=== PATIENT | male | born 1950 | race African-American/Black ===

== ENCOUNTER → 2020-08-10 01:22 | Outpatient (CLI) | payer MEDICARE, SELFPAY ==
[2020-08-10 19:26] LABS: SARS-CoV-2 RNA PCR Negative
== END ==
PROVIDERS: PCP Hospitalist; Visit Provider Specialist
DX: Z01.812 Encounter for preprocedural laboratory examination (principal); Z20.822 Contact with and (suspected) exposure to COVID-19
CPT/HCPCS: C9803; U0003; U0005

== ENCOUNTER 2020-08-12 02:13 | Day surgery (SDC) | payer MEDICARE, SELFPAY ==
[2020-08-11 16:08] VITALS: BMI 29.9
[2020-08-12] VITALS (7 sets, daily range): BP systolic 103–120; BP diastolic 78–96; PULSE 53–65; RESP 10–18; TEMP 36–36.1; O2SAT 95–99; BMI 29.6
[2020-08-12 07:38] LABS: Basophils Percent Auto 0.2 % (0.2-1.2); Eosinophils Absolute Auto 0.2 K/mm3 (0-0.3); Eosinophils Percent Auto 2.2 % (0-4.4); Hematocrit 48.3 % (42.0-52.0); Hemoglobin 16.5 g/dL (14.0-18.0); Immature Granulocyte Absolute 0.02 K/mm3 (0.00-0.031); Immature Granulocyte Percent A 0.2 % (0-0.5); Lymphocytes Absolute Auto 1.43 K/mm3 (0.9-3.2); Lymphocytes Percent Auto 17.4 % (18.3-44.2); Mean Corpuscular HGB Conc 34.2 g/dl (32-36); Mean Corpuscular Hemoglobin 31.4 pg (26-34); Mean Corpuscular Volume 91.8 fl (80-100); Mean Platelet Volume 10.2 fl (7.4-10.4); Monocytes Absolute Auto 0.7 K/mm3 (0.1-0.6); Neutrophils Absolute Auto 5.9 K/mm3 (1.3-6.7); Platelet Count Result 182 k/mm3 (150-375); Red Blood Count 5.26 M/mm3 (4.6-6.20); Red Cell Distribution Width 12.5 % (11.5-14.5); White Blood Count 8.2 K/mm3 (4.5-10.0)
[2020-08-12 07:49] LABS: Anion Gap 8 mmol/L (8-16); Blood Urea Nitrogen 12 mg/dL (9-20); Calcium 9.5 mg/dL (8.4-10.2); Carbon Dioxide 28 mmol/L (22-30); Chloride 104 mmol/L (98-107); Estimated CRCL calculation 91 ml/min; Estimated Glomerular Filt Rate > 60; Glucose 116 mg/dL (75-110); Potassium 3.9 mmol/L (3.4-5.0); Sodium 140 mmol/L (137-145)
--- NOTE | 2020-08-12 09:20 | WPDMODSED ---
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 Procedure to be performed/Plan: Left heart catheterization Allergies Allergy/AdvReac Type Severity Reaction Status Date / Time No Known Allergies Allergy Mild Unverified 12/29/09 11:35 Home Medications Medication Instructions Recorded Confirmed Type aspirin 81 mg PO DAILY 08/11/20 08/11/20 History atorvastatin 20 mg PO DAILY 08/11/20 08/11/20 History carvedilol 6.25 mg PO BID 08/11/20 08/11/20 History lisinopril-hydrochlorothiazide 1 tablet PO DAILY 08/11/20 08/11/20 History Current Medications: Active Medications Sodium Chloride (Normal Saline Iv) 500 mls @ 100 mls/hr IV CONT .Q5H [facility] Sedation/Anesthesia: No previous sedation/anesthesia problems (including family history). [facility] Social History Social History Smoking status: Never smoker Alcohol intake: current Substance use type: does not use Living arrangements: alone Gender identity (if verbalized by the patient): Male Mod Sed Physical Exam Physical Exam Pre Procedural Exam: Normal: Appearance, Neck, Throat, Airway, Lungs, Heart Size, Heart Rate, Heart Rhythm, Neuro Exam and Extremities Hours since solid foods: 12 Hours since liquid intake: 12 Internal Medicine - PN: Obj Da Vital Signs Vital Signs: Vital Signs - 24 hr 08/12/20 07:23 Temperature 36.0 C L Pulse Rate 65 Respiratory Rate 10 L Blood Pressure 119/96 H Pulse Oximetry 97 Meds/Results Medications: Active Medications Generic Name Dose Route Start Last Admin Trade Name Freq PRN Reason Stop Dose Admin Sodium Chloride 500 mls @ 100 mls/hr 08/12/20 07:00 Normal Saline Iv IV CONT .Q5H [facility] Labs CBC & Chem 7: 08/12/20 07:30 08/12/20 07:30 Labs: Laboratory Results - last 24 hr 08/12/20 08/12/20 07:30 07:30 WBC 8.2 RBC 5.26 Hgb 16.5 Hct 48.3 MCV 91.8 MCH 31.4 MCHC 34.2 RDW 12.5 Plt Count 182 MPV 10.2 Immature Gran % (Auto) 0.2 Neut % (Auto) 72.0 Lymph % (Auto) 17.4 L Pike % (Auto) 8.0 Eos % (Auto) 2.2 Baso % (Auto) 0.2 Lymph # (Auto) 1.43 Pike # (Auto) 0.7 H Eos # (Auto) 0.2 Baso # (Auto) 0.0 Abs Immat Gran (auto) 0.02 Absolute Neuts (auto) 5.9 Absolute Nucleated RBC 0.0 Nucleated RBC % 0.0 Sodium 140 Potassium 3.9 Chloride 104 Carbon Dioxide 28 Anion Gap 8 BUN 12 Creatinine 0.80 Estim Creat Clear Calc 91 Estimated GFR > 60 Glucose 116 H Calcium 9.5 ASA Classification/Sedation ASA Classification/Sedation ASA Class: II Emergent: No Risks: Risks, benefits and alternatives explained and patient/family accepted plan for sedation. Patient re-evaluated immediately prior to sedation.
--- NOTE | 2020-08-12 11:47 | WPDCARDPROC ---
Cardiac Cath Procedure Note Date of procedure:: 08/12/20 Performing physician:: Barrington Cordero MD Indication:: chest pain Brief clinical history:: this is a 70-year-old man without previous history of coronary disease. He does have a history of aortic root dilation. He had a nuclear stress test as an outpatient that was negative. Despite this because of ongoing symptoms and angiogram has now been recommended. Procedure Procedure performed:: Left ventriculogram coronary angiogram Angio-Seal to right femoral artery Sedation/Medication given:: fentanyl 50 mg Versed 2 mg case start time 11:25 a.m. case end time 11:45 a.m. sedation bySteph Renee RN, trained observer Access site:: right femoral artery Estimated blood loss:: 10-15 cc Procedure note:: patient was brought to the cardiac catheterization lab in the postabsorptive state where the right femoral triangle was prepared and draped in the usual fashion. Anesthesia was provided with 1% lidocaine infiltrated locally. Using the modified Seldinger technique a 5 Iraqi sheath was placed into the right common femoral artery. A left heart catheterization was then carried out. A 5 Iraqi angled pigtail catheter was used to document left-sided hemodynamics and to injected LV g in the are AO projection. After this I advanced a 5 Iraqi FL4 catheter into the aortic root but as it was dilated with not satisfactorily engage the left coronary artery. This was withdrawn and replaced with a 5 Iraqi FL 5 catheter which engaged the left coronary artery nicely for angiography. Following this the right coronary was engaged and injected using a standard 5 Iraqi JR4 catheter. The cine angiograms were then reviewed and the case was terminated. An angiogram was done of the femoral artery through the sheath after which a 6 Iraqi Angio-Seal device was deployed at the site of the arterial puncture with a good hemostatic result. The patient left the mobile lab technician with no evidence of any procedural complications and no sign of a groin hematoma. Findings:: Hemodynamics: Central aortic pressure was 104 over 68 left ventricle 104 over 0 end-diastolic pressure 6 there is no gradient on pullback across the aortic valve. Left ventricle: The LV is normal in size. There was a lot of ventricular irritability during the ventricular injection but when that was finished the ejection fraction appears to be 65-70%, somewhat hyperdynamic in appearance. The left main coronary artery is medium in caliber and nicely patent the left anterior descending is a medium caliber vessel extending down to and around the apex the LAD is smooth and angiographically normal. The mid to distal portion of the LAD is rather tortuous. They 2nd diagonal branch of the LAD has a proximal area of atherosclerotic stenosis of about 60-70%. Circumflex is a large caliber vessel giving rise to the marginal branches and a posterior branch. Circumflex is smooth and angiographically normal. The right coronary artery is large in caliber and dominant to the posterior circulation. It is tortuous proximally. The right coronary artery is free of disease. Conclusion:: 1. Right coronary dominant circulation with modest coronary disease involving 60-70% stenosis of the 2nd diagonal branch of the LAD. 2. Vigorous, somewhat hyperdynamic appearing left ventricular systolic function 3. based on this data patient's chest pain syndrome does not appear to be related to myocardial ischemia especially in the face of a normal stress test as well 4. Angio-Seal to right femoral artery 5. dilated ascending aorta requiring use of a JL5 catheter to engage the left coronary ostium Barrington Cordero MD [facility]
== END 2020-08-12 14:50 | disposition home or self-care (01) ==
PROVIDERS: PCP Hospitalist; Visit Provider Specialist
PROC: 4A023N7 Measurement of Cardiac Sampling and Pressure, Left Heart, Percutaneous Approach (ICD-10-PCS; CPT 93452; principal; 2020-08-12 08:30)
DX: R07.9 Chest pain, unspecified (principal); I25.10 Atherosclerotic heart disease of native coronary artery without angina pectoris; I10 Essential (primary) hypertension; E78.5 Hyperlipidemia, unspecified; I71.2 Thoracic aortic aneurysm, without rupture; Z79.82 Long term (current) use of aspirin
CPT/HCPCS: 36415; 80048; 85025; 93458; C1760; C1887; C1894; C9803; G0269; J1644; J2250; J3010; J7040; U0003; U0005

== ENCOUNTER 2021-02-10 13:02 | Emergency (ER) | payer MEDICARE, SELFPAY ==
--- NOTE | ~2021-02-10 | XR_ITS ---
XR knee LT 3V 02/10/2021 15:05 Indication: Left knee pain Procedure: 3 views left knee Comparison: No prior studies for comparison. Findings: There is moderate tricompartment osteoarthritis, most advanced in the patellofemoral compar tment. No acute fracture, subluxation or dislocation. No significant joint effusion. No foreign james s. Impression: 1: No acute fracture. Reviewed, dictated and finalized at location A. ER Impression: 1: No acute fracture.
--- NOTE | ~2021-02-10 | XR_ITS ---
XR wrist RT 2V 02/10/2021 15:05 Indication: Right wrist pain after fall Procedure: 2 views right wrist Comparison: No prior studies for comparison. Findings: There is an old ulnar styloid fracture. Mild polyarticular osteoarthritis. Osteopenia. No a cute fracture, subluxation or dislocation. No foreign bodies. No focal soft tissue abnormality. Impression: 1: No acute fracture. Reviewed, dictated and finalized at location A. [employer] Impression: 1: No acute fracture.
--- NOTE | ~2021-02-10 | XR_ITS ---
XR knee RT 3V 02/10/2021 15:05 Indication: Right knee pain Procedure: 3 views right knee Comparison: No prior studies for comparison. Findings: There is osteoarthritis of the right knee, most advanced in the patellofemoral compartment. Small joint effusion. No acute fracture or traumatic malalignment. Impression: 1: No acute fracture. 2: Small joint effusion. 3: Moderate osteoarthritis. Reviewed, dictated and finalized at location A. [facility] OF RADIOLOGY Impression: 1: No acute fracture. 2: Small joint effusion. 3: Moderate osteoarthritis.
[2021-02-10 13:12] VITALS: BP 140/93; PULSE 80; RESP 16; TEMP 36.4; O2SAT 100
--- NOTE | 2021-02-10 15:56 | ED.FALL ---
HPI - Fall General Chief Complaint: Fall Stated Complaint: fall Time Seen by Provider: 02/10/21 14:41 Source: patient History of Present Illness HPI Narrative: Patient presents after a fall. Patient reports he was walking around the store when he tripped over a box. He reports he fell to his knees and onto his right shoulder. Reports his primary area of pain is on his right knee. He also notes increased swelling to the area so he came to the ER for evaluation. His knee is achy, constant, worse with walking around, no radiation. Pain to his right wrist he denies any focal numbness or weakness denies striking his head denies any loss of consciousness denies use of blood thinners Related Data Home Medications Medication Instructions Recorded Confirmed aspirin 81 mg PO DAILY 08/11/20 08/11/20 atorvastatin 20 mg PO DAILY 08/11/20 08/11/20 carvedilol 6.25 mg PO BID 08/11/20 08/11/20 lisinopril-hydrochlorothiazide 1 tablet PO DAILY 08/11/20 08/11/20 Allergies Allergy/AdvReac Type Severity Reaction Status Date / Time No Known Allergies Allergy Mild Unverified 12/29/09 11:35 Review of Systems Review of Systems: CONSTITUTIONAL: Denies fever, chills, or sweats. EYES: Denies visual changes, redness, or discharge. ENT: Denies rhinorrhea, congestion, sore throat, or otalgia. CARDIOVASCULAR: Denies chest pain, palpitations, or edema. RESPIRATORY: Denies cough or dyspnea. GASTROINTESTINAL: Denies abdominal pain, nausea, vomiting, or diarrhea. GENITOURINARY: Denies dysuria or hematuria. SKIN: Denies rash or itching. MUSCULOSKELETAL: Denies back pain, or myalgia. NEUROLOGIC: Denies headache, numbness, dizziness, or weakness. PSYCHIATRIC: Denies anxiety or depression. All systems reviewed & are unremarkable except as noted in HPI and below PMFSH Past Medical History Medical History (Updated 02/10/21 @ 16:04 by Dmitriy Humphries MD) HTN (hypertension) Social History Social History Smoking status: Never smoker Alcohol intake: current Substance use type: does not use Gender identity (if verbalized by the patient): Male Exam Narrative: GENERAL: Well-appearing, well-nourished, and in no acute distress. HEAD: Normocephalic, atraumatic. EYES: PERRLA and EOMI. ENT: Nares clear, no rhinorrhea or epistaxis. Mucous membranes moist. NECK: Supple. No masses. No JVD EXTREMITIES: Range of motion of the right knee limited by pain and edema. There is mild diffuse edema to the right knee there is no focal bony tenderness there is no obvious deformity there is no laxity with valgus varus stress anterior posterior drawer negative. Left knee with mild diffuse tenderness minimal edema no laxity with valgus and varus stress no laxity with anterior posterior drawer. There is mild edema on the dorsal aspect of the right proximal hand there is no snuffbox tenderness there is no limited range of motion to the hand or the wrist is less than 2-second cap refill in the bilateral lower extremities and on the right upper extremity. Sensation intact light touch in bilateral lower extremities and right upper extremity SKIN: Warm, dry, no rash. NEURO: No focal deficits. Alert and oriented x3. PSYCH: Normal mood and affect. Course Reevaluation(s) Reevaluation #1: Results and plan reviewed with patient. Patient comfortable with outpatient plan. Date: 02/10/21 Time: 16:02 Vital Signs Vital signs: Vital Signs Temperature 36.4 C 02/10/21 13:12 Pulse Rate 80 02/10/21 13:12 Respiratory Rate 16 02/10/21 13:12 Blood Pressure 140/93 H 02/10/21 13:12 Pulse Oximetry 100 02/10/21 13:12 Temperature 36.4 C 02/10/21 13:12 Pulse Rate 80 02/10/21 13:12 Respiratory Rate 16 02/10/21 13:12 Blood Pressure 140/93 H 02/10/21 13:12 Pulse Oximetry 100 02/10/21 13:12 MDM - Fall MDM Narrative Medical decision making narrative: H&P as above, vss, pt looks clinically well, exam with e
== END 2021-02-10 16:15 | disposition home or self-care (01) ==
PROVIDERS: Emergency Provider Emergency Medicine; PCP Hospitalist
DX: S80.01XA Contusion of right knee, initial encounter (principal); S63.501A Unspecified sprain of right wrist, initial encounter; M25.461 Effusion, right knee; I10 Essential (primary) hypertension; Z79.82 Long term (current) use of aspirin; M17.0 Bilateral primary osteoarthritis of knee; W18.09XA Striking against other object with subsequent fall, initial encounter
CPT/HCPCS: 73100; 73562; 99284

== ENCOUNTER 2024-03-12 14:30 | Outpatient (RCR) | payer MEDICARE, SELFPAY ==
--- NOTE | 2024-02-27 12:12 | OTOPEVAL1 ---
Assessment and note entered by Stuart Roy, PILI/Krissy, FLETCHERT OT Evaluation Information 02/27/24 Assessment Status Evaluation Diagnosis Bilateral carpal tunnel syndrome Subjective Information Patient is left handed. Patient reports symptoms are worse on the left vs right. He reports symptoms have been going on for 3-6 months, progressively getting worse. Symptoms include paresthesia at night, wakes up with numbness, has to change positions to relieve the symptoms. He likes to play pickle ball and tennis, no difficulties with this. EMG confirms diagnosis. Reported Pain Level Pain Score 0: Self Report Assessment OT Clinical Summary Patient referred to OT with dx of bilateral carpal tunnel syndrome. He presents with soft tissue tightness, joint stiffness, and reports of paresthesia. Skilled OT indicated for use of modalities, HEP instruction progression, orthotic fabrication/education, therapeutic exercise, and manual therapy to facilitate reduced carpal tunnel symptoms in bilateral upper extremities. Plan of Care Interventions Therapeutic Exercise,Manual Therapy,Neuro Re- education,Therapeutic Activities,Hot Pack/Cold Pack,Self-Care/Home Management,Check Out for Orthotic/Prosthetic,Ultrasound,Paraffin OT Services Indicated Yes Treatment Frequency and 2x/week for 8 visits Duration These treatments will address the objective and functional deficits as defined above. The patient will be advanced safely and appropriately in order for the patient to progress towards his/her prior level of function. Additional exercises will be introduced and as well as a comprehensive home exercise program upon discharge, if needed, ?to ensure carryover of functional gains achieved in the clinic. This treatment plan has been reviewed and agreement upon by the patient.
--- NOTE | 2024-02-27 12:12 | OPREHPOC ---
Outpatient Therapy Plan of Care This is a Multidisciplinary Plan of Care that may contain components documented by all disciplines (PT, OT, and ST.) OT Problem 1 OT Problem #1 Knowledge Deficit OT Goal 1 Goal / Goal Update Pt to be independent with instructed materials. Target Visit 8 OT Problem 2 OT Problem #2 Impaired Sensation OT Goal 1 Goal / Goal Update Patient to report no longer experiencing bilateral hand paresthesia at night. OT Problem 3 OT Problem #3 Impaired Strength OT Goal 1 Goal / Goal Update Patient to be able to complete elbow, forearm, wrist, and hand strengthening HEP without pain or paresthesia. OT Problem 4 OT Problem #4 Impaired Flexibility OT Goal 1 Goal / Goal Update Patient to be able to complete median nerve glide exercises without reports of paresthesia. Target Visit 8
--- NOTE | 2024-03-19 15:33 | PCOTNOTE ---
Patient did not show up for scheduled appointment this date. Patient was called and message was left to reschedule. Patient was also reminded up upcoming appointment.
--- NOTE | 2024-03-30 11:02 | OTOPDC ---
Assessment and note entered by Stuart Roy, PILI/Krissy, CHT OT Discharge Notification 03/30/24 Assessment Status Discharge - Pt Not Present Diagnosis Bilateral carpal tunnel syndrome Subjective Information -Patient is left handed. Patient reports symptoms are worse on the left vs right. He reports symptoms have been going on for 3-6 months, progressively getting worse. Symptoms include paresthesia at night, wakes up with numbness, has to change positions to relieve the symptoms. He likes to play pickle ball and tennis, no difficulties with this. -EMG confirms diagnosis. Assessment OT Clinical Summary Patient called and cancelled remaining visits giving no particular reason. Discharging OT at this time. He attended the initial evaluation and 1 follow up session.
== END 2024-03-30 15:29 | disposition home or self-care (01) ==
LOC: ANHOT 14:30
PROVIDERS: PCP Family Medicine
DX: G56.01 Carpal tunnel syndrome, right upper limb (principal); G56.02 Carpal tunnel syndrome, left upper limb
CPT/HCPCS: 97018; 97110

== ENCOUNTER 2024-07-20 22:18 | Emergency (ER) | payer MEDICARE, SELFPAY ==
--- NOTE | ~2024-07-20 | XR_ITS ---
CHEST RADIOGRAPH, PA AND LATERAL CLINICAL HISTORY: palpitations, OPEN HEART SURGERY June . COMPARISON: None TECHNIQUE: PA and lateral views of the chest. FINDINGS Sternal wires are identified, the wires are midline and intact. 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 Calcified mediastinal lymph nodes are present. The remainder of the cardiomediastinal silhouette is otherwise unremarkable. Blunting of the bilateral costophrenic sulci consistent with bilateral small pleural effusions, right greater than left. Coarse interstitial lung markings detected bilaterally is scarring in the right mid to lower lung fie ld. The remainder of the lungs are clear. IMPRESSION: Small bilateral pleural effusions, right greater than left. Chronic interstitial change. Findings suggesting prior granulomatous disease. Reviewed, dictated and finalized at location A.
--- NOTE | 2024-07-20 22:21 | ECG_ITS ---
Test Date: 2024-07-20 22:32:33 Measurements Intervals Two Dot Rate: 99 P: 11 CT: 144 QRS: 56 QRSD: 93 T: 44 QT: 420 QTc: 539 Interpretive Statements SINUS RHYTHM WITH OCCASIONAL VENTRICULAR PREMATURE COMPLEXES IN A BIGEMINAL PATTERN POSSIBLE LEFT ATRIAL ENLARGEMENT [-0.1mV P-WAVE IN V1/V2] NONSPECIFIC ST AND T-WAVE ABNORMALITY PROLONGED QT INTERVAL No previous ECG available for comparison Electronically Signed On 07-21-2024 14:21:19 CDT by Jesus Loving M.D.
--- OUTSIDE RECORDS SUMMARY | 2024-07-20 22:22 | XMS_ITS | Referral Summary ---
Author Organization [facility] Address [address] [place] [address] Care Team Providers Care Signal Intelligence/Electronic Warfare Name Role Phone Chetan Torres MD Unavailable Mark Don MD Primary Care Provider [phone] Felipe Alfaro MD Unavailable [phone] Marck Owens MD Unavailable Encounters Date Type Department Care Team Description 07/08/2024 Telephone Cardiovascular and Thoracic Surgery [address] [facility] [address] [place] [address] Felipe Alfaro MD Post-op 07/08/[address] [facility] Cardiology [address] [facility] [address] [place] [address] Marck Owens MD Shortness of Breath; pain when walking; Cough 07/07/2024 Orders Only Cardiovascular and Thoracic Surgery [address] [facility] [address] [place] [address] Viola Zarco RN Aneurysm of ascending aorta without rupture (Primary Dx) 06/26/2024 5:41 AM CDT - 07/03/2024 3:58 PM CDT Hospital Encounter [place] [facility] [address] [phone] Felipe Alfaro MD Encounter for screening colonoscopy (Primary Dx); Nonrheumatic aortic valve insufficiency; Aneurysm of ascending aorta without rupture; Aortic root aneurysm; S/P AVR Discharge Disposition: Discharge to home, home health skilled care 06/26/2024 6:50 AM CDT Ancillary Procedure [facility] [address] [place] [phone] 06/26/2024 8:13 AM CDT Anesthesia Event [facility] [address] [place] [phone] Bassam Mercedes MD PhD Peterson, Nathan Scott, CRNA 06/26/2024 8:00 AM CDT - 06/26/2024 1:15 PM CDT Surgery [facility] [address] [place] [phone] Felipe Alfaro MD MINIMALLY INVASIVE SRI ARCH COMPOSITE ROOT 06/25/2024 Telephone Cardiovascular and Thoracic Surgery [address] [place] [address] [place] [phone] Felipe Alfaro MD 06/18/2024 Telephone Cardiovascular and Thoracic Surgery [address] [place] [phone] Felipe Alfaro MD OTHER 06/15/2024 Documentation Cardiovascular and Thoracic Surgery [address] [place] [phone] Daphne Cali 06/15/2024 9:35 AM CDT Lab [facility] Outpatient Lab [address] [place] [phone] Aneurysm of ascending aorta without rupture 06/15/2024 8:45 AM CDT Office Visit Cardiovascular and Thoracic Surgery [address] [place] [phone] Felipe Alfaro MD Aneurysm of ascending aorta without rupture (Primary Dx) 06/12/2024 Telephone Cardiovascular and Thoracic Surgery [address] [place] [address] [address] [place] [address] Viola Zarco RN 06/11/2024 Telephone Cardiovascular and Thoracic Surgery [address] [place] [address] [address] [place] [address] Felipe Alfaro MD OTHER 06/08/2024 Telephone Cardiovascular and Thoracic Surgery [address] [place] [address] [address] [place] [address] Felipe Alfaro MD Other 05/25/2024 11:30 AM CDT - 05/25/2024 1:00 PM CDT Surgery [facility] Cardiac Catheterization Lab [address] [place] [address] Chase Garcia MD LEFT HEART CATHETERIZATION WITH CORONARY ANGIOGRAPHY AND WITH OR WITHOUT LEFT VENTRICULOGRAM [id number] 05/25/2024 9:04 AM CDT - 05/25/2024 3:46 PM CDT Hospital Encounter [facility] Cardiac Catheterization Lab [address] [place] [address] hCase Garcia MD Aneurysm of ascending aorta without rupture; Thoracic aortic aneurysm without rupture, unspecified part Discharge Disposition: Discharge to home or self care 2024 Telephone Cardiovascular and Thoracic Surgery [address] [place] [address] [address], [place] [address] Felipe Alfaro MD medical questions 05/14/[address] [facility] Cardiology [address] [place] [phone] Marck Owens MD 05/14/[address] [facility] Cardiology [address] [place] [phone] Marck Owens MD 05/11/2024 11:00 AM REGIONAL SAFETY MANAGER Office Visit Cardiovascular and Thoracic Surgery [address] [place] [address] [address], [place] [address] Felipe Alfaro MD Aneurysm of ascending aorta without rupture (Primary Dx); Aortic root aneurysm 05/08/2024 Results Follow-Up [facility] Cardiology [address] [place] [address] Marck Owens MD 05/07/2024 1:30 PM REGIONAL SAFETY MANAGER Ancillary Procedure [facility] Cardiology at [address] [place] [phone] Aneurysm of ascending aorta without rupture; Coronary artery disease involving [place] coronary artery of [place] heart without angina pectoris; Essential hypertension from Last 3 Months Allergies No known active allergies Medications aspirin 81 mg chewable tablet chew 1 tablet by oral route every day 30 0 10/28/19 13 Active atorvastatin (LIPITOR) 20 mg tabletIndication s:Thoracic aortic aneurysm without rupture,Hyperlip idemia LDL goal <70 Take 1 tablet (20 mg total) by mouth nightly 90 tablet 3 12/27/19 23 Active metoprolol XL (TOPROL-XL) 25 mg extended release tablet Take 1 tablet (25 mg total) by mouth daily 07/04/19 25 Active amiodarone (PACERONE) 200 mg tablet Take 2 tablets (400 mg total) by mouth 2 (two) times a day Take 2 tablets (400 mg total) by mouth 2 (two) times a day for 1 week and then decrease to 2 tablets (400 mg total) by mouth once a day 70 tablet 07/04/19 25 Active traMADoL (ULTRAM) 50 mg tablet Take 1 tablet (50 mg total) by mouth every 6 (six) hours as needed for pain 20 tablet 07/04/19 25 Active apixaban (ELIQUIS) 5 mg tabletIndication s:atrial fibrillation Take 1 tablet (5 mg total) by mouth 2 (two) times a day 60 tablet 1 07/04/19 25 Active carvediloL (COREG) 6.25 mg tablet Take 1 tablet (6.25 mg total) by mouth 2 (two) times a day with meals 180 tablet 3 08/30/19 23 025 Discontinued(St op Taking at Discharge) lisinopril-hydro CHLOROthiazide (ZESTORETIC) 20-25 mg per tablet Take 1 tablet by mouth every morning 90 tablet 3 11/07/19 23 025 Discontinued(St op Taking at Discharge) metoprolol XL (TOPROL-XL) 25 mg extended release tablet Take 2 tablets (50 mg total) by mouth daily 10/22/19 24 025 Discontinued traMADoL (ULTRAM) 50 mg tablet Take 1 tablet (50 mg total) by mouth every 6 (six) hours as needed 01/29/20 24 025 Discontinued(St op Taking at Discharge) Active Problems Problem Noted Date Diagnosed Date Pleural effusion 07/03/2024 Nonrheumatic aortic valve insufficiency 06/16/19 25 Aortic root aneurysm 06/15/2024 Family history of colon cancer in mother 024 Encounter for screening colonoscopy 01/02/2024 Encounter for annual wellnes s visit (AWV) in Medicare patient 07/03/2023 Assessment & Plan (07/03/2023 9:15 AM CDT): A(n) yearly Medicare Annual Wellness Visit has been performed today. Salvatore May is not up to date on screening tests. He is in need of hepatitis b screening and Colon cancer screening. He is not up to date on needed preventative vaccinations. We discussed healthy lifestyle habits, educational material has been given. Medications reviewed, changes documented as per the medical record and discussed with patient along with risks vs benefits. Return in 6 months Palpitations 04/23/2023 Encounter to establish care with new doctor 03/2022 Assessment & Plan (05/16/2022 12:26 PM REGIONAL SAFETY MANAGER): Discussed rationale for having vital signs done. Explained to the salvatore the reason why I wanted to do this as a formal visit rather than a g et to know you session . I explained the process for reimbursement for our services from his insurance company. Initially, he did seem offended that I would want to get vital signs and bill his insurance for today's visit. 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 We seem to end and a more pleasant note, he did allow us to take his vital signs and a quick exam. I encouraged him to stay with his current primary care physician if it is possible, but we would welcome to see him for follow-up if he chose to stay local. He did have an appointment with Dr. Meyer on with labs, apparently he will be keeping that appointment. If he is staying with us, we will see him back in 6 months. Pseudophakia of left eye 08/22/2021 Assessment & Plan (10/08/2021 7:35 PM CDT): S/p CEIOL OS Riley/Herbert 08/23/21 - Floppy iris intraop self resolved- use Malindaaleksandra abdifatah second eye @@@ Today tr-1+ cell, ran out of PF 2.5 weeks ago, MRx to 20/20 No lens material on gonio, no sign of infection. Second eye- pt would like to hold off on planning for second eye for now. Plan: Resume PF BID OS for 2 weeks, then 1x/day for 2 weeks then off RTC JIL 3 weeks for IOP/AC check, adjust drops as necessary. Assessment & Plan (09/28/2021 8:40 AM CDT): POM1 s/p CEIOL OS Riley/Herbert - Floppy iris intraop self resolved- use Demetria gardiner second eye Today tr-1+ cell, ran out of PF 2.5 weeks ago, MRx to 20/20 No lens material on gonio, no sign of infection. Second eye- pt ould like to hold off on planning for second eye for now. Plan: Resume PF BID OS for 2 weeks, then 1x/day for 2 weeks then off RTC JIL 3 weeks for IOP/AC check, adjust drops as necessary. Assessment & Plan (08/29/2021 9:02 AM CDT): Assessment/Plan 1. POW #1 s/p CE/PCIOL OS -- floppy iris intraop self resolved - Demetria gardiner second eye - Doing well - Prednisolone 4-3-2-1 weekly OS - Ofloxacin QID OS for one more week - Reviewed signs/symptoms endophthalmitis, RT/RD; patient to call immediately if any worsening vision, pain, redness, flashes/floaters/curtains - RTC 1 month Assessment & Plan (08/24/2021 10:08 AM CDT): Assessment/Plan 1. POD #1 s/p CE/PCIOL OS -- did have intraop floppy iris which self resolved. Demetria gardiner second eye - Doing well - Prednisolone QID OS - Ofloxacin QID OS - Reviewed signs/symptoms endophthalmitis, RT/RD; patient to call immediately if any worsening vision, pain, redness, flashes/floaters/curtains - No lifting/bending/swimming. Todd shield while sleeping, protective eyewear during day. - RTC 1 week Suspected glaucoma of both eyes 05/04/2021 Assessment & Plan (05/04/2021 11:27 AM REGIONAL SAFETY MANAGER): No FHx, no trauma, no prior surgeries Physiologic large cups, healthy rims OCT RNFL full OU IOP upper limits normal Yearly IOP check/DFEx Coronary artery disease invo lving b[place] coronary artery of [place] heart 02/06/2021 Assessment & Plan (12/21/2021 10:14 AM CDT): Continue aspirin 81mg a day and Atorvastatin 20mg a day Assessment & Plan (02/06/2021 10:26 AM REGIONAL SAFETY MANAGER): Start Atorvastatin 20mg a day Chest tightness 07/15/2020 Hyperlipidemia LDL goal <70 07/15/2020 Numbness of fingers of both hands 06/25/2020 Assessment & Plan (12/21/2021 10:13 AM CDT): Patient to use braces at night Assessment & Plan (02/10/2021 10:21 PM REGIONAL SAFETY MANAGER): Patient to use Cock-up splints for carpal tunnel syndrome Assessment & Plan (06/25/2020 8:08 AM CDT): This could be early carpal tunnel syndrome. If symptoms continue will order EMG/Nerve conduction study Chest pain 06/24/2020 Assessment & Plan (02/18/2022 8:12 AM REGIONAL SAFETY MANAGER): Most likely related to muscle skeletal pain from poor mechanics with swinging the golf ball. Patient is going to obtain lessons to improve mechanics Assessment & Plan (06/25/2020 8:11 AM CDT): Will order an EKG and ECHO. Will monitor. If Echo and CT shows stable aortic aneurysm, will have patient to get stress test given his risk score. Weak urinary stream 06/24/2020 Assessment & Plan (06/24/2020 9:39 AM CDT): Patient to start tamsulosin 0.4 mg daily for symptomatic relief. Will monitor. Impacted cerumen of left ear 06/24/2020 Assessment & Plan (06/24/2020 9:43 AM CDT): Patient's left ear was flushed out in clinic today. Physical exam 06/23/2020 Assessment & Plan (06/23/2020 3:11 PM CDT): Discussed age appropriate safety precautions. Recommended a well balanced diet and exercise. Lightheadedness 04/23/2020 Assessment & Plan (04/23/2020 4:34 PM REGIONAL SAFETY MANAGER): Will check labs Pain of foot 08/27/2013 Benign hypertension 08/01/2013 Overview (06/20/2016): BENIGN HYPERTENSION Arthralgia of ankle 07/29/2013 Aneurysm of thoracic aorta 12/25/2012 Overview (06/20/2016): Thoracic aneurysm Assessment & Plan (12/21/2021 10:13 AM CDT): Patient to repeat scan 07/08 Assessment & Plan (02/06/2021 10:27 AM REGIONAL SAFETY MANAGER): Continue yearly surveillance Knee pain 2011 Essential hypertension 05/03/2009 Assessment & Plan (02/18/2022 8:16 AM REGIONAL SAFETY MANAGER): Continue Lisinopril/HCTZ 20/25mg one tablet day Assessment & Plan (12/21/2021 10:12 AM CDT): Continue Carvedilol 6.25mg one tablet twice a day and Lisinopril-HCTZ 20/25mg one tablet a day Assessment & Plan (02/06/2021 10:19 AM REGIONAL SAFETY MANAGER): Continue Lisinopril/HCTZ 20/25mg one tablet a day and Carvedilol 6.25mg one tablet a day Assessment & Plan (06/24/2020 9:42 AM CDT): BP today is 110/70. Continue current treatment -- carvedilol 6.25 mg BID and lisinopril-HCTZ 20-25 mg daily. Encourage low-sodium diet and regular exercise. Will monitor. Assessment & Plan (04/23/2020 4:33 PM REGIONAL SAFETY MANAGER): Patient to call back with list of medications Right hip pain 02/02/2009 Assessment & Plan (02/18/2022 8:17 AM REGIONAL SAFETY MANAGER): Follow up with orthopedics Resolved Problems Problem Noted Date Diagnosed Date Resolved Date Combined forms of age-relate d cataract of both eyes 05/03/2021 08/29/2021 Assessment & Plan (06/07/2021 10:29 AM CDT): Cataract Pre-Op Note HPI: Salvatore May is a 71 y.o. y/o male who presents for cataract evaluation. They have noticed progressive loss of vision over the last few years, and feel that surgery would help enhance vision & quality of life. Ocular ROS: Glare Yes Halos Yes Trouble driving Yes Trouble reading Yes All other ROS negative unless noted in HPI. Active ocular issues: 1) glaucoma suspect OU Ocular History: Amblyopia No Vitrectomy No Scleral buckle No Intravitreal Injections No Laser refractive surgery No History of ocular trauma No History of eye infection No Medical History: Past Medical History: Diagnosis Date Aortic aneurysm (CMS/HCC) (HCC) Chest pain HX OTHER MEDICAL Urethral stricture HX OTHER MEDICAL infected right hip prosthesis HX OTHER MEDICAL 2nd right hip replacement Hypertension Hypertension Medical ROS: 1) Angina present? No 2) Cough or orthopnea? No 3) Dyspnea on exertion? No 4) Has sleep apnea/wears CPAP? No 5) Patient is able to lie flat for at least 1 hour Yes Current medications: Systemic medications per EMR Flowmax/Hytrin No Coumadin/Plavix No Allergies: No Known Allergies Latex allergy: No Cataract specific exam findings: Prominent brow No Dense arcus No K spindle No Guttae No PXE material No TIDs No Phacodonesis No Posterior synechiae No L/I step off No Mature/white No Dominant Eye: the right eye Dilates to: OD 7 mm OS 7 mm Assessment and Plan 1. Visually Significant Cataract of both eyes - Patient interested in having CE/IOL of the LEFT eye - R/B/A of surgery discussed in detail with patient including but not limited to infection, bleeding, persistent inflammation, diplopia, ptosis, macular edema, intraocular pressure abnormalities, need for further surgeries or procedures, need for spectacle correction after surgery, possible loss of vision, possible loss of the eye, and risks of anesthesia. - Additional risks discussed included IOP increase - The patient understands these risks and wishes to proceed. - Target refraction was discussed with the patient. We discussed near, distance, and monovision; we also discussed multifocal and toric lenses. The patient elected to target PLANO. Patient Name: Salvatore May : 1950 Preferred contact phone #: [phone] Planned Operation: CE/IOL the left eye Diagnosis: Visually significant combined form of age related cataract Time: 45 minutes Patient Status: Outpatient Anesthesia: MAC; If general anesthesia, reason: Local: Topical Allergies: No Known Allergies Software Administrator needed: No Special equipment: none 23-hr stay? No Preop meds: None Weight greater than 350 lbs: No [facility] case: No; If yes, reason: Med clearance: CPAP requested? TPAP IOL Master: done today Additional perioperative testing/procedure needed?: none Assessment & Plan (05/04/2021 11:30 AM REGIONAL SAFETY MANAGER): New patient referred from [place] for evaluation of cataracts OU. No records sent. No ocular trauma, no other ocular conditions VA ph 20/40 OD, 20/50 OS, PAP 20/20 OU Dilates to 7 mm Physiologic large nerves with good rim, OCT RNFL full OU Temporal lattice OD, otherwise normal DFEx Plan: - Pt wanted to head out before meeting surgeon due to weather - RTC next available pre-op clinic for IOLM, no dilation, cataract discussion and scheduling (likely OS first) Encounter for immunization 06/24/2020 0 07/03/2023 Assessment & Plan (06/24/2020 9:35 AM CDT): Patient received the Prevnar-13 vaccination in clinic today. Methicillin resistant Staphy lococcus aureus infection 07/01/2009 07/03/2023 Cutaneous abscess 07/01/2009 07/03/2023 Infection and inflammatory r eaction due to device, implant, and graft 05/03/2009 07/03/2023 Immunizations Immunization Administration Dates Next Due Influenza, Quadrivalent, Hig h Dose, Preservative Free, Intrr 12/14/2022,12/21/2021,02/06/2021,01/05 Influenza, Trivalent, IM (MDV) 02/27/2012,2010,04/16/2005 Influenza, Unspecified 12/26/2022(Deferr ed: Patient Refused),12/17/2022,03/18/2022(Deferre d: Patient Refused),01/21/2020 Pfizer SARS-CoV-2 Monovalent Vaccination (12+ Yrs) PURPLE 12/17/2022,12/19/2020,06/02/2020,05/12 Pneumococcal Conjugate PCV 13 08/02/2020 Pneumococcal Polysaccharide PPV23 12/21/2021 Social History Tobacco Use Types Packs/Day Years Used Date Smoking Tobacco: Never Smokeless Tobacco: Former Snuff Quit: 2020 Tobacco Cessation:Counseling Given: Not Answered Alcohol Use Standard Drinks/Week Comments Yes 0 (1 standard drink = 0.6 oz pur e alcohol) one beer every other day. [facility] [employer] Answer Date Recorded In the past 12 months has [employer], gas, oil, or water [employer] threatened to shut off services in your home? No 06/29/2024 Social Connection and Isolat ion Panel [NHANES] Answer Date Recorded In a typical week, how many times do you talk on the phone with family, friends, or neighbors? Twice a week 06/29/2024 Frequency of Social Gatherin gs with Friends and Family Not on file 06/29/2024 How often do you attend chur ch or hindu services? More than 4 times per year 06/29/2024 Do you belong to any clubs o r organizations such as lutheran groups, unions, fraternal or athletic groups, or school groups? No 06/29/2024 How often do you attend meet ings of the clubs or organizations you belong to? Never 06/29/2024 Are you , , di vorced, , never , or living with a partner? 06/29/2024 AUDIT-C Answer Date Recorded Q1: How often do you have a drink containing alc ohol? 2-3 times a week 05/25/2024 Q2: How many drinks containi ng alcohol do you have on a typical day when you are drinking? 1 or 2 05/25/2024 Q3: How often do you have si x or more drinks on one occasion? Never 05/25/2024 Overall Financial Resource Strain (CARDIA) Answe r Date Recorded How hard is it for you to pa y for the very basics like food, housing, medical care, and heating? Somewhat hard 06/29/2024 PHQ-2 Answer Date Recorded PHQ-2 Total Score (If total score is 3 or more points, staff should administer the PHQ-9) 0 07/03/2023 Hunger Vital Sign Answer Date Recorded Within the past 12 months, y ou worried that your food would run out before you got the money to buy more. Never true 06/30/19 25 Within the past 12 months, t he food you bought just didn't last and you didn't have money to get more. Never true 06/29/2024 PRAPARE - Transportation Answer Date Re corded In the past 12 months, has l ack of transportation kept you from medical appointments or from getting medications? No 06/16 In the past 12 months, has l ack of transportation kept you from meetings, work, or from getting things needed for daily living? No 06/29/2024 Housing Stability Vital Sign Answer Brayden e Recorded In the last 12 months, was t here a time when you were not able to pay the mortgage or rent on time? No 06/29/2024 In the past 12 months, how m any times have you moved where you were living? 0 06/29/2024 At any time in the past 12 m [facility], were you homeless or living in a assisted (including now)? No 06/29/2024 Personal Safety Answer Date Recorded Have you ever been in or are you currently in a harmful physical or emotional relationship or is someone making you feel afraid or unsafe? Denies 06/26/2024 Sex and Gender Information Value Date Recorded Sex Assigned at Not on file Legal Sex Male 12:33 PM REGIONAL SAFETY MANAGER Gender Identity Not on file Sexual Orientation Not on file Occupation Industry Job Start Date Job End Date retired Not on file Not on file Not on file Last Filed Vital Signs Vital Sign Reading Time Taken Comments Blood Pressure 110/85 07/03/2024 12:29 PM CDT Pulse 128 07/03/2024 12:29 PM CDT Temperature 36.4 C (97.6 F) 07/03/2024 12:29 PM CDT Respiratory Rate 20 07/03/2024 12:2 9 PM CDT Oxygen Saturation 95% 07/03/2024 12: 29 PM CDT Inhaled Oxygen Concentration - - Weight 107.8 kg (237 lb 10.5 oz) 07/02/2024 8:53 PM CDT Height 193 cm (6' 4 ) 06/26/2024 6:22 AM CDT Body Mass Index 28.93 06/26/2024 6:22 AM CDT Plan of Treatment Not on file Medical Devices Implanted Type Area Employee Relations Specialist Device Identifier Shelf Expiration Date Model / Serial / Lot [employer] Lens Iol Tecnis Smplcty 1-Pc Clr Hughes 20.0 Diopter [id number] - [id number] - [id number] Implanted:Qty: 1 on 08/23/2021 by Steph Lin MD PhD at [facility] Lens Left: [place] [employer] [id number] 05/23/2024 [id number] / [id number] / 0 [employer] Konect Resilia Aortic Valved Conduit 29mm [id number] - [id number] - [id number] Implanted:Qty: 1 on 06/26/2024 by Felipe Alfaro MD at [facility] N/A: Aorta [employer] 12/24/2026 [id number] / [id number] / [employer] Device Closure Fibertape Sternal Cerclage Blunt Needle [id number] - [id number] Implanted:Qty: 1 on 06/26/2024 by Felipe Alfaro MD at [facility] N/A: Sternum [employer] 04/17/2029 [id number] / / [id number] [employer] Device Closure Fibertape Sternal Cerclage Blunt Needle [id number] - [id number] Implanted:Qty: 1 on 06/26/2024 by Felipe Alfaro MD at [facility] N/A: Sternum [employer] 04/17/2029 [id number] / / [id number] Procedures Procedure Name Priority Date/Time Associated Diagnosis Comments XR CHEST 1 VIEW ED Urgent/IP Urgent 07/03/2024 9:26 AM CDT XR CHEST 1 VIEW IP Routine 07/03/2024 5:49 AM CDT EGFR Routine 07/03/2024 1:21 AM CDT RENAL FUNCTION PANEL Routine 07/03/2024 1:21 AM CDT CBC WITHOUT DIFFERENTIAL Routine 07/03/2024 1:21 AM CDT XR CHEST 1 VIEW IP Routine 07/02/2024 5:39 AM CDT EGFR Routine 07/02/2024 12:41 AM CDT RENAL FUNCTION PANEL Routine 07/02/2024 12:41 AM CDT CBC WITHOUT DIFFERENTIAL Routine 07/02/2024 12:41 AM CDT ADD ON LAB TEST Add-On 07/01/2024 9:33 AM CDT XR CHEST 1 VIEW IP Routine 07/01/2024 6:30 AM CDT MAGNESIUM Routine 07/01/2024 1:30 AM CDT EGFR Routine 07/01/2024 1:30 AM CDT RENAL FUNCTION PANEL Routine 07/01/2024 1:30 AM CDT CBC WITHOUT DIFFERENTIAL Routine 07/01/2024 1:30 AM CDT XR CHEST 1 VIEW IP Routine 06/30/2024 6:37 AM CDT EGFR Routine 06/30/2024 12:41 AM CDT APTT Timed 06/30/2024 12:41 AM CDT RENAL FUNCTION PANEL Routine 06/30/2024 12:41 AM CDT CBC WITHOUT DIFFERENTIAL Routine 06/30/2024 12:41 AM CDT APTT Timed 06/29/2024 3:03 PM CDT APTT STAT 06/29/2024 8:48 AM CDT PROTIME-INR STAT 06/29/2024 8:48 AM CDT XR CHEST 1 VIEW IP Routine 06/29/2024 6:07 AM CDT EGFR Routine 06/29/2024 1:15 AM CDT RENAL FUNCTION PANEL Routine 06/29/2024 1:15 AM CDT CBC WITHOUT DIFFERENTIAL Routine 06/29/2024 1:15 AM CDT XR CHEST 1 VIEW IP Routine 06/28/2024 10:09 AM CDT POCT GLUCOSE DEVICE Routine 06/28/2024 8 :05 AM CDT XR CHEST 1 VIEW IP Routine 06/28/2024 6:44 AM CDT EGFR Routine 06/28/2024 5:38 AM CDT RENAL FUNCTION PANEL Routine 06/28/2024 5:38 AM CDT CBC WITHOUT DIFFERENTIAL Routine 06/28/2024 5:38 AM CDT EGFR Routine 06/27/2024 9:05 PM CDT MAGNESIUM Routine 06/27/2024 9:05 PM CDT RENAL FUNCTION PANEL Routine 06/27/2024 9:05 PM CDT POCT GLUCOSE DEVICE Routine 06/27/2024 8 :59 PM CDT POCT GLUCOSE DEVICE Routine 06/27/2024 5 :08 PM CDT CRITICAL CARE Routine 06/27/2024 12:34 PM CDT Aortic root aneurysm POCT GLUCOSE DEVICE Routine 06/27/2024 12:33 PM CDT POCT GLUCOSE DEVICE Routine 06/27/2024 8 :33 AM CDT XR CHEST 1 VIEW IP Routine 06/27/2024 6:46 AM CDT EGFR Routine 06/27/2024 12:23 AM CDT MAGNESIUM Routine 06/27/2024 12:23 AM CDT CALCIUM, IONIZED Routine 06/27/2024 12:23 AM CDT RENAL FUNCTION PANEL Routine 06/27/2024 12:23 AM CDT CBC WITHOUT DIFFERENTIAL Routine 06/27/2024 12:23 AM CDT POCT GLUCOSE DEVICE Routine 06/26/2024 9 :05 PM CDT CRITICAL CARE Routine 06/26/2024 6:30 PM CDT Encounter for screening colonoscopy POCT GLUCOSE DEVICE Routine 06/26/2024 5 :05 PM CDT POCT GLUCOSE DEVICE Routine 06/26/2024 3 :58 PM CDT POCT GLUCOSE DEVICE Routine 06/26/2024 2 :47 PM CDT CRITICAL CARE Routine 06/26/2024 2:07 PM CDT Aortic root aneurysm POCT GLUCOSE DEVICE Routine 06/26/2024 1 :52 PM CDT XR CHEST 1 VIEW ED Urgent/IP Urgent 06/26/2024 1:46 PM CDT COMPREHENSIVE METABOLIC PANEL STAT 06/26/2024 1:16 PM CDT EGFR STAT 06/26/2024 1:16 PM CDT OXYHEMOGLOBIN, PULMONARY ARTERY STAT 06/26/2024 1:16 PM CDT APTT STAT 06/26/2024 1:16 PM CDT PROTIME-INR STAT 06/26/2024 1:16 PM CDT BLOOD GAS, ARTERIAL STAT 06/26/2024 1 :16 PM CDT CALCIUM, IONIZED STAT 06/26/2024 1:16 PM CDT MAGNESIUM STAT 06/26/2024 1:16 PM CDT PHOSPHORUS STAT 06/26/2024 1:16 PM CDT CBC WITHOUT DIFFERENTIAL Routine 06/26/2024 1:16 PM CDT PROTIME-INR STAT 06/26/2024 12:04 PM CDT FIBRINOGEN STAT 06/26/2024 12:04 PM CDT CBC WITHOUT DIFFERENTIAL STAT 06/26/2024 12:04 PM CDT APTT STAT 06/26/2024 12:04 PM CDT POC BLOOD GAS AND CHEMISTRIES, ARTERIAL Routine 06/26/2024 12:03 PM CDT POCT ACTIVATED CLOTTING TIME, HIGH RANGE Routine 06/26/2024 12:01 PM CDT POC BLOOD GAS AND CHEMISTRIES, ARTERIAL Routine 06/26/2024 11:16 AM CDT POCT ACTIVATED CLOTTING TIME, HIGH RANGE Routine 06/26/2024 11:15 AM CDT POC BLOOD GAS AND CHEMISTRIES, VENOUS Routine 06/26/2024 10:55 AM CDT POC BLOOD GAS AND CHEMISTRIES, ARTERIAL Routine 06/26/2024 10:44 AM CDT POCT ACTIVATED CLOTTING TIME, HIGH RANGE Routine 06/26/2024 10:43 AM CDT SURGICAL PATHOLOGY Routine 06/26/2024 10:19 AM CDT Nonrheumatic aortic valve insufficiency Aneurysm of ascending aorta without rupture Aortic root aneurysm POCT ACTIVATED CLOTTING TIME, HIGH RANGE Routine 06/26/2024 10:10 AM CDT POC BLOOD GAS AND CHEMISTRIES, ARTERIAL Routine 06/26/2024 9:55 AM CDT POC BLOOD GAS AND CHEMISTRIES, ARTERIAL Routine 06/26/2024 9:40 AM CDT POCT ACTIVATED CLOTTING TIME, HIGH RANGE Routine 06/26/2024 9:39 AM CDT SC AN PROCEDURE PLACEHOLDER Routine 06/26/2024 9:33 AM CDT POCT ACTIVATED CLOTTING TIME, HIGH RANGE Routine 06/26/2024 8:59 AM CDT SC AN PROCEDURE PLACEHOLDER Routine 06/26/2024 8:31 AM CDT SC AN CENTRAL LINE QUADRUPLE LUMEN Routine 06/26/2024 8:31 AM CDT SC AN PROCEDURE PLACEHOLDER Routine 06/26/2024 8:31 AM CDT PULMONARY ARTERY CATH Routine 06/26/2024 8:31 AM CDT BW AN SHEATH INTRODUCER PERFORMABLE Routine 06/26/2024 8:31 AM CDT SC AN PROCEDURE PLACEHOLDER Routine 06/26/2024 8:27 AM CDT SC AN ELECTIVE ENDOTRACHEAL AIRWAY Routine 06/26/2024 8:27 AM CDT SC AN PROCEDURE PLACEHOLDER Routine 06/26/2024 8:26 AM CDT SC AN PROCEDURE PLACEHOLDER Routine 06/26/2024 8:25 AM CDT REPLACEMENT AORTIC ROOT 06/26/2024 8:13 AM CDT Nonrheumatic aortic valve insufficiency Aneurysm of ascending aorta without rupture Aortic root aneurysm CORNELL ADD-ON FOR OR Routine 06/26/2024 6:5 0 AM CDT XR CHEST 1 VIEW ED Urgent/IP Urgent 06/26/2024 6:43 AM CDT B CHECK SAMPLE STAT 06/26/2024 6:42 AM CDT HEMOGLOBIN A1C STAT 06/26/2024 6:42 AM CDT ECG 12-LEAD Routine 06/26/2024 6:25 AM CDT PREPARE RBC STAT 06/26/2024 6:08 AM CDT B K ANTIGEN TYPE Routine 06/15/2024 12:08 PM CDT ANTIBODY IDENTIFICATION Routine 06/15/2024 11:41 AM CDT EGFR Routine 06/15/2024 9:50 AM CDT Aneurysm of ascending aorta without rupture DIFFERENTIAL AUTO Routine 06/15/2024 9:5 0 AM CDT Aneurysm of ascending aorta without rupture TYPE AND SCREEN Routine 06/15/2024 9:50 AM CDT Aneurysm of ascending aorta without rupture CBC WITH AUTO DIFFERENTIAL Routine 06/15/2024 9:50 AM CDT Aneurysm of ascending aorta without rupture COMPREHENSIVE METABOLIC PANEL Routine 06/15/2024 9:50 AM CDT Aneurysm of ascending aorta without rupture PROTIME-INR Routine 06/15/2024 9:50 AM CDT Aneurysm of ascending aorta without rupture LIPID PANEL Routine 06/15/2024 9:50 AM CDT Aneurysm of ascending aorta without rupture CV HYBRID ROOM (DEFAULT ORDERABLE) Routine 05/25/2024 1:31 PM CDT Aneurysm of ascending aorta without rupture Thoracic aortic aneurysm without rupture, unspecified part VASCULAR ACCESS US GUIDANCE Routine 05/25/2024 1:31 PM CDT Aneurysm of ascending aorta without rupture Thoracic aortic aneurysm without rupture, unspecified part LEFT HEART CATHETERIZATION WITH CORONARY ANGIOGRAPHY AND WITH AND WITHOUT LEFT VENTRICULOGRAM Routine 05/25/2024 1:31 PM CDT Aneurysm of ascending aorta without rupture Thoracic aortic aneurysm without rupture, unspecified part MODERATE SEDATION 05/25/2024 12:41 PM CDT Aneurysm of ascending aorta without rupture Thoracic aortic aneurysm without rupture, unspecified part EGFR Routine 05/25/2024 9:33 AM CDT DIFFERENTIAL AUTO Routine 05/25/2024 9:3 3 AM CDT COMPREHENSIVE METABOLIC PANEL Routine 05/25/2024 9:33 AM CDT CBC WITH AUTO DIFFERENTIAL Routine 05/25/2024 9:33 AM CDT TRANSTHORACIC ECHO (TTE) COMPLETE W DOPPLER/CF WO CONTRAST Routine 05/07/2024 2:19 PM REGIONAL SAFETY MANAGER Aneurysm of ascending aorta without rupture Coronary artery disease involving [place] coronary artery of [place] heart without angina pectoris Essential hypertension COLONOSCOPY 02/19/2024 10:03 AM REGIONAL SAFETY MANAGER HEPATITIS C ANTIBODY Routine 12/26/2022 9:29 AM CDT Encounter for hepatitis C screening test for low risk patient PSA SCREEN Routine 12/26/2022 9:29 AM CDT Screening PSA (prostate specific antigen) from Last 3 Months or Most Recently Relevant to Health Maintenance Results * XR Chest 1 View (07/03/2024 9:26 AM CDT) Anatomical Region Laterality Modality Body, Chest N/A Computed Radiogr aphy 07/03/2024 9:31 AM CDT Impressions 07/03/2024 10:05 AM CDT First exam 1425 at 5:24 AM: A right internal jugular catheter is in place, tip overlies the superior vena cava. The patient is status post a median sternotomy, mediastinal wires are aligned. There is old granulomatous disease. Moderate right the head small left pleural effusions with atelectasis. Stable cardiomegaly. No pneumothorax. Second exam 07/03/2024 at 9:12 AM: Post thoracentesis changes with decreased size of a now trace right pleural effusion. No other changes. Dictated by: Julio Myles MD The radiology attending physician has personally reviewed this study, and had reviewed and/or edited this written report and agrees with it. Electronically signed by: Nikolai Youngblood M.D., MPH Narrative 07/03/2024 10:05 AM CDT Examination: 2 portable chests Chest one view portable Chest one view portable Procedure Note Nikolai Youngblood MD - 07/03/2024 Examination: 2 portable chests Chest one view portable Chest one view portable IMPRESSION: First exam 142 at 5:24 AM: A right internal jugular catheter is in place, tip overlies the superior vena cava. The patient is status post a median sternotomy, mediastinal wires are aligned. There is old granulomatous disease. Moderate right the head small left pleural effusions with atelectasis. Stable cardiomegaly. No pneumothorax. Second exam 07/03/2024 at 9:12 AM: Post thoracentesis changes with decreased size of a now trace right pleural effusion. No other changes. Dictated by: Julio Myles MD The radiology attending physician has personally reviewed this study, and had reviewed and/or edited this written report and agrees with it. Electronically signed by: Nikolai Youngblood M.D., MPH us Derek Mercer MD IMG XR PROCEDURES Final Res ult * XR Chest 1 View - Portable - in AM (07/03/2024 5:49 AM CDT) Anatomical Region Laterality Modality Body, Chest N/A Computed Radiogr aphy 07/03/2024 9:31 AM CDT Impressions 07/03/2024 10:05 AM CDT First exam 142 at 5:24 AM: A right internal jugular catheter is in place, tip overlies the superior vena cava. The patient is status post a median sternotomy, mediastinal wires are aligned. There is old granulomatous disease. Moderate right the head small left pleural effusions with atelectasis. Stable cardiomegaly. No pneumothorax. Second exam 07/03/2024 at 9:12 AM: Post thoracentesis changes with decreased size of a now trace right pleural effusion. No other changes. Dictated by: Julio Myles MD The radiology attending physician has personally reviewed this study, and had reviewed and/or edited this written report and agrees with it. Electronically signed by: Nikolai Youngblood M.D., MPH Narrative 07/03/2024 10:05 AM CDT Examination: 2 portable chests Chest one view portable Chest one view portable Procedure Note Nikolai Youngblood MD - 07/03/2024 Examination: 2 portable chests Chest one view portable Chest one view portable IMPRESSION: First exam 1425 at 5:24 AM: A right internal jugular catheter is in place, tip overlies the superior vena cava. The patient is status post a median sternotomy, mediastinal wires are aligned. There is old granulomatous disease. Moderate right the head small left pleural effusions with atelectasis. Stable cardiomegaly. No pneumothorax. Second exam 07/03/2024 at 9:12 AM: Post thoracentesis changes with decreased size of a now trace right pleural effusion. No other changes. Dictated by: Julio Myles MD The radiology attending physician has personally reviewed this study, and had reviewed and/or edited this written report and agrees with it. Electronically signed by: Nikolai Youngblood M.D., MPH Javan Orlin Julius ELECTRICAL TECHNICIAN INSTRUCTOR IMG XR PROCEDURES Final Result * eGFR (07/03/2024 1:21 AM CDT) eGFR 87 >=60 mL/min/1. 73 m2 Comment: Interpretive Data Reference Interval Normal >/= 90 mL/min/1.73m2 Mildly decreased* 60 - 89 mL/min/1.73m2 Mildly to moderately decreased 45 - 59 mL/min/1.73m2 Moderately to severely decreased 30 - 44 mL/min/1.73m2 Severely decreased 15 - 29 mL/min/1.73m2 Kidney Failure < 15 mL/min/1.73m2 *Relative to young adult level Estimated glomerular filtration rate is determined by the 2020 CKD-EPI equation recommended by the National Kidney Foundation (A Unifying Approach to GFR Estimation: Recommendations of the NKF-ASK Task Force on Reassessing the Inclusion of Race in Diagnosing Kidney Disease, JASN 2020). The CKD-EPI equation should not be used for patients with unstable renal function and has not been validated in children and those over 70. Current interpretive data was last reviewed 2021. Blood 07/03/2024 1:21 AM CDT 07/03/2024 1:48 AM CDT Javan Madrid NP LAB BLOOD ORDERABLES Fi nal Result Performing Organization Address City/[facility]/ZIP Co de Phone Number [facility] [address] Department [place] [address] * (ABNORMAL) CBC without differential (07/03/2024 1:21 AM CDT) WBC 14.89(H) 3.80 - 9.90 K/cumm Hgb 9.9(L) 13.0 - 17.5 g/dL [facility] Hct 30.5(L) 38.9 - 50.3 % [facility] Plt 253 150 - 400 K/cumm [facility] MPV 9.9 9.1 - 12.3 fL [facility] RBC 3.26(L) 4.30 - 5.80 M/cumm [facility] MCV 93.6 81.3 - 96.4 fL [facility] MCH 30.4 27.1 - 33.3 pg [facility] MCHC 32.5 32.3 - 35.7 g/dL [facility] RDW CV 13.5 11.1 - 14.9 % [facility] RDW SD 46.5 35.7 - 48.1 fL [facility] NRBC abs 0.05(H) 0.00 - 0.01 K/cumm [facility] Blood 07/03/2024 1:21 AM CDT 07/03/2024 1:48 AM CDT Javan Madrid NP LAB BLOOD ORDERABLES Fi nal Result Performing Organization Address City/[facility] Co de Phone Number [facility] [address] Department [place] [address] * (ABNORMAL) Renal function panel (07/03/2024 1:21 AM CDT) Sodium 137 135 - 145 mmol/L Potassium, pl 4.3 3.3 - 4.9 mmol/L [facility] Chloride 102 97 - 110 mmol/L [facility] CO2 25 22 - 32 mmol/L [facility] Anion gap 10 2 - 15 mmol/L [facility] BUN 23 6 - 25 mg/dL [facility] Creatinine 0.92 0.80 - 1.30 mg/dL [facility] Glucose 128 70 - 199 mg/dL [facility] Comment: Interpretive Data Fasting glucose >/= 126 mg/dl is diagnostic for diabetes. Fasting is defined as no caloric intake for at least 8 hours. Fasting glucose between 100 mg/dl to 125 mg/dl is diagnostic of prediabetes. In a patient with classic symptoms of hyperglycemia or hyperglycemic crisis, a random glucose >/= 200 mg/dl is diagnostic for diabetes. In the absence of unequivocal hyperglycemia, results should be confirmed by repeat testing. The classification and Diagnosis of Diabetes Diabetes Care 2021; 46: S19-S40. Current interpretive data was last revised 2022. Calcium 8.7 8.5 - 10.3 mg/dL [facility] Phosphorus, pl 4.3 2.3 - 4.5 mg/dL [facility] Albumin 3.2(L) 3.5 - 5.0 g/dL [facility] Blood 07/03/2024 1:21 AM CDT 07/03/2024 1:48 AM CDT us Javan Madrid NP LAB BLOOD ORDERABLES Fi nal Result [facility] [address] Department of Laboratories [place], [place] [id number] * XR Chest 1 View - Portable - in AM (07/02/2024 5:39 AM CDT) Anatomical Region Laterality Modality Body, Chest N/A Computed Radiogr aphy 07/02/2024 7:37 AM CDT Impressions 07/02/2024 7:37 AM CDT Right internal jugular central venous catheter terminates in the mid superior vena cava. Median sternotomy. Aortic valve replacement. Small bilateral pleural effusions with associated atelectasis. No pneumothorax. Electronically signed by: Humza Rene M.D. Narrative 07/02/2024 7:37 AM CDT PORTABLE CHEST RADIOGRAPH INDICATION: pleural effusion COMPARISON: 07/01/2024 VIEWS: 1 Procedure Note Humza Rene MD - 07/02/2024 PORTABLE CHEST RADIOGRAPH INDICATION: pleural effusion COMPARISON: 07/01/2024 VIEWS: 1 IMPRESSION: Right internal jugular central venous catheter terminates in the mid superior vena cava. Median sternotomy. Aortic valve replacement. Small bilateral pleural effusions with associated atelectasis. No pneumothorax. Electronically signed by: Humza Rene M.D. Javan Madrid NP IMG XR PROCEDURES Final Result * eGFR (07/02/2024 12:41 AM CDT) eGFR 88 >=60 mL/min/1. 73 m2 Comment: Interpretive Data Reference Interval Normal >/= 90 mL/min/1.73m2 Mildly decreased* 60 - 89 mL/min/1.73m2 Mildly to moderately decreased 45 - 59 mL/min/1.73m2 Moderately to severely decreased 30 - 44 mL/min/1.73m2 Severely decreased 15 - 29 mL/min/1.73m2 Kidney Failure < 15 mL/min/1.73m2 *Relative to young adult level Estimated glomerular filtration rate is determined by the 2020 CKD-EPI equation recommended by the National Kidney Foundation (A Unifying Approach to GFR Estimation: Recommendations of the NKF-ASK Task Force on Reassessing the Inclusion of Race in Diagnosing Kidney Disease, JASN 2020). The CKD-EPI equation should not be used for patients with unstable renal function and has not been validated in children and those over 70. Current interpretive data was last reviewed 2021. Blood 07/02/2024 12:4 1 AM CDT 07/02/2024 1:08 AM CDT Javan Madrid NP LAB BLOOD ORDERABLES Fi nal Result Performing Organization Address City/[facility]/ZIP Co de Phone Number [facility] [address] [place] [address] * (ABNORMAL) CBC without differential (07/02/2024 12:41 AM CDT) WBC 12.68(H) 3.80 - 9.90 K/cumm Hgb 9.7(L) 13.0 - 17.5 g/dL [facility] Hct 29.2(L) 38.9 - 50.3 % [facility] Plt 183 150 - 400 K/cumm [facility] MPV 10.2 9.1 - 12.3 fL [facility] RBC 3.15(L) 4.30 - 5.80 M/cumm [facility] MCV 92.7 81.3 - 96.4 fL [facility] MCH 30.8 27.1 - 33.3 pg [facility] MCHC 33.2 32.3 - 35.7 g/dL [facility] RDW CV 13.4 11.1 - 14.9 % [facility] RDW SD 45.5 35.7 - 48.1 fL [facility] NRBC abs 0.03(H) 0.00 - 0.01 K/cumm [facility] Blood 07/02/2024 12:4 1 AM CDT 07/02/2024 1:08 AM CDT Javan Madrid NP LAB BLOOD ORDERABLES Fi nal Result [facility] [address] [place] [address] * (ABNORMAL) Renal function panel (07/02/2024 12:41 AM CDT) Sodium 137 135 - 145 mmol/L Potassium, pl 4.1 3.3 - 4.9 mmol/L [facility] Chloride 101 97 - 110 mmol/L [facility] CO2 26 22 - 32 mmol/L [facility] Anion gap 10 2 - 15 mmol/L [facility] BUN 23 6 - 25 mg/dL [facility] Creatinine 0.91 0.80 - 1.30 mg/dL [facility] Glucose 125 70 - 199 mg/dL [facility] Comment: Interpretive Data Fasting glucose >/= 126 mg/dl is diagnostic for diabetes. Fasting is defined as no caloric intake for at least 8 hours. Fasting glucose between 100 mg/dl to 125 mg/dl is diagnostic of prediabetes. In a patient with classic symptoms of hyperglycemia or hyperglycemic crisis, a random glucose >/= 200 mg/dl is diagnostic for diabetes. In the absence of unequivocal hyperglycemia, results should be confirmed by repeat testing. The classification and Diagnosis of Diabetes Diabetes Care 2021; 46: S19-S40. Current interpretive data was last revised 2022. Calcium 8.8 8.5 - 10.3 mg/dL [facility] Phosphorus, pl 3.4 2.3 - 4.5 mg/dL [facility] Albumin 3.0(L) 3.5 - 5.0 g/dL [facility] Blood 07/02/2024 12:4 1 AM CDT 07/02/2024 1:08 AM CDT Javan Madrid NP LAB BLOOD ORDERABLES Fi nal Result [facility] [address] Department [place] [address] * Magnesium - Add on lab test (07/01/2024 9:33 AM CDT) Acceptable Yes Blood 07/01/2024 9:33 AM CDT 07/01/2024 9:33 AM CDT Narrative [facility] - 07/01/2024 9:33 AM CDT Name of Test->Magnesium Areli MARTINEZ LAB BLOOD ORDERABLES Fin al Result [facility] [address] Department of Laboratories [place], [place] [id number] * XR Chest 1 View - Portable - in AM (07/01/2024 6:30 AM CDT) Anatomical Region Laterality Modality Body, Chest N/A Computed Radiogr aphy 07/01/2024 8:31 AM CDT Impressions 07/01/2024 8:31 AM CDT Comparison exam is dated 06/30/2024. The patient is status post median sternotomy and aortic valve replacement. A right internal jugular central catheter has its distal tip in the superior vena cava are small bilateral pleural effusions that are associated with bibasilar atelectasis. Compared to the prior examination, there has been no change. Electronically signed by: Nir Venegas M.D. Narrative 07/01/2024 8:31 AM CDT EXAMINATION: Chest 1 view Procedure Note Nir Venegas MD - 07/01/2024 EXAMINATION: Chest 1 view IMPRESSION: Comparison exam is dated 06/30/2024. The patient is status post median sternotomy and aortic valve replacement. A right internal jugular central catheter has its distal tip in the superior vena cava are small bilateral pleural effusions that are associated with bibasilar atelectasis. Compared to the prior examination, there has been no change. Electronically signed by: Nir Venegas M.D. Javan Madrid NP IMG XR PROCEDURES Final Result * eGFR (07/01/2024 1:30 AM CDT) eGFR >90 >=60 mL/min/1. 73 m2 Comment: Interpretive Data Reference Interval Normal >/= 90 mL/min/1.73m2 Mildly decreased* 60 - 89 mL/min/1.73m2 Mildly to moderately decreased 45 - 59 mL/min/1.73m2 Moderately to severely decreased 30 - 44 mL/min/1.73m2 Severely decreased 15 - 29 mL/min/1.73m2 Kidney Failure < 15 mL/min/1.73m2 *Relative to young adult level Estimated glomerular filtration rate is determined by the 2020 CKD-EPI equation recommended by the National Kidney Foundation (A Unifying Approach to GFR Estimation: Recommendations of the NKF-ASK Task Force on Reassessing the Inclusion of Race in Diagnosing Kidney Disease, JASN 202). The CKD-EPI equation should not be used for patients with unstable renal function and has not been validated in children and those over 70. Current interpretive data was last reviewed 2021. Blood 07/01/2024 1:30 AM CDT 07/01/2024 1:41 AM CDT Javan Madrid NP LAB BLOOD ORDERABLES Fi nal Result [facility] [address] Department [place] [address] * (ABNORMAL) CBC without differential (07/01/2024 1:30 AM CDT) WBC 12.04(H) 3.80 - 9.90 K/cumm Hgb 9.8(L) 13.0 - 17.5 g/dL [facility] Hct 29.1(L) 38.9 - 50.3 % [facility] Plt 160 150 - 400 K/cumm [facility] MPV 10.0 9.1 - 12.3 fL [facility] RBC 3.16(L) 4.30 - 5.80 M/cumm [facility] MCV 92.1 81.3 - 96.4 fL [facility] MCH 31.0 27.1 - 33.3 pg [facility] MCHC 33.7 32.3 - 35.7 g/dL [facility] RDW CV 13.2 11.1 - 14.9 % [facility] RDW SD 45.1 35.7 - 48.1 fL [facility] NRBC abs 0.00 0.00 - 0.01 K/cumm [facility] Blood 07/01/2024 1:30 AM CDT 07/01/2024 1:52 AM CDT us Javan Madrid ELECTRICAL TECHNICIAN INSTRUCTOR LAB BLOOD ORDERABLES Fi nal Result Performing Organization Address City/[facility]/ZIP Co de Phone Number [facility] [address] Department [place] [employer] [place] [address] * Magnesium (07/01/2024 1:30 AM CDT) Pathologist [facility] Magnesium 2.4 1.4 - 2.5 mg/dL Blood 07/01/2024 1:30 AM CDT 07/01/2024 1:41 AM CDT Felipe Alfaro MD LAB BLOOD ORDERABLES Fin al Result Performing Organization Address [facility] Phone [facility] [address] Department [place] [employer] [place] [address] * (ABNORMAL) Renal function panel (07/01/2024 1:30 AM CDT) Pathologist [facility] Sodium 137 135 - 145 mmol/L Potassium, pl 4.3 3.3 - 4.9 mmol/L [facility] Chloride 102 97 - 110 mmol/L [facility] CO2 24 22 - 32 mmol/L [facility] Anion gap 11 2 - 15 mmol/L [facility] BUN 20 6 - 25 mg/dL [facility] Creatinine 0.85 0.80 - 1.30 mg/dL [facility] Glucose 128 70 - 199 mg/dL [facility] Comment: Interpretive Data Fasting glucose >/= 126 mg/dl is diagnostic for diabetes. Fasting is defined as no caloric intake for at least 8 hours. Fasting glucose between 100 mg/dl to 125 mg/dl is diagnostic of prediabetes. In a patient with classic symptoms of hyperglycemia or hyperglycemic crisis, a random glucose >/= 200 mg/dl is diagnostic for diabetes. In the absence of unequivocal hyperglycemia, results should be confirmed by repeat testing. The classification and Diagnosis of Diabetes Diabetes Care 202; 46: S19-S40. Current interpretive data was last revised 2022. Calcium 8.6 8.5 - 10.3 mg/dL [facility] Phosphorus, pl 2.0(L) 2.3 - 4.5 mg/dL [facility] Albumin 3.3(L) 3.5 - 5.0 g/dL [facility] Blood 07/01/2024 1:30 AM CDT 07/01/2024 1:41 AM CDT us Javan Madrid NP LAB BLOOD ORDERABLES Fi nal Result [facility] [address] Department [place] [address] * XR Chest 1 View - Portable - in AM (06/30/2024 6:37 AM CDT) Anatomical Region Laterality Modality Body, Chest N/A Computed Radiogr aphy 06/30/2024 1:31 PM CDT Impressions 06/30/2024 1:46 PM CDT Aortic valve replacement is present. The patient is status post a median sternotomy, mediastinal wires are aligned. A right internal jugular catheter is in place, tip overlies the superior vena cava. Epicardial pacing wires are present. Stable bibasilar atelectasis and small right pleural effusion. Likely small left pleural effusion although the costophrenic angle is not included within the [id number] on that side. There is old granulomatous disease. Stable cardiac and mediastinal contours. Dictated by: Julio Myles MD The radiology attending physician has personally reviewed this study, and had reviewed and/or edited this written report and agrees with it. Electronically signed by: Ciara Vidales M.D. Narrative 06/30/2024 1:46 PM CDT EXAMINATION: 1 view chest radiograph Procedure Note Ciara Vidales MD - 06/30/2024 EXAMINATION: 1 view chest radiograph IMPRESSION: Aortic valve replacement is present. The patient is status post a median sternotomy, mediastinal wires are aligned. A right internal jugular catheter is in place, tip overlies the superior vena cava. Epicardial pacing wires are present. Stable bibasilar atelectasis and small right pleural effusion. Likely small left pleural effusion although the costophrenic angle is not included within the [id number] on that side. There is old granulomatous disease. Stable cardiac and mediastinal contours. Dictated by: Julio Myles MD The radiology attending physician has personally reviewed this study, and had reviewed and/or edited this written report and agrees with it. Electronically signed by: Ciara Vidales M.D. us Javan Madrid NP IMG XR PROCEDURES Final Result * eGFR (06/30/2024 12:41 AM CDT) eGFR 89 >=60 mL/min/1. 73 m2 Comment: Interpretive Data Reference Interval Normal >/= 90 mL/min/1.73m2 Mildly decreased* 60 - 89 mL/min/1.73m2 Mildly to moderately decreased 45 - 59 mL/min/1.73m2 Moderately to severely decreased 30 - 44 mL/min/1.73m2 Severely decreased 15 - 29 mL/min/1.73m2 Kidney Failure < 15 mL/min/1.73m2 *Relative to young adult level Estimated glomerular filtration rate is determined by the 2020 CKD-EPI equation recommended by the National Kidney Foundation (A Unifying Approach to GFR Estimation: Recommendations of the NKF-ASK Task Force on Reassessing the Inclusion of Race in Diagnosing Kidney Disease, JASN 2020). The CKD-EPI equation should not be used for patients with unstable renal function and has not been validated in children and those over 70. Current interpretive data was last reviewed 2021. Blood 06/30/2024 12:4 1 AM CDT 06/30/2024 1:00 AM CDT Javan Madrid NP LAB BLOOD ORDERABLES Fi nal Result [facility] [address] Department [place] [address] * (ABNORMAL) aPTT (06/30/2024 12:41 AM CDT) aPTT 59(H) 28 - 38 sec Comment: Interpretive Data Heparin therapeutic range: 66.0 - 100.0 seconds. Range based on correlation with therapeutic heparin activity range of 0.3 - 0.7 Units/mL. Current interpretive data was last revised on 2022. Blood 06/30/2024 12:4 1 AM CDT 06/30/2024 1:00 AM CDT us Felipe Alfaro MD LAB BLOOD ORDERABLES Fin al Result Performing Organization Address [facility]/ZIP Co de Phone Number [facility] [address] [place] [address] * (ABNORMAL) CBC without differential (06/30/2024 12:41 AM CDT) WBC 18.53(H) 3.80 - 9.90 K/cumm Hgb 10.2(L) 13.0 - 17.5 g/dL [facility] Hct 30.3(L) 38.9 - 50.3 % [facility] Plt 150 150 - 400 K/cumm [facility] MPV 11.4 9.1 - 12.3 fL [facility] RBC 3.26(L) 4.30 - 5.80 M/cumm [facility] MCV 92.9 81.3 - 96.4 fL [facility] MCH 31.3 27.1 - 33.3 pg [facility] MCHC 33.7 32.3 - 35.7 g/dL [facility] RDW CV 13.1 11.1 - 14.9 % [facility] RDW SD 44.8 35.7 - 48.1 fL [facility] NRBC abs 0.00 0.00 - 0.01 K/cumm [facility] Blood 06/30/2024 12:4 1 AM CDT 06/30/2024 1:00 AM CDT us Javan Madrid NP LAB BLOOD ORDERABLES Fi nal Result Performing Organization Address City/[facility]/ZIP Co de Phone Number [facility] [address] Department [place] [address] * (ABNORMAL) Renal function panel (06/30/2024 12:41 AM CDT) Pathologist [facility] Sodium 134(L) 135 - 145 mmol/L Potassium, pl 4.2 3.3 - 4.9 mmol/L [facility] Chloride 100 97 - 110 mmol/L [facility] CO2 22 22 - 32 mmol/L [facility] Anion gap 12 2 - 15 mmol/L [facility] BUN 24 6 - 25 mg/dL [facility] Creatinine 0.89 0.80 - 1.30 mg/dL [facility] Glucose 127 70 - 199 mg/dL [facility] Comment: Interpretive Data Fasting glucose >/= 126 mg/dl is diagnostic for diabetes. Fasting is defined as no caloric intake for at least 8 hours. Fasting glucose between 100 mg/dl to 125 mg/dl is diagnostic of prediabetes. In a patient with classic symptoms of hyperglycemia or hyperglycemic crisis, a random glucose >/= 200 mg/dl is diagnostic for diabetes. In the absence of unequivocal hyperglycemia, results should be confirmed by repeat testing. The classification and Diagnosis of Diabetes Diabetes Care 2021; 46: S19-S40. Current interpretive data was last revised 2022. Calcium 8.7 8.5 - 10.3 mg/dL [facility] Phosphorus, pl 2.1(L) 2.3 - 4.5 mg/dL [facility] Albumin 2.9(L) 3.5 - 5.0 g/dL [facility] Blood 06/30/2024 12:4 1 AM CDT 06/30/2024 1:00 AM CDT us Javan Madrid NP LAB BLOOD ORDERABLES nal Result [facility] [address] Department [place] [address] * (ABNORMAL) aPTT (06/29/2024 3:03 PM CDT) Pathologist [facility] aPTT 44(H) 28 - 38 sec Comment: Interpretive Data Heparin therapeutic range: 66.0 - 100.0 seconds. Range based on correlation with therapeutic heparin activity range of 0.3 - 0.7 Units/mL. Current interpretive data was last revised on 2022. Blood 06/29/2024 3:03 PM CDT 06/29/2024 3:14 PM CDT Felipe Alfaro MD LAB BLOOD ORDERABLES Fin al Result Performing Organization Address [facility] Co de Phone Number [facility] [address] Department [employer] [place], [place] [id number] * aPTT (06/29/2024 8:48 AM CDT) aPTT 33 28 - 38 sec Comment: Interpretive Data Heparin therapeutic range: 66.0 - 100.0 seconds. Range based on correlation with therapeutic heparin activity range of 0.3 - 0.7 Units/mL. Current interpretive data was last revised on 2022. Blood 06/29/2024 8:48 AM CDT 06/29/2024 8:53 AM CDT Narrative [facility] - 06/29/2024 9:05 AM CDT Baseline prior to heparin initiation Laron MARTINEZ LAB BLOOD ORDERABLES Final R esult Performing Organization Address [facility] Co de Phone Number [facility] [address] Department [employer] [place], [place] [id number] * (ABNORMAL) Protime-INR (06/29/2024 8:48 AM CDT) PT 13.6(H) 9.7 - 13.0 sec INR 1.25(H) 0.90 - 1.20 [facility] Comment: Interpretive data Oral anticoagulant therapeutic ranges: Venous thromboembolism prophylaxis or treatment: 2.0-3.0 CARDIOLOGY Standard range: 2.0-3.0 High-intensity range: 2.5-3.5 Refer to indication-specific guidelines for appropriate target ranges for prosthetic heart valve replacement. Current interpretive data was last revised on 2019. Blood 06/29/2024 8:48 AM CDT 06/29/2024 8:53 AM CDT Narrative [facility] - 06/29/2024 9:05 AM CDT Baseline prior to heparin initiation Laron MARTINEZ LAB BLOOD ORDERABLES Final R esult [facility] [address] Department [place] [address] * XR Chest 1 View - Portable - in AM (06/29/2024 6:07 AM CDT) Anatomical Region Laterality Modality Body, Chest N/A Computed Radiogr aphy 06/29/2024 8:38 AM CDT Impressions 06/29/2024 8:38 AM CDT Comparison is made to 06/28/2024. Right jugular catheter, mediastinal wires, and a prosthetic valve are unchanged in position. There are small bilateral pleural effusions with bibasilar and retrocardiac atelectasis. No pneumothorax or pneumonic consolidation. Stable heart size. Electronically signed by: Dylan Arnett M.D. Narrative 06/29/2024 8:38 AM CDT Examination: Chest 1 view Procedure Note Dylan Arnett MD - 06/29/2024 Examination: Chest 1 view IMPRESSION: Comparison is made to 06/28/2024. Right jugular catheter, mediastinal wires, and a prosthetic valve are unchanged in position. There are small bilateral pleural effusions with bibasilar and retrocardiac atelectasis. No pneumothorax or pneumonic consolidation. Stable heart size. Electronically signed by: Dylan Arnett M.D. us Javan Madrid ELECTRICAL TECHNICIAN INSTRUCTOR IMG XR PROCEDURES Final Result * eGFR (06/29/2024 1:15 AM CDT) eGFR 76 >=60 mL/min/1. 73 m2 Comment: Interpretive Data Reference Interval Normal >/= 90 mL/min/1.73m2 Mildly decreased* 60 - 89 mL/min/1.73m2 Mildly to moderately decreased 45 - 59 mL/min/1.73m2 Moderately to severely decreased 30 - 44 mL/min/1.73m2 Severely decreased 15 - 29 mL/min/1.73m2 Kidney Failure < 15 mL/min/1.73m2 *Relative to young adult level Estimated glomerular filtration rate is determined by the 2020 CKD-EPI equation recommended by the National Kidney Foundation (A Unifying Approach to GFR Estimation: Recommendations of the NKF-ASK Task Force on Reassessing the Inclusion of Race in Diagnosing Kidney Disease, JASN 2020). The CKD-EPI equation should not be used for patients with unstable renal function and has not been validated in children and those over 70. Current interpretive data was last reviewed 2021. Blood 06/29/2024 1:15 AM CDT 06/29/2024 1:27 AM CDT Javan Madrid NP LAB BLOOD ORDERABLES Fi nal Result [facility] [address] Department [place] [address] * (ABNORMAL) CBC without differential (06/29/2024 1:15 AM CDT) WBC 21.88(H) 3.80 - 9.90 K/cumm Hgb 10.6(L) 13.0 - 17.5 g/dL [facility] Hct 31.4(L) 38.9 - 50.3 % [facility] Plt 102(L) 150 - 400 K/cumm [facility] MPV 11.5 9.1 - 12.3 fL [facility] RBC 3.34(L) 4.30 - 5.80 M/cumm [facility] MCV 94.0 81.3 - 96.4 fL [facility] MCH 31.7 27.1 - 33.3 pg [facility] MCHC 33.8 32.3 - 35.7 g/dL [facility] RDW CV 13.1 11.1 - 14.9 % [facility] RDW SD 45.1 35.7 - 48.1 fL [facility] NRBC abs 0.00 0.00 - 0.01 K/cumm [facility] Blood 06/29/2024 1:15 AM CDT 06/29/2024 1:27 AM CDT Javan Madrid NP LAB BLOOD ORDERABLES Fi nal Result [facility] [address] Department [place] [address] * (ABNORMAL) Renal function panel (06/29/2024 1:15 AM CDT) Sodium 132(L) 135 - 145 mmol/L Potassium, pl 4.3 3.3 - 4.9 mmol/L [facility] Chloride 98 97 - 110 mmol/L [facility] CO2 22 22 - 32 mmol/L [facility] Anion gap 12 2 - 15 mmol/L [facility] BUN 25 6 - 25 mg/dL [facility] Creatinine 1.03 0.80 - 1.30 mg/dL [facility] Glucose 146 70 - 199 mg/dL [facility] Comment: Interpretive Data Fasting glucose >/= 126 mg/dl is diagnostic for diabetes. Fasting is defined as no caloric intake for at least 8 hours. Fasting glucose between 100 mg/dl to 125 mg/dl is diagnostic of prediabetes. In a patient with classic symptoms of hyperglycemia or hyperglycemic crisis, a random glucose >/= 200 mg/dl is diagnostic for diabetes. In the absence of unequivocal hyperglycemia, results should be confirmed by repeat testing. The classification and Diagnosis of Diabetes Diabetes Care 2021; 46: S19-S40. Current interpretive data was last revised 2022. Calcium 8.7 8.5 - 10.3 mg/dL [facility] Phosphorus, pl 2.1(L) 2.3 - 4.5 mg/dL [facility] Albumin 3.2(L) 3.5 - 5.0 g/dL [facility] Blood 06/29/2024 1:15 AM CDT 06/29/2024 1:27 AM CDT Javan Madrid NP LAB BLOOD ORDERABLES Fi nal Result [facility] [address] Department [place] [address] * XR Chest 1 Vw (06/28/2024 10:09 AM CDT) Anatomical Region Laterality Modality Body, Chest N/A Computed Radiogr aphy 06/28/2024 10:3 7 AM CDT Impressions 06/28/2024 10:37 AM CDT Comparison is made to prior chest radiograph dated 06/28/2024 Median sternotomy wires are unchanged. There is a prosthetic aortic valve. Tip of right internal jugular central venous catheter terminates in the superior vena cava. There are small bilateral pleural effusions with associated atelectasis, not significantly changed. No pneumothorax. Stable heart size. Electronically signed by: Maria D Clarke M.D. Narrative 06/28/2024 10:37 AM CDT EXAMINATION: XR CHEST 1 VIEW Procedure Note Maria D Clarke MD - 06/28/2024 EXAMINATION: XR CHEST 1 VIEW IMPRESSION: Comparison is made to prior chest radiograph dated 06/28/2024 Median sternotomy wires are unchanged. There is a prosthetic aortic valve. Tip of right internal jugular central venous catheter terminates in the superior vena cava. There are small bilateral pleural effusions with associated atelectasis, not significantly changed. No pneumothorax. Stable heart size. Electronically signed by: Maria D Clarke M.D. Courtney MARTINEZ IMG XR PROCEDURES Final Result * POCT glucose (06/28/2024 8:05 AM CDT) Glucose, POC 156 70 - 199 mg/dL Comment: For Glucose values <35 mg/dl when Hematocrit is >60 mg/dl,the test may not accurately detect significant hypoglycemia,and testing in the Laboratory should be considered if clinically indicated. POC Performer [phone] [facility] Blood 06/28/2024 8:05 AM CDT 06/28/2024 8:05 AM CDT us Felipe Alfaro MD LAB POCT ORDERABLES - DE VICE Final Result [facility] [address] Department [place] [address] * XR Chest 1 View - Portable - in AM (06/28/2024 6:44 AM CDT) Anatomical Region Laterality Modality Body, Chest N/A Computed Radiogr aphy 06/28/2024 7:11 AM CDT Impressions 06/28/2024 7:11 AM CDT Comparison is made to prior chest radiograph dated 06/27/2024. Median sternotomy wires are unchanged. There is a prosthetic aortic valve. Tip of right internal jugular central venous catheter terminates in the superior vena cava. There are tiny bilateral pleural effusions with mild bibasilar atelectasis. No pneumothorax. Stable heart size. Electronically signed by: Maria D Clarke M.D. Narrative 06/28/2024 7:11 AM CDT EXAMINATION: XR CHEST 1 VIEW Procedure Note Maria D Clarke MD - 06/28/2024 EXAMINATION: XR CHEST 1 VIEW IMPRESSION: Comparison is made to prior chest radiograph dated 06/27/2024. Median sternotomy wires are unchanged. There is a prosthetic aortic valve. Tip of right internal jugular central venous catheter terminates in the superior vena cava. There are tiny bilateral pleural effusions with mild bibasilar atelectasis. No pneumothorax. Stable heart size. Electronically signed by: Maria D Clarke M.D. us Javan Madrid NP IMG XR PROCEDURES Final Result * eGFR (06/28/2024 5:38 AM CDT) Pathologist [facility] eGFR 80 >=60 mL/min/1. 73 m2 Comment: Interpretive Data Reference Interval Normal >/= 90 mL/min/1.73m2 Mildly decreased* 60 - 89 mL/min/1.73m2 Mildly to moderately decreased 45 - 59 mL/min/1.73m2 Moderately to severely decreased 30 - 44 mL/min/1.73m2 Severely decreased 15 - 29 mL/min/1.73m2 Kidney Failure < 15 mL/min/1.73m2 *Relative to young adult level Estimated glomerular filtration rate is determined by the 2020 CKD-EPI equation recommended by the National Kidney Foundation (A Unifying Approach to GFR Estimation: Recommendations of the NKF-ASK Task Force on Reassessing the Inclusion of Race in Diagnosing Kidney Disease, JASN 2020). The CKD-EPI equation should not be used for patients with unstable renal function and has not been validated in children and those over 70. Current interpretive data was last reviewed 2021. Blood 06/28/2024 5:38 AM CDT 06/28/2024 6:00 AM CDT us Javan Madrid NP LAB BLOOD ORDERABLES nal Result [facility] [address] Department [place] [address] * (ABNORMAL) CBC without differential (06/28/2024 5:38 AM CDT) [facility] WBC 29.39(H) 3.80 - 9.90 K/cumm Hgb 11.2(L) 13.0 - 17.5 g/dL [facility] Hct 34.1(L) 38.9 - 50.3 % [facility] Plt 102(L) 150 - 400 K/cumm [facility] MPV 11.8 9.1 - 12.3 fL [facility] RBC 3.64(L) 4.30 - 5.80 M/cumm [facility] MCV 93.7 81.3 - 96.4 fL [facility] MCH 30.8 27.1 - 33.3 pg [facility] MCHC 32.8 32.3 - 35.7 g/dL [facility] RDW CV 13.2 11.1 - 14.9 % [facility] RDW SD 45.3 35.7 - 48.1 fL [facility] NRBC abs 0.00 0.00 - 0.01 K/cumm [facility] Blood 06/28/2024 5:38 AM CDT 06/28/2024 6:00 AM CDT us Javan Madrid NP LAB BLOOD ORDERABLES Fi nal Result [facility] [address] Department of [employer] [place] [address] * (ABNORMAL) Renal function panel (06/28/2024 5:38 AM CDT) Sodium 132(L) 135 - 145 mmol/L Potassium, pl 4.5 3.3 - 4.9 mmol/L [facility] Chloride 98 97 - 110 mmol/L [facility] CO2 21(L) 22 - 32 mmol/L [facility] Anion gap 13 2 - 15 mmol/L [facility] BUN 19 6 - 25 mg/dL [facility] Creatinine 0.98 0.80 - 1.30 mg/dL [facility] Glucose 150 70 - 199 mg/dL [facility] Comment: Interpretive Data Fasting glucose >/= 126 mg/dl is diagnostic for diabetes. Fasting is defined as no caloric intake for at least 8 hours. Fasting glucose between 100 mg/dl to 125 mg/dl is diagnostic of prediabetes. In a patient with classic symptoms of hyperglycemia or hyperglycemic crisis, a random glucose >/= 200 mg/dl is diagnostic for diabetes. In the absence of unequivocal hyperglycemia, results should be confirmed by repeat testing. The classification and Diagnosis of Diabetes Diabetes Care 202; 46: S19-S40. Current interpretive data was last revised 2022. Calcium 8.8 8.5 - 10.3 mg/dL [facility] Phosphorus, pl 2.3 2.3 - 4.5 mg/dL [facility] Albumin 3.4(L) 3.5 - 5.0 g/dL [facility] Blood 06/28/2024 5:38 AM CDT 06/28/2024 6:00 AM CDT us Javan Madrid ELECTRICAL TECHNICIAN INSTRUCTOR LAB BLOOD ORDERABLES Fi nal Result Performing Organization Address [facility]/ZIP Co de Phone Number [facility] [address] [place] [address] * eGFR (06/27/2024 9:05 PM CDT) eGFR 75 >=60 mL/min/1. 73 m2 Comment: Interpretive Data Reference Interval Normal >/= 90 mL/min/1.73m2 Mildly decreased* 60 - 89 mL/min/1.73m2 Mildly to moderately decreased 45 - 59 mL/min/1.73m2 Moderately to severely decreased 30 - 44 mL/min/1.73m2 Severely decreased 15 - 29 mL/min/1.73m2 Kidney Failure < 15 mL/min/1.73m2 *Relative to young adult level Estimated glomerular filtration rate is determined by the 2020 CKD-EPI equation recommended by the National Kidney Foundation (A Unifying Approach to GFR Estimation: Recommendations of the NKF-ASK Task Force on Reassessing the Inclusion of Race in Diagnosing Kidney Disease, JASN 2020). The CKD-EPI equation should not be used for patients with unstable renal function and has not been validated in children and those over 70. Current interpretive data was last reviewed 2021. Blood 06/27/2024 9:05 PM CDT 06/27/2024 9:24 PM CDT us Maulik Ferrari PA LAB BLOOD ORDERABLES Final Result Performing Organization Address [facility]/ZIP Co de Phone Number [facility] [address] [place] [address] * Magnesium (06/27/2024 9:05 PM CDT) Magnesium 2.2 1.4 - 2.5 mg/dL Blood 06/27/2024 9:05 PM CDT 06/27/2024 9:15 PM CDT us Maulik MARTINEZ LAB BLOOD ORDERABLES Final Result [facility] [address] Department [place] [address] * (ABNORMAL) Renal function panel (06/27/2024 9:05 PM CDT) Pathologist [facility] Sodium 135 135 - 145 mmol/L Potassium, pl 4.6 3.3 - 4.9 mmol/L [facility] Chloride 102 97 - 110 mmol/L [facility] CO2 21(L) 22 - 32 mmol/L [facility] Anion gap 12 2 - 15 mmol/L [facility] BUN 17 6 - 25 mg/dL [facility] Creatinine 1.04 0.80 - 1.30 mg/dL [facility] Glucose 166 70 - 199 mg/dL [facility] Comment: Interpretive Data Fasting glucose >/= 126 mg/dl is diagnostic for diabetes. Fasting is defined as no caloric intake for at least 8 hours. Fasting glucose between 100 mg/dl to 125 mg/dl is diagnostic of prediabetes. In a patient with classic symptoms of hyperglycemia or hyperglycemic crisis, a random glucose >/= 200 mg/dl is diagnostic for diabetes. In the absence of unequivocal hyperglycemia, results should be confirmed by repeat testing. The classification and Diagnosis of Diabetes Diabetes Care 2021; 46: S19-S40. Current interpretive data was last revised 2022. Calcium 8.6 8.5 - 10.3 mg/dL [facility] Phosphorus, pl 2.5 2.3 - 4.5 mg/dL [facility] Albumin 3.7 3.5 - 5.0 g/dL [facility] Blood 06/27/2024 9:05 PM CDT 06/27/2024 9:15 PM CDT us Maulik MARTINEZ LAB BLOOD ORDERABLES Final Result [facility] [address] [facility] [employer] [place] [address] * POCT glucose (06/27/2024 8:59 PM CDT) Glucose, POC 158 70 - 199 mg/dL Comment: For Glucose values <35 mg/dl when Hematocrit is >60 mg/dl,the test may not accurately detect significant hypoglycemia,and testing in the Laboratory should be considered if clinically indicated. POC Performer [id number] [facility] Blood 06/27/2024 8:59 PM CDT 06/27/2024 8:59 PM CDT us Felipe Alfaro MD LAB POCT ORDERABLES - DE VICE Final Result Performing Organization Address [facility] Co de Phone Number [facility] [address] [place] [address] * POCT glucose (06/27/2024 5:08 PM CDT) Glucose, POC 149 70 - 199 mg/dL Comment: For Glucose values <35 mg/dl when Hematocrit is >60 mg/dl,the test may not accurately detect significant hypoglycemia,and testing in the Laboratory should be considered if clinically indicated. POC Performer [id number] [facility] Blood 06/27/2024 5:08 PM CDT 06/27/2024 5:08 PM CDT us Felipe Alfaro MD LAB POCT ORDERABLES - DE VICE Final Result Performing Organization Address City/[facility]/ZIP Co de Phone Number [facility] [facility] [address] [place] [address] * Critical Care (06/27/2024 12:34 PM CDT) Narrative Abhishek Vazquez MD - 06/27/2024 12:34 PM CDT Abhishek Vazquez MD 06/27/2024 12:35 PM Critical Care Performed by: Abhishek Vazquez MD Authorized by: Abhishek Vazquez MD CRITICAL CARE: Team: [facility] CT Shift: AM Level of Billing: Subsequent Hospital Visit Level 3 My time spent with this patient was 45 minutes: Critical Provider Statement: I have seen and examined the patient on this day of service. I have reviewed and confirmed the history, physical exam, laboratory, and radiographic data as documented in the ICU note. I have reviewed and discussed my treatment plan with the patient's team and other medical/area development consultant staff. This time was in addition to and separate from care provided by other practitioners on this day of service. Acute pain/acute postoperative pain Aortic dissection/aneurysm Atelectasis Acute blood loss anemia This time was spent by me doing the following: Serial bedside patient exams and Serial laboratory checks Acute pain control Active and frequent reassessment of respiratory status and oxygen requirements and Incentive spirometry, pulmonary toilet I spent time reviewing and interpreting data from bedside monitors, laboratory results, and imaging and I spent time discussing the management of this critically ill patient with consultants and the medical staff us Abhishek Vazquez MD IN CLINIC/BEDSIDE ORDERABLES Final Result * POCT glucose (06/27/2024 12:33 PM CDT) Glucose, POC 193 70 - 199 mg/dL Comment: For Glucose values <35 mg/dl when Hematocrit is >60 mg/dl,the test may not accurately detect significant hypoglycemia,and testing in the Laboratory should be considered if clinically indicated. POC Performer [id number] [facility] Blood 06/27/2024 12:3 3 PM CDT 06/27/2024 12:33 PM CDT us Felipe Alfaro MD LAB POCT ORDERABLES - DE VICE Final Result [facility] [address] Department [place] [address] * POCT glucose (06/27/2024 8:33 AM CDT) Glucose, POC 158 70 - 199 mg/dL Comment: For Glucose values <35 mg/dl when Hematocrit is >60 mg/dl,the test may not accurately detect significant hypoglycemia,and testing in the Laboratory should be considered if clinically indicated. POC Performer [id number] [facility] Blood 06/27/2024 8:33 AM CDT 06/27/2024 8:33 AM CDT Felipe Alfaro MD LAB POCT ORDERABLES - DE VICE Final Result [facility] [address] Department [place] [address] * XR Chest 1 View - Portable - in AM (06/27/2024 6:46 AM CDT) Anatomical Region Laterality Modality Body, Chest N/A Computed Radiogr aphy 06/27/2024 7:47 AM CDT Impressions 06/27/2024 7:47 AM CDT Right internal jugular central venous catheter terminates in the mid superior vena cava. Median sternotomy. Aortic valve replacement. Mild cardiomegaly. Calcified hilar lymph nodes. No consolidation. No pleural effusions. No pneumothorax. Electronically signed by: Humza Rene M.D. Narrative 06/27/2024 7:47 AM CDT PORTABLE CHEST RADIOGRAPH INDICATION: pleural effusion COMPARISON: 06/26/2024 VIEWS: 1 Procedure Note Humza Rene MD - 06/27/2024 PORTABLE CHEST RADIOGRAPH INDICATION: pleural effusion COMPARISON: 06/26/2024 VIEWS: 1 IMPRESSION: Right internal jugular central venous catheter terminates in the mid superior vena cava. Median sternotomy. Aortic valve replacement. Mild cardiomegaly. Calcified hilar lymph nodes. No consolidation. No pleural effusions. No pneumothorax. Electronically signed by: Humza Rene M.D. us Javan Madrid ELECTRICAL TECHNICIAN INSTRUCTOR IMG XR PROCEDURES Final Result * eGFR (06/27/2024 12:23 AM CDT) eGFR >90 >=60 mL/min/1. 73 m2 Comment: Interpretive Data Reference Interval Normal >/= 90 mL/min/1.73m2 Mildly decreased* 60 - 89 mL/min/1.73m2 Mildly to moderately decreased 45 - 59 mL/min/1.73m2 Moderately to severely decreased 30 - 44 mL/min/1.73m2 Severely decreased 15 - 29 mL/min/1.73m2 Kidney Failure < 15 mL/min/1.73m2 *Relative to young adult level Estimated glomerular filtration rate is determined by the 2020 CKD-EPI equation recommended by the National Kidney Foundation (A Unifying Approach to GFR Estimation: Recommendations of the NKF-ASK Task Force on Reassessing the Inclusion of Race in Diagnosing Kidney Disease, JASN 2020). The CKD-EPI equation should not be used for patients with unstable renal function and has not been validated in children and those over 70. Current interpretive data was last reviewed 2021. Blood 06/27/2024 12:2 3 AM CDT 06/27/2024 12:43 AM CDT Felipe Alfaro MD LAB BLOOD ORDERABLES Fin al Result Performing Organization Address City/[facility]/ZIP Co de Phone Number [facility] [address] Department [employer] [place], [place] [id number] * (ABNORMAL) Calcium, ionized (06/27/2024 12:23 AM CDT) Calcium, Ionized 4.35(L) 4.50 - 5.10 mg/dL Blood 06/27/2024 12:2 3 AM CDT 06/27/2024 12:41 AM CDT Felipe Alfaro MD LAB BLOOD ORDERABLES Fin al Result [facility] [address] Department of [employer] [place] [address] * (ABNORMAL) CBC without differential (06/27/2024 12:23 AM CDT) WBC 24.36(H) 3.80 - 9.90 K/cumm Hgb 12.7(L) 13.0 - 17.5 g/dL [facility] Hct 37.4(L) 38.9 - 50.3 % [facility] Plt 85(L) 150 - 400 K/cumm [facility] Comment:no clot MPV 11.2 9.1 - 12.3 fL [facility] RBC 4.03(L) 4.30 - 5.80 M/cumm [facility] MCV 92.8 81.3 - 96.4 fL [facility] MCH 31.5 27.1 - 33.3 pg [facility] MCHC 34.0 32.3 - 35.7 g/dL [facility] RDW CV 12.8 11.1 - 14.9 % [facility] RDW SD 43.9 35.7 - 48.1 fL [facility] NRBC abs 0.00 0.00 - 0.01 K/cumm [facility] Blood 06/27/2024 12:2 3 AM CDT 06/27/2024 12:43 AM CDT us Javan Madrid NP LAB BLOOD ORDERABLES Fi nal Result Performing Organization Address City/[facility]/ZIP Co de Phone Number [facility] [address] [employer] [place], [place] [id number] * Magnesium (06/27/2024 12:23 AM CDT) Pathologist [facility] Magnesium 1.8 1.4 - 2.5 mg/dL Blood 06/27/2024 12:2 3 AM CDT 06/27/2024 12:43 AM CDT Felipe Alfaro MD LAB BLOOD ORDERABLES Fin al Result [facility] [address] Department of [employer] [place], [place] [id number] * (ABNORMAL) Renal function panel (06/27/2024 12:23 AM CDT) Sodium 139 135 - 145 mmol/L Potassium, pl 3.9 3.3 - 4.9 mmol/L [facility] Chloride 106 97 - 110 mmol/L [facility] CO2 19(L) 22 - 32 mmol/L [facility] Anion gap 14 2 - 15 mmol/L [facility] BUN 9 6 - 25 mg/dL [facility] Creatinine 0.66(L) 0.80 - 1.30 mg/dL [facility] Glucose 194 70 - 199 mg/dL [facility] Comment: Interpretive Data Fasting glucose >/= 126 mg/dl is diagnostic for diabetes. Fasting is defined as no caloric intake for at least 8 hours. Fasting glucose between 100 mg/dl to 125 mg/dl is diagnostic of prediabetes. In a patient with classic symptoms of hyperglycemia or hyperglycemic crisis, a random glucose >/= 200 mg/dl is diagnostic for diabetes. In the absence of unequivocal hyperglycemia, results should be confirmed by repeat testing. The classification and Diagnosis of Diabetes Diabetes Care 2021; 46: S19-S40. Current interpretive data was last revised 2022. Calcium 8.1(L) 8.5 - 10.3 mg/dL [facility] Phosphorus, pl 2.9 2.3 - 4.5 mg/dL [facility] Albumin 3.8 3.5 - 5.0 g/dL [facility] Blood 06/27/2024 12:2 3 AM CDT 06/27/2024 12:43 AM CDT Javan Madrid NP LAB BLOOD ORDERABLES [facility] Result [facility] [address] Department [place] [address] * POCT glucose (06/26/2024 9:05 PM CDT) [facility] Glucose, POC 107 70 - 199 mg/dL Comment: For Glucose values <35 mg/dl when Hematocrit is >60 mg/dl,the test may not accurately detect significant hypoglycemia,and testing in the Laboratory should be considered if clinically indicated. POC Performer [phone] [facility] Blood 06/26/2024 9:05 PM CDT 06/26/2024 9:05 PM CDT Felipe Alfaro MD LAB POCT ORDERABLES - DE VICE Final Result [facility] [address] Department [place] [address] * Critical Care (06/26/2024 6:30 PM CDT) Narrative Abhishek Vazquez MD - 06/26/2024 6:30 PM CDT Abhishek Vazquez MD 06/29/2024 7:36 AM Critical Care Performed by: Tanika Reyes NP Authorized by: Tanika Reyes NP CRITICAL CARE: Team: [facility] CT Shift: PM Level of Billing: Subsequent Hospital Visit Level 3 My time spent with this patient was 75 minutes: Critical Provider Statement: I have seen and examined the patient on this day of service. I have reviewed and confirmed the history, physical exam, laboratory, and radiographic data as documented in the ICU note. I have reviewed and discussed my treatment plan with the patient's team and other medical/area development consultant staff. This time was in addition to and separate from care provided by other practitioners on this day of service. I spent time documenting in the medical record, I spent time discussing the management of this critically ill patient with consultants and the medical staff and I spent time reviewing and interpreting data from bedside monitors, laboratory results, and imaging Tanika Reyes ELECTRICAL TECHNICIAN INSTRUCTOR IN CLINIC/BEDSIDE ORDERAB LES Final Result * POCT glucose (06/26/2024 5:05 PM CDT) [facility] Glucose, POC 123 70 - 199 mg/dL Comment: For Glucose values <35 mg/dl when Hematocrit is >60 mg/dl,the test may not accurately detect significant hypoglycemia,and testing in the Laboratory should be considered if clinically indicated. POC Performer [id number] [facility] Blood 06/26/2024 5:05 PM CDT 06/26/2024 5:05 PM CDT Felipe Alfaro MD LAB POCT ORDERABLES - DE VICE Final Result Performing Organization Address [facility] Co de Phone Number [facility] [address] [place] [address] * POCT glucose (06/26/2024 3:58 PM CDT) Glucose, POC 114 70 - 199 mg/dL Comment: For Glucose values <35 mg/dl when Hematocrit is >60 mg/dl,the test may not accurately detect significant hypoglycemia,and testing in the Laboratory should be considered if clinically indicated. POC Performer [id number] [facility] Blood 06/26/2024 3:58 PM CDT 06/26/2024 3:58 PM CDT us Felipe Alfaro MD LAB POCT ORDERABLES - DE VICE Final Result Performing Organization Address [facility] Co de Phone Number [facility] [address] [facility] [employer] [place] [address] * POCT glucose (06/26/2024 2:47 PM CDT) Glucose, POC 102 70 - 199 mg/dL Comment: For Glucose values <35 mg/dl when Hematocrit is >60 mg/dl,the test may not accurately detect significant hypoglycemia,and testing in the Laboratory should be considered if clinically indicated. POC Performer [phone] [facility] Blood 06/26/2024 2:47 PM CDT 06/26/2024 2:47 PM CDT us Felipe Alfaro MD LAB POCT ORDERABLES - DE VICE Final Result Performing Organization Address [facility] Co de Phone Number [facility] [address] [place] [address] * Critical Care (06/26/2024 2:07 PM CDT) Narrative Viraj Malik MD - 06/26/2024 2:07 PM CDT Viraj Malik MD 06/26/2024 2:56 PM Critical Care Performed by: Viraj Malik MD Authorized by: Viraj Malik MD CRITICAL CARE: Team: [facility] CT Shift: AM Level of Billing: Critical Care My time spent with this patient was 45 minutes: Critical Provider Statement: I have seen and examined the patient on this day of service. I have reviewed and confirmed the history, physical exam, laboratory and radiologic data as documented in the signed ICU note. I have reviewed and discussed my treatment plan with the ICU team and other medical/area development consultant staff, making frequent assessments and decisions regarding this patient's complex medical care. Critical Care time was exclusive of time spent performing separately billed procedures, treating other patients, and teaching. This time was in addition to and separate from critical care provided by other practitioners in my group on this day of service. Critical Care was necessary to treat or prevent imminent or life-threatening deterioration of the following conditions: Acute pain/acute postoperative pain Hypotension and Aortic dissection/aneurysm Acute respiratory failure following procedure/surgery Acute electrolyte derangement, Acid-base disturbance and Hypo- or Hyperglycemia Acute blood loss anemia Leukocytosis This time was spent by me doing the following: Resuscitation with fluids and Serial laboratory checks Active titration of continuous sedation and Acute pain control Initiation/active titration of vasoactive medications and Interpretation of cardiac output measurements Active and frequent reassessment of respiratory status and oxygen requirements and Invasive ventilator management, reassessment, and titration Active and frequent monitoring of intake/output and volumen status and Glycemic control Active repletion of electrolytes I spent time reviewing and interpreting data from bedside monitors, laboratory results, and imaging, I spent time discussing the management of this critically ill patient with consultants and the medical staff and I spent time documenting in the medical record us Viraj Malik MD IN CLINIC/BEDSIDE ORDERABLES Final Result * POCT glucose (06/26/2024 1:52 PM CDT) [facility] Glucose, POC 107 70 - 199 mg/dL Comment: For Glucose values <35 mg/dl when Hematocrit is >60 mg/dl,the test may not accurately detect significant hypoglycemia,and testing in the Laboratory should be considered if clinically indicated. POC Performer [id number] [facility] Blood 06/26/2024 1:52 PM CDT 06/26/2024 1:52 PM CDT us Felipe Alfaro MD LAB POCT ORDERABLES - DE VICE Final Result [facility] [address] Department [place] [address] * XR Chest 1 View - Portable (06/26/2024 1:46 PM CDT) Anatomical Region Laterality Modality Body, Chest N/A Computed Radiogr aphy 06/26/2024 1:49 PM CDT Impressions 06/26/2024 1:49 PM CDT FINDINGS/IMPRESSION: Endotracheal tube terminates 0.5 to 1 cm above the logan. Repositioning is recommended. Right IJ central venous catheter tip terminates in the mid thoracic trachea. Right IJ [place]-Roseline catheter terminates in the main pulmonary artery. Sternotomy wires are seen. Prosthetic aortic valve is noted. Minimal bibasilar atelectatic changes. No focal consolidation pleural effusion or pneumothorax. Mediastinal calcified lymph nodes are seen. Cardiomediastinum is unremarkable. Electronically signed by: Brandy Parnell M.D. Narrative 06/26/2024 1:49 PM CDT EXAMINATION: XR CHEST 1 VIEW HISTORY: cardiac surgery COMPARISON: 06/26/2024 Procedure Note Brandy Guerrero MD - 06/26/2024 EXAMINATION: XR CHEST 1 VIEW HISTORY: cardiac surgery COMPARISON: 06/26/2024 IMPRESSION: FINDINGS/IMPRESSION: Endotracheal tube terminates 0.5 to 1 cm above the logan. Repositioning is recommended. Right IJ central venous catheter tip terminates in the mid thoracic trachea. Right IJ [place]-Roseline catheter terminates in the main pulmonary artery. Sternotomy wires are seen. Prosthetic aortic valve is noted. Minimal bibasilar atelectatic changes. No focal consolidation pleural effusion or pneumothorax. Mediastinal calcified lymph nodes are seen. Cardiomediastinum is unremarkable. Electronically signed by: Brandy Parnell M.D. Felipe Alfaro MD IMG XR PROCEDURES Final Result * Oxyhemoglobin, pulmonary artery (06/26/2024 1:16 PM CDT) Oxyhemoglobin, PA 73.9 % Comment: Interpretive Data No reference range established. Current interpretive data was last revised 2019. Blood 06/26/2024 1:16 PM CDT 06/26/2024 1:33 PM CDT Felipe Alfaro MD LAB BLOOD ORDERABLES Fin al Result Performing Organization Address City/[facility] Co de Phone Number [facility] [address] Department [place] [address] * eGFR (06/26/2024 1:16 PM CDT) eGFR >90 >=60 mL/min/1. 73 m2 Comment: Interpretive Data Reference Interval Normal >/= 90 mL/min/1.73m2 Mildly decreased* 60 - 89 mL/min/1.73m2 Mildly to moderately decreased 45 - 59 mL/min/1.73m2 Moderately to severely decreased 30 - 44 mL/min/1.73m2 Severely decreased 15 - 29 mL/min/1.73m2 Kidney Failure < 15 mL/min/1.73m2 *Relative to young adult level Estimated glomerular filtration rate is determined by the 2020 CKD-EPI equation recommended by the National Kidney Foundation (A Unifying Approach to GFR Estimation: Recommendations of the NKF-ASK Task Force on Reassessing the Inclusion of Race in Diagnosing Kidney Disease, JASN 202). The CKD-EPI equation should not be used for patients with unstable renal function and has not been validated in children and those over 70. Current interpretive data was last reviewed 2021. Blood 06/26/2024 1:16 PM CDT 06/26/2024 1:53 PM CDT Felipe Alfaro MD LAB BLOOD ORDERABLES Fin al Result Performing Organization Address City/[facility] Co de Phone Number [facility] [address] [facility] [employer] [place] [address] * (ABNORMAL) Calcium, ionized (06/26/2024 1:16 PM CDT) Calcium, Ionized 4.35(L) 4.50 - 5.10 mg/dL Blood 06/26/2024 1:16 PM CDT 06/26/2024 1:33 PM CDT Felipe Alfaro MD LAB BLOOD ORDERABLES Fin al Result Performing Organization Address [facility] Co de Phone Number [facility] [address] [facility] [employer] [place] [address] * aPTT (06/26/2024 1:16 PM CDT) Pathologist [facility] aPTT 35 28 - 38 sec Comment: Interpretive Data Heparin therapeutic range: 66.0 - 100.0 seconds. Range based on correlation with therapeutic heparin activity range of 0.3 - 0.7 Units/mL. Current interpretive data was last revised on 2022. Blood 06/26/2024 1:16 PM CDT 06/26/2024 1:53 PM CDT Felipe Alfaro MD LAB BLOOD ORDERABLES Fin al Result Performing Organization Address [facility] Co de Phone Number [facility] [address] [facility] [employer] [place] [address] * (ABNORMAL) Protime-INR (06/26/2024 1:16 PM CDT) PT 16.3(H) 9.7 - 13.0 sec INR 1.50(H) 0.90 - 1.20 [facility] Comment: Interpretive data Oral anticoagulant therapeutic ranges: Venous thromboembolism prophylaxis or treatment: 2.0-3.0 CARDIOLOGY Standard range: 2.0-3.0 High-intensity range: 2.5-3.5 Refer to indication-specific guidelines for appropriate target ranges for prosthetic heart valve replacement. Current interpretive data was last revised on 2019. Blood 06/26/2024 1:16 PM CDT 06/26/2024 1:53 PM CDT Felipe Alfaro MD LAB BLOOD ORDERABLES Fin al Result Performing Organization Address [facility]/ZIP Co de Phone Number [facility] [address] [place] [address] * (ABNORMAL) CBC without differential (06/26/2024 1:16 PM CDT) WBC 29.92(H) 3.80 - 9.90 K/cumm Hgb 13.4 13.0 - 17.5 g/dL [facility] Hct 39.6 38.9 - 50.3 % [facility] Plt 130(L) 150 - 400 K/cumm [facility] MPV 10.7 9.1 - 12.3 fL [facility] RBC 4.25(L) 4.30 - 5.80 M/cumm [facility] MCV 93.2 81.3 - 96.4 fL [facility] MCH 31.5 27.1 - 33.3 pg [facility] MCHC 33.8 32.3 - 35.7 g/dL [facility] RDW CV 12.9 11.1 - 14.9 % [facility] RDW SD 44.0 35.7 - 48.1 fL [facility] NRBC abs 0.00 0.00 - 0.01 K/cumm [facility] Blood 06/26/2024 1:16 PM CDT 06/26/2024 1:53 PM CDT Felipe Alfaro MD LAB BLOOD ORDERABLES Fin al Result Performing Organization Address [facility]/ZIP Co de Phone Number [facility] [address] [place] [address] * Phosphorus (06/26/2024 1:16 PM CDT) Pathologist [facility] Phosphorus, pl 3.0 2.3 - 4.5 mg/dL Blood 06/26/2024 1:16 PM CDT 06/26/2024 1:39 PM CDT Felipe Alfaro MD LAB BLOOD ORDERABLES Fin al Result Performing Organization Address [facility] Co de Phone Number [facility] [address] [facility] [employer] [place] [address] * Magnesium (06/26/2024 1:16 PM CDT) [facility] Magnesium 2.4 1.4 - 2.5 mg/dL Blood 06/26/2024 1:16 PM CDT 06/26/2024 1:39 PM CDT Result [facility] Felipe Alfaro MD LAB BLOOD ORDERABLES Fin al Result Performing Organization Address [facility] de Phone Number [facility] [address] [facility] [employer] [place] [address] * (ABNORMAL) Blood gas, arterial (06/26/2024 1:16 PM CDT) [facility] pH, Art 7.33(L) 7.35 - 7.45 PCO2, Arterial 48(H) 35 - 45 mmHg [facility] PO2, Arterial 139(H) 83 - 108 mmHg [facility] HCO3 Art (Calculated) 25 20 - 30 mmol/L [facility] BE, art -1 mmol/L [facility] Comment: Interpretive Data No Reference Range Established Current Interpretive Data was last revised on 2017 O2 Sat Art (Calculated) 99(H) 94 - 98 % [facility] Blood 06/26/2024 1:16 PM CDT 06/26/2024 1:33 PM CDT Felipe Alfaro MD LAB BLOOD ORDERABLES Fin al Result Performing Organization Address [facility] Co de Phone Number [facility] [address] Department [place] [address] * (ABNORMAL) Comprehensive metabolic panel (06/26/2024 1:16 PM CDT) Sodium 142 135 - 145 mmol/L Potassium, pl 4.4 3.3 - 4.9 mmol/L [facility] Comment:Hemolyzed; potassium value may be falsely elevated by as much as 0.3 - 0.5 mmol/L. Suggest redraw and reanalysis Chloride 110 97 - 110 mmol/L [facility] CO2 20(L) 22 - 32 mmol/L [facility] Anion gap 12 2 - 15 mmol/L [facility] BUN 11 6 - 25 mg/dL [facility] Creatinine 0.82 0.80 - 1.30 mg/dL [facility] Glucose 124 70 - 199 mg/dL [facility] Comment: Interpretive Data Fasting glucose >/= 126 mg/dl is diagnostic for diabetes. Fasting is defined as no caloric intake for at least 8 hours. Fasting glucose between 100 mg/dl to 125 mg/dl is diagnostic of prediabetes. In a patient with classic symptoms of hyperglycemia or hyperglycemic crisis, a random glucose >/= 200 mg/dl is diagnostic for diabetes. In the absence of unequivocal hyperglycemia, results should be confirmed by repeat testing. The classification and Diagnosis of Diabetes Diabetes Care 2021; 46: S19-S40. Current interpretive data was last revised 2022. Calcium 7.9(L) 8.5 - 10.3 mg/dL [facility] Bilirubin, total 1.1 0.1 - 1.2 mg/dL [facility] Protein, pl 5.4(L) 6.5 - 8.5 g/dL [facility] Albumin 3.5 3.5 - 5.0 g/dL [facility] Alk phos 65 40 - 130 Units/L [facility] ALT 14 7 - 55 Units/L [facility] AST 46 10 - 50 Units/L [facility] Comment:Slightly Hemolyzed S pecimen Blood 06/26/2024 1:16 PM CDT 06/26/2024 1:39 PM CDT Result [facility] Felipe Alfaro MD LAB BLOOD ORDERABLES Fin al Result Performing Organization Address [facility] Co de Phone Number [facility] [address] [facility] [employer] [place] [address] * aPTT (06/26/2024 12:04 PM CDT) aPTT 37 28 - 38 sec Comment: Interpretive Data Heparin therapeutic range: 66.0 - 100.0 seconds. Range based on correlation with therapeutic heparin activity range of 0.3 - 0.7 Units/mL. Current interpretive data was last revised on 2022. Blood 06/26/2024 12:0 4 PM CDT 06/26/2024 12:04 PM CDT Result [facility] Felipe Alfaro MD LAB BLOOD ORDERABLES Fin al Result Performing Organization Address [facility] de Phone Number [facility] [address] [facility] [employer] [place] [address] * (ABNORMAL) Protime-INR (06/26/2024 12:04 PM CDT) PT 18.6(H) 9.7 - 13.0 sec INR 1.70(H) 0.90 - 1.20 [facility] Comment: Interpretive data Oral anticoagulant therapeutic ranges: Venous thromboembolism prophylaxis or treatment: 2.0-3.0 CARDIOLOGY Standard range: 2.0-3.0 High-intensity range: 2.5-3.5 Refer to indication-specific guidelines for appropriate target ranges for prosthetic heart valve replacement. Current interpretive data was last revised on 2019. Blood 06/26/2024 12:0 4 PM CDT 06/26/2024 12:04 PM CDT Felipe Alfaro MD LAB BLOOD ORDERABLES Fin al Result Performing Organization Address [facility] de Phone Number [facility] [address] [facility] [employer] [place] [address] * Fibrinogen (06/26/2024 12:04 PM CDT) Pathologist [facility] Fibrinogen 229 170 - 400 mg/dL Blood 06/26/2024 12:0 4 PM CDT 06/26/2024 12:04 PM CDT Felipe Alfaro MD LAB BLOOD ORDERABLES Fin al Result Performing Organization Address [facility]/ZIP Co de Phone Number [facility] [address] [facility] [employer] [place] [address] * (ABNORMAL) CBC without differential (06/26/2024 12:04 PM CDT) [facility] WBC 20.55(H) 3.80 - 9.90 K/cumm Hgb 11.8(L) 13.0 - 17.5 g/dL [facility] Hct 34.8(L) 38.9 - 50.3 % [facility] Plt 101(L) 150 - 400 K/cumm [facility] Comment:OR patient MPV 10.8 9.1 - 12.3 fL [facility] RBC 3.74(L) 4.30 - 5.80 M/cumm [facility] MCV 93.0 81.3 - 96.4 fL [facility] MCH 31.6 27.1 - 33.3 pg [facility] MCHC 33.9 32.3 - 35.7 g/dL [facility] RDW CV 12.8 11.1 - 14.9 % [facility] RDW SD 43.9 35.7 - 48.1 fL [facility] NRBC abs 0.00 0.00 - 0.01 K/cumm [facility] Blood 06/26/2024 12:0 4 PM CDT 06/26/2024 12:04 PM CDT Felipe Alfaro MD LAB BLOOD ORDERABLES Fin al Result Performing Organization Address City/[facility]/ZIP Co de Phone Number [facility] [address] Department [place] [address] * (ABNORMAL) POC Blood Gas and Chemistries, Arterial - (06/26/2024 12:03 PM CDT) pH, Art POC 7.42 7.35 - 7.45 pCO2, Art POC 42 35 - 45 mmHg [facility] pO2, Art POC 409(H) 80 - 108 mmHg [facility] Na, POC 140 135 - 145 mmol/L [facility] K POC 4.3 3.3 - 4.9 mmol/L [facility] Comment: Interpretive Data This method is not able to assess for hemolysis, which may falsely increase potassium concentrations. If further testing is needed to evaluate this result, consider in-laboratory plasma potassium. Current Interpretive Data was last revised on 2021. Cl, POC 110 97 - 110 mmol/L [facility] Ionized Ca, POC 4.51 4.50 - 5.10 mg/dL [facility] Glucose, POC 149 70 - 199 mg/dL [facility] Lactate, POC 1.8 0.7 - 2.0 mmol/L [facility] O2Hb, Art POC 97.7(H) 90.0 - 95.0 % [facility] Carboxhgb fract 1.3 0.0 - 2.9 % [facility] Methemoglobin 0.8 0.0 - 1.9 % [facility] HHb, POC 0.3 0.0 - 5.0 % [facility] SO2 (franklin) arterial 100(H) 90 - 95 % [facility] BE, art, POC 2.4(H) -2.0 - 2.0 mmol/L [facility] HCO3, Art POC 27 20 - 30 mmol/L [facility] Hct, POC 36.0(L) 38.9 - 50.3 % [facility] Total Hb, POC 12.0(L) 13.0 - 17.5 g/dL [facility] Blood 06/26/2024 12:0 3 PM CDT 06/26/2024 12:03 PM CDT us Felipe Alfaro MD LAB POCT ORDERABLES - DE VICE Final Result [facility] [address] Department [place] [address] * POC Activated Clotting Time, High Range (06/26/2024 12:01 PM CDT) Pathologist [facility] ACT 133 87 - 138 sec POC Performer [id number] [facility] Blood 06/26/2024 12:0 1 PM CDT 06/26/2024 12:01 PM CDT us Felipe Alfaro MD LAB BLOOD ORDERABLES Fin al Result Performing Organization Address [facility]/ZIP Co de Phone Number [facility] [address] Department [place] [address] * (ABNORMAL) POC Blood Gas and Chemistries, Arterial - (06/26/2024 11:16 AM CDT) [facility] pH, Art POC 7.35 7.35 - 7.45 pCO2, Art POC 41 35 - 45 mmHg [facility] pO2, Art POC 260(H) 80 - 108 mmHg [facility] Na, POC 136 135 - 145 mmol/L [facility] K POC 4.6 3.3 - 4.9 mmol/L [facility] Comment: Interpretive Data This method is not able to assess for hemolysis, which may falsely increase potassium concentrations. If further testing is needed to evaluate this result, consider in-laboratory plasma potassium. Current Interpretive Data was last revised on 2021. Cl, POC 108 97 - 110 mmol/L [facility] Ionized Ca, POC 4.71 4.50 - 5.10 mg/dL [facility] Glucose, POC 196 70 - 199 mg/dL [facility] Lactate, POC 2.0 0.7 - 2.0 mmol/L [facility] O2Hb, Art POC 98.0(H) 90.0 - 95.0 % [facility] Carboxhgb fract 1.0 0.0 - 2.9 % [facility] Methemoglobin 0.9 0.0 - 1.9 % [facility] HHb, POC 0.0 0.0 - 5.0 % [facility] SO2 (franklin) arterial 100(H) 90 - 95 % [facility] Total CO2, Art POC 24 22 - 32 mmol/L [facility] BE, art, POC -2.9(L) -2.0 - 2.0 mmol/L [facility] HCO3, Art POC 23 20 - 30 mmol/L [facility] Hct, POC 36.0(L) 38.9 - 50.3 % [facility] Total Hb, POC 12.0(L) 13.0 - 17.5 g/dL [facility] Blood 06/26/2024 11:1 6 AM CDT 06/26/2024 11:16 AM CDT Felipe Alfaro MD LAB POCT ORDERABLES - DE VICE Final Result Performing Organization Address [facility]/ZIP Co de Phone Number [facility] [address] Department of [employer] [place] [address] * (ABNORMAL) POC Activated Clotting Time, High Range (06/26/2024 11:15 AM CDT) ACT 440(H) 87 - 138 sec POC Performer [id number] [facility] Blood 06/26/2024 11:1 5 AM CDT 06/26/2024 11:15 AM CDT Felipe Alfaro MD LAB BLOOD ORDERABLES Fin al Result [facility] [address] Department of [employer] [place] [address] * (ABNORMAL) POC Blood Gas and Chemistries, Venous - (06/26/2024 10:55 AM CDT) pH, Hosea POC 7.36 7.32 - 7.45 pCO2, hosea POC 43 40 - 50 mmHg [facility] pO2, hosea POC 51(H) 35 - 42 mmHg [facility] Na, POC 137 135 - 145 mmol/L [facility] K POC 7.7(C) 3.3 - 4.9 mmol/L [facility] Comment: Interpretive Data This method is not able to assess for hemolysis, which may falsely increase potassium concentrations. If further testing is needed to evaluate this result, consider in-laboratory plasma potassium. Current Interpretive Data was last revised on 2021. Cl, POC 110 97 - 110 mmol/L [facility] Ionized Ca, POC 4.63 4.50 - 5.10 mg/dL [facility] Glucose, POC 218(H) 70 - 199 mg/dL [facility] Lactate, POC 2.1(H) 0.7 - 2.0 mmol/L [facility] O2Hb, [place] POC 81.8(L) 90.0 - 95.0 % [facility] Carboxhgb fract 1.4 0.0 - 2.9 % [facility] Methemoglobin 0.5 0.0 - 1.9 % [facility] HHb, POC 16.3(H) 0.0 - 5.0 % [facility] O2 Sat, [place] POC (Franklin) 83(H) 68 - 77 % [facility] Total CO2, hosea POC 26 22 - 32 mmol/L [facility] Base excess, hosea POC -1.2 mmol/L [facility] HCO3, [place] POC 24 20 - 30 mmol/L [facility] Hct, POC 36.0(L) 38.9 - 50.3 % [facility] Total Hb, POC 11.9(L) 13.0 - 17.5 g/dL [facility] Blood 06/26/2024 10:5 5 AM CDT 06/26/2024 10:55 AM CDT us Felipe Alfaro MD LAB POCT ORDERABLES - DE VICE Final Result [facility] [address] Department [place] [address] * (ABNORMAL) POC Blood Gas and Chemistries, Arterial - (06/26/2024 10:44 AM CDT) pH, Art POC 7.47(H) 7.35 - 7.45 pCO2, Art POC 48(H) 35 - 45 mmHg [facility] pO2, Art POC 228(H) 80 - 108 mmHg [facility] Na, POC 145 135 - 145 mmol/L [facility] K POC 3.9 3.3 - 4.9 mmol/L [facility] Comment: Interpretive Data This method is not able to assess for hemolysis, which may falsely increase potassium concentrations. If further testing is needed to evaluate this result, consider in-laboratory plasma potassium. Current Interpretive Data was last revised on 2021. Cl, POC 110 97 - 110 mmol/L [facility] Ionized Ca, POC 4.38(L) 4.50 - 5.10 mg/dL [facility] Glucose, POC 238(H) 70 - 199 mg/dL [facility] Lactate, POC 3.2(H) 0.7 - 2.0 mmol/L [facility] O2Hb, Art POC 98.2(H) 90.0 - 95.0 % [facility] Carboxhgb fract 1.3 0.0 - 2.9 % [facility] Methemoglobin 0.4 0.0 - 1.9 % [facility] HHb, POC 0.0 0.0 - 5.0 % [facility] SO2 (franklin) arterial 100(H) 90 - 95 % [facility] Total CO2, Art POC 36(H) 22 - 32 mmol/L [facility] BE, art, POC 9.9(H) -2.0 - 2.0 mmol/L [facility] HCO3, Art POC 33(H) 20 - 30 mmol/L [facility] Hct, POC 36.0(L) 38.9 - 50.3 % [facility] Total Hb, POC 11.9(L) 13.0 - 17.5 g/dL [facility] Blood 06/26/2024 10:4 4 AM CDT 06/26/2024 10:44 AM CDT us Felipe Alfaro MD LAB POCT ORDERABLES - DE VICE Final Result [facility] [address] Department [place] [address] * (ABNORMAL) POC Activated Clotting Time, High Range (06/26/2024 10:43 AM CDT) ACT 523(H) 87 - 138 sec POC Performer [id number] [facility] Blood 06/26/2024 10:4 3 AM CDT 06/26/2024 10:43 AM CDT us Felipe Alfaro MD LAB BLOOD ORDERABLES Fin al Result Performing Organization Address [facility] Co de Phone Number [facility] [address] Department [place] [address] * Surgical pathology (06/26/2024 10:19 AM CDT) Tissue (Aorta) 06/26/2024 10 :19 AM CDT Comment:Placed in formalin a t the end of the case Narrative [facility] - 06/30/2024 10:31 AM CDT [place] [address] [place], [place] [address] Tele: Karyna Doyle MD - Greaser [employer] Oiler Note to Patients: This report may contain a detailed description of human tissue sent by a health care provider to the laboratory for pathologic evaluation. The content of this report is essential for diagnosis and may provide important critical findings. This information may be unfamiliar to patients to review without a medical professional present. It is advised that the patient review this report in the presence of a health care provider who can answer questions and explain the details. SURGICAL PATHOLOGY REPORT Patient Name: SALVATORE MAY Address: [place], [place] [address] Gender: M : 1950 (Age: 74) Service: Cardiothoracic Location: [place] [address], Hospital #: [id number] Patient Type: [facility] IN[facility]IENT Taken: 06/26/2024 Received 06/26/2024 Reported: 06/30/2024 Physician(s): Felipe Alfaro M.D. Mark Don MD DIAGNOSIS: Aorta, not otherwise specified, segmental excision: - Focal medial mucoid degeneration [facility]/06/30/2024 10:31 Examining Pathologist: Felicia Leon M.D. Report Reviewed and Electronically Signed By Felicia Leon M.D. 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 Aortic root aneurysm GROSS DESCRIPTION: Received in formalin labeled with SALVATORE MAY and aorta are multiple red yellow irregular fragments of aorta measuring 8.7 x 5.7 x 0.5 cm in aggregate. The wall is intact. Business Unit Leader sections are submitted in cassette A1. Additional sections are submitted in [facility]2. [facility]06/29/2024 15:20 DMS,CUH , JAP MICROSCOPIC DESCRIPTION: Microscopic examination supports the above captioned diagnosis. There is no inflammation. Clerical Data Follows A; [id number] REPORT IMAGES AND/OR SCANNED DOCUMENTS ONLY VIEWABLE IN PDF FORMAT The immunohistochemical test(s) cited in this report, if any, was developed and its performance characteristics determined by [facility]. It has not been cleared or approved by the U.S. Food and Drug Administration. The FDA has determined that such clearance or approval is not necessary. This test is used for clinical purposes. It should not be regarded as investigational or for research. [facility] is certified under the Clinical Laboratory Improvement Amendments of 1988 (CLIA) as qualified to perform high complexity testing. Immunostains were performed on formalin-fixed paraffin embedded tissue using a polymer diaminobenzidine chromogen detection system. Antibodies used may include clone SP1 (rabbit monoclonal, estrogen receptor), clone 1E2 (rabbit monoclonal progesterone receptor), Ki-67 (rabbit monoclonal, 30-9), CD117 (rabbit polyclonal, c-kit), and anti-Her-2/subhash (4B5) (rabbit monoclonal primary antibody). In the event that immunohistochemistry or special stains have been performed, attending physician has confirmed appropriateness of controls. Frozen section, operating room consultation, gross examination and dissection, and case sign out may have been performed in part or completely in the following laboratories: [facility], [address], [place] [address] [facility], [address], [place] [address]. Felipe Alfaro MD LAB PATHOLOGY ORDERABLES Final Result Performing Organization Address City/[facility]/ZIP Co de Phone Number [facility]OLOG[facility] Laboratory Receiving [address] [place] [address] * (ABNORMAL) POC Activated Clotting Time, High Range (06/26/2024 10:10 AM CDT) Pathologist [facility] ACT 460(H) 87 - 138 sec POC Performer [id number] [facility] Blood 06/26/2024 10:1 0 AM CDT 06/26/2024 10:10 AM CDT Felipe Alfaro MD LAB BLOOD ORDERABLES Fin al Result Performing Organization Address [facility]/ZIP Co de Phone Number [facility] [address] Department [place] [address] * (ABNORMAL) POC Blood Gas and Chemistries, Arterial - (06/26/2024 9:55 AM CDT) [facility] pH, Art POC 7.32(L) 7.35 - 7.45 pCO2, Art POC 50(H) 35 - 45 mmHg [facility] pO2, Art POC 384(H) 80 - 108 mmHg [facility] Na, POC 137 135 - 145 mmol/L [facility] K POC 3.5 3.3 - 4.9 mmol/L [facility] Comment: Interpretive Data This method is not able to assess for hemolysis, which may falsely increase potassium concentrations. If further testing is needed to evaluate this result, consider in-laboratory plasma potassium. Current Interpretive Data was last revised on 2021. Cl, POC 108 97 - 110 mmol/L [facility] Ionized Ca, POC 4.66 4.50 - 5.10 mg/dL [facility] Glucose, POC 131 70 - 199 mg/dL [facility] Lactate, POC 0.8 0.7 - 2.0 mmol/L [facility] O2Hb, Art POC 98.1(H) 90.0 - 95.0 % [facility] Carboxhgb fract 1.4 0.0 - 2.9 % [facility] Methemoglobin 0.5 0.0 - 1.9 % [facility] HHb, POC 0.0 0.0 - 5.0 % [facility] SO2 (franklin) arterial 100(H) 90 - 95 % [facility] Total CO2, Art POC 27 22 - 32 mmol/L [facility] BE, art, POC -0.9 -2.0 - 2.0 mmol/L [facility] HCO3, Art POC 24 20 - 30 mmol/L [facility] Hct, POC 38.0(L) 38.9 - 50.3 % [facility] Total Hb, POC 12.6(L) 13.0 - 17.5 g/dL [facility] Blood 06/26/2024 9:55 AM CDT 06/26/2024 9:55 AM CDT us Felipe Alfaro MD LAB POCT ORDERABLES - DE VICE Final Result [facility] [address] Department [place] [address] * (ABNORMAL) POC Blood Gas and Chemistries, Arterial - (06/26/2024 9:40 AM CDT) pH, Art POC 7.39 7.35 - 7.45 pCO2, Art POC 45 35 - 45 mmHg [facility] pO2, Art POC 479(H) 80 - 108 mmHg [facility] Na, POC 136 135 - 145 mmol/L [facility] K POC 4.1 3.3 - 4.9 mmol/L [facility] Comment: Interpretive Data This method is not able to assess for hemolysis, which may falsely increase potassium concentrations. If further testing is needed to evaluate this result, consider in-laboratory plasma potassium. Current Interpretive Data was last revised on 2021. Cl, POC 107 97 - 110 mmol/L [facility] Ionized Ca, POC 4.89 4.50 - 5.10 mg/dL [facility] Glucose, POC 143 70 - 199 mg/dL [facility] Lactate, POC 0.8 0.7 - 2.0 mmol/L [facility] O2Hb, Art POC 97.9(H) 90.0 - 95.0 % [facility] Carboxhgb fract 1.0 0.0 - 2.9 % [facility] Methemoglobin 1.1 0.0 - 1.9 % [facility] HHb, POC 0.0 0.0 - 5.0 % [facility] SO2 (franklin) arterial 100(H) 90 - 95 % [facility] Total CO2, Art POC 29 22 - 32 mmol/L [facility] BE, art, POC 1.7 -2.0 - 2.0 mmol/L [facility] HCO3, Art POC 26 20 - 30 mmol/L [facility] Hct, POC 43.0 38.9 - 50.3 % [facility] Total Hb, POC 14.4 13.0 - 17.5 g/dL [facility] Blood 06/26/2024 9:40 AM CDT 06/26/2024 9:40 AM CDT us Felipe Alfaro MD LAB POCT ORDERABLES - DE VICE Final Result Performing Organization Address [facility]/ZIP Co de Phone Number [facility] [address] [employer] [place], [place] [id number] * (ABNORMAL) POC Activated Clotting Time, High Range (06/26/2024 9:39 AM CDT) ACT 523(H) 87 - 138 sec POC Performer [id number] [facility] Blood 06/26/2024 9:39 AM CDT 06/26/2024 9:39 AM CDT Felipe Alfaro MD LAB BLOOD ORDERABLES Fin al Result [facility] [address] Department [place] [address] * SC AN PROCEDURE PLACEHOLDER (06/26/2024 9:33 AM CDT) Anatomical Region Laterality Modality Other Narrative 06/26/2024 9:33 AM CDT Bassam Mercedes MD PhD 06/26/2024 12:26 PM CORNELL Date/time: Staff: Supervising anesthesiologist: Bassam Mercedes MD PhD Performed by: Anesthesiologist: Bassam Mercedes MD PhD Preprocedure checklist: patient identified, procedure contraindications assessed, procedure consent, risks, benefits and alternatives discussed, monitors and equipment checked, timeout performed and CORNELL probe inserted into esophagus using lubricating jelly General procedure Information: Reason for procedure/indications: assessment of surgical repair Performed: personally Procedure performed at surgeon's request: yes Results discussed with surgeon: yes Images submitted to archive: yes Patient location: OR Intubated: yes Bite blocked placed: yes Probe Insertion: easy Complications: no Probe type: adult Modalities: 2D imaging, continuous wave Doppler, pulsed wave Doppler, color Doppler and 3D imaging Billing information: Physician requesting echo: Felipe Alfaro MD CPT code: CORNELL placement and diagnostic exam, non-congenital (62434) ICD code(s) for medical necessity: I71.2 - Thoracic aortic aneurysm, without rupture Echocardiographic and doppler measurements: Ventricles: Left ventricle: Cavity size: normal Hypertrophy: No Thrombus: No Global function: normal LVEF%: normal Right ventricle: Cavity size: normal Hypertrophy: no Thrombus: No Global function: normal RVEF%: normal Interventricular septum: normal Regional function: 1- Basal anteroseptal: normal 2- Basal anterior: normal 3- Basal anterolateral: normal 4- Basal inferolateral: normal 5- Basal inferior: normal 6- Basal inferoseptal: normal 7- Mid anteroseptal: normal 8- Mid anterior: normal 9- Mid anterolateral: normal 10- Mid inferolateral: normal 11- Mid inferior: normal 12- Mid inferoseptal: normal 13- Apical anterior: normal 14- Apical lateral: normal 15- Apical inferior: normal 16- Apical septal: normal 17- Gary: normal Valves: Aortic Valve: Annulus: normal Leaflet morphology: normal Leaflet motion: normal Stenosis: none Regurgitation: moderate Mitral valve: Annulus: normal Leaflet morphology anterior: normal Leaflet morphology posterior: normal Leaflet motion anterior: normal Leaflet motion posterior: normal Stenosis: none Regurgitation: mild Tricuspid valve: Annulus: normal Leaflet morphology: normal Leaflet motion: normal Stenosis: none Regurgitation: mild Pulmonic valve: Annulus: normal Stenosis: none Regurgitation: trace Aorta: Ascending aorta: Size: dilated Diameter: 4 cm Dissection: no Plaque thickness(mm): 0-3 Plaque mobile: no Aortic arch: Size: normal Dissection: no Plaque thickness(mm): 0-3 Plaque mobile: no Descending aorta: Size: normal Dissection: no Plaque thickness(mm): 0-3 Plaque mobile: no Atria: Right atrium: Size: normal Spontaneous echo contrast: No Left atrium: Size: normal (normal) Left atrial appendage: normal Interatrial septum: normal Diastolic function and other findings: Diastolic function: normal Pericardium: normal Left pleural effusion: none Right pleural effusion: normal Pulmonary venous flow: normal Pre-procedure CORNELL exam summary: 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 Exam performed under general anesthesia with positive pressure ventilation. Normal LV systolic function (LVEF 55-65%). Normal RV systolic function. No PFO by color Doppler. No thrombus seen in BRENT (exit velocity > 40 cm/sec). Normal LV diastolic function. Dilated ascending aorta (Ao Annulus 29 mm, Sinus of Valsalva 48 mm, STJ 42 mm, ascending aorta 40). Moderate AI (P1/2t 255 msec, jet width 40%). 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 Postprocedure (follow-up) CORNELL exam: LV: normal systolic function RV: normal systolic function Interventricular septum: unchanged Aortic valve: bioprosthetic Aortic valve gradient peak: 9 mmHg Aortic valve gradient mean: 5 mmHg Mitral valve: mild MR Pulmonic valve: unchanged Tricuspid valve: mild TR Atria: unchanged : Ascending aorta graft. Pericardium: unchanged Left pleural: unchanged Right pleural: unchanged Postprocedure (follow-up) CORNELL exam comments: S/p Composite graft with 29 mm bioAVR. Well-seated, appropriately functioning bioAVR with no evidence of PVL (peak gradient 9 mm Hg, mean gradient 5 mm Hg). Normal RV/LV systolic function on no inotropic support. Unchanged mild MR/TR. Otherwise, no changes. Attestation Statement: By signing this report the attending anesthesiologist certifies that he or she has personally reviewed and interpreted the echocardiogram and has reviewed and or edited and agrees with the written comments contained within the report. us Bassam Mercedes MD PhD ANESTHESIA ORDERABLE S Edited Result - Final * POC Activated Clotting Time, High Range (06/26/2024 8:59 AM CDT) ACT 112 87 - 138 sec POC Performer [id number] [facility] Blood 06/26/2024 8:59 AM CDT 06/26/2024 8:59 AM CDT us Felipe Alfaro MD LAB BLOOD ORDERABLES Fin al Result [facility] [address] Department [place] [address] * SC AN CENTRAL LINE QUADRUPLE LUMEN, SC AN PROCEDURE PLACEHOLDER (06/26/2024 8:31 AM CDT) Narrative Bassam Mercedes MD PhD - 06/26/2024 8:31 AM CDT Bassam Mercedes MD PhD 06/26/2024 8:31 AM Central Venous Line Patient location: OR Indication: central venous access and CVP monitoring Staff: Supervising provider: Bassam Mercedes MD PhD Placed by: Anesthesiologist: Bassam Mercedes MD PhD Procedure prep: Patient position: Trendelenburg. PPE: provider hand hygiene, provider hat/mask, sterile gloves, sterile gown and full body drape. Prep solution: chlorhexadine/alcohol was applied to area. Ultrasound Evaluation: Ultrasound was prepped into field. Ultrasound image(s) saved to archive. Prior to the procedure, the cannulated vein was evaluated by ultrasound and deemed suitably patent for access.This vessel was accessed using real-time ultrasound guidance and an image was placed in the patient's medical record Central line: Laterality: right Site: internal jugular An individually distinct skin insertion site is being utilized for placement of the catheter. Catheter type: quad lumen Catheter size: 8.5 Fr. Catheter length: 16 cm Catheter length at skin: 16 cm Technique: wire threaded easily, anatomy identified with surface landmarks, anatomy identified with ultrasound, vein located with finder needle, Seldinger technique and wire removed intact Venous verification: manometry, ultrasound confirmation and CORNELL confirmation Post insertion: all ports aspirated, all ports flushed easily, line sutured in place and occlusive dressing applied Number of attempts: 1 Assessment: Events: patient tolerated procedure well with no complications Bassam Mercedes MD PhD ANESTHESIA ORDERABLE S Final Result * BW AN SHEATH INTRODUCER PERFORMABLE, PULMONARY ARTERY CATH, SC AN PROCEDURE PLACEHOLDER (58:31 AM CDT) Narrative Bassam Mercedes MD PhD - 06/26/2024 8:31 AM CDT Bassam Mercedes MD PhD 06/26/2024 9:33 AM Central Venous Line Patient location: OR Indication: central venous access and CVP monitoring Staff: Supervising provider: Bassam Mercedes MD PhD Placed by: Anesthesiologist: Bassam Mercedes MD PhD Procedure prep: Patient position: Trendelenburg. PPE: provider hand hygiene, provider hat/mask, sterile gloves, sterile gown and full body drape. Prep solution: chlorhexadine/alcohol was applied to area. Ultrasound Evaluation: Ultrasound was prepped into field. Ultrasound image(s) saved to archive. Prior to the procedure, the cannulated vein was evaluated by ultrasound and deemed suitably patent for access.This vessel was accessed using real-time ultrasound guidance and an image was placed in the patient's medical record Central line: Laterality: right Site: internal jugular Catheter type: introducer sheath Catheter size: 9 Fr. Catheter length: 10 cm Catheter length at skin: 10 cm Technique: anatomy identified with surface landmarks, anatomy identified with ultrasound, vein located with finder needle, Seldinger technique, wire threaded easily and wire removed intact Venous verification: manometry, ultrasound confirmation and CORNELL confirmation Post insertion: all ports aspirated, all ports flushed easily, line sutured in place and occlusive dressing applied Number of attempts: 1 PA catheter placement: PA catheter type: non-oximetric PA catheter size: 7.5 Fr PA catheter laterality: right PA catheter site: internal jugular Placement guided by: pressure tracing changes and verified by CORNELL PA catheter depth 60 cmNo Assessment: Events: patient tolerated procedure well with no complications us Bassam Mercedes MD PhD ANESTHESIA ORDERABLE S Edited Result - Final * SC AN ELECTIVE ENDOTRACHEAL AIRWAY, SC AN PROCEDURE PLACEHOLDER (06/26/2024 8:27 AM CDT) Bassam Sebastian MD PhD - 06/26/2024 8:27 AM CDT Bassam Mercedes MD PhD 06/26/2024 8:27 AM Airway Patient location: OR Urgency: elective Indications for airway management: anesthesia Difficult airway: no Staff: Supervising provider: Basasm Mercedes MD PhD Placed by: Anesthesiologist: Bassam Mercedes MD PhD Emergent airway documentation: Risks and benefits discussed: yes Consent obtained: yes Consent given by: patient Airway prep: Preoxygenated: yes Patient position: sniffing MILS maintained throughout: yes Mask difficulty assessment: 1 - vent by mask Spontaneous ventilation during airway: absent Sedation level during airway: GA Final airway details: Final airway type: endotracheal airway Tube type: ETT ETT size: 8.0 mm Cuffed: yes Technique used for successful ETT placement: video laryngoscopy Insertion site: oral Blade type: Yousif Video blade type: Delaney Blade size: 4 Cormack-Lehane (video): grade I - full view of glottis Cuff volume: 10 mL Cuff inflated with: air ETT to gums: 24 cm Placement verified by: auscultation and CO2 detection Airway secured with: silk tape Number of attempts: 1no us Bassam Mercedes MD PhD ANESTHESIA ORDERABLE S Final Result * SC AN PROCEDURE PLACEHOLDER (06/26/2024 8:26 AM CDT) Bassam Sebastian MD PhD - 06/26/2024 8:26 AM CDT Bassam Mercedes MD PhD 06/26/2024 8:27 AM Arterial Line Patient location: OR Indication: continuous blood pressure monitoring and blood sampling needed Staff: Supervising provider: Bassam Mercedes MD PhD Placed by: ELECTRICAL ENGINEERING DIRECTOR: Gee Reece CRNA Procedure prep: Prep solution: chlorhexadine/alcohol Prep: provider hat/mask, sterile gloves and sterile drape Arterial line: Catheter size: 20 gauge Catheter length: 1 and 3/4 inch Catheter type: wire-guided catheter Seldinger technique: yes Laterality: right Site: radial artery Line secured: Tegaderm and tape Results: good waveform and good blood return Number of attempts: 1 Assessment: Events: patient tolerated procedure well with no complications us Bassam eMrcedes MD PhD ANESTHESIA ORDERABLE S Final Result * SC AN PROCEDURE PLACEHOLDER (06/26/2024 8:25 AM CDT) Narrative Bassam Mercedes MD PhD - 06/26/2024 8:25 AM CDT Bassam Mercedes MD PhD 06/26/2024 8:25 AM Arterial Line Patient location: OR Indication: continuous blood pressure monitoring and blood sampling needed Staff: Supervising provider: Bassam Mercedes MD PhD Placed by: FELIPA: Gee Reece CRNA Procedure prep: Prep solution: chlorhexadine/alcohol Prep: provider hat/mask Arterial line: Catheter size: 20 gauge Catheter length: 1 and 3/4 inch Catheter type: wire-guided catheter Seldinger technique: yes Laterality: left Site: radial artery Line secured: tape and Tegaderm Results: good waveform and good blood return Number of attempts: 1 Assessment: Events: patient tolerated procedure well with no complications us Bassam Mercedes MD PhD ANESTHESIA ORDERABLE S Final Result * CORNELL Add-On For OR (06/26/2024 6:50 AM CDT) BSA 2.41 m2 CONS SCIMAGE Narrative CONS SCIMAGE - 06/26/2024 6:50 AM CDT Procedure Auto Finalized by Rule: BW CV CORNELL DURING CASE OR Please see the Anesthesiologist's Procedure Note for the results. us Bassam Mercedes MD PhD CV ECHO PROCEDURES F inal Result CONS SCIMAGE * XR Chest 1 View (06/26/2024 6:43 AM CDT) Anatomical Region Laterality Modality Body, Chest N/A Computed Radiogr aphy 06/26/2024 6:56 AM CDT Impressions 06/26/2024 6:56 AM CDT Comparison with 01/26/2022. There is minimal basilar atelectasis. There is no focal pneumonic consolidation pneumothorax or pleural effusion. There is a tortuous atherosclerotic aorta. Old healed granulomatous disease present. Electronically signed by: Nikolai Youngblood M.D., MPH Narrative 06/26/2024 6:56 AM CDT EXAMINATION: 1 view chest radiograph Procedure Note Nikolai Youngblood MD - 06/26/2024 EXAMINATION: 1 view chest radiograph IMPRESSION: Comparison with 01/26/2022. There is minimal basilar atelectasis. There is no focal pneumonic consolidation pneumothorax or pleural effusion. There is a tortuous atherosclerotic aorta. Old healed granulomatous disease present. Electronically signed by: Nikolai Youngblood M.D., MPH Nida Bullock NP IMG XR PROCEDURES Final Result * Check Sample (06/26/2024 6:42 AM CDT) ABO Rh O Positive [facility] OTHER 06/26/2024 6:42 AM CDT 06/26/2024 7:03 AM CDT Narrative [facility] - 06/26/2024 7:27 AM CDT + Anti-K antibody on pre op type and screen Steph Del Valle NP LAB BLOOD ORDERABLES Lona l Result [facility] [address] Department [place] [address] [facility] * Hemoglobin A1c (06/26/2024 6:42 AM CDT) Hgb A1C 5.6 4.0 - 5.6 % Estimated Average Glucose 114 mg/dL [facility] Comment: The ADA recommends reporting an estimated Average Glucose (eAG) with all Hemoglobin A1c results using the equation derived from a study of 507 normal and diabetic adults. Minority populations were underrepresented and children were not included. (Diabetes Care 31:8183-8528, 2008). The eAG is not equivalent to a fasting glucose. Blood 06/26/2024 6:42 AM CDT 06/26/2024 6:56 AM CDT Nida Bullock NP LAB BLOOD ORDERABLES Final Resul t Performing Organization Address City/[facility]/ZIP Co de Phone Number [facility] [address] Department [place] [address] * ECG 12 lead (06/26/2024 6:25 AM CDT) 06/26/2024 6:25 AM CDT Narrative [facility] - 06/26/2024 2:35 PM CDT Vent Rate: 62 bpm RR Interval: 964 msec SC Interval: 184 msec QRS Duration: 100 msec QT Interval: 423 msec QTC Interval: 428 msec P-R-T Hil[place]: 65 - 6 - 29 degrees IMPRESSION: SINUS RHYTHM NORMAL ECG Electronically Signed By: Barrington gallegos Nida Bullock NP ECG ORDERABLES Final Result Performing Organization Address City/[facility] Co de Phone Number [facility] [employer] [facility] * Prepare RBC: 4 Units (06/26/2024 6:08 AM CDT) Product code [id number] [facility] Unit Number [id number] 2-2 [facility] Product Blood Type OPOS [facility] Dispense Status RETURNED [facility] Product code [id number] [facility] Unit Number [id number] 3-J [facility] Product Blood Type OPOS [facility] Dispense Status RETURNED [facility] Product code [id number] [facility] Unit Number [id number] 2-0 [facility] Product Blood Type OPOS [facility] Dispense Status RETURNED [facility] Product code [id number] Unit Number [id number] 9-[id number] [facility] Product Blood Type OPOS [facility] Dispense Status RETURNED [facility] Blood 06/26/2024 6:08 AM CDT Narrative [facility] - 07/04/2024 7:26 AM CDT Specify 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 (All products are leukoreduced and CMV- safe)- >No Date required:-[id number] [facility] # of [id number] Reasons:-Hold for procedure (specify procedure)} Nida Bullock ELECTRICAL TECHNICIAN INSTRUCTOR BLOOD BANK PRODUCT ORDERABLES Fi nal Result Performing Organization Address [facility] Co de Phone Number [facility] [address] Department [employer] [place] [address] * B K Antigen Type (06/15/2024 12:08 PM CDT) [facility] RBC K ag Negative Blood 06/15/2024 12:0 8 PM CDT 06/15/2024 12:09 PM CDT Felipe Alfaro MD LAB BLOOD ORDERABLES Fin al Result Performing Organization Address [facility] Co de Phone Number [facility] [address] Department [place] [employer] [place] [address] * Antibody identification (06/15/2024 11:41 AM CDT) [facility] Antibody ID 1 Anti-K Blood 06/15/2024 11:4 1 AM CDT 06/15/2024 11:41 AM CDT Felipe Alfaro MD LAB BLOOD BANK TEST ORDE RABLES Final Result Performing Organization Address [facility] Co de Phone Number [facility] [address] Department [employer] [place], [place] [id number] * eGFR (06/15/2024 9:50 AM CDT) [facility] eGFR >90 >=60 mL/min/1. 73 m2 Comment: Interpretive Data Reference Interval Normal >/= 90 mL/min/1.73m2 Mildly decreased* 60 - 89 mL/min/1.73m2 Mildly to moderately decreased 45 - 59 mL/min/1.73m2 Moderately to severely decreased 30 - 44 mL/min/1.73m2 Severely decreased 15 - 29 mL/min/1.73m2 Kidney Failure < 15 mL/min/1.73m2 *Relative to young adult level Estimated glomerular filtration rate is determined by the 2020 CKD-EPI equation recommended by the National Kidney Foundation (A Unifying Approach to GFR Estimation: Recommendations of the NKF-ASK Task Force on Reassessing the Inclusion of Race in Diagnosing Kidney Disease, JASN 202). The CKD-EPI equation should not be used for patients with unstable renal function and has not been validated in children and those over 70. Current interpretive data was last reviewed 2021. Blood 06/15/2024 9:50 AM CDT 06/15/2024 11:59 AM CDT us Felipe Alfaro MD LAB BLOOD ORDERABLES Fin al Result [facility] [address] Department [place] [address] * (ABNORMAL) Differential, auto (06/15/2024 9:50 AM CDT) Neutrophil abs 7.0(H) 1.5 - 6.5 K/cumm Imm gran abs 0.0 0.0 - 0.1 K/cumm [facility] Lymphocyte abs 1.5 0.8 - 3.3 K/cumm [facility] Monocyte abs 0.7 0.2 - 0.8 K/cumm [facility] Eosinophil abs 0.1 0.0 - 0.5 K/cumm [facility] Basophil abs 0.0 0.0 - 0.1 K/cumm [facility] Neutrophil pct 74.5 % [facility] Comment: Interpretive Data Percent cell count reference ranges are not reported, since discordance with absolute values may lead to misinterpretation of CBC data. Current Interpretive Data was last revised on 2017. Imm gran pct 0.4 % [facility] Comment: Interpretive Data Percent cell count reference ranges are not reported, since discordance with absolute values may lead to misinterpretation of CBC data. Current Interpretive Data was last revised on 2017. Lymphocyte pct 16.2 % [facility] Comment: Interpretive Data Percent cell count reference ranges are not reported, since discordance with absolute values may lead to misinterpretation of CBC data. Current Interpretive Data was last revised on 2017. Monocyte pct 7.3 % [facility] Comment: Interpretive Data Percent cell count reference ranges are not reported, since discordance with absolute values may lead to misinterpretation of CBC data. Current Interpretive Data was last revised on 2017. Eosinophil pct 1.4 % [facility] Comment: Interpretive Data Percent cell count reference ranges are not reported, since discordance with absolute values may lead to misinterpretation of CBC data. Current Interpretive Data was last revised on 2017. Basophil pct 0.2 % [facility] Comment: Interpretive Data Percent cell count reference ranges are not reported, since discordance with absolute values may lead to misinterpretation of CBC data. Current Interpretive Data was last revised on 2017. Blood 06/15/2024 9:50 AM CDT 06/15/2024 10:01 AM CDT us Felipe Alfaro MD LAB BLOOD ORDERABLES Fin al Result [facility] [address] Department [place] [address] * CBC with auto differential (06/15/2024 9:50 AM CDT) WBC 9.4 3.8 - 9.9 K/cumm Hgb 16.1 13.0 - 17.5 g/dL [facility] Hct 47.2 38.9 - 50.3 % [facility] Plt 201 150 - 400 K/cumm [facility] MPV 10.5 9.1 - 12.3 fL [facility] RBC 5.16 4.30 - 5.80 M/cumm [facility] MCV 91.5 81.3 - 96.4 fL [facility] MCH 31.2 27.1 - 33.3 pg [facility] MCHC 34.1 32.3 - 35.7 g/dL [facility] RDW CV 12.8 11.1 - 14.9 % [facility] RDW SD 43.4 35.7 - 48.1 fL [facility] NRBC abs 0.00 0.00 - 0.01 K/cumm [facility] Blood 06/15/2024 9:50 AM CDT 06/15/2024 10:01 AM CDT Felipe Alfaro MD LAB BLOOD ORDERABLES Fin al Result Performing Organization Address [facility] Co de Phone Number [facility] [address] [place] [address] * Protime-INR (06/15/2024 9:50 AM CDT) PT 12.8 9.7 - 13.0 sec INR 1.18 0.90 - 1.20 [facility] Comment: Interpretive data Oral anticoagulant therapeutic ranges: Venous thromboembolism prophylaxis or treatment: 2.0-3.0 CARDIOLOGY Standard range: 2.0-3.0 High-intensity range: 2.5-3.5 Refer to indication-specific guidelines for appropriate target ranges for prosthetic heart valve replacement. Current interpretive data was last revised on 2019. Blood 06/15/2024 9:50 AM CDT 06/15/2024 10:01 AM CDT Felipe Alfaro MD LAB BLOOD ORDERABLES Fin al Result Performing Organization Address [facility] Co de Phone Number [facility] [address] [place] [address] * (ABNORMAL) Type and screen (06/15/2024 9:50 AM CDT) Darron, indirect Positive(A) ABO Rh O Positive [facility] Blood 06/15/2024 9:50 AM CDT 06/15/2024 10:02 AM CDT Narrative [facility] - 06/15/2024 11:41 AM CDT No blood transfusions last 90 days Surgery 06/26/24 No blood transfusions last 90 days Surgery 06/26/24 Has the patient had Daratumumab or Isatuximab in the past 6 months?->No Felipe Alfaro MD LAB BLOOD BANK TEST ORDJovita MANJARREZ Final Result [facility] [address] Department [place] [address] * Lipid panel (06/15/2024 9:50 AM CDT) Cholesterol 140 30 - 199 mg/dL Comment: Interpretive Data Ages < or = 19 years Acceptable: <170 mg/dL Borderline high: 170-199 mg/dL High: >or= 200 mg/dL Ages > or = 20 years Desirable: <200 mg/dL Borderline high: 200-239 mg/dL High: >or= 240 mg/dL Literature References: 1. Expert Panel on Integrated Guidelines for Cardiovascular Health and Risk Reduction in Children and Adolescents. Pediatrics 2011;128:S213 2. NCEP Expert Panel. Circulation 2004;110:227 Current Interpretive Data was last revised on 2017. Triglycerides 47 <=149 mg/dL [facility] Comment: Interpretive Data Ages < or = 9 years Acceptable: <75 mg/dL Borderline high: 75-99 mg/dL High: >or= 100 mg/dL Ages 10 to 20 years Acceptable: <90 mg/dL Borderline high: 90-129 mg/dL High: >or= 130 mg/dL Ages > or = 20 years Desirable: <150 mg/dL Borderline high: 150-199 mg/dL High: 200-499 mg/dL Very high: >or= 499 mg/dL Literature References: 1. Expert Panel on Integrated Guidelines for Cardiovascular Health and Risk Reduction in Children and Adolescents. Pediatrics 2011;128:S213 2. NCEP Expert Panel. Circulation 2004;110:227 Current Interpretive Data was last revised on 2017. HDL 62 >=40 mg/dL [facility] Comment: Interpretive Data Ages < or = 19 years Acceptable: >45 mg/dL Borderline low: 40-45 mg/dL Low: <40 mg/dL Ages > or = 20 years Desirable: >or= 60 mg/dL Low: <40 mg/dL Literature References: 1. Expert Panel on Integrated Guidelines for Cardiovascular Health and Risk Reduction in Children and Adolescents. Pediatrics 2011;128:S213 2. NCEP Expert Panel. Circulation 2004;110:227 Current Interpretive Data was last revised on 2017. LDL, calculated 67 <=129 mg/dL [facility] Comment: Interpretive Data Ages < or = 19 years Acceptable: <110 mg/dL Borderline high: 110-129 mg/dL High: >or= 130 mg/dL Ages > or = 20 years Optimal: <100 mg/dL Near optimal: 100-129 mg/dL Borderline high: 130-159 mg/dL High: >160 mg/dL Calculated using the Everett LDL-C estimating equation. This equation was implemented on 2023. Prior to this date LDL-C was estimated using the Friedewald equation. Literature References: 1. Expert Panel on Integrated Guidelines for Cardiovascular Health and Risk Reduction in Children and Adolescents. Pediatrics 2011;128:S213 2. NCEP Expert Panel. Circulation 2004;110:227 3. Everett Ambrocio et al. AGUILA Cardiol. 2020 July 16;5(5):540-548. doi: 10.1001/[email or web address] Current Interpretive Data was last revised on 2023. Non-HDL Cholesterol 78 mg/dL [facility] Comment: Interpretive Data Ages < or = 19 years Acceptable: <120 mg/dL Borderline high: 120-144 mg/dL High: >145 mg/dL Ages > or = 20 years When triglycerides are >200 mg/dL, Non-HDL cholesterol is a secondary target of therapy with treatment goals that are 30 mg/dL greater than the LDL cholesterol target. Literature References: 1. Expert Panel on Integrated Guidelines for Cardiovascular Health and Risk Reduction in Children and Adolescents. Pediatrics 2011;128:S213 2. NCEP Expert Panel. Circulation 2004;110:227 Current Interpretive Data was last revised on 2017. Chol/HDL ratio 2 [facility] Blood 06/15/2024 9:50 AM CDT 06/15/2024 10:01 AM CDT Felipe Alfaro MD LAB BLOOD ORDERABLES Fin al Result [facility] [address] Department [place] [address] * (ABNORMAL) Comprehensive metabolic panel (06/15/2024 9:50 AM CDT) Sodium 135 135 - 145 mmol/L Potassium, pl 3.9 3.3 - 4.9 mmol/L [facility] Chloride 101 97 - 110 mmol/L [facility] CO2 20(L) 22 - 32 mmol/L [facility] Anion gap 14 2 - 15 mmol/L [facility] BUN 15 6 - 25 mg/dL [facility] Creatinine 0.83 0.80 - 1.30 mg/dL [facility] Glucose 107 70 - 199 mg/dL [facility] Comment: Interpretive Data Fasting glucose >/= 126 mg/dl is diagnostic for diabetes. Fasting is defined as no caloric intake for at least 8 hours. Fasting glucose between 100 mg/dl to 125 mg/dl is diagnostic of prediabetes. In a patient with classic symptoms of hyperglycemia or hyperglycemic crisis, a random glucose >/= 200 mg/dl is diagnostic for diabetes. In the absence of unequivocal hyperglycemia, results should be confirmed by repeat testing. The classification and Diagnosis of Diabetes Diabetes Care 2021; 46: S19-S40. Current interpretive data was last revised 2022. Calcium 9.3 8.5 - 10.3 mg/dL [facility] Bilirubin, total 0.9 0.1 - 1.2 mg/dL [facility] Protein, pl 7.1 6.5 - 8.5 g/dL [facility] Albumin 4.2 3.5 - 5.0 g/dL [facility] Alk phos 94 40 - 130 Units/L [facility] ALT 18 7 - 55 Units/L [facility] AST 25 10 - 50 Units/L [facility] Blood 06/15/2024 9:50 AM CDT 06/15/2024 10:01 AM CDT Felipe Alfaro MD LAB BLOOD ORDERABLES Fin al Result [facility] Radu0 Jassi Mckinney Zachary Department [place] [address] * LEFT HEART CATHETERIZATION WITH CORONARY ANGIOGRAPHY AND WITH AND WITHOUT LEFT VENTRICULOGRAM, VASCULAR ACCESS US GUIDANCE (05/25/2024 1:31 PM CDT) Anatomical Region Laterality Modality X-Ray Angiograph y Addenda Addendum by Chase Garcia MD on 05/25/2024 1:52 PM CDT LEFT HEART CATHETERIZATION AND CORONARY ANGIOGRAM REPORT DATE OF PROCEDURE: 05/25/24 INDICATION FOR PROCEDURE: Ascending aortic aneurysm, pre aortic surgery cardiac catheterization BRIEF CLINICAL HISTORY: Salvatore May is a 74 y.o. male hypertension, ascending aortic aneurysm. Patient referred by Dr. Owens and Dr. Alfaro for cardiac catheterization prior to consideration for elective ascending and valve sparing root replacement surgery. Benefits and risks of the procedure were discussed with the patient in depth, and informed consent was taken prior to the procedure. Risks of the procedure include but are not limited to vascular complications like access site vascular complications; periprocedural TN, cardiac arrhythmias, stroke, contrast induced nephropathy, and . After discussing all the benefits, risks and alternatives, patient was willing to proceed with the procedure. PROCEDURES PERFORMED: Selective left and right coronary angiogram Aortogram Ultrasound-guided right radial arterial access (CPT 14320) Moderate sedation-CPT code 01148 MODERATE SEDATION: Midazolam 2 mg , Fentanyl 50 mcg, start time 1256 stop time 1331, total direct [id number] monitoring of conscious sedation 35 minutes (CPT 02129) TRAINED OBSERVER: Veronique Morales RN was trained observer for moderate sedation. ACCESS SITE: Right radial artery PROCEDURE: After obtaining informed consent, patient was brought to the labor delivery rn and prepped and draped in the usual sterile manner. Time-out and immediate reassessment of the patient was performed. After local anesthesia with lidocaine, right radial artery access was taken with micropuncture needle under ultrasound guidance followed by insertion of a 6 Salvadorean sheath. 5 mg of verapamil and 100 mcg of nitroglycerin was given through the arterial sheath; 5000 units of heparin given through IV. Due to patient's aortic aneurysm, there was difficulty in engaging the coronary arteries. Aortogram was performed using JR4 catheter. Right coronary artery was engaged using 5 Salvadorean JR4 diagnostic catheter. Orthogonal views were taken. There was difficulty in engaging the left coronary artery. Multiple catheters including AL1, AL2, JL5 were used. Left coronary angiogram was performed using 5 Salvadorean JL5 diagnostic catheter. The catheter length was barely enough to reach the left coronary ostium. Orthogonal views were taken. Left ventriculogram was not performed. Access site hemostasis was achieved with radial band. Patient tolerated procedure well without any immediate procedure related complications. Estimated blood loss was minimal. All specimens removed. The angiographic and other findings are given below. FINDINGS: LEFT MAIN CORONARY: Large caliber vessel, no angiographically significant focal stenosis. Vessel bifurcates into LAD and left circumflex branches. LEFT ANTERIOR DESCENDING ARTERY: Lad is a medium to large caliber tortuous vessel, tapers distally and reaches LV apex. Sluggish blood flow is seen in the LAD. Major diagonal branch is a medium to large caliber vessel, and is not well visualized. LEFT CIRCUMFLEX ARTERY: Medium caliber, tortuous vessel, gives rise to medium to large caliber OM1 branch and small to medium caliber OM2 branch without significant focal stenosis. RIGHT CORONARY ARTERY: Very large caliber, dominant vessel. The vessel is tortuous in the proximal segment with minor plaque. No significant stenosis seen in the ostium. The vessel gives rise to large caliber PDA and very large caliber PLV branch without significant focal stenosis. Sluggish blood flow is seen in RCA. AORTOGRAM: Aortic aneurysm is noted, dimensions as per CTA. LEFT VENTRICULOGRAM: Not performed HEMODYNAMIC ASSESSMENT: Opening pressure 102/66 mmHg, closing pressure 126/87 mmHg. CONCLUSIONS: No angiographically significant obstructive CAD in the major epicardial vessels. Sluggish blood flow seen in the coronary arteries. Dominant RCA with large PDA and PLV branches. Ascending aortic aneurysm PLAN/RECOMMENDATIONS: Timing of elective ascending and valve sparing root replacement surgery to be determined by CT surgery. Optimal blood pressure control. Longitudinal cardiac care as per Dr. Owens. Voice recognition software was used to complete this document, therefore, helper animal laboratory variances may occur. Chase Garcia MD, FACC 05/25/24 us Chase Garcia MD CV CARDIAC CATH PROCEDURES Edite d Result - Final * eGFR (05/25/2024 9:33 AM CDT) Pathologist [facility] eGFR >90 >=60 mL/min/1. 73 m2 Comment: Interpretive Data Reference Interval Normal >/= 90 mL/min/1.73m2 Mildly decreased* 60 - 89 mL/min/1.73m2 Mildly to moderately decreased 45 - 59 mL/min/1.73m2 Moderately to severely decreased 30 - 44 mL/min/1.73m2 Severely decreased 15 - 29 mL/min/1.73m2 Kidney Failure < 15 mL/min/1.73m2 *Relative to young adult level Estimated glomerular filtration rate is determined by the 2020 CKD-EPI equation recommended by the National Kid[employer] (A Unifying Approach to GFR Estimation: Recommendations of the NKF-ASK Task Force on Reassessing the Inclusion of Race in Diagnosing Kidney Disease, JASN 2020). The CKD-EPI equation should not be used for patients with unstable renal function and has not been validated in children and those over 70. Current interpretive data was last reviewed 2021. Blood 05/25/2024 9:33 AM CDT 05/25/2024 9:50 AM CDT us Chase Garcia MD LAB BLOOD ORDERABLES Final Resul t [facility] [id number] [address] Department [place] [address] * Differential, auto (05/25/2024 9:33 AM CDT) Pathologist [facility] Neutrophil abs 5.8 1.5 - 6.5 K/cumm Imm gran abs 0.0 0.0 - 0.1 K/cumm [facility] Lymphocyte abs 1.4 0.8 - 3.3 K/cumm [facility] Monocyte abs 0.6 0.2 - 0.8 K/cumm [facility] Eosinophil abs 0.1 0.0 - 0.5 K/cumm [facility] Basophil abs 0.0 0.0 - 0.1 K/cumm [facility] Neutrophil pct 73.0 % [facility] Comment: Interpretive Data Percent cell count reference ranges are not reported, since discordance with absolute values may lead to misinterpretation of CBC data. Current Interpretive Data was last revised on 2017. Imm gran pct 0.3 % [facility] Comment: Interpretive Data Percent cell count reference ranges are not reported, since discordance with absolute values may lead to misinterpretation of CBC data. Current Interpretive Data was last revised on 2017. Lymphocyte pct 17.8 % [facility] Comment: Interpretive Data Percent cell count reference ranges are not reported, since discordance with absolute values may lead to misinterpretation of CBC data. Current Interpretive Data was last revised on 2017. Monocyte pct 7.3 % [facility] Comment: Interpretive Data Percent cell count reference ranges are not reported, since discordance with absolute values may lead to misinterpretation of CBC data. Current Interpretive Data was last revised on 2017. Eosinophil pct 1.5 % [facility] Comment: Interpretive Data Percent cell count reference ranges are not reported, since discordance with absolute values may lead to misinterpretation of CBC data. Current Interpretive Data was last revised on 2017. Basophil pct 0.1 % [facility] Comment: Interpretive Data Percent cell count reference ranges are not reported, since discordance with absolute values may lead to misinterpretation of CBC data. Current Interpretive Data was last revised on 2017. Blood 05/25/2024 9:33 AM CDT 05/25/2024 9:47 AM CDT us Chase Garcia MD LAB BLOOD ORDERABLES Final Resul t [facility] [address] [address] Department [place] [address] * CBC with auto differential (05/25/2024 9:33 AM CDT) WBC 7.9 3.8 - 9.9 K/cumm Hgb 15.2 13.0 - 17.5 g/dL [facility] Hct 45.6 38.9 - 50.3 % [facility] Plt 222 150 - 400 K/cumm [facility] MPV 10.5 9.1 - 12.3 fL [facility] RBC 4.92 4.30 - 5.80 M/cumm [facility] MCV 92.7 81.3 - 96.4 fL [facility] MCH 30.9 27.1 - 33.3 pg [facility] MCHC 33.3 32.3 - 35.7 g/dL [facility] RDW CV 13.0 11.1 - 14.9 % [facility] RDW SD 44.5 35.7 - 48.1 fL [facility] NRBC abs 0.00 0.00 - 0.01 K/cumm [facility] Blood 05/25/2024 9:33 AM CDT 05/25/2024 9:47 AM CDT us Chase Garcia MD LAB BLOOD ORDERABLES Final Resul t [facility] [address] [address] Department [place] [address] * Comprehensive metabolic panel (05/25/2024 9:33 AM CDT) Sodium 141 135 - 145 mmol/L Potassium, pl 4.3 3.3 - 4.9 mmol/L [facility] Chloride 105 97 - 110 mmol/L [facility] CO2 23 22 - 32 mmol/L [facility] Anion gap 13 2 - 15 mmol/L [facility] BUN 13 6 - 25 mg/dL [facility] Creatinine 0.81 0.80 - 1.30 mg/dL [facility] Comment:Icteric sample, test results may be affected. Glucose 116 70 - 199 mg/dL [facility] Comment: Interpretive Data Fasting glucose >/= 126 mg/dl is diagnostic for diabetes. Fasting is defined as no caloric intake for at least 8 hours. Fasting glucose between 100 mg/dl to 125 mg/dl is diagnostic of prediabetes. In a patient with classic symptoms of hyperglycemia or hyperglycemic crisis, a random glucose >/= 200 mg/dl is diagnostic for diabetes. In the absence of unequivocal hyperglycemia, results should be confirmed by repeat testing. The classification and Diagnosis of Diabetes Diabetes Care 2021; 46: S19-S40. Current interpretive data was last revised 2022. Calcium 9.4 8.5 - 10.3 mg/dL [facility] Bilirubin, total 1.1 0.1 - 1.2 mg/dL [facility] Protein, pl 7.6 6.5 - 8.5 g/dL [facility] Albumin 4.2 3.5 - 5.0 g/dL [facility] Alk phos 105 40 - 130 Units/L [facility] ALT 18 7 - 55 Units/L [facility] AST 31 10 - 50 Units/L [facility] Blood 05/25/2024 9:33 AM CDT 05/25/2024 9:47 AM CDT us Chase Garcia MD LAB BLOOD ORDERABLES Final Resul t [facility] [address] [address] Department [place] [address] * TRANSTHORACIC ECHO (TTE) COMPLETE W DOPPLER/CF WO CONTRAST (05/07/2024 2:19 PM REGIONAL SAFETY MANAGER) LV EF 65-70 % CONS SCIMAGE Anatomical Region Laterality Modality Ultrasound 05/07/2024 1:29 PM REGIONAL SAFETY MANAGER Narrative 05/07/2024 4:13 PM REGIONAL SAFETY MANAGER [facility] [address], [address], [place] [address] P:[phone] P:[phone] Echocardiographic Report Patient Name: SALVATORE MAY : 1950 Study Date: 05/07/2024 1:29:09 PM Gender: M Tech: Location: [facility] Ref Provider: MARCK OWENS Height(Cm): 193 BSA: 2.42 Weight(Kg): 108.9 Heart Rate: 64 BP: 138 / 80 Quality: Good Order Provider: MARCK OWENS PROCEDURES: Echocardiographic Report: Transthoracic echocardiogram with complete 2D, M-Mode, and color Doppler examination. With Strain Analysis. INDICATIONS: I71.21 Aneurysm of the ascending aorta, without rupture, I25.10 Atherosclerotic heart disease of [place] coronary artery without angina pectoris, and I10 Essential (primary) hypertension. MEASUREMENTS: 2D/MM Value Range Doppler Value Range EF Mod BP 63 % [ 52 - 72 ] HERB Vmax 3.64 cm2 [ 2.00 - 4.00 ] EF Teich MM 57 % [ 52 - 72 ] AV Mean PG 4 mmHg Estimated EF 65-70 % AV Peak Ren 1.47 m/s [ 1.00 - 1.70 ] LVIDd 2D 4.96 cm [ 4.20 - 5.80 ] AV Peak PG 9 mmHg LVIDd MM 6.00 cm [ 4.20 - 5.80 ] AV VTI 21.53 cm LVIDs 2D 2.89 cm [ 2.50 - 4.00 ] LVOT Diam 2.40 cm [ 1.70 - 2.10 ] LVIDs MM 4.17 cm [ 2.50 - 4.00 ] LVOT Peak Ren 1.19 m/s [ 0.70 - 1.10 ] LVPWd 2D 1.20 cm [ 0.60 - 1.00 ] LVOT VTI 25.47 cm LVPWd MM 0.86 cm [ 0.60 - 1.00 ] MV E Peak Ren 0.44 m/s [ 0.60 - 1.30 ] IVSd 2D 1.29 cm [ 0.60 - 1.00 ] MV A Peak Ren 0.70 m/s [ 1.00 - 1.20 ] IVSd MM 1.20 cm [ 0.60 - 1.00 ] MV Decel Time 208 msec [ 104 - 258 ] LA Dimension MM 3.77 cm [ 3.00 - 4.00 ] PV Peak Ren 0.87 m/s [ 0.40 - 0.80 ] AoR Diam MM 4.87 cm [ 3.10 - 3.70 ] TR Peak Ren 2.55 m/s [ 1.00 - 2.80 ] LA Volume Index 26 cc/m2 [ 16 - 34 ] TR Peak PG 26 mmHg ACS MM 2.48 cm [ 1.50 - 2.60 ] RVSP 34.00 mmHg [ 10.00 - 36.00 ] E` 0.03 m/s E/E` 16 2D/MM Value Range Doppler Value Range - FINDINGS: Interpretation Site: Exam was interpreted at [facility]. Left Ventricle: Normal left ventricular systolic function. No focal wall motion abnormalities. Normal left ventricular size. Moderate concentric left ventricular hypertrophy. Impaired diastolic relaxation Grade I. Ejection fraction is measured at 63 %. Ejection Fraction is visually estimated to be 65-70 %. Global Longitudinal Strain is -14 %. GLS is abnormal. Right Ventricle: Normal right ventricular size. Normal right ventricular systolic function. Left Atrium: There is mild enlargement of left atrium. Right Atrium: There is mild enlargement of right atrium. Atrial Septum: Normal atrial septum. Mitral Valve: Normal appearance of the mitral valve. Mild mitral valve regurgitation. There is no hemodynamically significant mitral stenosis by Doppler. Aortic Valve: No evidence of hemodynamically significant aortic stenosis by Doppler. Aortic cusps appear mildly sclerotic. Trileaflet aortic valve. Mild to moderate aortic valve regurgitation. Tricuspid Valve: Normal appearance of the tricuspid valve. Normal right ventricular systolic pressure. Estimated peak RVSP is 34 mmHg. Mild tricuspid regurgitation. Pulmonic Valve: Normal appearance of the pulmonic valve. No pulmonic stenosis. Mild pulmonic regurgitation. Pericardium: Normal pericardium with no significant pericardial effusion. Aorta: Sinus of Valsalva is severely dilated. Sinus of Valsalva 5.2 cm. Sinotubular Junction 4.6 cm. Ascending Aorta 5.3 cm. IVC: Normal size and normal respiratory collapse consistent with normal right atrial pressure (<5 mmHg). CONCLUSIONS: Normal left ventricular systolic function. No focal wall motion abnormalities. Normal left ventricular size. Moderate concentric left ventricular hypertrophy. Impaired diastolic relaxation Grade I. Ejection fraction is measured at 63 %. Ejection Fraction is visually estimated to be 65-70 %. Global Longitudinal Strain is -14 %. GLS is abnormal. There is mild enlargement of left atrium. There is mild enlargement of right atrium. Mild mitral valve regurgitation. Aortic cusps appear mildly sclerotic. Mild to moderate aortic valve regurgitation. Mild tricuspid regurgitation. Mild pulmonic regurgitation. Sinus of Valsalva is severely dilated. Sinus of Valsalva 5.2 cm. Sinotubular Junction 4.6 cm. Ascending Aorta 5.3 cm. Normal sinus rhythm. Electronically Signed By: Marck Owens MD 05/07/2024 4:13:06 PM REGIONAL SAFETY MANAGER Procedure Note Marck Owens MD - 05/07/2024 [facility] [address], [address], [place] [address] P:[phone] P:[phone] Echocardiographic Report Patient Name: SALVATORE MAY : 1950 Study Date: 05/07/2024 1:29:09 PM Gender: M Tech: Location: EDW Ref Provider: MARCK OWENS Height(Cm): 193 BSA: 2.42 Weight(Kg): 108.9 Heart Rate: 64 BP: 138 / 80 Quality: Good Order Provider: MARCK OWENS PROCEDURES: Echocardiographic Report: Transthoracic echocardiogram with complete 2D, M-Mode, and color Dopplerexamination. With Strain Analysis. INDICATIONS: I71.21 Aneurysm of the ascending aorta, without rupture, I25.10Atherosclerotic heart disease of [place] coronary artery without angina pectoris, and [id number] (primary) hypertension. MEASUREMENTS: 2D/MM Value Range Doppler ValueRange EF Mod BP 63 % [ 52 - 72 ] HERB Vmax 3.64cm2 [ 2.00 - 4.00 ] EF Teich MM 57 % [ 52 - 72 ] AV Mean PG 4mmHg Estimated EF 65-70 % AV Peak Ren 1.47m/s [ 1.00 - 1.70 ] LVIDd 2D 4.96 cm [ 4.20 - 5.80 ] AV Peak PG 9mmHg LVIDd MM 6.00 cm [ 4.20 - 5.80 ] AV VTI 21.53cm LVIDs 2D 2.89 cm [ 2.50 - 4.00 ] LVOT Diam 2.40 cm[ 1.70 - 2.10 ] LVIDs MM 4.17 cm [ 2.50 - 4.00 ] LVOT Peak Ren 1.19m/s [ 0.70 - 1.10 ] LVPWd 2D 1.20 cm [ 0.60 - 1.00 ] LVOT VTI 25.47cm LVPWd MM 0.86 cm [ 0.60 - 1.00 ] MV E Peak Ren 0.44m/s [ 0.60 - 1.30 ] IVSd 2D 1.29 cm [ 0.60 - 1.00 ] MV A Peak Ren 0.70m/s [ 1.00 - 1.20 ] IVSd MM 1.20 cm [ 0.60 - 1.00 ] MV Decel Time 208msec [ 104 - 258 ] LA Dimension MM 3.77 cm [ 3.00 - 4.00 ] PV Peak Ren 0.87m/s [ 0.40 - 0.80 ] AoR Diam MM 4.87 cm [ 3.10 - 3.70 ] TR Peak Ren 2.55m/s [ 1.00 - 2.80 ] LA Volume Index 26 cc/m2 [ 16 - 34 ] TR Peak PG 26mmHg ACS MM 2.48 cm [ 1.50 - 2.60 ] RVSP 34.00mmHg [ 10.00 - 36.00 ] E` 0.03 m/s E/E` 16 2D/MM Value Range Doppler ValueRange - FINDINGS: Interpretation Site: Exam was interpreted at [facility]. Left Ventricle: Normal left ventricular systolic function. No focal wall motionabnormalities. Normal left ventricular size. Moderate concentric left ventricular hypertrophy.Impaired diastolic relaxation Grade I. Ejection fraction is measured at 63 %.Ejection Fraction is visually estimated to be 65-70 %. Global Longitudinal Strain is -14 %. GLSis abnormal. Right Ventricle: Normal right ventricular size. Normal right ventricular systolicfunction. Left Atrium: There is mild enlargement of left atrium. Right Atrium: There is mild enlargement of right atrium. Atrial Septum: Normal atrial septum. Mitral Valve: Normal appearance of the mitral valve. Mild mitral valve regurgitation.There is no hemodynamically significant mitral stenosis by Doppler. Aortic Valve: No evidence of hemodynamically significant aortic stenosis by Doppler.Aortic cusps appear mildly sclerotic. Trileaflet aortic valve. Mild to moderate aorticvalve regurgitation. Tricuspid Valve: Normal appearance of the tricuspid valve. Normal right ventricularsystolic pressure. Estimated peak RVSP is 34 mmHg. Mild tricuspid regurgitation. Pulmonic Valve: Normal appearance of the pulmonic valve. No pulmonic stenosis. Mildpulmonic regurgitation. Pericardium: Normal pericardium with no significant pericardial effusion. Aorta: Sinus of Valsalva is severely dilated. Sinus of Valsalva 5.2 cm.Sinotubular Junction 4.6 cm. Ascending Aorta 5.3 cm. IVC: Normal size and normal respiratory collapse consistent with normal rightatrial pressure (<5 mmHg). CONCLUSIONS: Normal left ventricular systolic function. No focal wall motionabnormalities. Normal left ventricular size. Moderate concentric left ventricular hypertrophy.Impaired diastolic relaxation Grade I. Ejection fraction is measured at 63 %.Ejection Fraction is visually estimated to be 65-70 %. Global Longitudinal Strain is -14 %. GLSis abnormal. There is mild enlargement of left atrium. There is mild enlargement of right atrium. Mild mitral valve regurgitation. Aortic cusps appear mildly sclerotic. Mild to moderate aortic valveregurgitation. Mild tricuspid regurgitation. Mild pulmonic regurgitation. Sinus of Valsalva is severely dilated. Sinus of Valsalva 5.2 cm.Sinotubular Junction 4.6 cm. Ascending Aorta 5.3 cm. Normal sinus rhythm. Electronically Signed By: Marck Owens MD 05/07/2024 4:13:06 PM REGIONAL SAFETY MANAGER us Marck Owens MD CV ECHO PROCEDURES Final Result * Colonoscopy (02/19/2024 10:03 AM REGIONAL SAFETY MANAGER) Anatomical Region Laterality Modality Other Narrative Procedure Note Gonzalez Ace, - 02/19/2024 10:03 AM CST [facility] Patient Name: Salvatore May Procedure Date: 02/19/2024 10:03 AM Date of : 1950 Admit Type: Outpatient Age: 73 Gender: Male Attending MD: Gonzalez Ace D.O. Room: [facility] ENDOSCOPY ROOM 3 Note Status: Finalized Patient Profile: Refer to note in patient chart for documentation of history and physical. Procedure: Colonoscopy Indications: Family history of colon cancer in a first-degree relative before age 60 years, Last colonoscopy: December 2011 Referring MD: Antwon Blankenship M.D. Providers: Gonzalez Ace D.O. Impression: - The examined portion of the ileum was normal. - Two 6 to 7 mm polyps in the sigmoid colon,removed with a hot snare. Resected and retrieved. - The examination was otherwise normal on directand retroflexion views. Recommendation: - Discharge patient to home. - Resume previous diet. - Continue present medications. - Await pathology results. - Repeat colonoscopy in 5 years for surveillance. - Return to primary care physician PRN. Medicines: Monitored Anesthesia Care Complications: No immediate complications. Estimated Blood Loss: Estimated blood loss: none. Procedure: Pre-Anesthesia Assessment: - As per anesthesia. The benefits, risks and alternatives of theprocedure and sedation were discussed and informed consentwas obtained. All questions were answered. Please referto the signed informed consent document in the medical record. The bowel preparation used was Miralax and bisacodyl tablets via split dose instruction. The scope was passed under direct vision. TheColonoscope [id number] was introduced through the anus and advanced to the 5 cm into the ileum. Theterminal ileum, ileocecal valve, appendiceal orifice, and rectum were photographed. The colonoscopy was performed without difficulty. The patient tolerated the procedure well. The quality of the bowel preparation was adequate. Findings: The perianal and digital rectal examinations were normal. The terminal ileum appeared normal. Two pedunculated polyps were found in the sigmoid colon. The polypswere 6 to 7 mm in size. These polyps were removed with a hot snare.Resection and retrieval were complete. The exam was otherwise without abnormality on direct and retroflexion views. Electronically signed by Gonzalez Ace M.D. Gonzalez Ace D.O. 02/19/2024 12:43:39 PM Number of Addenda: 0 Note Initiated On: 02/19/2024 10:03 AM Procedure Code(s): --- Professional --- 53783, Colonoscopy, flexible; with removal of tumor(s), polyp(s), or other lesion(s) by snare technique --- Technical --- 69947, Colonoscopy, flexible; with removal of tumor(s), polyp(s), or other lesion(s) by snare technique Diagnosis Code(s): --- Professional --- D12.5, Benign neoplasm of sigmoid colon Z80.0, Family history of malignant neoplasm of digestive organs --- Technical --- D12.5, Benign neoplasm of sigmoid colon Z80.0, Family history of malignant neoplasm of digestive organs CPT copyright 2020 [employer]. All rights reserved. The codes documented in this report are preliminary and upon employee relations specialist reviewmay be revised to meet current compliance requirements. Recognized by the [employer] for promoting quality in endoscopy Gonzalez Ace DO ENDOSCOPY PROCEDURES Final Res ult * PSA screen (12/26/2022 9:29 AM CDT) PSA-Total 0.53 <=6.20 ng/mL Comment: Interpretive Data AGE SEX REFERENCE INTERVAL 0 minutes-150 years Female None 0 minutes-49 years Male None 50-59 years Male 0-3.90 60-69 years Male 0-5.40 70-79 years Male 0-6.20 80-150 years Male 0-6.20 The [employer] PSA Total assay procedure was used. Results from different manufacturers or methods may not be comparable. Serial testing should be performed using the same method. Current interpretive data last revised 21. Blood 12/26/2022 9:29 AM CDT 12/26/2022 2:07 PM CDT Antwon Blankenship MD LAB BLOOD ORDERABLES Final Result Performing Organization Address [facility] de Phone Number JESSICA BYNUM [phone] [place] [address] * Hepatitis C antibody Blood (12/26/2022 9:29 AM CDT) Hep C Ab Nonreactive Nonreactive Comment: Interpretive Data Nonreactive: Antibodies to HCV not detected. Does NOT exclude the possibility of recent exposure to HCV. Equivocal: Equivocal for HCV antibodies. Supplemental molecular testing will be automatically performed to determine infection status in accordance with current CDC screening recommendations. Reactive: Positive for HCV antibodies. This may represent current or past HCV infection. Supplemental molecular testing will be automatically performed to determine current infection status in accordance with current CDC screening recommendations. Interpretive data was last revised on 2019. Blood 12/26/2022 9:29 AM CDT 12/26/2022 2:07 PM CDT Antwon Blankenship MD LAB MICROBIOLOGY - GENERAL ORDERABLES Final Result Performing Organization Address [place]/[facility] Co de Phone Number JESSICA FLETCHER [id number] [place] [address] from Last 3 Months or Most Recently Relevant to Health Maintenance Insurance [facility] MEDICARE [facility] MEDICARE T MEDICARE Advance Directives For more information, please contact: [phone] * Full Code (Latest Code Status on File) Date Activated Date Inactivated Comments 06/26/2024 1:13 PM 07/03/2024 7:58 PM * Full Code Date Activated Date Inactivated Comments 02/19/2024 10:27 AM 02/19/2024 5:23 PM * Full Code Date Activated Date Inactivated Comments 02/19/2024 10:27 AM 02/19/2024 10:27 AM Care Teams Signal Intelligence/Electronic Warfare Relationship Specialty Start Date End Date Mark Don MD [address] [place] [address] PCP - General Internal Medicine 04/13/24 Chetan Torres MD [address] [place] [address] Consulting Physician Neurosurgery 02/20/23 Felipe Alfaro MD [address] [place] [address] Consulting Physician Cardiothoracic Surgery 04/13/24 Marck Owens MD [address] [place] [address] Referring Physician Cardiology 04/13/24
--- OUTSIDE RECORDS SUMMARY | 2024-07-20 22:23 | XMS_ITS | Clinical Summary ---
Author Organization [facility] Address [address] [place] [address] Care Team Providers Care Solution Spec Name Role Phone Chetan Torres MD Unavailable [phone] Mark Don MD Primary Care Provider [phone] Felipe Alfaro MD Unavailable Marck Owens MD Unavailable Allergies No known active allergies Medications aspirin [...] for screening colonoscopy 01/02/2024 [facility] Medicare patient 07/03/2023 [...] 03/2022 Assessment & Plan (05/16/2022 12:26 PM SLOT FLOOR SUPERVISOR): Discussed rationale for having vital signs done. [...] today's visit. He was told by his environmental health physician that he might get along with me, [...] self resolved- use Demetria gardiner second eye @@@ Today tr-1+ cell, ran [...] - Floppy iris intraop self resolved- use Shugar abdifatah second eye Today tr-1+ cell, ran out [...] -- floppy iris intraop self resolved - Shugar gardiner second eye - Doing well - Prednisolone 4-3-2-1 weekly OS - Ofloxacin QID OS for one more week - Reviewed signs/symptoms endophthalmitis, RT/RD; patient to call immediately if any worsening vision, pain, redness, flashes/floaters/curtains - RTC 1 month Assessment & Plan (08/24/2021 10:08 AM CDT): Assessment/Plan 1. POD #1 s/p CE/PCIOL OS -- did have intraop floppy iris which self resolved. Demetria fuh second eye - Doing well - Prednisolone QID OS - Ofloxacin QID OS - Reviewed signs/symptoms endophthalmitis, RT/RD; patient to call immediately if any worsening vision, pain, redness, flashes/floaters/curtains - No lifting/bending/swimming. Todd shield while sleeping, protective eyewear during day. - RTC 1 week Suspected glaucoma of both eyes 05/04/2021 Assessment & Plan (05/04/2021 11:27 AM SLOT FLOOR SUPERVISOR): No FHx, no trauma, no prior surgeries Physiologic large cups, healthy rims OCT RNFL full OU IOP upper limits normal Yearly IOP check/DFEx Coronary artery disease invo lving sitka coronary artery of sitka heart 02/06/2021 Assessment & Plan (12/21/2021 10:14 AM CDT): Continue aspirin 81mg a day and Atorvastatin 20mg a day Assessment & Plan (02/06/2021 10:26 AM SLOT FLOOR SUPERVISOR): Start Atorvastatin 20mg a day Chest tightness 07/15/2020 Hyperlipidemia LDL goal <70 07/15/2020 Numbness of fingers of both hands 06/25/2020 Assessment & Plan (12/21/2021 10:13 AM CDT): Patient to use braces at night Assessment & Plan (02/10/2021 10:21 PM SLOT FLOOR SUPERVISOR): Patient to use Cock-up splints for carpal tunnel syndrome Assessment & Plan (06/25/2020 8:08 AM CDT): This could be early carpal tunnel syndrome. If symptoms continue will order EMG/Nerve conduction study Chest pain 06/24/2020 Assessment & Plan (02/18/2022 8:12 AM SLOT FLOOR SUPERVISOR): Most likely related to muscle skeletal pain [...] 04/23/2020 Assessment & Plan (04/23/2020 4:34 PM SLOT FLOOR SUPERVISOR): Will check labs Pain of foot 08/27/2013 Benign hypertension 08/01/2013 Overview (06/20/2016): BENIGN HYPERTENSION Arthralgia of ankle 07/29/2013 Aneurysm of thoracic aorta 12/25/2012 Overview (06/20/2016): Thoracic aneurysm Assessment & Plan (12/21/2021 10:13 AM CDT): Patient to repeat scan 07/08 Assessment & Plan (02/06/2021 10:27 AM SLOT FLOOR SUPERVISOR): Continue yearly surveillance Knee pain 2011 Essential hypertension 05/03/2009 Assessment & Plan (02/18/2022 8:16 AM SLOT FLOOR SUPERVISOR): Continue Lisinopril/HCTZ 20/25mg one tablet day Assessment & Plan (12/21/2021 10:12 AM CDT): Continue Carvedilol 6.25mg one tablet twice a day and Lisinopril-HCTZ 20/25mg one tablet a day Assessment & Plan (02/06/2021 10:19 AM SLOT FLOOR SUPERVISOR): Continue Lisinopril/HCTZ 20/25mg one tablet a day and Carvedilol 6.25mg one tablet a day Assessment & Plan (06/24/2020 9:42 AM CDT): BP today is 110/70. Continue current treatment -- carvedilol 6.25 mg BID and lisinopril-HCTZ 20-25 mg daily. Encourage low-sodium diet and regular exercise. Will monitor. 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 No Preop meds: None Weight greater than 350 lbs: No [facility] case: No; If yes, reason: Med clearance: CPAP requested? TPAP IOL Master: done today Additional perioperative testing/procedure needed?: none Assessment & Plan (05/04/2021 11:30 AM SLOT FLOOR SUPERVISOR): New patient referred from [facility] for evaluation of cataracts OU. No records [...] to device, implant, and graft 05/03/2009 07/03/2023 Encounters Date Type Department Care Team Description 07/08/2024 Telephone Cardiovascular and Thoracic Surgery [address] [facility] [address] [place] [address] Felipe Alfaro MD Post-op 07/08/2024 Telephone [facility] Cardiology [address] [facility] [address] [place] [phone] Marck Owens MD Shortness of Breath; pain when walking; Cough 07/07/2024 Orders Only Cardiovascular and Thoracic Surgery [address] [facility] [address] [place] [address] Viola Zarco RN Aneurysm of ascending aorta without rupture (Primary Dx) 06/26/2024 8:13 AM CDT Anesthesia Event [facility] Operating Room [address] [place] [phone] Bassam Mercedes MD PhD Peterson, Nathan Scott, CRNA 06/26/2024 8:00 AM CDT - 06/26/2024 1:15 PM CDT Surgery [facility] Operating Room [address] [place] [phone] Felipe Alfaro MD MINIMALLY INVASIVE SRI ARCH COMPOSITE ROOT 06/26/2024 6:50 AM CDT Ancillary Procedure [facility] Operating Room [address] [place] [phone] 06/26/2024 5:41 AM CDT - 07/03/2024 3:58 PM CDT Hospital Encounter [address] [phone] Felipe Alfaro MD Encounter for screening colonoscopy (Primary Dx); Nonrheumatic aortic valve insufficiency; Aneurysm of ascending aorta without rupture; Aortic root aneurysm; S/P AVR Discharge Disposition: Discharge to home, home health skilled care 06/25/2024 Telephone Cardiovascular and Thoracic Surgery [address] [place] [phone] Felipe Alfaro MD 06/18/2024 Telephone Cardiovascular and Thoracic Surgery [address] [place] [phone] Felipe Alfaro MD OTHER 06/15/2024 9:35 AM CDT Lab [facility] Outpatient Lab [address] [place] [phone] Aneurysm of ascending aorta without rupture 06/15/2024 8:45 AM CDT Office Visit Cardiovascular and Thoracic Surgery [address] [place] [phone] Felipe Alfaro MD Aneurysm of ascending aorta without rupture (Primary Dx) 06/15/2024 Documentation Cardiovascular and Thoracic Surgery [address] [place] [address] [address], [place] [address] Viraj Daphne 06/12/2024 Telephone Cardiovascular and Thoracic Surgery [address] [place] [address] [address] [place] [address] Viola Zarco RN 06/11/2024 Telephone Cardiovascular and Thoracic Surgery [address] [place] [address] [address], [place] [address] Felipe Alfaro MD OTHER 06/08/2024 Telephone Cardiovascular and Thoracic Surgery [address] [place] [phone] Felipe Alfaro MD Other 05/25/2024 11:30 AM CDT - 05/25/2024 1:00 PM CDT Surgery [facility] Cardiac Catheterization Lab [address] [place] [address] Chase Garcia MD LEFT HEART CATHETERIZATION WITH CORONARY ANGIOGRAPHY AND WITH OR WITHOUT LEFT VENTRICULOGRAM [id number] 05/25/2024 9:04 AM CDT - 05/25/2024 3:46 PM CDT Hospital Encounter [facility] Cardiac Catheterization Lab [address] [place] [address] Chase Garcia MD Aneurysm of ascending aorta without rupture; Thoracic aortic aneurysm without rupture, unspecified part Discharge Disposition: Discharge to home or self care 2024 Telephone Cardiovascular and Thoracic Surgery [address] [place] [address], [place] [address] Felipe Alfaro MD medical questions 05/14/2024 Telephone [facility] Cardiology [address] [place] [phone] Marck Owens MD 05/14/2024 Telephone [facility] Cardiology [address] [place] [phone] Marck Owens MD 05/11/2024 11:00 AM SLOT FLOOR SUPERVISOR Office Visit Cardiovascular and Thoracic Surgery [address] [place] [address] [address] [place] [address] Felipe Alfaro MD Aneurysm of ascending aorta without rupture (Primary Dx); Aortic root aneurysm 05/08/2024 Results Follow-Up [facility] Cardiology [address] [place] [phone] Marck Owens MD 05/07/2024 1:30 PM SLOT FLOOR SUPERVISOR Ancillary Procedure [facility] Cardiology at [place] [address] [facility] [address] [place] [address] Aneurysm of ascending aorta without rupture; Coronary artery disease involving sitka coronary artery of sitka heart without angina pectoris; Essential hypertension from Last 3 Months Immunizations Immunization Administration Dates Next Due Influenza, Quadrivalent, Hig h Dose, Preservative Free, Intrr 12/14/2022,12/21/2021,02/06/2021,01/05 Influenza, Trivalent, IM (MDV) 02/27/2012,2010,04/16/2005 Influenza, Unspecified 12/26/2022(Deferr ed: Patient Refused),12/17/2022,03/18/2022(Deferre d: Patient Refused),01/21/2020 Pfizer SARS-CoV-2 Monovalent Vaccination (12+ Yrs) PURPLE 12/17/2022,12/19/2020,06/02/2020,05/12 Pneumococcal Conjugate PCV 13 08/02/2020 Pneumococcal Polysaccharide PPV23 12/21/2021 Surgical History Surgery Date Site/Laterality Comments ROTATOR CUFF REPAIR 03/18/2014 - 03/17/2015 Left Rotator cuff repair URETHRA SURGERY Urethral stricture: surgery TOTAL HIP ARTHROPLASTY Right Hip replacement, right NASAL FRACTURE SURGERY fracuture nasal bones HIP PROSTHESIS REMOVAL Right infected right hip prosthesis: removal of prosthesis unknown REVISION TOTAL HIP ARTHROPLASTY Right 2nd right hip replacement: hip replacement THUMB SURGERY Right Evacuation of RT thumb paronychia and subungual hematoma 12/26 COLONOSCOPY 12/17/2011 - 01/16/2012 CARDIAC CATHETERIZATION 05/25/2024 N/A Procedure: LEFT HEART CATHETERIZATION WITH CORONARY ANGIOGRAPHY AND WITH OR WITHOUT LEFT VENTRICULOGRAM 71933; Surgeon: Chase Garcia MD; Location: CARDIAC NITRATE OPERATOR; Service: Cardiovascular; Laterality: N/A; CARDIAC CATHETERIZATION 05/25/2024 N/A Procedure: ULTRASOUND GUIDANCE FOR VASCULAR ACCESS S&I 38005; Surgeon: Chase Garcia MD; Location: CARDIAC NITRATE OPERATOR; Service: Cardiovascular; Laterality: N/A; AORTOGRAM 05/25/2024 Groin Procedure: AORTOGRAM; Surgeon: Chase Garcia MD; Location: CARDIAC NITRATE OPERATOR; Service: Cardiovascular;; Medical History Medical History Date Comments Aortic aneurysm Ascending aorta. History of removal of joint prosthesis of hip due to infection infected right hip prosthesi s HLD (hyperlipidemia) HTN (hypertension) Urethral stricture CAD (coronary artery disease) Adenomatous colon polyp Aneurysm of ascending aorta without rupture Thoracic aortic aneurysm wit hout rupture, unspecified part Family History Medical History Relation Name Comments Hypertension Brother Hypertension; Hypertension Father Colon cancer Mother Hypertension Mother Hypertension; Cancer Sister Cancer, unknown ; Anesthesia problems Neg Hx Relation Name Status Comments Brother Father Mother Sister Alive Social History Tobacco Use Types Packs/Day Years Used Date Smoking Tobacco: Never Smokeless Tobacco: Former Snuff Quit: 2020 Tobacco Cessation:Counseling Given: Not Answered Alcohol Use Standard Drinks/Week Comments Yes 0 (1 standard drink = 0.6 oz pur e alcohol) one beer every other day. [facility] [employer] Answer Date Recorded In the past 12 months has [employer], gas, oil, or water [employer] threatened to shut off services in your home? No 06/29/2024 Social Connection and Isolat ion Panel [NHANES] Answer Date Recorded In a typical week, how many times do you talk on the phone with family, friends, or neighbors? Twice a week 06/29/2024 Frequency of Social Gatherin gs with Friends and Family Not on file 06/29/2024 How often do you attend [facility] or latter day services? More than 4 times per year 06/29/2024 Do you belong to any clubs o r organizations such as caodaism groups, unions, fraternal or athletic groups, or [...] any time in the past [address] [facility], were you homeless or living in a residential (including now)? No 06/29/2024 Personal Safety Answer Date Recorded Have you ever been in or are you currently in a harmful physical or emotional relationship or is someone making you feel afraid or unsafe? Denies 06/26/2024 Sex and Gender Information Value Date Recorded Sex Assigned at Not on file Legal Sex Male 12:33 PM SLOT FLOOR SUPERVISOR Gender Identity Not on file Sexual Orientation Not on file Occupation Industry Job Start Date Job End Date retired Not on file Not on file Not on file Obstetrics History Last Filed Vital Signs Vital Sign Reading [...] 06/26/2024 6:22 AM CDT Plan of Treatment Health Maintenance Due Date Last Done Comments DTaP/Tdap/Td Vaccine (1 - Tdap) 1961 Hepatitis B Screening 05/19/1967 Zoster Vaccine (1 of 2) 05/19/1999 Covid-19 Vaccine (2023-2 5 season) 2023 12/17/2022, 12/14/2022, 12/04/2021, Additional history exists Depression Screening 07/02/2024 07/03/2023, 12/26/2022, 02/06/2022, Additional history exists Well Visit 65+ 07/02/2024 07/03/2023, 06/24/2020 Influenza Vaccine (Season Ended) 2024 12/17/2022, 12/14/2022, 12/21/2021, Additional history exists Prostate Cancer Screening-PSA 12/26/2024 12/26/2022, 04/29/2020 Fall Risk Assessment 07/03/2025 07/03/2024, 07/03/2023, 12/26/2022, Additional history exists Colon Cancer Screening-Colonoscopy 02/18/20342023, 12/27/2011 Pneumococcal vaccine 65+ Completed 12/21/2021, 07/16 Hepatitis C Screening Completed 12/26/2022 Medical Devices Implanted Type Area Executive Steward Device Identifier Shelf Expiration Date Model / Serial / Lot [employer] Lens Iol Tecnis Smplcty 1-Pc Clr [place] 20.0 Diopter [id number] - [id number] - [id number] Implanted:Qty: 1 on 08/23/2021 by Steph Lin MD PhD at [facility] Lens Left: Eye [employer] [id number] 05/23/2024 [id number] / [id number] / 0 [employer] Konect Resilia Aortic Valved Conduit 29mm [id number] - [id number] - [id number] Implanted:Qty: 1 on 06/26/2024 by Felipe Alfaro MD at [facility] N/A: Aorta [employer] 12/24/2026 [id number] / [id number] / [employer] Device Closure Fibertape Sternal [place] Blunt Needle Ar-7289 - [id number] Implanted:Qty: 1 on 06/26/2024 by Felipe Alfaro MD at [facility] N/A: Sternum [employer] 04/17/2029 AR-7289 / / [id number] [employer] Device Closure Fibertape Sternal [place]cl[place] Blunt Needle Ar-7289 - [id number] Implanted:Qty: 1 on 06/26/2024 by Felipe Alfaro MD at [facility] N/A: Sternum [employer] 04/17/2029 AR-7289 / / [id number] Procedures Procedure Name Priority Date/Time Associated Diagnosis [...] HIGH RANGE Routine 06/26/2024 9:39 AM CDT CA AN PROCEDURE PLACEHOLDER Routine 06/26/2024 9:33 AM CDT POCT ACTIVATED CLOTTING TIME, HIGH RANGE Routine 06/26/2024 8:59 AM CDT CA AN PROCEDURE PLACEHOLDER Routine 06/26/2024 8:31 AM CDT CA AN CENTRAL LINE QUADRUPLE LUMEN Routine 06/26/2024 8:31 AM CDT CA AN PROCEDURE PLACEHOLDER Routine 06/26/2024 8:31 AM CDT PULMONARY ARTERY CATH Routine 06/26/2024 8:31 AM CDT BW AN SHEATH INTRODUCER PERFORMABLE Routine 06/26/2024 8:31 AM CDT CA AN PROCEDURE PLACEHOLDER Routine 06/26/2024 8:27 AM CDT CA AN ELECTIVE ENDOTRACHEAL AIRWAY Routine 06/26/2024 8:27 AM CDT CA AN PROCEDURE PLACEHOLDER Routine 06/26/2024 8:26 AM CDT CA AN PROCEDURE PLACEHOLDER Routine 06/26/2024 8:25 AM [...] DOPPLER/CF WO CONTRAST Routine 05/07/2024 2:19 PM SLOT FLOOR SUPERVISOR Aneurysm of ascending aorta without rupture Coronary artery disease involving sitka coronary artery of sitka heart without angina pectoris Essential hypertension COLONOSCOPY 02/19/2024 10:03 AM SLOT FLOOR SUPERVISOR HEPATITIS C ANTIBODY Routine 12/26/2022 9:29 AM [...] signed by: Nikolai Youngblood M.D., MPH Javan Madrid PROJECT ASST IMG XR PROCEDURES Final Result * eGFR [...] Madrid NP LAB BLOOD ORDERABLES nal Result [facility] [address] Department [place] [address] * (ABNORMAL) CBC without differential (07/03/2024 1:21 AM CDT) Pathologist [facility] Emergency Department WBC 14.89(H) 3.80 - 9.90 K/cumm Hgb 9.9(L) 13.0 - 17.5 g/dL [facility] Hct 30.5(L) 38.9 - 50.3 % [facility] Plt 253 150 - 400 K/cumm [facility] MPV 9.9 9.1 - 12.3 fL [facility] RBC 3.26(L) 4.30 - 5.80 M/cumm [facility] MCV 93.6 81.3 - 96.4 fL [facility] MCH 30.4 27.1 - 33.3 pg [facility] MCHC 32.5 32.3 - 35.7 g/dL [facility] RDW CV 13.5 11.1 - 14.9 % [facility] RDW SD 46.5 35.7 - 48.1 fL [facility] NRBC abs 0.05(H) 0.00 - 0.01 K/cumm [facility] Blood 07/03/2024 1:21 AM CDT 07/03/2024 1:48 AM CDT us Javan Madrid NP LAB BLOOD ORDERABLES Fi nal Result [facility] [address] Department [place] [address] * (ABNORMAL) Renal function panel (07/03/2024 1:21 AM CDT) Sodium 137 135 - 145 mmol/L Potassium, pl 4.3 3.3 - 4.9 mmol/L [facility] Chloride 102 97 - 110 mmol/L [facility] CO2 25 22 - 32 mmol/L [facility] Anion gap 10 2 - 15 mmol/L [facility] BUN 23 6 - 25 mg/dL [facility] Creatinine 0.92 0.80 - 1.30 mg/dL [facility] Glucose 128 70 - 199 mg/dL [facility] Comment: Interpretive Data Fasting glucose >/= 126 [...] 2022. Calcium 8.7 8.5 - 10.3 mg/dL [facility] Phosphorus, pl 4.3 2.3 - 4.5 mg/dL [facility] Albumin 3.2(L) 3.5 - 5.0 g/dL [facility] Blood 07/03/2024 1:21 AM CDT 07/03/2024 1:48 AM CDT Javan Madrid NP LAB BLOOD ORDERABLES Fi nal Result [facility] [address] Department [place] [address] * XR Chest 1 View - Portable [...] 1 AM CDT 07/02/2024 1:08 AM CDT us Javan Madrid NP LAB BLOOD ORDERABLES Fi nal Result [facility] [address] Department [place] [address] * (ABNORMAL) CBC without differential (07/02/2024 12:41 AM CDT) WBC 12.68(H) 3.80 - 9.90 K/cumm Hgb 9.7(L) 13.0 - 17.5 g/dL [facility] Hct 29.2(L) 38.9 - 50.3 % [facility] Plt 183 150 - 400 K/cumm [facility] MPV 10.2 9.1 - 12.3 fL [facility] RBC 3.15(L) 4.30 - 5.80 M/cumm [facility] MCV 92.7 81.3 - 96.4 fL [facility] MCH 30.8 27.1 - 33.3 pg [facility] MCHC 33.2 32.3 - 35.7 g/dL [facility] RDW CV 13.4 11.1 - 14.9 % [facility] RDW SD 45.5 35.7 - 48.1 fL [facility] NRBC abs 0.03(H) 0.00 - 0.01 K/cumm [facility] Blood 07/02/2024 12:4 1 AM CDT 07/02/2024 1:08 AM CDT Javan Madrid NP LAB BLOOD ORDERABLES Fi nal Result Performing Organization Address [facility]/ZIP Co de Phone Number [facility] [address] Department [place] [address] * (ABNORMAL) Renal function panel (07/02/2024 12:41 AM CDT) Pathologist [facility] Emergency Department Sodium 137 135 - 145 mmol/L Potassium, pl 4.1 3.3 - 4.9 mmol/L [facility] Chloride 101 97 - 110 mmol/L [facility] CO2 26 22 - 32 mmol/L [facility] Anion gap 10 2 - 15 mmol/L [facility] BUN 23 6 - 25 mg/dL [facility] Creatinine 0.91 0.80 - 1.30 mg/dL [facility] Glucose 125 70 - 199 mg/dL [facility] Comment: Interpretive Data Fasting glucose >/= 126 [...] 2022. Calcium 8.8 8.5 - 10.3 mg/dL [facility] Phosphorus, pl 3.4 2.3 - 4.5 mg/dL [facility] Albumin 3.0(L) 3.5 - 5.0 g/dL [facility] Blood 07/02/2024 12:4 1 AM CDT 07/02/2024 1:08 AM CDT Javan Madrid NP LAB BLOOD ORDERABLES Fi nal Result [facility] [address] Department [place] [address] * Magnesium - Add on lab test (07/01/2024 9:33 AM CDT) Acceptable Yes Blood 07/01/2024 9:33 AM CDT 07/01/2024 9:33 AM CDT Narrative [facility] - 07/01/2024 9:33 AM CDT Name of Test->Magnesium us Areli MARTINEZ LAB BLOOD ORDERABLES Fin al Result Performing Organization Address [facility] Co de Phone Number [facility] [address] Department [place] [address] * XR Chest 1 View - Portable [...] NP LAB BLOOD ORDERABLES Fi nal Result [facility] [address] Department [place] [address] * (ABNORMAL) CBC without differential (07/01/2024 1:30 AM CDT) WBC 12.04(H) 3.80 - 9.90 K/cumm Hgb 9.8(L) 13.0 - 17.5 g/dL [facility] Hct 29.1(L) 38.9 - 50.3 % [facility] Plt 160 150 - 400 K/cumm [facility] MPV 10.0 9.1 - 12.3 fL [facility] RBC 3.16(L) 4.30 - 5.80 M/cumm [facility] MCV 92.1 81.3 - 96.4 fL [facility] MCH 31.0 27.1 - 33.3 pg [facility] MCHC 33.7 32.3 - 35.7 g/dL [facility] RDW CV 13.2 11.1 - 14.9 % [facility] RDW SD 45.1 35.7 - 48.1 fL [facility] NRBC abs 0.00 0.00 - 0.01 K/cumm [facility] Blood 07/01/2024 1:30 AM CDT 07/01/2024 1:52 AM CDT Javan Madrid NP LAB BLOOD ORDERABLES Fi nal Result Performing Organization Address [facility]/ZIP Co de Phone Number [facility] [address] [email or web address] [address] * Magnesium (07/01/2024 1:30 AM CDT) [facility] Magnesium 2.4 1.4 - 2.5 mg/dL Blood 07/01/2024 1:30 AM CDT 07/01/2024 1:41 AM CDT Felipe Alfaro MD LAB BLOOD ORDERABLES Fin al Result Performing Organization Address City/[facility]/ZIP Co de Phone Number [facility] [address] [email or web address] [address] * (ABNORMAL) Renal function panel (07/01/2024 1:30 AM CDT) Pathologist [facility] Sodium 137 135 - 145 mmol/L Potassium, pl 4.3 3.3 - 4.9 mmol/L [facility] Chloride 102 97 - 110 mmol/L [facility] CO2 24 22 - 32 mmol/L [facility] [facility] Anion gap 11 2 - 15 mmol/L [facility] BUN 20 6 - 25 mg/dL [facility] Creatinine 0.85 0.80 - 1.30 mg/dL [facility] Glucose 128 70 - 199 mg/dL [facility] Comment: Interpretive Data Fasting glucose >/= 126 [...] 2022. Calcium 8.6 8.5 - 10.3 mg/dL [facility] Phosphorus, pl 2.0(L) 2.3 - 4.5 mg/dL [facility] Albumin 3.3(L) 3.5 - 5.0 g/dL [facility] Blood 07/01/2024 1:30 AM CDT 07/01/2024 1:41 AM CDT us Javan Madrid NP LAB BLOOD ORDERABLES Fi nal Result [facility] [address] [place] [address] * XR Chest 1 View - Portable [...] costophrenic angle is not included within the [id number] on that side. There is old granulomatous [...] costophrenic angle is not included within the [id number] on that side. There is old granulomatous disease. Stable cardiac and mediastinal contours. Dictated by: Julio Myles MD The radiology attending physician has personally reviewed this study, and had reviewed and/or edited this written report and agrees with it. Electronically signed by: Ciara Vidales M.D. Javan Mujicakashif Madrid PROJECT ASST IMG XR PROCEDURES Final Result * eGFR [...] 06/30/2024 1:00 AM CDT us Javan Madrid PROJECT ASST LAB BLOOD ORDERABLES Fi nal Result Performing Organization Address [facility]/ZIP Co de Phone Number [facility] [address] [place] [address] * (ABNORMAL) aPTT (06/30/2024 12:41 AM CDT) Pathologist [facility] aPTT 59(H) 28 - 38 sec Comment: Interpretive Data Heparin therapeutic range: 66.0 - 100.0 seconds. Range based on correlation with therapeutic heparin activity range of 0.3 - 0.7 Units/mL. Current interpretive data was last revised on 2022. Blood 06/30/2024 12:4 1 AM CDT 06/30/2024 1:00 AM CDT us Felipe Alfaro MD LAB BLOOD ORDERABLES Fin al Result Performing Organization Address [facility] Co de Phone Number [facility] [address] [place] [address] * (ABNORMAL) CBC without differential (06/30/2024 12:41 AM CDT) Pathologist [facility] WBC 18.53(H) 3.80 - 9.90 K/cumm Hgb 10.2(L) 13.0 - 17.5 g/dL [facility] Hct 30.3(L) 38.9 - 50.3 % [facility] Plt 150 150 - 400 K/cumm [facility] MPV 11.4 9.1 - 12.3 fL [facility] RBC 3.26(L) 4.30 - 5.80 M/cumm [facility] MCV 92.9 81.3 - 96.4 fL [facility] MCH 31.3 27.1 - 33.3 pg [facility] MCHC 33.7 32.3 - 35.7 g/dL [facility] RDW CV 13.1 11.1 - 14.9 % [facility] RDW SD 44.8 35.7 - 48.1 fL [facility] NRBC abs 0.00 0.00 - 0.01 K/cumm [facility] Blood 06/30/2024 12:4 1 AM CDT 06/30/2024 1:00 AM CDT us Javan Madrid NP LAB BLOOD ORDERABLES Fi nal Result [facility] [address] [place] [address] * (ABNORMAL) Renal function panel (06/30/2024 12:41 AM CDT) Sodium 134(L) 135 - 145 mmol/L Potassium, pl 4.2 3.3 - 4.9 mmol/L [facility] Chloride 100 97 - 110 mmol/L [facility] CO2 22 22 - 32 mmol/L [facility] Anion gap 12 2 - 15 mmol/L [facility] BUN 24 6 - 25 mg/dL [facility] Creatinine 0.89 0.80 - 1.30 mg/dL [facility] Glucose 127 70 - 199 mg/dL [facility] Comment: Interpretive Data Fasting glucose >/= 126 [...] 2022. Calcium 8.7 8.5 - 10.3 mg/dL [facility] Phosphorus, pl 2.1(L) 2.3 - 4.5 mg/dL [facility] Albumin 2.9(L) 3.5 - 5.0 g/dL [facility] Blood 06/30/2024 12:4 1 AM CDT 06/30/2024 1:00 AM CDT Javan Madrid PROJECT ASST LAB BLOOD ORDERABLES Fi nal Result Performing Organization Address City/[facility] Co de Phone Number [facility] [address] [place] [address] * (ABNORMAL) aPTT (06/29/2024 3:03 PM CDT) aPTT 44(H) 28 - 38 sec Comment: Interpretive Data Heparin therapeutic range: 66.0 - 100.0 seconds. Range based on correlation with therapeutic heparin activity range of 0.3 - 0.7 Units/mL. Current interpretive data was last revised on 2022. Blood 06/29/2024 3:03 PM CDT 06/29/2024 3:14 PM CDT Felipe Alfaro MD LAB BLOOD ORDERABLES Fin al Result Performing Organization Address [facility] Co de Phone Number [facility] [address] [place] [address] * aPTT (06/29/2024 8:48 AM CDT) aPTT 33 28 - 38 sec Comment: Interpretive Data Heparin therapeutic range: 66.0 - 100.0 seconds. Range based on correlation with therapeutic heparin activity range of 0.3 - 0.7 Units/mL. Current interpretive data was last revised on 2022. Blood 06/29/2024 8:48 AM CDT 06/29/2024 8:53 AM CDT Narrative [facility] - 06/29/2024 9:05 AM CDT Baseline prior to heparin initiation Laron Kirk PA LAB BLOOD ORDERABLES Final R esult Performing Organization Address City/[facility]/ZIP Co de Phone Number [facility] [address] [place] [address] * (ABNORMAL) Protime-INR (06/29/2024 8:48 AM CDT) PT 13.6(H) 9.7 - 13.0 sec INR 1.25(H) 0.90 - 1.20 [facility] Comment: Interpretive data Oral anticoagulant therapeutic ranges: Venous thromboembolism prophylaxis or treatment: 2.0-3.0 CARDIOLOGY Standard range: 2.0-3.0 High-intensity range: 2.5-3.5 Refer to indication-specific guidelines for appropriate target ranges for prosthetic heart valve replacement. Current interpretive data was last revised on 2019. Blood 06/29/2024 8:48 AM CDT 06/29/2024 8:53 AM CDT Narrative [facility] - 06/29/2024 9:05 AM CDT Baseline prior to heparin initiation us Laron MARTINEZ LAB BLOOD ORDERABLES Final R esult [facility] [address] [place] [address] * XR Chest 1 View - Portable [...] size. Electronically signed by: Dylan Arnett M.D. Javan Madrid PROJECT ASST IMG XR PROCEDURES Final Result * eGFR [...] LAB BLOOD ORDERABLES Fi nal Result [facility] [address] Department [place] [address] * (ABNORMAL) CBC without differential (06/29/2024 1:15 AM CDT) WBC 21.88(H) 3.80 - 9.90 K/cumm Hgb 10.6(L) 13.0 - 17.5 g/dL [facility] Hct 31.4(L) 38.9 - 50.3 % [facility] Plt 102(L) 150 - 400 K/cumm [facility] MPV 11.5 9.1 - 12.3 fL [facility] RBC 3.34(L) 4.30 - 5.80 M/cumm [facility] MCV 94.0 81.3 - 96.4 fL [facility] MCH 31.7 27.1 - 33.3 pg [facility] MCHC 33.8 32.3 - 35.7 g/dL [facility] RDW CV 13.1 11.1 - 14.9 % [facility] RDW SD 45.1 35.7 - 48.1 fL [facility] NRBC abs 0.00 0.00 - 0.01 K/cumm [facility] Blood 06/29/2024 1:15 AM CDT 06/29/2024 1:27 AM CDT Javan Madrid NP LAB BLOOD ORDERABLES Fi nal Result [facility] [address] [place] [address] * (ABNORMAL) Renal function panel (06/29/2024 1:15 AM CDT) Sodium 132(L) 135 - 145 mmol/L Potassium, pl 4.3 3.3 - 4.9 mmol/L [facility] Chloride 98 97 - 110 mmol/L [facility] CO2 22 22 - 32 mmol/L [facility] Anion gap 12 2 - 15 mmol/L [facility] BUN 25 6 - 25 mg/dL [facility] Creatinine 1.03 0.80 - 1.30 mg/dL [facility] Glucose 146 70 - 199 mg/dL [facility] Comment: Interpretive Data Fasting glucose >/= 126 [...] 2022. Calcium 8.7 8.5 - 10.3 mg/dL [facility] Phosphorus, pl 2.1(L) 2.3 - 4.5 mg/dL [facility] Albumin 3.2(L) 3.5 - 5.0 g/dL [facility] Blood 06/29/2024 1:15 AM CDT 06/29/2024 1:27 AM CDT us Javan Madrid NP LAB BLOOD ORDERABLES Fi nal Result [facility] [address] [place] [address] * XR Chest 1 Vw (06/28/2024 10:09 [...] signed by: Maria D Clarke M.D. us Courtney MARTINEZ IMG XR PROCEDURES Final Result * POCT glucose (06/28/2024 8:05 AM CDT) [facility] Glucose, POC 156 70 - 199 mg/dL Comment: For Glucose values <35 mg/dl when Hematocrit is >60 mg/dl,the test may not accurately detect significant hypoglycemia,and testing in the Laboratory should be considered if clinically indicated. POC Performer [id number] [facility] Blood 06/28/2024 8:05 AM CDT 06/28/2024 8:05 AM CDT us Felipe Alfaro MD LAB POCT ORDERABLES - DE VICE Final Result [facility] [address] [place] [address] * XR Chest 1 View - Portable [...] Electronically signed by: Maria D Clarke M.D. Javan Madrid NP IMG XR PROCEDURES Final Result * eGFR (06/28/2024 5:38 AM CDT) Pathologist [facility] Department eGFR 80 >=60 mL/min/1. 73 m2 Comment: [...] 5:38 AM CDT 06/28/2024 6:00 AM CDT Javan Madrid NP LAB BLOOD ORDERABLES Fi nal Result [facility] [address] [place] [address] * (ABNORMAL) CBC without differential (06/28/2024 5:38 AM CDT) [facility] WBC 29.39(H) 3.80 - 9.90 K/cumm Hgb 11.2(L) 13.0 - 17.5 g/dL [facility] Hct 34.1(L) 38.9 - 50.3 % [facility] Plt 102(L) 150 - 400 K/cumm [facility] MPV 11.8 9.1 - 12.3 fL [facility] RBC 3.64(L) 4.30 - 5.80 M/cumm [facility] MCV 93.7 81.3 - 96.4 fL [facility] MCH 30.8 27.1 - 33.3 pg [facility] MCHC 32.8 32.3 - 35.7 g/dL [facility] RDW CV 13.2 11.1 - 14.9 % [facility] RDW SD 45.3 35.7 - 48.1 fL [facility] NRBC abs 0.00 0.00 - 0.01 K/cumm [facility] Blood 06/28/2024 5:38 AM CDT 06/28/2024 6:00 AM CDT Javan Madrid NP LAB BLOOD ORDERABLES nal Result [facility] [address] [place] [address] * (ABNORMAL) Renal function panel (06/28/2024 5:38 AM CDT) [facility] Sodium 132(L) 135 - 145 mmol/L Potassium, pl 4.5 3.3 - 4.9 mmol/L [facility] Chloride 98 97 - 110 mmol/L [facility] CO2 21(L) 22 - 32 mmol/L [facility] Anion gap 13 2 - 15 mmol/L [facility] BUN 19 6 - 25 mg/dL [facility] Creatinine 0.98 0.80 - 1.30 mg/dL [facility] Glucose 150 70 - 199 mg/dL [facility] Comment: Interpretive Data Fasting glucose >/= 126 [...] 2022. Calcium 8.8 8.5 - 10.3 mg/dL [facility] Phosphorus, pl 2.3 2.3 - 4.5 mg/dL [facility] Albumin 3.4(L) 3.5 - 5.0 g/dL [facility] Blood 06/28/2024 5:38 AM CDT 06/28/2024 6:00 AM CDT us Javan Madrid NP LAB BLOOD ORDERABLES nal Result [facility] [address] [place] [address] * eGFR (06/27/2024 9:05 PM CDT) eGFR [...] 9:05 PM CDT 06/27/2024 9:24 PM CDT Maulik MARTINEZ LAB BLOOD ORDERABLES Final Result Performing Organization Address City/[facility]/ZIP Co de Phone Number [facility] [address] [facility] [place] [address] * Magnesium (06/27/2024 9:05 PM CDT) [facility] Magnesium 2.2 1.4 - 2.5 mg/dL Blood 06/27/2024 9:05 PM CDT 06/27/2024 9:15 PM CDT Maulik MARTINEZ LAB BLOOD ORDERABLES Final Result Performing Organization Address [facility] Co de Phone Number [facility] [address] [facility] [place] [address] * (ABNORMAL) Renal function panel (06/27/2024 9:05 PM CDT) Pathologist [facility] Sodium 135 135 - 145 mmol/L Potassium, pl 4.6 3.3 - 4.9 mmol/L [facility] Chloride 102 97 - 110 mmol/L [facility] CO2 21(L) 22 - 32 mmol/L [facility] Anion gap 12 2 - 15 mmol/L [facility] BUN 17 6 - 25 mg/dL [facility] Creatinine 1.04 0.80 - 1.30 mg/dL [facility] Glucose 166 70 - 199 mg/dL [facility] Comment: Interpretive Data Fasting glucose >/= 126 [...] 2022. Calcium 8.6 8.5 - 10.3 mg/dL [facility] Phosphorus, pl 2.5 2.3 - 4.5 mg/dL [facility] Albumin 3.7 3.5 - 5.0 g/dL [facility] Blood 06/27/2024 9:05 PM CDT 06/27/2024 9:15 PM CDT us Maulik MARTINEZ LAB BLOOD ORDERABLES Final Result Performing Organization Address City/[facility]/ZIP Co de Phone Number [facility] [address] [facility] [employer] [place], [place] [id number] * POCT glucose (06/27/2024 8:59 PM CDT) Glucose, POC 158 70 - 199 mg/dL Comment: For Glucose values <35 mg/dl when Hematocrit is >60 mg/dl,the test may not accurately detect significant hypoglycemia,and testing in the Laboratory should be considered if clinically indicated. POC Performer [phone] [facility] Blood 06/27/2024 8:59 PM CDT 06/27/2024 8:59 PM CDT us Felipe Alfaro MD LAB POCT ORDERABLES - DE VICE Final Result Performing Organization Address [facility]/ZIP Co de Phone Number [facility] [address] [facility] [place] [address] * POCT glucose (06/27/2024 5:08 PM CDT) Glucose, POC 149 70 - 199 mg/dL Comment: For Glucose values <35 mg/dl when Hematocrit is >60 mg/dl,the test may not accurately detect significant hypoglycemia,and testing in the Laboratory should be considered if clinically indicated. POC Performer [id number] [facility] Blood 06/27/2024 5:08 PM CDT 06/27/2024 5:08 PM CDT Felipe Alfaro MD LAB POCT ORDERABLES - DE VICE Final Result [facility] [address] Department [place] [address] * Critical Care (06/27/2024 12:34 PM CDT) Narrative Abhishek Vazquez MD - 06/27/2024 12:34 PM CDT Abhishek Vazquez MD 06/27/2024 12:35 PM Critical Care Performed by: Abhishek Vazquez MD Authorized by: Abhishek Vazquez MD CRITICAL CARE: Team: [facility] CT Shift: AM Level of Billing: Subsequent [...] plan with the patient's team and other medical/market intelligence consultant staff. This time was in addition [...] patient with consultants and the medical staff Abhishek Vazquez MD IN CLINIC/BEDSIDE ORDERABLES Final Result * POCT glucose (06/27/2024 12:33 PM CDT) [facility] Glucose, POC 193 70 - 199 mg/dL Comment: For Glucose values <35 mg/dl when Hematocrit is >60 mg/dl,the test may not accurately detect significant hypoglycemia,and testing in the Laboratory should be considered if clinically indicated. POC Performer [id number] [facility] Blood 06/27/2024 12:3 3 PM CDT 06/27/2024 12:33 PM CDT Felipe Alfaro MD LAB POCT ORDERABLES - DE VICE Final Result Performing Organization Address [facility] Co de Phone Number [facility] [address] [place] [address] * POCT glucose (06/27/2024 8:33 AM CDT) [facility] Glucose, POC 158 70 - 199 mg/dL Comment: For Glucose values <35 mg/dl when Hematocrit is >60 mg/dl,the test may not accurately detect significant hypoglycemia,and testing in the Laboratory should be considered if clinically indicated. POC Performer [id number] [facility] Blood 06/27/2024 8:33 AM CDT 06/27/2024 8:33 AM CDT Felipe Alfaro MD LAB POCT ORDERABLES - DE VICE Final Result Performing Organization Address [facility] Phone Number [facility] [address] [place] [address] * XR Chest 1 View - Portable [...] by: Humza Rene M.D. us Javan Madrid PROJECT ASST IMG XR PROCEDURES Final Result * eGFR [...] AM CDT 06/27/2024 12:43 AM CDT us Felipe Alfaro MD LAB BLOOD ORDERABLES Fin al Result [facility] [address] [place] [address] * (ABNORMAL) Calcium, ionized (06/27/2024 12:23 AM CDT) Calcium, Ionized 4.35(L) 4.50 - 5.10 mg/dL Blood 06/27/2024 12:2 3 AM CDT 06/27/2024 12:41 AM CDT us Felipe Alfaro MD LAB BLOOD ORDERABLES Fin al Result Performing Organization Address [facility] Co de Phone Number [facility] [address] [email or web address] [place], [place] [id number] * (ABNORMAL) CBC without differential (06/27/2024 12:23 AM CDT) WBC 24.36(H) 3.80 - 9.90 K/cumm Hgb 12.7(L) 13.0 - 17.5 g/dL [facility] Hct 37.4(L) 38.9 - 50.3 % [facility] Plt 85(L) 150 - 400 K/cumm [facility] Comment:no clot MPV 11.2 9.1 - 12.3 fL [facility] RBC 4.03(L) 4.30 - 5.80 M/cumm [facility] MCV 92.8 81.3 - 96.4 fL [facility] MCH 31.5 27.1 - 33.3 pg [facility] MCHC 34.0 32.3 - 35.7 g/dL [facility] RDW CV 12.8 11.1 - 14.9 % [facility] RDW SD 43.9 35.7 - 48.1 fL [facility] NRBC abs 0.00 0.00 - 0.01 K/cumm [facility] Blood 06/27/2024 12:2 3 AM CDT 06/27/2024 12:43 AM CDT us Javan Madrid NP LAB BLOOD ORDERABLES Fi nal Result Performing Organization Address [facility] Co de Phone Number [facility] [address] Department [employer] [place], [place] [id number] * Magnesium (06/27/2024 12:23 AM CDT) Magnesium 1.8 1.4 - 2.5 mg/dL Blood 06/27/2024 12:2 3 AM CDT 06/27/2024 12:43 AM CDT us Felipe Alfaro MD LAB BLOOD ORDERABLES Fin al Result [facility] [address] Department [place] [address] * (ABNORMAL) Renal function panel (06/27/2024 12:23 AM CDT) Pathologist [facility] Sodium 139 135 - 145 mmol/L Potassium, pl 3.9 3.3 - 4.9 mmol/L [facility] Chloride 106 97 - 110 mmol/L [facility] CO2 19(L) 22 - 32 mmol/L [facility] Anion gap 14 2 - 15 mmol/L [facility] BUN 9 6 - 25 mg/dL [facility] Creatinine 0.66(L) 0.80 - 1.30 mg/dL [facility] Glucose 194 70 - 199 mg/dL [facility] Comment: Interpretive Data Fasting glucose >/= 126 [...] 2022. Calcium 8.1(L) 8.5 - 10.3 mg/dL [facility] Phosphorus, pl 2.9 2.3 - 4.5 mg/dL [facility] Albumin 3.8 3.5 - 5.0 g/dL [facility] Blood 06/27/2024 12:2 3 AM CDT 06/27/2024 12:43 AM CDT us Javan Madrid NP LAB BLOOD ORDERABLES Fi nal Result Performing Organization Address City/[facility]/ZIP Co de Phone Number [facility] [address] Department [place] [address] * POCT glucose (06/26/2024 9:05 PM CDT) [facility] Glucose, POC 107 70 - 199 mg/dL Comment: For Glucose values <35 mg/dl when Hematocrit is >60 mg/dl,the test may not accurately detect significant hypoglycemia,and testing in the Laboratory should be considered if clinically indicated. POC Performer [id number] [facility] Blood 06/26/2024 9:05 PM CDT 06/26/2024 9:05 PM CDT us Felipe Alfaro MD LAB POCT ORDERABLES - DE VICE Final Result Performing Organization Address [facility] Co de Phone Number [facility] [address] [place] [address] * Critical Care (06/26/2024 6:30 PM CDT) Narrative Abhishek Vazquez MD - 06/26/2024 6:30 PM CDT Abhishek Vazquez MD 06/29/2024 7:36 AM Critical Care Performed by: Tanika Reyes NP Authorized by: Tanika Reyes NP CRITICAL CARE: Team: [facility] CT Shift: PM Level of Billing: Subsequent [...] plan with the patient's team and other medical/market intelligence consultant staff. This time was in addition to and separate from care provided by other practitioners on this day of service. I spent time documenting in the medical record, I spent time discussing the management of this critically ill patient with consultants and the medical staff and I spent time reviewing and interpreting data from bedside monitors, laboratory results, and imaging us Tanika Reyes PROJECT ASST IN CLINIC/BEDSIDE ORDERAB LES Final Result * POCT glucose (06/26/2024 5:05 PM CDT) Glucose, POC 123 70 - 199 mg/dL Comment: For Glucose values <35 mg/dl when Hematocrit is >60 mg/dl,the test may not accurately detect significant hypoglycemia,and testing in the Laboratory should be considered if clinically indicated. POC Performer [id number] [facility] Blood 06/26/2024 5:05 PM CDT 06/26/2024 5:05 PM CDT Felipe Alfaro MD LAB POCT ORDERABLES - DE VICE Final Result Performing Organization Address [facility] Co de Phone Number [facility] [address] [facility] [employer] [place], [place] [id number] * POCT glucose (06/26/2024 3:58 PM CDT) Glucose, POC 114 70 - 199 mg/dL Comment: For Glucose values <35 mg/dl when Hematocrit is >60 mg/dl,the test may not accurately detect significant hypoglycemia,and testing in the Laboratory should be considered if clinically indicated. POC Performer [id number] [facility] Blood 06/26/2024 3:58 PM CDT 06/26/2024 3:58 PM CDT us Felipe Alfaro MD LAB POCT ORDERABLES - DE VICE Final Result Performing Organization Address City/[facility] Co de Phone Number [facility] [address] [facility] [place] [address] * POCT glucose (06/26/2024 2:47 PM CDT) Glucose, POC 102 70 - 199 mg/dL Comment: For Glucose values <35 mg/dl when Hematocrit is >60 mg/dl,the test may not accurately detect significant hypoglycemia,and testing in the Laboratory should be considered if clinically indicated. POC Performer [id number] [facility] Blood 06/26/2024 2:47 PM CDT 06/26/2024 2:47 PM CDT us Felipe Alfaro MD LAB POCT ORDERABLES - DE VICE Final Result [facility] [address] Department [place] [address] * Critical Care (06/26/2024 2:07 PM CDT) Narrative Viraj Malik MD - 06/26/2024 2:07 PM CDT Viraj Malik MD 06/26/2024 2:56 PM Critical Care Performed by: Viraj Malik MD Authorized by: Viraj Malik MD CRITICAL CARE: Team: [facility] CT Shift: AM Level of Billing: Critical [...] plan with the ICU team and other medical/market intelligence consultant staff, making frequent assessments and decisions [...] * POCT glucose (06/26/2024 1:52 PM CDT) Glucose, POC 107 70 - 199 mg/dL Comment: For Glucose values <35 mg/dl when Hematocrit is >60 mg/dl,the test may not accurately detect significant hypoglycemia,and testing in the Laboratory should be considered if clinically indicated. POC Performer [id number] [facility] Blood 06/26/2024 1:52 PM CDT 06/26/2024 1:52 PM CDT us Felipe Alfaro MD LAB POCT ORDERABLES - DE VICE Final Result [facility] [address] [place] [address] * XR Chest 1 View - Portable (06/26/2024 1:46 PM CDT) Anatomical Region Laterality Modality Body, Chest N/A Computed Radiogr aphy 06/26/2024 1:49 PM CDT Impressions 06/26/2024 1:49 PM CDT FINDINGS/IMPRESSION: Endotracheal tube terminates 0.5 to 1 cm above the logan. Repositioning is recommended. Right IJ central venous catheter tip terminates in the mid thoracic trachea. Right IJ [place] catheter terminates in the main pulmonary artery. [...] in the mid thoracic trachea. Right IJ [place] catheter terminates in the main pulmonary artery. Sternotomy wires are seen. Prosthetic aortic valve is noted. Minimal bibasilar atelectatic changes. No focal consolidation pleural effusion or pneumothorax. Mediastinal calcified lymph nodes are seen. Cardiomediastinum is unremarkable. Electronically signed by: Brandy Parnell M.D. Felipe Alfaro MD IMG XR PROCEDURES Final Result * Oxyhemoglobin, pulmonary artery (06/26/2024 1:16 PM CDT) Pathologist [facility] Oxyhemoglobin, PA 73.9 % Comment: Interpretive Data No reference range established. Current interpretive data was last revised 2019. Blood 06/26/2024 1:16 PM CDT 06/26/2024 1:33 PM CDT Feilpe Alfaro MD LAB BLOOD ORDERABLES Fin al Result [facility] [address] Department [place] [address] * eGFR (06/26/2024 1:16 PM CDT) eGFR [...] ORDERABLES Fin al Result Performing Organization Address City/[facility] Co de Phone Number [facility] [address] [place] [address] * (ABNORMAL) Calcium, ionized (06/26/2024 1:16 PM CDT) Calcium, Ionized 4.35(L) 4.50 - 5.10 mg/dL Blood 06/26/2024 1:16 PM CDT 06/26/2024 1:33 PM CDT Felipe Alfaro MD LAB BLOOD ORDERABLES Fin al Result Performing Organization Address [facility] de Phone Number [facility] [address] Department of [employer] [place], [place] [phone] * aPTT (06/26/2024 1:16 PM CDT) aPTT 35 28 - 38 sec Comment: Interpretive Data Heparin therapeutic range: 66.0 - 100.0 seconds. Range based on correlation with therapeutic heparin activity range of 0.3 - 0.7 Units/mL. Current interpretive data was last revised on 2022. Blood 06/26/2024 1:16 PM CDT 06/26/2024 1:53 PM CDT Felipe Alfaro MD LAB BLOOD ORDERABLES Fin al Result Performing Organization Address [facility] Co de Phone Number [facility] [address] Department [place] [address] * (ABNORMAL) Protime-INR (06/26/2024 1:16 PM CDT) PT 16.3(H) 9.7 - 13.0 sec INR 1.50(H) 0.90 - 1.20 [facility] Comment: Interpretive data Oral anticoagulant therapeutic ranges: Venous thromboembolism prophylaxis or treatment: 2.0-3.0 CARDIOLOGY Standard range: 2.0-3.0 High-intensity range: 2.5-3.5 Refer to indication-specific guidelines for appropriate target ranges for prosthetic heart valve replacement. Current interpretive data was last revised on 2019. Blood 06/26/2024 1:16 PM CDT 06/26/2024 1:53 PM CDT Felipe Alfaro MD LAB BLOOD ORDERABLES Fin al Result Performing Organization Address [facility] Co de Phone Number [facility] [address] Department [place] [address] * (ABNORMAL) CBC without differential (06/26/2024 1:16 PM CDT) Pathologist [facility] WBC 29.92(H) 3.80 - 9.90 K/cumm Hgb 13.4 13.0 - 17.5 g/dL [facility] Hct 39.6 38.9 - 50.3 % [facility] Plt 130(L) 150 - 400 K/cumm [facility] MPV 10.7 9.1 - 12.3 fL [facility] RBC 4.25(L) 4.30 - 5.80 M/cumm [facility] MCV 93.2 81.3 - 96.4 fL [facility] MCH 31.5 27.1 - 33.3 pg [facility] MCHC 33.8 32.3 - 35.7 g/dL [facility] RDW CV 12.9 11.1 - 14.9 % [facility] RDW SD 44.0 35.7 - 48.1 fL [facility] NRBC abs 0.00 0.00 - 0.01 K/cumm [facility] Blood 06/26/2024 1:16 PM CDT 06/26/2024 1:53 PM CDT Felipe Alfaro MD LAB BLOOD ORDERABLES Fin al Result Performing Organization Address City/[facility] Co de Phone Number [facility] [address] [facility] [place] [address] * Phosphorus (06/26/2024 1:16 PM CDT) Pathologist [facility] Phosphorus, pl 3.0 2.3 - 4.5 mg/dL Blood 06/26/2024 1:16 PM CDT 06/26/2024 1:39 PM CDT Felipe Alfaro MD LAB BLOOD ORDERABLES Fin al Result Performing Organization Address [facility] Co de Phone Number [facility] [address] [place] [address] * Magnesium (06/26/2024 1:16 PM CDT) [facility] Magnesium 2.4 1.4 - 2.5 mg/dL Blood 06/26/2024 1:16 PM CDT 06/26/2024 1:39 PM CDT Felipe Alfaro MD LAB BLOOD ORDERABLES Fin al Result Performing Organization Address [facility] Co de Phone Number [facility] [address] [facility] [place] [address] * (ABNORMAL) Blood gas, arterial (06/26/2024 1:16 PM CDT) Pathologist [facility] pH, Art 7.33(L) 7.35 - 7.45 PCO2, Arterial 48(H) 35 - 45 mmHg [facility] PO2, Arterial 139(H) 83 - 108 mmHg [facility] HCO3 Art (Calculated) 25 20 - 30 mmol/L [facility] BE, art -1 mmol/L [facility] Comment: Interpretive Data No Reference Range Established Current Interpretive Data was last revised on 2017 O2 Sat Art (Calculated) 99(H) 94 - 98 % [facility] Blood 06/26/2024 1:16 PM CDT 06/26/2024 1:33 PM CDT us Felipe Alfaro MD LAB BLOOD ORDERABLES Fin al Result [facility] [address] [place] [address] * (ABNORMAL) Comprehensive metabolic panel (06/26/2024 1:16 PM CDT) Sodium 142 135 - 145 mmol/L Potassium, pl 4.4 3.3 - 4.9 mmol/L [facility] Comment:Hemolyzed; potassium value may be falsely elevated by as much as 0.3 - 0.5 mmol/L. Suggest redraw and reanalysis Chloride 110 97 - 110 mmol/L [facility] CO2 20(L) 22 - 32 mmol/L [facility] Anion gap 12 2 - 15 mmol/L [facility] BUN 11 6 - 25 mg/dL [facility] Creatinine 0.82 0.80 - 1.30 mg/dL [facility] Glucose 124 70 - 199 mg/dL [facility] Comment: Interpretive Data Fasting glucose >/= 126 [...] 2022. Calcium 7.9(L) 8.5 - 10.3 mg/dL [facility] Bilirubin, total 1.1 0.1 - 1.2 mg/dL [facility] Protein, pl 5.4(L) 6.5 - 8.5 g/dL [facility] Albumin 3.5 3.5 - 5.0 g/dL [facility] Alk phos 65 40 - 130 Units/L [facility] ALT 14 7 - 55 Units/L [facility] AST 46 10 - 50 Units/L [facility] Comment:Slightly Hemolyzed S pecimen Blood 06/26/2024 1:16 PM CDT 06/26/2024 1:39 PM CDT Felipe Alfaro MD LAB BLOOD ORDERABLES Fin al Result Performing Organization Address [facility] Co de Phone Number [facility] [address] [email or web address] [place], [place] [phone] * aPTT (06/26/2024 12:04 PM CDT) aPTT [...] ORDERABLES Fin al Result Performing Organization Address [facility] Co de Phone Number [facility] [address] [email or web address] [place], [place] [phone] * (ABNORMAL) Protime-INR (06/26/2024 12:04 PM CDT) PT 18.6(H) 9.7 - 13.0 sec INR 1.70(H) 0.90 - 1.20 [facility] Comment: Interpretive data Oral anticoagulant therapeutic ranges: Venous thromboembolism prophylaxis or treatment: 2.0-3.0 CARDIOLOGY Standard range: 2.0-3.0 High-intensity range: 2.5-3.5 Refer to indication-specific guidelines for appropriate target ranges for prosthetic heart valve replacement. Current interpretive data was last revised on 2019. Blood 06/26/2024 12:0 4 PM CDT 06/26/2024 12:04 PM CDT Felipe Alfaro MD LAB BLOOD ORDERABLES Fin al Result Performing Organization Address City/[facility]/ZIP Co de Phone Number [facility] [address] [employer] [place], [place] [phone] * Fibrinogen (06/26/2024 12:04 PM CDT) Pathologist [facility] Fibrinogen 229 170 - 400 mg/dL Blood 06/26/2024 12:0 4 PM CDT 06/26/2024 12:04 PM CDT Felipe Alfaro MD LAB BLOOD ORDERABLES Fin al Result Performing Organization Address [facility] Co de Phone Number [facility] [address] [email or web address] [place], [place] [phone] * (ABNORMAL) CBC without differential (06/26/2024 12:04 PM CDT) WBC 20.55(H) 3.80 - 9.90 K/cumm Hgb 11.8(L) 13.0 - 17.5 g/dL [facility] Hct 34.8(L) 38.9 - 50.3 % [facility] Plt 101(L) 150 - 400 K/cumm [facility] Comment:OR patient MPV 10.8 9.1 - 12.3 fL [facility] RBC 3.74(L) 4.30 - 5.80 M/cumm [facility] MCV 93.0 81.3 - 96.4 fL [facility] MCH 31.6 27.1 - 33.3 pg [facility] MCHC 33.9 32.3 - 35.7 g/dL [facility] RDW CV 12.8 11.1 - 14.9 % [facility] RDW SD 43.9 35.7 - 48.1 fL [facility] NRBC abs 0.00 0.00 - 0.01 K/cumm [facility] Blood 06/26/2024 12:0 4 PM CDT 06/26/2024 12:04 PM CDT us Felipe Alfaro MD LAB BLOOD ORDERABLES Fin al Result [facility] [address] Department [place] [address] * (ABNORMAL) POC Blood Gas and Chemistries, Arterial - (06/26/2024 12:03 PM CDT) pH, Art POC 7.42 7.35 - 7.45 pCO2, Art POC 42 35 - 45 mmHg [facility] pO2, Art POC 409(H) 80 - 108 mmHg [facility] Na, POC 140 135 - 145 mmol/L [facility] K POC 4.3 3.3 - 4.9 mmol/L [facility] Comment: Interpretive Data This method is not able to assess for hemolysis, which may falsely increase potassium concentrations. If further testing is needed to evaluate this result, consider in-laboratory plasma potassium. Current Interpretive Data was last revised on 2021. Cl, POC 110 97 - 110 mmol/L [facility] Ionized Ca, POC 4.51 4.50 - 5.10 mg/dL [facility] Glucose, POC 149 70 - 199 mg/dL [facility] Lactate, POC 1.8 0.7 - 2.0 mmol/L [facility] O2Hb, Art POC 97.7(H) 90.0 - 95.0 % [facility] Carboxhgb fract 1.3 0.0 - 2.9 % [facility] Methemoglobin 0.8 0.0 - 1.9 % [facility] HHb, POC 0.3 0.0 - 5.0 % [facility] SO2 (franklin) arterial 100(H) 90 - 95 % [facility] BE, art, POC 2.4(H) -2.0 - 2.0 mmol/L [facility] HCO3, Art POC 27 20 - 30 mmol/L [facility] Hct, POC 36.0(L) 38.9 - 50.3 % [facility] Total Hb, POC 12.0(L) 13.0 - 17.5 g/dL [facility] Blood 06/26/2024 12:0 3 PM CDT 06/26/2024 12:03 PM CDT Felipe Alfaro MD LAB POCT ORDERABLES - DE VICE Final Result Performing Organization Address [facility]/ZIP Co de Phone Number [facility] [address] Department of [employer] [place], [place] [phone] * POC Activated Clotting Time, High Range (06/26/2024 12:01 PM CDT) ACT 133 87 - 138 sec POC Performer [id number] [facility] Blood 06/26/2024 12:0 1 PM CDT 06/26/2024 12:01 PM CDT Felipe Alfaro MD LAB BLOOD ORDERABLES Fin al Result Performing Organization Address [facility]/ZIP Co de Phone Number [facility] [address] Department [place] [address] * (ABNORMAL) POC Blood Gas and Chemistries, Arterial - (06/26/2024 11:16 AM CDT) pH, Art POC 7.35 7.35 - 7.45 pCO2, Art POC 41 35 - 45 mmHg [facility] pO2, Art POC 260(H) 80 - 108 mmHg [facility] Na, POC 136 135 - 145 mmol/L [facility] K POC 4.6 3.3 - 4.9 mmol/L [facility] Comment: Interpretive Data This method is not able to assess for hemolysis, which may falsely increase potassium concentrations. If further testing is needed to evaluate this result, consider in-laboratory plasma potassium. Current Interpretive Data was last revised on 2021. Cl, POC 108 97 - 110 mmol/L [facility] Ionized Ca, POC 4.71 4.50 - 5.10 mg/dL [facility] Glucose, POC 196 70 - 199 mg/dL [facility] Lactate, POC 2.0 0.7 - 2.0 mmol/L [facility] O2Hb, Art POC 98.0(H) 90.0 - 95.0 % [facility] Carboxhgb fract 1.0 0.0 - 2.9 % [facility] Methemoglobin 0.9 0.0 - 1.9 % [facility] HHb, POC 0.0 0.0 - 5.0 % [facility] SO2 (franklin) arterial 100(H) 90 - 95 % [facility] Total CO2, Art POC 24 22 - 32 mmol/L [facility] BE, art, POC -2.9(L) -2.0 - 2.0 mmol/L [facility] HCO3, Art POC 23 20 - 30 mmol/L [facility] Hct, POC 36.0(L) 38.9 - 50.3 % [facility] Total Hb, POC 12.0(L) 13.0 - 17.5 g/dL [facility] Blood 06/26/2024 11:1 6 AM CDT 06/26/2024 11:16 AM CDT us Felipe Alfaro MD LAB POCT ORDERABLES - DE VICE Final Result [facility] [address] Department [place] [address] * (ABNORMAL) POC Activated Clotting Time, High Range (06/26/2024 11:15 AM CDT) ACT 440(H) 87 - 138 sec POC Performer [id number] [facility] Blood 06/26/2024 11:1 5 AM CDT 06/26/2024 11:15 AM CDT us Felipe Alfaro MD LAB BLOOD ORDERABLES Fin al Result [facility] [address] Department [place] [address] * (ABNORMAL) POC Blood Gas and Chemistries, Venous - (06/26/2024 10:55 AM CDT) pH, Hosea POC 7.36 7.32 - 7.45 pCO2, hosea POC 43 40 - 50 mmHg [facility] pO2, hosea POC 51(H) 35 - 42 mmHg [facility] Na, POC 137 135 - 145 mmol/L [facility] K POC 7.7(C) 3.3 - 4.9 mmol/L [facility] Comment: Interpretive Data This method is not able to assess for hemolysis, which may falsely increase potassium concentrations. If further testing is needed to evaluate this result, consider in-laboratory plasma potassium. Current Interpretive Data was last revised on 2021. Cl, POC 110 97 - 110 mmol/L [facility] Ionized Ca, POC 4.63 4.50 - 5.10 mg/dL [facility] Glucose, POC 218(H) 70 - 199 mg/dL [facility] Lactate, POC 2.1(H) 0.7 - 2.0 mmol/L [facility] O2Hb, [place] POC 81.8(L) 90.0 - 95.0 % [facility] Carboxhgb fract 1.4 0.0 - 2.9 % [facility] Methemoglobin 0.5 0.0 - 1.9 % [facility] HHb, POC 16.3(H) 0.0 - 5.0 % [facility] O2 Sat, [place]a POC (Franklin) 83(H) 68 - 77 % [facility] Total CO2, hosea POC 26 22 - 32 mmol/L [facility] Base excess, hosea POC -1.2 mmol/L [facility] HCO3, [place] POC 24 20 - 30 mmol/L [facility] Hct, POC 36.0(L) 38.9 - 50.3 % [facility] Total Hb, POC 11.9(L) 13.0 - 17.5 g/dL [facility] Blood 06/26/2024 10:5 5 AM CDT 06/26/2024 10:55 AM CDT us Felipe Alfaro MD LAB POCT ORDERABLES - DE VICE Final Result [facility] [address] Department [place] [address] * (ABNORMAL) POC Blood Gas and Chemistries, Arterial - (06/26/2024 10:44 AM CDT) pH, Art POC 7.47(H) 7.35 - 7.45 pCO2, Art POC 48(H) 35 - 45 mmHg [facility] pO2, Art POC 228(H) 80 - 108 mmHg [facility] Na, POC 145 135 - 145 mmol/L [facility] K POC 3.9 3.3 - 4.9 mmol/L [facility] Comment: Interpretive Data This method is not able to assess for hemolysis, which may falsely increase potassium concentrations. If further testing is needed to evaluate this result, consider in-laboratory plasma potassium. Current Interpretive Data was last revised on 2021. Cl, POC 110 97 - 110 mmol/L [facility] Ionized Ca, POC 4.38(L) 4.50 - 5.10 mg/dL [facility] Glucose, POC 238(H) 70 - 199 mg/dL [facility] Lactate, POC 3.2(H) 0.7 - 2.0 mmol/L [facility] O2Hb, Art POC 98.2(H) 90.0 - 95.0 % [facility] Carboxhgb fract 1.3 0.0 - 2.9 % [facility] Methemoglobin 0.4 0.0 - 1.9 % [facility] HHb, POC 0.0 0.0 - 5.0 % [facility] SO2 (franklin) arterial 100(H) 90 - 95 % [facility] Total CO2, Art POC 36(H) 22 - 32 mmol/L [facility] BE, art, POC 9.9(H) -2.0 - 2.0 mmol/L [facility] HCO3, Art POC 33(H) 20 - 30 mmol/L [facility] Hct, POC 36.0(L) 38.9 - 50.3 % [facility] Total Hb, POC 11.9(L) 13.0 - 17.5 g/dL [facility] Blood 06/26/2024 10:4 4 AM CDT 06/26/2024 10:44 AM CDT Felipe Alfaro MD LAB POCT ORDERABLES - DE VICE Final Result Performing Organization Address City/[facility]/ZIP Co de Phone Number [facility] [address] Department of Laboratories [place], [place] [phone] * (ABNORMAL) POC Activated Clotting Time, High Range (06/26/2024 10:43 AM CDT) ACT 523(H) 87 - 138 sec POC Performer [id number] [facility] Blood 06/26/2024 10:4 3 AM CDT 06/26/2024 10:43 AM CDT Felipe Alfaro MD LAB BLOOD ORDERABLES Fin al Result Performing Organization Address City/[facility]/ZIP Co de Phone Number [facility] [address] Department of Laboratories [place], [place] [phone] * Surgical pathology (06/26/2024 10:19 AM CDT) Tissue (Aorta) 06/26/2024 10 :19 AM CDT Comment:Placed in formalin a t the end of the case Narrative PATHOLOGY [facility] - 06/30/2024 10:31 AM CDT [place] [address] [place], [place] [address] Tele: Karyna Doyle MD - Svp Marketing Note to Patients: This report may contain [...] PATHOLOGY REPORT Patient Name: SALVATORE MAY Address: [address], [place], [place] [address] Gender: M : 1950 (Age: 74) Service: Cardiothoracic Location: [place] [address], Hospital #: [id number] Patient Type: [facility] INPATIENT Taken: 06/26/2024 Received 06/26/2024 Reported: 06/30/2024 Physician(s): Birgit Bui MD DIAGNOSIS: Aorta, not otherwise specified, segmental excision: - Focal medial mucoid degeneration [facility]/06/30/2024 10:31 Examining Pathologist: Felicia Leon M.D. [...] cm in aggregate. The wall is intact. Is Architect sections are submitted in cassette A1. Additional sections are submitted in A2. [facility]/06/29/2024 15:20 BRYSON,TYREE , JAP MICROSCOPIC DESCRIPTION: Microscopic examination supports the above captioned diagnosis. There is no inflammation. Clerical Data Follows A; [id number] REPORT IMAGES AND/OR SCANNED DOCUMENTS ONLY VIEWABLE IN PDF FORMAT The immunohistochemical test(s) cited in this report, if any, was developed and its performance characteristics determined by [facility] Pathology Department. It has not been cleared or approved by the U.S. Food and Drug Administration. The FDA has determined that such clearance or approval is not necessary. This test is used for clinical purposes. It should not be regarded as investigational or for research. [facility] is certified under the Clinical Laboratory [...] part or completely in the following laboratories: [facility], [address] [facility], [place], [place] [id number] [place] [address], [address] [place] [id number]. Felipe Alfaro MD LAB PATHOLOGY ORDERABLES Final Result Performing Organization Address [facility]/ZIP Co de Phone Number PATHOLOGY [facility] Laboratory Receiving [address] [place] [address] * (ABNORMAL) POC Activated Clotting Time, High Range (06/26/2024 10:10 AM CDT) Pathologist [facility] ACT 460(H) 87 - 138 sec POC Performer [id number] [facility] Blood 06/26/2024 10:1 0 AM CDT 06/26/2024 10:10 AM CDT Felipe Alfaro MD LAB BLOOD ORDERABLES Fin al Result [facility] [address] Department [place] [address] * (ABNORMAL) POC Blood Gas and Chemistries, Arterial - (06/26/2024 9:55 AM CDT) Pathologist [facility] pH, Art POC 7.32(L) 7.35 - 7.45 pCO2, Art POC 50(H) 35 - 45 mmHg [facility] pO2, Art POC 384(H) 80 - 108 mmHg [facility] Na, POC 137 135 - 145 mmol/L [facility] K POC 3.5 3.3 - 4.9 mmol/L [facility] Comment: Interpretive Data This method is not able to assess for hemolysis, which may falsely increase potassium concentrations. If further testing is needed to evaluate this result, consider in-laboratory plasma potassium. Current Interpretive Data was last revised on 2021. Cl, POC 108 97 - 110 mmol/L [facility] Ionized Ca, POC 4.66 4.50 - 5.10 mg/dL [facility] Glucose, POC 131 70 - 199 mg/dL [facility] Lactate, POC 0.8 0.7 - 2.0 mmol/L [facility] O2Hb, Art POC 98.1(H) 90.0 - 95.0 % [facility] Carboxhgb fract 1.4 0.0 - 2.9 % [facility] Methemoglobin 0.5 0.0 - 1.9 % [facility] [facility] HHb, POC 0.0 0.0 - 5.0 % [facility] SO2 (franklin) arterial 100(H) 90 - 95 % [facility] Total CO2, Art POC 27 22 - 32 mmol/L [facility] BE, art, POC -0.9 -2.0 - 2.0 mmol/L [facility] HCO3, Art POC 24 20 - 30 mmol/L [facility] Hct, POC 38.0(L) 38.9 - 50.3 % [facility] Total Hb, POC 12.6(L) 13.0 - 17.5 g/dL [facility] Blood 06/26/2024 9:55 AM CDT 06/26/2024 9:55 AM CDT us Felipe Alfaro MD LAB POCT ORDERABLES - DE VICE Final Result [facility] [address] Department [place] [address] * (ABNORMAL) POC Blood Gas and Chemistries, Arterial - (06/26/2024 9:40 AM CDT) pH, Art POC 7.39 7.35 - 7.45 pCO2, Art POC 45 35 - 45 mmHg [facility] pO2, Art POC 479(H) 80 - 108 mmHg [facility] Na, POC 136 135 - 145 mmol/L [facility] K POC 4.1 3.3 - 4.9 mmol/L [facility] Comment: Interpretive Data This method is not able to assess for hemolysis, which may falsely increase potassium concentrations. If further testing is needed to evaluate this result, consider in-laboratory plasma potassium. Current Interpretive Data was last revised on 2021. Cl, POC 107 97 - 110 mmol/L [facility] Ionized Ca, POC 4.89 4.50 - 5.10 mg/dL [facility] Glucose, POC 143 70 - 199 mg/dL [facility] Lactate, POC 0.8 0.7 - 2.0 mmol/L [facility] O2Hb, Art POC 97.9(H) 90.0 - 95.0 % [facility] Carboxhgb fract 1.0 0.0 - 2.9 % [facility] Methemoglobin 1.1 0.0 - 1.9 % [facility] HHb, POC 0.0 0.0 - 5.0 % [facility] SO2 (franklin) arterial 100(H) 90 - 95 % [facility] Total CO2, Art POC 29 22 - 32 mmol/L [facility] BE, art, POC 1.7 -2.0 - 2.0 mmol/L [facility] HCO3, Art POC 26 20 - 30 mmol/L [facility] Hct, POC 43.0 38.9 - 50.3 % [facility] Total Hb, POC 14.4 13.0 - 17.5 g/dL [facility] Blood 06/26/2024 9:40 AM CDT 06/26/2024 9:40 AM CDT us Felipe Alfaro MD LAB POCT ORDERABLES - DE VICE Final Result [facility] [address] Department [place] [address] * (ABNORMAL) POC Activated Clotting Time, High Range (06/26/2024 9:39 AM CDT) ACT 523(H) 87 - 138 sec POC Performer [id number] [facility] Blood 06/26/2024 9:39 AM CDT 06/26/2024 9:39 AM CDT us Felipe Alfaro MD LAB BLOOD ORDERABLES Fin al Result [facility] [address] [place] [address] * CA AN PROCEDURE PLACEHOLDER (06/26/2024 9:33 AM CDT) [...] code: CORNELL placement and diagnostic exam, non-congenital (80901) ICD code(s) for medical necessity: I71.2 - [...] inferior: normal 16- Apical septal: normal 17- [place]: normal Valves: Aortic Valve: Annulus: normal Leaflet [...] 112 87 - 138 sec POC Performer [id number] [facility] Blood 06/26/2024 8:59 AM CDT 06/26/2024 8:59 AM CDT us Felipe Alfaro MD LAB BLOOD ORDERABLES Fin al Result [facility] [address] [place] [address] * CA AN CENTRAL LINE QUADRUPLE LUMEN, CA AN PROCEDURE PLACEHOLDER (06/26/2024 8:31 AM CDT) [...] AN SHEATH INTRODUCER PERFORMABLE, PULMONARY ARTERY CATH, CA AN PROCEDURE PLACEHOLDER (58:31 AM CDT) Narrative [...] ORDERABLE S Edited Result - Final * CA AN ELECTIVE ENDOTRACHEAL AIRWAY, CA AN PROCEDURE PLACEHOLDER (06/26/2024 8:27 AM CDT) Bassam Sebastian MD PhD - 06/26/2024 8:27 AM CDT Bassam Mercedes MD PhD 06/26/2024 8:27 AM Airway Patient location: OR Urgency: elective Indications for airway management: anesthesia Difficult airway: no Staff: Supervising provider: Bassam Mercedes MD PhD [...] PhD ANESTHESIA ORDERABLE S Final Result * CA AN PROCEDURE PLACEHOLDER (06/26/2024 8:26 AM CDT) Bassam Sebastian MD PhD - 06/26/2024 8:26 AM CDT Bassam Mercedes MD PhD 06/26/2024 8:27 AM Arterial Line Patient location: OR Indication: continuous blood pressure monitoring and blood sampling needed Staff: Supervising provider: Bassam Mercedes MD PhD Placed by: EXTRUSION DIE REPAIRER: Gee Reece CRNA Procedure prep: Prep solution: [...] PhD ANESTHESIA ORDERABLE S Final Result * CA AN PROCEDURE PLACEHOLDER (06/26/2024 8:25 AM CDT) Bassam Sebastian MD PhD - 06/26/2024 8:25 AM CDT Bassam Mercedes MD PhD 06/26/2024 8:25 AM Arterial Line Patient location: OR Indication: continuous blood pressure monitoring and blood sampling needed Staff: Supervising provider: Bassam Mercedes MD PhD Placed by: EXTRUSION DIE REPAIRER: Gee Reece CRNA Procedure prep: Prep solution: [...] PhD CV ECHO PROCEDURES F inal Result Performing Organization Address City/[facility]/ZIP Co de Phone Number CONS SCIMAGE * XR Chest 1 View [...] by: Nikolai Youngblood M.D., MPH Nida Bullock PROJECT ASST IMG XR PROCEDURES Final Result * Check Sample (06/26/2024 6:42 AM CDT) ABO Rh O Positive MBC HCLL OTHER 06/26/2024 6:42 AM CDT 06/26/2024 7:03 AM CDT Narrative [facility] - 06/26/2024 7:27 AM CDT + Anti-K antibody on pre op type and screen Steph Del Valle PROJECT ASST LAB BLOOD ORDERABLES Lona l Result [facility] [address] [place] [address] MBC * Hemoglobin A1c (06/26/2024 6:42 AM CDT) Pathologist [facility] Hgb A1C 5.6 4.0 - 5.6 % Estimated Average Glucose 114 mg/dL [facility] Comment: The ADA recommends reporting an estimated Average Glucose (eAG) with all Hemoglobin A1c results using the equation derived from a study of 507 normal and diabetic adults. Minority populations were underrepresented and children were not included. (Diabetes Care 31:4594-6196, 2008). The eAG is not equivalent to a fasting glucose. Blood 06/26/2024 6:42 AM CDT 06/26/2024 6:56 AM CDT us Nida Bullock NP LAB BLOOD ORDERABLES Final Resul t Performing Organization Address City/[facility] Co de Phone Number [facility] [address] [place] [address] * ECG 12 lead (06/26/2024 6:25 AM CDT) 06/26/2024 6:25 AM CDT Narrative [facility] - 06/26/2024 2:35 PM CDT Vent Rate: 62 bpm RR Interval: 964 msec CA Interval: 184 msec QRS Duration: 100 msec QT Interval: 423 msec QTC Interval: 428 msec P-R-T [place]: 65 - 6 - 29 degrees IMPRESSION: SINUS RHYTHM NORMAL ECG Electronically Signed By: Barrington gallegos us Nida Bullock NP ECG ORDERABLES Final Result Performing Organization Address City/[facility] Co de Phone Number [facility] [employer] [facility] * Prepare RBC: 4 Units (06/26/2024 6:08 AM CDT) [facility] Product code [id number] [facility] Unit Number [id number] 2-2 [facility] Product Blood Type OPOS [facility] Dispense Status RETURNED [facility] Product code [id number] [facility] Unit Number [id number] 3-J [facility] Product Blood Type OPOS [facility] Dispense Status RETURNED [facility] Product code [id number] [facility] Unit Number [id number] 2-0 [facility] Product Blood Type OPOS [facility] Dispense Status RETURNED [facility] Product code [id number] Unit Number [id number] 9-W [facility] Product Blood Type OPOS [facility] Dispense Status RETURNED [facility] Blood 06/26/2024 6:08 AM CDT Narrative [facility] - 07/04/2024 7:26 AM CDT Specify 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 (All products are leukoreduced and CMV- safe)- >No Date required:-[id number] LRRBC # of [id number] Reasons:-Hold for procedure (specify procedure)} us Nida Bullock NP BLOOD BANK PRODUCT ORDERABLES Fi nal Result Performing Organization Address [facility]/ZIP Co de Phone Number [facility] [address] [place] [address] * B K Antigen Type (06/15/2024 12:08 PM CDT) RBC K ag Negative Blood 06/15/2024 12:0 8 PM CDT 06/15/2024 12:09 PM CDT us Felipe Alfaro MD LAB BLOOD ORDERABLES Fin al Result Performing Organization Address City/[facility]/ZIP Co de Phone Number [facility] [address] [place] [address] * Antibody identification (06/15/2024 11:41 AM CDT) Antibody ID 1 Anti-K Blood 06/15/2024 11:4 1 AM CDT 06/15/2024 11:41 AM CDT Felipe Alfaro MD LAB BLOOD BANK TEST ORDJovita MANJARREZ Final Result Performing Organization Address [facility] Co de Phone Number [facility] [address] [place] [address] * eGFR (06/15/2024 9:50 AM CDT) eGFR >90 >=60 mL/min/1. 73 [...] 9:50 AM CDT 06/15/2024 11:59 AM CDT Felipe Alfaro MD LAB BLOOD ORDERABLES Fin al Result Performing Organization Address [facility]/ZIP Co de Phone Number [facility] [address] Department [place] [address] * (ABNORMAL) Differential, auto (06/15/2024 9:50 AM CDT) Pathologist [facility] Neutrophil abs 7.0(H) 1.5 - 6.5 K/cumm Imm gran abs 0.0 0.0 - 0.1 K/cumm [facility] Lymphocyte abs 1.5 0.8 - 3.3 K/cumm [facility] Monocyte abs 0.7 0.2 - 0.8 K/cumm [facility] Eosinophil abs 0.1 0.0 - 0.5 K/cumm [facility] Basophil abs 0.0 0.0 - 0.1 K/cumm [facility] Neutrophil pct 74.5 % [facility] Comment: Interpretive Data Percent cell count reference ranges are not reported, since discordance with absolute values may lead to misinterpretation of CBC data. Current Interpretive Data was last revised on 2017. Imm gran pct 0.4 % [facility] Comment: Interpretive Data Percent cell count reference ranges are not reported, since discordance with absolute values may lead to misinterpretation of CBC data. Current Interpretive Data was last revised on 2017. Lymphocyte pct 16.2 % [facility] Comment: Interpretive Data Percent cell count reference ranges are not reported, since discordance with absolute values may lead to misinterpretation of CBC data. Current Interpretive Data was last revised on 2017. Monocyte pct 7.3 % [facility] Comment: Interpretive Data Percent cell count reference ranges are not reported, since discordance with absolute values may lead to misinterpretation of CBC data. Current Interpretive Data was last revised on 2017. Eosinophil pct 1.4 % [facility] Comment: Interpretive Data Percent cell count reference ranges are not reported, since discordance with absolute values may lead to misinterpretation of CBC data. Current Interpretive Data was last revised on 2017. Basophil pct 0.2 % [facility] Comment: Interpretive Data Percent cell count reference ranges are not reported, since discordance with absolute values may lead to misinterpretation of CBC data. Current Interpretive Data was last revised on 2017. Blood 06/15/2024 9:50 AM CDT 06/15/2024 10:01 AM CDT us Felipe Alfaro MD LAB BLOOD ORDERABLES Fin al Result [facility] [address] [place] [address] * CBC with auto differential (06/15/2024 9:50 AM CDT) [facility] WBC 9.4 3.8 - 9.9 K/cumm Hgb 16.1 13.0 - 17.5 g/dL [facility] Hct 47.2 38.9 - 50.3 % [facility] Plt 201 150 - 400 K/cumm [facility] MPV 10.5 9.1 - 12.3 fL [facility] RBC 5.16 4.30 - 5.80 M/cumm [facility] MCV 91.5 81.3 - 96.4 fL [facility] MCH 31.2 27.1 - 33.3 pg [facility] MCHC 34.1 32.3 - 35.7 g/dL [facility] RDW CV 12.8 11.1 - 14.9 % [facility] RDW SD 43.4 35.7 - 48.1 fL [facility] NRBC abs 0.00 0.00 - 0.01 K/cumm [facility] Blood 06/15/2024 9:50 AM CDT 06/15/2024 10:01 AM CDT us Felipe Alfaro MD LAB BLOOD ORDERABLES Fin al Result [facility] [address] [place] [address] * Protime-INR (06/15/2024 9:50 AM CDT) [facility] PT 12.8 9.7 - 13.0 sec INR 1.18 0.90 - 1.20 [facility] Comment: Interpretive data Oral anticoagulant therapeutic ranges: Venous thromboembolism prophylaxis or treatment: 2.0-3.0 CARDIOLOGY Standard range: 2.0-3.0 High-intensity range: 2.5-3.5 Refer to indication-specific guidelines for appropriate target ranges for prosthetic heart valve replacement. Current interpretive data was last revised on 2019. Blood 06/15/2024 9:50 AM CDT 06/15/2024 10:01 AM CDT Felipe Alfaro MD LAB BLOOD ORDERABLES Fin al Result Performing Organization Address City/[facility]/ZIP Co de Phone Number [facility] [address] [facility] [employer] [place], [place] [id number] * (ABNORMAL) Type and screen (06/15/2024 9:50 AM CDT) Darron, indirect Positive(A) ABO Rh O Positive [facility] Blood 06/15/2024 9:50 AM CDT 06/15/2024 10:02 AM CDT Narrative [facility] - 06/15/2024 11:41 AM CDT No blood transfusions last 90 days Surgery 06/26/24 No blood transfusions last 90 days Surgery 06/26/24 Has the patient had Daratumumab or Isatuximab in the past 6 months?->No Felipe Alfaro MD LAB BLOOD BANK TEST ORDE RABLES Final Result Performing Organization Address [facility] Co de Phone Number [facility] [address] [place] [address] * Lipid panel (06/15/2024 9:50 AM CDT) [...] revised on 2017. Triglycerides 47 <=149 mg/dL [facility] Comment: Interpretive Data Ages < or = [...] revised on 2017. HDL 62 >=40 mg/dL [facility] Comment: Interpretive Data Ages < or = [...] on 2017. LDL, calculated 67 <=129 mg/dL [facility] Comment: Interpretive Data Ages < or = [...] NCEP Expert Panel. Circulation 2004;110:227 3. Everett Montenegro al. AGUILA Cardiol. 2020 July 16;5(5):540-548. doi: 10.1001/jamacardio.2020.0013 Current Interpretive Data was last revised on 2023. Non-HDL Cholesterol 78 mg/dL [facility] Comment: Interpretive Data Ages < or = [...] last revised on 2017. Chol/HDL ratio 2 [facility] Blood 06/15/2024 9:50 AM CDT 06/15/2024 10:01 AM CDT us Felipe Alfaro MD LAB BLOOD ORDERABLES Fin al Result [facility] [address] Department [place] [address] * (ABNORMAL) Comprehensive metabolic panel (06/15/2024 9:50 AM CDT) Sodium 135 135 - 145 mmol/L Potassium, pl 3.9 3.3 - 4.9 mmol/L [facility] Chloride 101 97 - 110 mmol/L [facility] CO2 20(L) 22 - 32 mmol/L [facility] Anion gap 14 2 - 15 mmol/L [facility] BUN 15 6 - 25 mg/dL [facility] Creatinine 0.83 0.80 - 1.30 mg/dL [facility] Glucose 107 70 - 199 mg/dL [facility] Comment: Interpretive Data Fasting glucose >/= 126 [...] 2022. Calcium 9.3 8.5 - 10.3 mg/dL [facility] Bilirubin, total 0.9 0.1 - 1.2 mg/dL [facility] Protein, pl 7.1 6.5 - 8.5 g/dL [facility] Albumin 4.2 3.5 - 5.0 g/dL [facility] Alk phos 94 40 - 130 Units/L [facility] ALT 18 7 - 55 Units/L [facility] AST 25 10 - 50 Units/L [facility] Blood 06/15/2024 9:50 AM CDT 06/15/2024 10:01 AM CDT us Felipe Alfaro MD LAB BLOOD ORDERABLES Fin al Result [facility] [address] Department [place] [address] * LEFT HEART CATHETERIZATION WITH CORONARY ANGIOGRAPHY [...] complications like access site vascular complications; periprocedural NV, cardiac arrhythmias, stroke, contrast induced nephropathy, and . After discussing all the benefits, risks and alternatives, patient was willing to proceed with the procedure. PROCEDURES PERFORMED: Selective left and right coronary angiogram Aortogram Ultrasound-guided right radial arterial access (CPT 98034) Moderate sedation-CPT code 99202 MODERATE SEDATION: Midazolam 2 mg , Fentanyl 50 mcg, start time 1256 stop time 1331, total direct [id number] monitoring of conscious sedation 35 minutes (CPT 86392) TRAINED OBSERVER: Veronique Morales RN was trained observer for moderate sedation. ACCESS SITE: Right radial artery PROCEDURE: After obtaining informed consent, patient was brought to the slab lifting engineer and prepped and draped in the usual sterile manner. Time-out and immediate reassessment of the patient was performed. After local anesthesia with lidocaine, right radial artery access was taken with micropuncture needle under ultrasound guidance followed by insertion of a 6 [place]an sheath. 5 mg of verapamil and 100 mcg of nitroglycerin was given through the arterial sheath; 5000 units of heparin given through IV. Due to patient's aortic aneurysm, there was difficulty in engaging the coronary arteries. Aortogram was performed using JR4 catheter. Right coronary artery was engaged using 5 [place]an JR4 diagnostic catheter. Orthogonal views were taken. There was difficulty in engaging the left coronary artery. Multiple catheters including AL1, AL2, JL5 were used. Left coronary angiogram was performed using 5 [place] JL5 diagnostic catheter. The catheter length was [...] was used to complete this document, therefore, flattening press operator variances may occur. Chase Garcia MD, [facility] 05/25/24 Chase Garcia MD CV CARDIAC CATH PROCEDURES Edite d Result - Final * eGFR (05/25/2024 9:33 AM CDT) eGFR >90 >=60 mL/min/1. 73 [...] 9:33 AM CDT 05/25/2024 9:50 AM CDT Chase Garcia MD LAB BLOOD [place] [address] [address] Department [place] [address] * Differential, auto (05/25/2024 9:33 AM CDT) Neutrophil abs 5.8 1.5 - 6.5 K/cumm Imm gran abs 0.0 0.0 - 0.1 K/cumm [facility] Lymphocyte abs 1.4 0.8 - 3.3 K/cumm [facility] Monocyte abs 0.6 0.2 - 0.8 K/cumm [facility] Eosinophil abs 0.1 0.0 - 0.5 K/cumm [facility] Basophil abs 0.0 0.0 - 0.1 K/cumm [facility] Neutrophil pct 73.0 % [facility] Comment: Interpretive Data Percent cell count reference ranges are not reported, since discordance with absolute values may lead to misinterpretation of CBC data. Current Interpretive Data was last revised on 2017. Imm gran pct 0.3 % [facility] Comment: Interpretive Data Percent cell count reference ranges are not reported, since discordance with absolute values may lead to misinterpretation of CBC data. Current Interpretive Data was last revised on 2017. Lymphocyte pct 17.8 % [facility] Comment: Interpretive Data Percent cell count reference ranges are not reported, since discordance with absolute values may lead to misinterpretation of CBC data. Current Interpretive Data was last revised on 2017. Monocyte pct 7.3 % [facility] Comment: Interpretive Data Percent cell count reference ranges are not reported, since discordance with absolute values may lead to misinterpretation of CBC data. Current Interpretive Data was last revised on 2017. Eosinophil pct 1.5 % [facility] Comment: Interpretive Data Percent cell count reference ranges are not reported, since discordance with absolute values may lead to misinterpretation of CBC data. Current Interpretive Data was last revised on 2017. Basophil pct 0.1 % [facility] Comment: Interpretive Data Percent cell count reference ranges are not reported, since discordance with absolute values may lead to misinterpretation of CBC data. Current Interpretive Data was last revised on 2017. Blood 05/25/2024 9:33 AM CDT 05/25/2024 9:47 AM CDT Chase Garcia MD LAB BLOOD ORDERABLES Final Resul t [address] Department [place] [address] * CBC with auto differential (05/25/2024 9:33 AM CDT) WBC 7.9 3.8 - 9.9 K/cumm Hgb 15.2 13.0 - 17.5 g/dL [facility] Hct 45.6 38.9 - 50.3 % [facility] Plt 222 150 - 400 K/cumm [facility] MPV 10.5 9.1 - 12.3 fL [facility] RBC 4.92 4.30 - 5.80 M/cumm [facility] MCV 92.7 81.3 - 96.4 fL [facility] MCH 30.9 27.1 - 33.3 pg [facility] MCHC 33.3 32.3 - 35.7 g/dL [facility] RDW CV 13.0 11.1 - 14.9 % [facility] RDW SD 44.5 35.7 - 48.1 fL [facility] NRBC abs 0.00 0.00 - 0.01 K/cumm [facility] Blood 05/25/2024 9:33 AM CDT 05/25/2024 9:47 AM CDT us Chase Garcia MD LAB BLOOD ORDERABLES Final Resul t Performing Organization Address [facility] Co de Phone Number [facility] [address] Department [place] [address] * Comprehensive metabolic panel (05/25/2024 9:33 AM CDT) Sodium 141 135 - 145 mmol/L Potassium, pl 4.3 3.3 - 4.9 mmol/L [facility] Chloride 105 97 - 110 mmol/L [facility] CO2 23 22 - 32 mmol/L [facility] Anion gap 13 2 - 15 mmol/L [facility] BUN 13 6 - 25 mg/dL [facility] Creatinine 0.81 0.80 - 1.30 mg/dL [facility] Comment:Icteric sample, test results may be affected. Glucose 116 70 - 199 mg/dL [facility] Comment: Interpretive Data Fasting glucose >/= [...] 2022. Calcium 9.4 8.5 - 10.3 mg/dL [facility] Bilirubin, total 1.1 0.1 - 1.2 mg/dL [...] LAB BLOOD ORDERABLES Final Resul t [address] Department [place] [address] * TRANSTHORACIC ECHO (TTE) COMPLETE W DOPPLER/CF WO CONTRAST (05/07/2024 2:19 PM SLOT FLOOR SUPERVISOR) LV EF 65-70 % CONS SCIMAGE Anatomical Region Laterality Modality Ultrasound 05/07/2024 1:29 PM SLOT FLOOR SUPERVISOR Narrative 05/07/2024 4:13 PM SLOT FLOOR SUPERVISOR [facility] [address], [address], [place] [address] P:[phone] P:[phone] Echocardiographic Report Patient Name: SALVATORE MAY : [...] without rupture, I25.10 Atherosclerotic heart disease of [place] coronary artery without angina pectoris, and I10 [...] FINDINGS: Interpretation Site: Exam was interpreted at [facility]. Left Ventricle: Normal left ventricular systolic function. [...] By: Marck Owens MD 05/07/2024 4:13:06 PM SLOT FLOOR SUPERVISOR Procedure Note Marck Owens MD - 05/07/2024 [facility] Cardiology [address], [address], [place] [address] P:[phone] P:[phone] Echocardiographic Report Patient Name: SALVATORE MAY : 1950 Study Date: 05/07/2024 1:29:09 PM Gender: M Tech: Location: [facility] Ref Provider: MARCK OWENS Height(Cm): 193 BSA: 2.42 Weight(Kg): 108.9 Heart Rate: 64 BP: 138 / 80 Quality: Good Order Provider: MARCK OWENS PROCEDURES: Echocardiographic Report: Transthoracic echocardiogram with complete 2D, M-Mode, and color Dopplerexamination. With Strain Analysis. INDICATIONS: I71.21 Aneurysm of the ascending aorta, without rupture, I25.10Atherosclerotic heart disease of [place] coronary artery without angina pectoris, and H99Fvtnisltd (primary) hypertension. MEASUREMENTS: 2D/MM Value Range Doppler [...] FINDINGS: Interpretation Site: Exam was interpreted at [facility]. Left Ventricle: Normal left ventricular systolic function. [...] By: Marck Owens MD 05/07/2024 4:13:06 PM SLOT FLOOR SUPERVISOR us Marck Owens MD CV ECHO PROCEDURES Final Result * Colonoscopy (02/19/2024 10:03 AM SLOT FLOOR SUPERVISOR) Anatomical Region Laterality Modality Other Narrative Procedure Note Gonzalez Ace DO - 02/19/2024 10:03 AM CST [facility] Patient Name: Salvatore May Procedure Date: 02/19/2024 10:03 AM Date of : 1950 Admit Type: Outpatient Age: 73 Gender: Male Attending MD: Gonzalez Ace D.O. Room: [facility] 3 Note Status: Finalized [...] scope was passed under direct vision. TheColonoscope [id number] was introduced through the anus and advanced [...] 10:03 AM Procedure Code(s): --- Professional --- 09112, Colonoscopy, flexible; with removal of tumor(s), polyp(s), or other lesion(s) by snare technique --- Technical --- 95803, Colonoscopy, flexible; with removal of tumor(s), polyp(s), or other lesion(s) by snare technique Diagnosis Code(s): --- Professional --- D12.5, Benign neoplasm of sigmoid colon Z80.0, Family history of malignant neoplasm of digestive organs --- Technical --- D12.5, Benign neoplasm of sigmoid colon Z80.0, Family history of malignant neoplasm of digestive organs CPT copyright 2020 [employer]. All rights reserved. The codes documented in this report are preliminary and upon visual arts teacher reviewmay be revised to meet current compliance requirements. Recognized by the [employer] for promoting quality [...] Blankenship MD LAB [place] [address] [facility] Department [place] [address] * Hepatitis C antibody Blood (12/26/2022 9:29 [...] 9:29 AM CDT 12/26/2022 2:07 PM CDT us Antwon Blankenship MD LAB MICROBIOLOGY - GENERAL ORDERABLES [place] [address] [facility] Department [place] [address] from Last 3 Months or Most Recently Relevant to Health Maintenance Insurance AET MEDICARE AETNA MEDICARE AETNA MEDICARE Advance Directives For more information, please contact: [phone] * Full Code (Latest Code Status on File) Date Activated Date Inactivated Comments 06/26/2024 1:13 PM 07/03/2024 7:58 PM * Full Code Date Activated Date Inactivated Comments 02/19/2024 10:27 AM 02/19/2024 5:23 PM * Full Code Date Activated Date Inactivated Comments 02/19/2024 10:27 AM 02/19/2024 10:27 AM Care Teams Solution Spec Relationship Specialty Start Date End Date Mark Don MD [address] [facility] [address] [place] [address] PCP - General Internal Medicine 04/13/24 Chetan Torres MD [address] [facility] [address] [facility] [address] [place] [address] Consulting Physician Neurosurgery 02/20/23 Felipe Alfaro MD [address] [facility] [address] [place] [address] Consulting Physician Cardiothoracic Surgery 04/13/24 Marck Owens MD [address] [facility] [address] [place] [address] Referring Physician Cardiology 04/13/24
--- OUTSIDE RECORDS SUMMARY | 2024-07-20 22:23 | XMS_ITS | Encounter Summary ---
Author Organization [facility] Address [address] [place] [address] Care Team Providers Care Janitorial Account Manager Name Role Phone Mark Don MD Primary Care Provider [phone] Reason for Visit * Reason Onset Date Comments Results 01/23/2024 Encounter Details Date Type Department Care Team (Late st Contact Info) Description 01/23/2024 MyChart Message Enc [facility] Medical [facility] Multispecialty Care - [address] [place] [address] [place], [facility] Provider xray results Social History Tobacco Use Types Packs/Day Years Used Date Smoking Tobacco: Never Passive Smoke Exposure: Never Smokeless Tobacco: Never Comments:Counseled by Dr. Sari dougherty. Alcohol Use Standard Drinks/Week Comments Yes 6.7 (1 standard drink = 0.6 oz p ure alcohol) AUDIT-C Answer Date Recorded Q1: How often do you have a drink containing alc ohol? 2-4 times a month 10/22/2023 Q2: How many drinks containi ng alcohol do you have on a typical day when you are drinking? 1 or 2 10/22/2023 Q3: How often do you have si x or more drinks on one occasion? Less than monthly 10/22/2023 Sex and Gender Information Value Date Recorded Sex Assigned at Male 04/02/2024 9:58 AM BROADCAST MAINTENANCE ENGINEER Legal Sex Male 11:03 AM CDT Gender Identity Not on file Sexual Orientation Not on file documented as of this encounter Progress Notes * Amy Murrieta MA - 01/29/2024 1:10 PM CST Per. Mobley in another encounter she states: This patient called requesting a call about the X-Ray results. There is a [email or web address] message from Claudia but the patient states that he does not use MyChart and prefers phone calls. The patient would also like to have a disability parking placard. Thank you. I called pt no answer. LVM to return call DCAST MAINTENANCE ENGINEER documented in this encounter Plan of Treatment Upcoming Encounters Date Type Department Care Team (Late st Contact Info) Description 07/23/2024 1:00 PM CDT Office Visit [facility] Multispecialty Care - [place] [address] [place] [address] Anastasiya Otto, GABRIELLE [address] [facility] [address] [place] [address] documented as of this encounter Visit Diagnoses Not on filedocumented in this encounter Care Teams Janitorial Account Manager Relationship Specialty Start Date End Date Mark Don MD [address] [facility] [address] [place] [address] PCP - General INTERNAL MEDICINE 10/15/23 documented as of this encounter
--- OUTSIDE RECORDS SUMMARY | 2024-07-20 22:23 | XMS_ITS | Clinical Summary ---
Author Organization [facility] Address [address] [place] [address] Care Team Providers Care City Superintendent Name Role Phone Mark Don MD Primary Care Provider [phone] Allergies No known active allergies Medications aspirin 81 MG chewable tabletIndicatio ns:Coronary artery disease involving [place] coronary artery of [place] heart, unspecified whether angina present Chew 1 tablet (81 mg total) by mouth daily. Active traMADol (ULTRAM) 50 MG tabletIndicatio ns:Chronic Pain Take 1 tablet (50 mg total) by mouth every 6 (six) hours as needed for Pain. Indications: Chronic Pain 60 tablet 01/29/20 24 Active lisinopril-hydr oCHLOROthiazide (ZESTORETIC) 20-25 MG tabletIndicatio ns:Other chest pain,Coronary artery disease involving [place] coronary artery of [place] heart, unspecified whether angina present Take 1 tablet by mouth every morning. Please go online and schedule follow-up appointment before you run out of your medication thank you. 90 tablet 05/23/19 25 Active atorvastatin (LIPITOR) 20 MG tabletIndicatio ns:Other chest pain,Coronary artery disease involving [place] coronary artery of [place] heart, unspecified whether angina present TAKE 1 TABLET(20 MG) BY MOUTH DAILY 90 tablet 1 07/09/19 25 Active metoprolol succinate ER (TOPROL-XL) 25 MG 24 hr tabletIndicatio ns:Coronary artery disease involving [place] coronary artery of [place] heart, unspecified whether angina present,Primary hypertension Take 2 tablets (50 mg total) by mouth daily. 60 tablet 07/11/19 25 Active atorvastatin (LIPITOR) 20 MG tabletIndicatio ns:Other chest pain,Coronary artery disease involving [place] coronary artery of [place] heart, unspecified whether angina present Take 1 tablet (20 mg total) by mouth daily. 90 tablet 1 10/22/19 24 2024 Discontinued metoprolol succinate ER (TOPROL-XL) 25 MG 24 hr tabletIndicatio ns:Other chest pain,Coronary artery disease involving [place] coronary artery of [place] heart, unspecified whether angina present,Primary hypertension Take 2 tablets (50 mg total) by mouth daily. 90 tablet 1 10/22/19 24 2024 Discontinued carvedilol (COREG) 6.25 MG tablet Take 1 tablet (6.25 mg total) by mouth daily. 2024 Discontinued(A lternate therapy) Active Problems Problem Noted Date Diagnosed Date Atherosclerosis of abdominal aorta 04/02/2024 Coronary artery calcification 04/02/2024 Granulomatous disease (CMS/HCC HHS/HCC) 04/02/19 Renal cyst 04/02/2024 Hepatic cyst 04/02/2024 Family history of colon cancer in mother 024 Pulmonary nodule 10/22/2023 Overweight (BMI 25.0-29.9) 10/22/2023 History of right hip replacement 10/22/2023 Pseudophakia of left eye 08/22/2021 Overview (10/22/2023): Last Assessment & Plan: S/p CEIOL OS Riley/Herbert 08/23/21 - Floppy [...] for IOP/AC check, adjust drops as necessary. Suspected glaucoma of both eyes 05/04/2021 Overview (10/22/2023): Last Assessment & Plan: No FHx, no trauma, no prior surgeries Physiologic large cups, healthy rims OCT RNFL full OU IOP upper limits normal Yearly IOP check/DFEx Coronary artery disease invo lving [place] coronary artery of [place] heart 02/06/2021 Overview (10/22/2023): Last Assessment & Plan: Continue aspirin 81mg a day and Atorvastatin 20mg a day Hyperlipidemia LDL goal <70 07/15/2020 Benign hypertension 08/01/2013 Overview (10/22/2023): BENIGN HYPERTENSION Aneurysm of thoracic aorta 12/25/2012 Overview (01/07/2024): Thoracic aneurysm Last Assessment & Plan: Patient to repeat scan 07/08 Thoracic aneurysm Encounters Date Type Department Care Team Description 07/10/2024 [facility] [place] [address] [place] [address] Mark Don MD 07/10/2024 [facility] [place] [address] [place] [address] Mark Don MD Medication Information 07/04/2024 [facility]phone [facility] [place] [address] [facility] [address] [place] [address] Mark Don MD TCM from Last 3 Months Immunizations Immunization Administration Dates Next Due Fluzone High Dose - >Age 65 (Prefilled Syringe) 12/14/2022,12/21/2021,02/06/2021,2019 Influenza (Generic) 01/21/2020, 2,12/08/2010,2005 PFIZER COVID-19 (ORIGINAL FORMULATION, PURPLE CAP) mRNA, LNP-S, PF, 30 MCG/0.3 ML DOSE 12/17/2022 Pneumococcal (Pneumovax 23) 12/21/2021 Pneumococcal (Prevnar 13) 08/02/2020 Family History Medical History Relation Comments Diabetes Father Diabetes Mother Relation Status Comments Father Mother Social History Tobacco Use Types Packs/Day Years Used Date Smoking Tobacco: Never Passive Smoke Exposure: Never Smokeless Tobacco: Never Tobacco Cessation:Counseling Given: Yes Comments:Counseled by Dr. Don. Alcohol Use Standard Drinks/Week Comments Yes 6.7 [...] Sex Assigned at Male 04/02/2024 9:58 AM FURNACE TENDER Legal Sex Male 11:03 AM CDT Gender Identity Not on file Sexual Orientation Not on file Last Filed Vital Signs Vital Sign Reading Time Taken Comments Blood Pressure 109/76 03/27/2024 2:30 PM FURNACE TENDER chewing gum Pulse 83 03/27/2024 2:30 PM FURNACE TENDER Temperature 36.7 C (98 F) 03/27/2024 2:30 PM FURNACE TENDER Respiratory Rate 16 03/27/2024 2:30 PM FURNACE TENDER Oxygen Saturation 99% 03/27/2024 2:3 0 PM FURNACE TENDER Inhaled Oxygen Concentration - - Weight 80.1 kg (176 lb 9.6 oz) 03/27/19 25 2:30 PM FURNACE TENDER Height 193 cm (6' 4 ) 03/27/2024 2:30 PM FURNACE TENDER Body Mass Index 21.5 03/27/2024 2:30 PM FURNACE TENDER Plan of Treatment Upcoming Encounters Date Type Department Care Team (Late st Contact Info) Description 07/23/2024 1:00 PM CDT Office Visit [facility] Multispecialty Care - [place] [address] [place] [address] Anastasiya Otto, PROJECT LEADER [address] [place] [address] Health Maintenance Due Date Last Done Comments DTaP, Tdap and Td Vaccines (1 - Tdap) 1968 Zoster Vaccines (1 of 2) 05/19/1999 Annual Medicare Wellness Visit 2014 Colorectal Cancer Screening Colonoscopy (10 Years) 12/27/2021 12/28/2011 PHQ-2 (Physician [place]) 03/18/2024 RSV Immunization or 60+ Years (1 - 1-dose 75+ series) 2024 COVID-19 Vaccine ( season) 2024 12/12/2023, 12/17/2022, 12/14/2022, Additional history exists Pneumococcal Vaccine: 50+ Years Completed 12/21/2021, 08/02/2020 Hepatitis C Completed 10/22/2023 Meningococcal B Vaccine Aged Out No l onger eligible based on patient's age to complete this topic Meningococcal Vaccine Aged Out No jim dany eligible based on patient's age to complete this topic RSV Immunizations Under 20 Months Aged Out No longer eligible based on patient's age to complete this topic Procedures Procedure Name Priority Date/Time Associated Diagnosis Comments HEPATITIS C ANTIBODY Routine 10/22/2023 10:02 AM CDT Annual physical exam Establishing care with new doctor, encounter for General medical exam Encounter for hepatitis C screening test for low risk patient COLONOSCOPY GENERIC (SCAN ORDER) 12/28/2011 from Last 3 Months or Most Recently Relevant to Health Maintenance Results * HEPATITIS C ANTIBODY (10/22/2023 10:02 AM CDT) HEPATITIS C AB NON-REACTI VE NON-REACT LYN 10/22/2023 7:06 PM CDT [facility] Comment: ANTIBODIES TO HCV NOT DETECTED. DOES NOT EXCLUDE THE POSSIBILITY OF EXPOSURE TO HCV. 10/22/2023 10:0 2 AM CDT Mark Don MD LABORATORY Final Result [facility] [address] [place] [address], [place] [phone] [id number] * COLONOSCOPY GENERIC (SCAN ORDER) (12/28/2011) 12/28/2011 us [facility] Scanned SCANNING Final Resu lt from Last 3 Months or Most Recently Relevant to Health Maintenance Insurance AETNA Care Teams City Superintendent Relationship Specialty Start Date End Date Mark Don MD [address] [facility] [address] [place] [address] PCP - General INTERNAL MEDICINE 10/15/23
--- OUTSIDE RECORDS SUMMARY | 2024-07-20 22:23 | XMS_ITS | Clinical Summary ---
Author Organization Unknown Care Team Providers Care Paralegal Supervisor Name Role Phone LANA ESPOSITO, JUAN J Unavailable Unavailable USMMER ALANISN, LOLA Unavailable Unavailable VERO PT, LASHAWN Unavailable Unavailable [facility] PHYSICIAN, WILFREDO Unavailable Unavailalethea SHEA OT, YUSRA Unavailable Unavailable ISAURO ST, MAGDALENA Unavailable Unavailable JOSE R RN, BLADE Unavailable Unavailable Payers Payer Name Policy Type Policy Number Effective Date Expira tion Date AISHWARYA [id number] Problems Condition Name Condition Details Condition Category Status Onset Date Resolution Date Last Treatment Date Treating Clinician Comments ENCNTR FOR SURGICAL AFTCR FOLLOWING SURGERY ON THE CIRC SYS Active 07-02 00:00: 00 Allergies, Adverse Reactions, Alerts Allergy Name Allergy Type Status Severity Reaction(s) Onset Date Inactive Date Treating Clinician Comments NO KNOWN ALLERGIES Propensity to adverse reactions Active 07-05 12:32: 04 Vital Signs Vital Name Observation Time Observation Value Commen ts Temperature 2024-07-13 10:53:00.000 97.8 [degF] Temperature 2024-07-08 11:06:00.000 98 [degF] Temperature 2024-07-06 10:04:00.000 96 [degF] Temperature 2024-07-05 12:55:00.000 98 [degF] BMI (%) 2024-07-05 12:55:00.000 28 kg/m2 Height 2024-07-05 12:55:00.000 76 [in_us] Pulse 2024-07-13 10:53:00.000 84 /min Pulse 2024-07-08 11:06:00.000 60 /min Pulse 2024-07-06 10:04:00.000 82 /min Pulse 2024-07-05 12:55:00.000 86 /min O2 Saturation (%) 2024-07-13 10:53:00.000 98 % O2 Saturation (%) 2024-07-08 11:06:00.000 95 % O2 Saturation (%) 2024-07-06 10:04:00.000 98 % O2 Saturation (%) 2024-07-05 12:55:00.000 94 % Respirations 2024-07-13 10:53:00.000 18 /min Respirations 2024-07-08 11:06:00.000 18 /min Respirations 2024-07-06 10:04:00.000 18 /min Respirations 2024-07-05 12:55:00.000 16 /min Weight (lbs) 2024-07-05 12:55:00.000 236 [lb_av] Systolic Blood Pressure 2024-07-13 10:53:00.000 120 mm [Hg] Systolic Blood Pressure 2024-07-08 11:06:00.000 132 mm [Hg] Systolic Blood Pressure 2024-07-06 10:04:00.000 110 mm [Hg] Systolic Blood Pressure 2024-07-05 12:55:00.000 106 mm [Hg] Diastolic Blood Pressure 2024-07-13 10:53:00.000 86 mm [Hg] Diastolic Blood Pressure 2024-07-08 11:06:00.000 78 mm [Hg] Diastolic Blood Pressure 2024-07-06 10:04:00.000 78 mm [Hg] Diastolic Blood Pressure 2024-07-05 12:55:00.000 62 mm [Hg] Plan of Treatment Planned Activity Planned Date Details Comments Future Scheduled Test RN TO OBSE RVE, ASSESS, EVALUATE, AND DEVELOP AN INDIVIDUALIZED PLAN OF CARE. AGENCY MAY ACCEPT ORDERS FROM CONSULTING PHYSICIANS LANA RN TO OBSERVE AND ASSESS, DOUGH MACHINE OPERATOR/SALES REPRESENTATIVE JEWELRY TO OBSERVE FOR RISK FOR FALLS AND INSTRUCT IN FALL PREVENTION, HOME SAFETY, MEDICATION MANAGEMENT, INFECTION PREVENTION, AND NUTRITION MANAGEMENT. RN/DOUGH MACHINE OPERATOR/SALES REPRESENTATIVE JEWELRY NURSE MAY PERFORM O2 SATURATION LEVEL ON ADMISSION AND PRN FOR 2 FOR RN TO ASSESS/DOUGH MACHINE OPERATOR TO OBSERVE PATIENT, WITH NOTIFICATION TO THE PHYSICIAN IF SATURATION IS 90% IN THE ABSENCE OF MORE SPECIFIC PARAMETERS FROM THE PHYSICIAN. AGENCY MAY PERFORM A RESUMPTION OF CARE VISIT FOLLOWING ANY HOSPITAL ADMISSION. RN/DOUGH MACHINE OPERATOR/SALES REPRESENTATIVE JEWELRY TO MONITOR CO-MORBID CONDITIONS LISTED ON THE PLAN OF CARE AND ANY NEW CONDITIONS THAT PRESENT THEMSELVES DURING THIS EPISODE TO IDENTIFY CHANGES AND INTERVENE TO MINIMIZE COMPLICATIONS. [code = RN TO OBSERVE, ASSESS, EVALUATE, AND DEVELOP AN INDIVIDUALIZED PLAN OF CARE. AGENCY MAY ACCEPT ORDERS FROM CONSULTING PHYSICIANS LANA RN TO OBSERVE AND ASSESS, DOUGH MACHINE OPERATOR/SALES REPRESENTATIVE JEWELRY TO OBSERVE FOR RISK FOR FALLS AND INSTRUCT IN FALL PREVENTION, HOME SAFETY, MEDICATION MANAGEMENT, INFECTION PREVENTION, AND NUTRITION MANAGEMENT. RN/DOUGH MACHINE OPERATOR/SALES REPRESENTATIVE JEWELRY NURSE MAY PERFORM O2 SATURATION LEVEL ON ADMISSION AND PRN FOR 2 FOR RN TO ASSESS/DOUGH MACHINE OPERATOR TO OBSERVE PATIENT, WITH NOTIFICATION TO THE PHYSICIAN IF SATURATION IS 90% IN THE ABSENCE OF MORE SPECIFIC PARAMETERS FROM THE PHYSICIAN. AGENCY MAY PERFORM A RESUMPTION OF CARE VISIT FOLLOWING ANY HOSPITAL ADMISSION. RN/DOUGH MACHINE OPERATOR/SALES REPRESENTATIVE JEWELRY TO MONITOR CO-MORBID CONDITIONS LISTED ON THE PLAN OF CARE AND ANY NEW CONDITIONS THAT PRESENT THEMSELVES DURING THIS EPISODE TO IDENTIFY CHANGES AND INTERVENE TO MINIMIZE COMPLICATIONS.] Future Scheduled Test MEDICATION MANAGEMENT; RN/DOUGH MACHINE OPERATOR/SALES REPRESENTATIVE JEWELRY TO REVIEW MEDICATIONS FOR INTERACTIONS, EFFECTIVENESS OF DRUG THERAPY, AND SIGNS/SYMPTOMS OF ADVERSE REACTIONS. MAY INSTRUCT AND REINFORCE MEDICATION TEACHING RELATED TO THE USE OF MEDICATIONS, DOSAGE, FREQUENCY, PURPOSE, SIDE EFFECTS, AND TO REPORT COMPLICATIONS. [code = MEDICATION MANAGEMENT; RN/DOUGH MACHINE OPERATOR/SALES REPRESENTATIVE JEWELRY TO REVIEW MEDICATIONS FOR INTERACTIONS, EFFECTIVENESS OF DRUG THERAPY, AND SIGNS/SYMPTOMS OF ADVERSE REACTIONS. MAY INSTRUCT AND REINFORCE MEDICATION TEACHING RELATED TO THE USE OF MEDICATIONS, DOSAGE, FREQUENCY, PURPOSE, SIDE EFFECTS, AND TO REPORT COMPLICATIONS.] Future Scheduled Test RISK FOR H OSPITALIZATION; RN TO ASSESS/TEACH, SALES REPRESENTATIVE JEWELRY/DOUGH MACHINE OPERATOR TO OBSERVE/TEACH PATIENT/CAREGIVER ON RISK FOR HOSPITALIZATION/EMERGENCY ROOM VISITS, TEACH SIGNS AND SYMPTOMS THAT PUT PATIENT AT RISK, WHEN TO NOTIFY NURSE/PHYSICIAN OF COMPLICATIONS/DECLINE, AND WHEN TO CALL 911. [code = RISK FOR HOSPITALIZATION; RN TO ASSESS/TEACH, SALES REPRESENTATIVE JEWELRY/DOUGH MACHINE OPERATOR TO OBSERVE/TEACH PATIENT/CAREGIVER ON RISK FOR HOSPITALIZATION/EMERGENCY ROOM VISITS, TEACH SIGNS AND SYMPTOMS THAT PUT PATIENT AT RISK, WHEN TO NOTIFY NURSE/PHYSICIAN OF COMPLICATIONS/DECLINE, AND WHEN TO CALL 911.] Future Scheduled Test CARDIOVASC ULAR SYSTEM; RN TO ASSESS/TEACH, DOUGH MACHINE OPERATOR/SALES REPRESENTATIVE JEWELRY TO OBSERVE/TEACH RELATED TO ALTERED CARDIOVASCULAR STATUS TO MINIMIZE COMPLICATIONS AND REDUCE HOSPITALIZATION. [code = CARDIOVASCULAR SYSTEM; RN TO ASSESS/TEACH, DOUGH MACHINE OPERATOR/SALES REPRESENTATIVE JEWELRY TO OBSERVE/TEACH RELATED TO ALTERED CARDIOVASCULAR STATUS TO MINIMIZE COMPLICATIONS AND REDUCE HOSPITALIZATION.] Future Scheduled Test PAIN MANAG EMENT; RN TO ASSESS AND TEACH, SALES REPRESENTATIVE JEWELRY/DOUGH MACHINE OPERATOR TO OBSERVE AND TEACH AND PROVIDE EDUCATION ON PAIN MANAGEMENT TECHNIQUES. [code = PAIN MANAGEMENT; RN TO ASSESS AND TEACH, SALES REPRESENTATIVE JEWELRY/DOUGH MACHINE OPERATOR TO OBSERVE AND TEACH AND PROVIDE EDUCATION ON PAIN MANAGEMENT TECHNIQUES.] Future Scheduled Test GASTROINTE STINAL MANAGEMENT; RN TO ASSESS AND TEACH, SALES REPRESENTATIVE JEWELRY/DOUGH MACHINE OPERATOR TO OBSERVE AND TEACH RELATED TO ALTERED GASTROINTESTINAL STATUS TO MINIMIZE COMPLICATIONS AND REDUCE HOSPITALIZATION. [code = GASTROINTESTINAL MANAGEMENT; RN TO ASSESS AND TEACH, SALES REPRESENTATIVE JEWELRY/DOUGH MACHINE OPERATOR TO OBSERVE AND TEACH RELATED TO ALTERED GASTROINTESTINAL STATUS TO MINIMIZE COMPLICATIONS AND REDUCE HOSPITALIZATION.] Future Scheduled Test FALL REDUC TION MANAGEMENT; RN TO ASSESS AND OBSERVE, DOUGH MACHINE OPERATOR/SALES REPRESENTATIVE JEWELRY TO OBSERVE FALL RISK FACTORS AND EDUCATE PATIENT/CAREGIVER ON STRATEGIES TO MINIMIZE THE RISK OF FALLING. [code = FALL REDUCTION MANAGEMENT; RN TO ASSESS AND OBSERVE, DOUGH MACHINE OPERATOR/SALES REPRESENTATIVE JEWELRY TO OBSERVE FALL RISK FACTORS AND EDUCATE PATIENT/CAREGIVER ON STRATEGIES TO MINIMIZE THE RISK OF FALLING.] Future Scheduled Test PHYSICAL T HERAPIST TO EVALUATE FOR POST OP CABG [code = PHYSICAL THERAPIST TO EVALUATE FOR POST OP CABG] Future Scheduled Test OCCUPATION AL THERAPIST TO EVALUATE FOR POST OP CABG [code = OCCUPATIONAL THERAPIST TO EVALUATE FOR POST OP CABG ] Future Scheduled Test PRN VISITS ; NUMBER OF RN/DOUGH MACHINE OPERATOR/SALES REPRESENTATIVE JEWELRY VISITS: 2 RN/DOUGH MACHINE OPERATOR/SALES REPRESENTATIVE JEWELRY TO PERFORM: PRODUCTION TRUCK DRIVER FOR THE FOLLOWING REASONS: WOUND AND CARDIAC COMPLICATIONS [code = PRN VISITS; NUMBER OF RN/DOUGH MACHINE OPERATOR/SALES REPRESENTATIVE JEWELRY VISITS: 2 RN/DOUGH MACHINE OPERATOR/SALES REPRESENTATIVE JEWELRY TO PERFORM: PRODUCTION TRUCK DRIVER FOR THE FOLLOWING REASONS: WOUND AND CARDIAC COMPLICATIONS ] Future Scheduled Test RN/DOUGH MACHINE OPERATOR/SALES REPRESENTATIVE JEWELRY TO PERFORM/TEACH INCISION CARE TO STERNAL CLOSED INCISION. KEEP CLEAN AND DRY [code = RN/DOUGH MACHINE OPERATOR/SALES REPRESENTATIVE JEWELRY TO PERFORM/TEACH INCISION CARE TO STERNAL CLOSED INCISION. KEEP CLEAN AND DRY] Future Scheduled Test PHYSICAL T HERAPY EVALUATION PERFORMED. NO ADDITIONAL VISITS REQUIRED. PROVIDED SKILLED INTERVENTION INCLUDING ASSESSING VITAL SIGNS BALANCE STRENGTH AND AMBULATION [code = PHYSICAL THERAPY EVALUATION PERFORMED. NO ADDITIONAL VISITS REQUIRED. PROVIDED SKILLED INTERVENTION INCLUDING ASSESSING VITAL SIGNS BALANCE STRENGTH AND AMBULATION ] Goal Patient Goal - I NCREASED STRENGTH AND ENDURANCE WITH INDEPENDENCE Goal Provider Goal - A PLAN OF CARE WILL BE ESTABLISHED THAT MEETS THE PATIENTS NEEDS. PATIENT WILL DEMONSTRATE OXYGEN SATURATION WITHIN NORMAL LIMITS OR PATIENTS OPTIMAL LEVEL ESTABLISHED BY THE PHYSICIAN THROUGHOUT CARE. CHANGES TO CO-MORBID CONDITIONS AND ANY NEW CONDITIONS WILL BE IDENTIFIED AND REPORTED TO THE PHYSICIAN. Goal Provider Goal - PATIENT/CAREGIVER TO VERBALIZE, AND CONSISTENTLY DEMONSTRATE EFFECTIVE, SAFE MANAGEMENT OF MEDICATION INCLUDING KNOWLEDGE OF EFFECTIVENESS, POTENTIAL SIDE EFFECTS AND DRUG REACTIONS AND WHEN TO CONTACT THE APPROPRIATE CARE PROVIDER. PATIENT/CAREGIVER WILL BE ABLE TO VERBALIZE UNDERSTANDING OF MEDICATION REGIMEN AND ACCURATELY TAKE MEDICATIONS PRESCRIBED WITHOUT ADVERSE EFFECTS BY EOE Goal Provider Goal - PATIENT/CAREGIVER WILL VERBALIZE UNDERSTANDING OF SIGNS AND SYMPTOMS THAT PUT THE PATIENT AT RISK FOR HOSPITALIZATION /EMERGENCY ROOM VISITS, WHEN TO NOTIFY NURSE/PHYSICIAN OF COMPLICATIONS/DECLINE AND WHEN TO CALL 911. Goal Provider Goal - PATIENT / CAREGIVER WILL VERBALIZE/DEMONSTRATE UNDERSTANDING OF MEASURES TO MANAGE ALTERED CARDIOVASCULAR STATUS BY EOE. Goal Provider Goal - PATIENT / CAREGIVER WILL VERBALIZE / DEMONSTRATE UNDERSTANDING OF PAIN CONTROL MEASURES BY EOE Goal Provider Goal - PATIENT / CAREGIVER WILL VERBALIZE/DEMONSTRATE UNDERSTANDING OF MEASURES TO MANAGE ALTERED GASTROINTESTINAL STATUS BY END OF EPISODE. Goal Provider Goal - PATIENT/CAREGIVER WILL VERBALIZE/DEMONSTRATE UNDERSTANDING OF FALL RISK FACTORS AND IMPLEMENT STRATEGIES TO MINIMIZE FALL RISK. PATIENT/CAREGIVER WILL VERBALIZE/DEMONSTRATE AN ABILITY TO ADHERE TO FALL REDUCTION SELF-MANAGEMENT AND LIFE-STYLE CHANGES BY EOE Goal Provider Goal - Goal Provider Goal - Goal Provider Goal - Goal Provider Goal - PATIENT / CAREGIVER WILL VERBALIZE / DEMONSTRATE ABILITY TO PERFORM WOUND CARE. WOUND STATUS WILL IMPROVE EVIDENCED BY A DECREASE IN SIZE, DRAINAGE, ABSENCE OF INFECTION, AND DECREASED PAIN BY EOE. Goal Provider Goal - PATIENT / CAREGIVER WITHIN 1 VISIT WILL BE ABLE TO VERBALIZE / DEMONSTRATE UNDERSTANDING OF SAFE AMBULATION Encounters Start Date/Time End Date/Time Encounter Type Admission Type Attending [facility] Care Department Encounter ID Discharge Date Discharge Status Discharge Condition Discharge Reason Percent Goals Met 2024-07-05 00:00:00 2024-09-02 00:00:00 Outpatient NEW ADMISSION [facility] [id number] 100.00
[2024-07-20 23:05] VITALS: PULSE 74
--- NOTE | 2024-07-20 23:09 | PC.NURSE ---
pt takes eliquis daily, no asa given at this time.
[2024-07-20 23:11] LABS: Basophils Percent Auto 0.2 % (0.2-1.2); Eosinophils Absolute Auto 0.2 K/mm3 (0-0.3); Eosinophils Percent Auto 1.9 % (0-4.4); Hematocrit 33.4 % (42.0-52.0); Hemoglobin 10.3 g/dL (14.0-18.0); Immature Granulocyte Absolute 0.03 K/mm3 (0.00-0.031); Immature Granulocyte Percent A 0.3 % (0-0.5); Lymphocytes Absolute Auto 1.36 K/mm3 (0.9-3.2); Lymphocytes Percent Auto 15.4 % (18.3-44.2); Mean Corpuscular HGB Conc 30.8 g/dl (32-36); Mean Corpuscular Hemoglobin 28.5 pg (26-34); Mean Corpuscular Volume 92.5 fl (80-100); Mean Platelet Volume 9.6 fl (7.4-10.4); Monocytes Absolute Auto 0.8 K/mm3 (0.1-0.6); Monocytes Percent Auto 8.8 % (2.6-8.5); Neutrophils Absolute Auto 6.5 K/mm3 (1.3-6.7); Neutrophils Percent Auto 73.4 % (45.5-73.1); Platelet Count Result 257 k/mm3 (150-375); Red Blood Count 3.61 M/mm3 (4.6-6.20); Red Cell Distribution Width 14.1 % (11.5-14.5); White Blood Count 8.8 K/mm3 (4.5-10.0)
[2024-07-20 23:13] VITALS: BP 129/88; PULSE 77; RESP 16; TEMP 36.5; O2SAT 97
[2024-07-20 23:26] LABS: INR 1.4; Prothrombin Time 17.4 Seconds (11.1-14.7)
[2024-07-20 23:27] LABS: Partial Thromboplastin Time 40.4 Seconds (22.3-36.8)
[2024-07-20 23:32] LABS: Alanine Aminotransferase 33 U/L (6-50); Albumin Level 3.2 g/dL (3.5-5.1); Alkaline Phosphatase 113 U/L (38-126); Anion Gap 7 mmol/L (4-12); Aspartate Amino Transferase 25 U/L (17-59); Bilirubin,Total 0.6 mg/dL (0.2-1.3); Blood Urea Nitrogen 8 mg/dL (9-20); Calcium 8.6 mg/dL (8.4-10.2); Carbon Dioxide 22 mmol/L (22-30); Chloride 110 mmol/L (98-107); Estimated CRCL calculation 94 ml/min; Estimated Glomerular Filt Rate > 60; Glucose 104 mg/dL (65-110); Lipase 139 U/L (23-300); Potassium 3.9 mmol/L (3.4-5.0); Sodium 139 mmol/L (137-145)
[2024-07-20 23:44] LABS: Troponin I < 0.012 ng/mL (0.000-0.034)
[2024-07-20 23:54] VITALS: BP 125/81; PULSE 87; RESP 16; TEMP 36.6; O2SAT 98
--- NOTE | 2024-07-21 00:52 | PC.NURSE ---
Pt updated that we are waiting on 3 hour troponin. This rn explained to pt that he is going to be here until after we draw a 3 hour troponin. Pt verbalized that he does not want to wait and does not understand why we are doing heart stuff when its not his heart that he came in for. When this rn asked pt what he came in for if not his heart, pt verbalized last night when i laid down to go to bed i could hear my heart beating. I talked to them today they told me i should get checked out. When I laid down tonight i could hear my heart beating again so i came in. This rn explained to pt that since that is to do with his heart we have to do a baseline troponin and will repeat at the 3 hour rusty.
--- NOTE | 2024-07-21 00:59 | PC.NURSE ---
lab notified of add on magnesium
--- OUTSIDE RECORDS SUMMARY | 2024-07-21 01:00 | XMS_ITS | Clinical Summary ---
Author Organization Unknown Care Team Providers Care Med Admin Name Role Phone LANA ESPOSITO, JUAN J Unavailable Unavailable SUMMER ALANISN, LOLA Unavailable Unavailable VERO PT, LASHAWN Unavailable Unavailable [facility] B[employer] WORK AUTO TRIMMER, WILFREDO Unavailable Unavailalethea SHEA OT, YUSRA Unavailable Unavailable ISAURO ST, MAGDALENA Unavailable Unavailable JOSE R RN, BLADE Unavailable Unavailable Payers Payer Name Policy Type Policy Number Effective Date Expira tion Date AISHWARYA [id number] Problems Condition Name Condition Details Condition Category [...] PHYSICIANS LANA RN TO OBSERVE AND ASSESS, BRICK OFF BEARER/RECEPTION CENTRE MANAGER TO OBSERVE FOR RISK FOR FALLS AND INSTRUCT IN FALL PREVENTION, HOME SAFETY, MEDICATION MANAGEMENT, INFECTION PREVENTION, AND NUTRITION MANAGEMENT. RN/BRICK OFF BEARER/RECEPTION CENTRE MANAGER NURSE MAY PERFORM O2 SATURATION LEVEL ON ADMISSION AND PRN FOR 2 FOR RN TO ASSESS/BRICK OFF BEARER TO OBSERVE PATIENT, WITH NOTIFICATION TO THE PHYSICIAN IF SATURATION IS 90% IN THE ABSENCE OF MORE SPECIFIC PARAMETERS FROM THE PHYSICIAN. AGENCY MAY PERFORM A RESUMPTION OF CARE VISIT FOLLOWING ANY HOSPITAL ADMISSION. RN/BRICK OFF BEARER/RECEPTION CENTRE MANAGER TO MONITOR CO-MORBID CONDITIONS LISTED ON THE PLAN OF CARE AND ANY NEW CONDITIONS THAT PRESENT THEMSELVES DURING THIS EPISODE TO IDENTIFY CHANGES AND INTERVENE TO MINIMIZE COMPLICATIONS. [code = RN TO OBSERVE, ASSESS, EVALUATE, AND DEVELOP AN INDIVIDUALIZED PLAN OF CARE. AGENCY MAY ACCEPT ORDERS FROM CONSULTING PHYSICIANS LANA RN TO OBSERVE AND ASSESS, BRICK OFF BEARER/RECEPTION CENTRE MANAGER TO OBSERVE FOR RISK FOR FALLS AND INSTRUCT IN FALL PREVENTION, HOME SAFETY, MEDICATION MANAGEMENT, INFECTION PREVENTION, AND NUTRITION MANAGEMENT. RN/BRICK OFF BEARER/RECEPTION CENTRE MANAGER NURSE MAY PERFORM O2 SATURATION LEVEL ON ADMISSION AND PRN FOR 2 FOR RN TO ASSESS/BRICK OFF BEARER TO OBSERVE PATIENT, WITH NOTIFICATION TO THE PHYSICIAN IF SATURATION IS 90% IN THE ABSENCE OF MORE SPECIFIC PARAMETERS FROM THE PHYSICIAN. AGENCY MAY PERFORM A RESUMPTION OF CARE VISIT FOLLOWING ANY HOSPITAL ADMISSION. RN/BRICK OFF BEARER/RECEPTION CENTRE MANAGER TO MONITOR CO-MORBID CONDITIONS LISTED ON THE PLAN OF CARE AND ANY NEW CONDITIONS THAT PRESENT THEMSELVES DURING THIS EPISODE TO IDENTIFY CHANGES AND INTERVENE TO MINIMIZE COMPLICATIONS.] Future Scheduled Test MEDICATION MANAGEMENT; RN/BRICK OFF BEARER/RECEPTION CENTRE MANAGER TO REVIEW MEDICATIONS FOR INTERACTIONS, EFFECTIVENESS OF DRUG THERAPY, AND SIGNS/SYMPTOMS OF ADVERSE REACTIONS. MAY INSTRUCT AND REINFORCE MEDICATION TEACHING RELATED TO THE USE OF MEDICATIONS, DOSAGE, FREQUENCY, PURPOSE, SIDE EFFECTS, AND TO REPORT COMPLICATIONS. [code = MEDICATION MANAGEMENT; RN/BRICK OFF BEARER/RECEPTION CENTRE MANAGER TO REVIEW MEDICATIONS FOR INTERACTIONS, EFFECTIVENESS OF DRUG THERAPY, AND SIGNS/SYMPTOMS OF ADVERSE REACTIONS. MAY INSTRUCT AND REINFORCE MEDICATION TEACHING RELATED TO THE USE OF MEDICATIONS, DOSAGE, FREQUENCY, PURPOSE, SIDE EFFECTS, AND TO REPORT COMPLICATIONS.] Future Scheduled Test RISK FOR H OSPITALIZATION; RN TO ASSESS/TEACH, RECEPTION CENTRE MANAGER/BRICK OFF BEARER TO OBSERVE/TEACH PATIENT/CAREGIVER ON RISK FOR HOSPITALIZATION/EMERGENCY ROOM VISITS, TEACH SIGNS AND SYMPTOMS THAT PUT PATIENT AT RISK, WHEN TO NOTIFY NURSE/PHYSICIAN OF COMPLICATIONS/DECLINE, AND WHEN TO CALL 911. [code = RISK FOR HOSPITALIZATION; RN TO ASSESS/TEACH, RECEPTION CENTRE MANAGER/BRICK OFF BEARER TO OBSERVE/TEACH PATIENT/CAREGIVER ON RISK FOR HOSPITALIZATION/EMERGENCY ROOM VISITS, TEACH SIGNS AND SYMPTOMS THAT PUT PATIENT AT RISK, WHEN TO NOTIFY NURSE/PHYSICIAN OF COMPLICATIONS/DECLINE, AND WHEN TO CALL 911.] Future Scheduled Test CARDIOVASC ULAR SYSTEM; RN TO ASSESS/TEACH, BRICK OFF BEARER/RECEPTION CENTRE MANAGER TO OBSERVE/TEACH RELATED TO ALTERED CARDIOVASCULAR STATUS TO MINIMIZE COMPLICATIONS AND REDUCE HOSPITALIZATION. [code = CARDIOVASCULAR SYSTEM; RN TO ASSESS/TEACH, BRICK OFF BEARER/RECEPTION CENTRE MANAGER TO OBSERVE/TEACH RELATED TO ALTERED CARDIOVASCULAR STATUS TO MINIMIZE COMPLICATIONS AND REDUCE HOSPITALIZATION.] Future Scheduled Test PAIN MANAG EMENT; RN TO ASSESS AND TEACH, RECEPTION CENTRE MANAGER/BRICK OFF BEARER TO OBSERVE AND TEACH AND PROVIDE EDUCATION ON PAIN MANAGEMENT TECHNIQUES. [code = PAIN MANAGEMENT; RN TO ASSESS AND TEACH, RECEPTION CENTRE MANAGER/BRICK OFF BEARER TO OBSERVE AND TEACH AND PROVIDE EDUCATION ON PAIN MANAGEMENT TECHNIQUES.] Future Scheduled Test GASTROINTE STINAL MANAGEMENT; RN TO ASSESS AND TEACH, RECEPTION CENTRE MANAGER/BRICK OFF BEARER TO OBSERVE AND TEACH RELATED TO ALTERED GASTROINTESTINAL STATUS TO MINIMIZE COMPLICATIONS AND REDUCE HOSPITALIZATION. [code = GASTROINTESTINAL MANAGEMENT; RN TO ASSESS AND TEACH, RECEPTION CENTRE MANAGER/BRICK OFF BEARER TO OBSERVE AND TEACH RELATED TO ALTERED GASTROINTESTINAL STATUS TO MINIMIZE COMPLICATIONS AND REDUCE HOSPITALIZATION.] Future Scheduled Test FALL REDUC TION MANAGEMENT; RN TO ASSESS AND OBSERVE, BRICK OFF BEARER/RECEPTION CENTRE MANAGER TO OBSERVE FALL RISK FACTORS AND EDUCATE PATIENT/CAREGIVER ON STRATEGIES TO MINIMIZE THE RISK OF FALLING. [code = FALL REDUCTION MANAGEMENT; RN TO ASSESS AND OBSERVE, BRICK OFF BEARER/RECEPTION CENTRE MANAGER TO OBSERVE FALL RISK FACTORS AND EDUCATE [...] Scheduled Test PRN VISITS ; NUMBER OF RN/BRICK OFF BEARER/RECEPTION CENTRE MANAGER VISITS: 2 RN/BRICK OFF BEARER/RECEPTION CENTRE MANAGER TO PERFORM: WEB EDITOR FOR THE FOLLOWING REASONS: WOUND AND CARDIAC COMPLICATIONS [code = PRN VISITS; NUMBER OF RN/BRICK OFF BEARER/RECEPTION CENTRE MANAGER VISITS: 2 RN/BRICK OFF BEARER/RECEPTION CENTRE MANAGER TO PERFORM: WEB EDITOR FOR THE FOLLOWING REASONS: WOUND AND CARDIAC COMPLICATIONS ] Future Scheduled Test RN/BRICK OFF BEARER/RECEPTION CENTRE MANAGER TO PERFORM/TEACH INCISION CARE TO STERNAL CLOSED INCISION. KEEP CLEAN AND DRY [code = RN/BRICK OFF BEARER/RECEPTION CENTRE MANAGER TO PERFORM/TEACH INCISION CARE TO STERNAL CLOSED [...] End Date/Time Encounter Type Admission Type Attending [facility] Care Department Encounter ID Discharge Date Discharge Status Discharge Condition Discharge Reason Percent Goals Met 2024-07-05 00:00:00 2024-09-02 00:00:00 Outpatient NEW ADMISSION [facility] [id number] 100.00
--- OUTSIDE RECORDS SUMMARY | 2024-07-21 01:00 | XMS_ITS | Referral Summary ---
Author Organization [facility] 8 [facility] Address [address] [place] [address] Care Team Providers Care On Site Wastewater Systems Technician Name Role Phone Chetan Torres MD Unavailable [phone] Mark Don MD Primary Care Provider [phone] Felipe Alfaro MD Unavailable Marck Owens MD Unavailable Encounters Date Type Department Care Team Description 07/08/2024 Telephone Cardiovascular and Thoracic Surgery [address] [facility] [address] [place] [address] Felipe Alfaro MD Post-op 07/08/2024 Telephone [facility] Cardiology [address] [facility] [address] [place] [address] Marck Owens MD Shortness of Breath; pain when walking; Cough 07/07/2024 Orders Only Cardiovascular and Thoracic Surgery [address] [facility] [address] [place] [address] Viola Zarco RN Aneurysm of ascending aorta without rupture (Primary Dx) 06/26/2024 5:41 AM CDT - 07/03/2024 3:58 PM CDT Hospital Encounter [employer] [facility] [address] [address] Felipe Alfaro MD Encounter for screening colonoscopy (Primary Dx); Nonrheumatic aortic valve insufficiency; Aneurysm of ascending aorta without rupture; Aortic root aneurysm; S/P AVR Discharge Disposition: Discharge to home, home health skilled care 06/26/2024 6:50 AM CDT Ancillary Procedure [facility] Operating Room [address] [place] [phone] 06/26/2024 8:13 AM CDT Anesthesia Event [facility] Operating Room [address] [place] [phone] Bassam Mercedes MD PhD Peterson, Nathan Scott, CRNA 06/26/2024 8:00 AM CDT - 06/26/2024 1:15 PM CDT Surgery [facility] Operating Room [address] [place] [phone] Felipe Alfaro MD MINIMALLY INVASIVE SRI ARCH COMPOSITE ROOT 06/25/2024 Telephone Cardiovascular and Thoracic Surgery [address] [place] [address] [place] [phone] Felipe Alfaro MD 06/18/2024 Telephone Cardiovascular and Thoracic Surgery [address] [place] [phone] Felipe Alfaro MD OTHER 06/15/2024 Documentation Cardiovascular and Thoracic Surgery [address] [place] [phone] Daphne Cali 06/15/2024 9:35 AM CDT Lab [facility] Outpatient Lab [address] [place] [phone] Aneurysm of ascending aorta without rupture 06/15/2024 8:45 AM CDT Office Visit Cardiovascular and Thoracic Surgery [address] [place] [phone] Felipe Alfaro MD Aneurysm of ascending aorta without rupture (Primary Dx) 06/12/2024 Telephone Cardiovascular and Thoracic Surgery [address] [place] [address] [address] [place] [address] Viola Zarco RN 06/11/2024 Telephone Cardiovascular and Thoracic Surgery [address] [place] [address] [address] [place] [address] Felipe Alfaro MD OTHER 06/08/2024 Telephone Cardiovascular and Thoracic Surgery [address] [place] [address] [address] [place] [address] Felipe Alfaro MD Other 05/25/2024 11:30 AM CDT - 05/25/2024 1:00 PM CDT Surgery [facility] Cardiac Catheterization Lab [address] [place] [phone] Chase Garcia MD LEFT HEART CATHETERIZATION WITH CORONARY ANGIOGRAPHY AND WITH OR WITHOUT LEFT VENTRICULOGRAM [id number] 05/25/2024 9:04 AM CDT - 05/25/2024 3:46 PM CDT Hospital Encounter [facility] Cardiac Catheterization Lab [address] [place] [address] Chase Garcia MD Aneurysm of ascending aorta without rupture; Thoracic aortic aneurysm without rupture, unspecified part Discharge Disposition: Discharge to home or self care 2024 Telephone Cardiovascular and Thoracic Surgery [address] [place] [address] [address], [place] [address] Felipe Alfaro MD medical questions 05/14/2024 Telephone [facility] Cardiology [address] [place] [phone] Marck Owens MD 05/14/2024 Telephone [facility] Cardiology [address] [place] [phone] Marck Owens MD 05/11/2024 11:00 AM TAKE AWAY WORKER Office Visit Cardiovascular and Thoracic Surgery [address] [place] [address] [address], [place] [address] Felipe Alfaro MD Aneurysm of ascending aorta without rupture (Primary Dx); Aortic root aneurysm 05/08/2024 Results Follow-Up [facility] Cardiology [address] [place] [address] Marck Owens MD 05/07/2024 1:30 PM TAKE AWAY WORKER Ancillary Procedure [facility] Cardiology at [address] [place] [phone] Aneurysm of ascending aorta without rupture; 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 [...] today's visit. He was told by his district gauger that he might get along with me, [...] 05/04/2021 Assessment & Plan (05/04/2021 11:27 AM TAKE AWAY WORKER): No FHx, no trauma, no prior surgeries Physiologic large cups, healthy rims OCT RNFL full OU IOP upper limits normal Yearly IOP check/DFEx Coronary artery disease invo lving kaltag coronary artery of k[place]ag heart 02/06/2021 Assessment & Plan (12/21/2021 10:14 AM CDT): Continue aspirin 81mg a day and Atorvastatin 20mg a day Assessment & Plan (02/06/2021 10:26 AM TAKE AWAY WORKER): Start Atorvastatin 20mg a day Chest tightness 07/15/2020 Hyperlipidemia LDL goal <70 07/15/2020 Numbness of fingers of both hands 06/25/2020 Assessment & Plan (12/21/2021 10:13 AM CDT): Patient to use braces at night Assessment & Plan (02/10/2021 10:21 PM TAKE AWAY WORKER): Patient to use Cock-up splints for carpal tunnel syndrome Assessment & Plan (06/25/2020 8:08 AM CDT): This could be early carpal tunnel syndrome. If symptoms continue will order EMG/Nerve conduction study Chest pain 06/24/2020 Assessment & Plan (02/18/2022 8:12 AM TAKE AWAY WORKER): Most likely related to muscle skeletal pain [...] 04/23/2020 Assessment & Plan (04/23/2020 4:34 PM TAKE AWAY WORKER): Will check labs Pain of foot 08/27/2013 Benign hypertension 08/01/2013 Overview (06/20/2016): BENIGN HYPERTENSION Arthralgia of ankle 07/29/2013 Aneurysm of thoracic aorta 12/25/2012 Overview (06/20/2016): Thoracic aneurysm Assessment & Plan (12/21/2021 10:13 AM CDT): Patient to repeat scan 07/08 Assessment & Plan (02/06/2021 10:27 AM TAKE AWAY WORKER): Continue yearly surveillance Knee pain 2011 Essential hypertension 05/03/2009 Assessment & Plan (02/18/2022 8:16 AM TAKE AWAY WORKER): Continue Lisinopril/HCTZ 20/25mg one tablet day Assessment & Plan (12/21/2021 10:12 AM CDT): Continue Carvedilol 6.25mg one tablet twice a day and Lisinopril-HCTZ 20/25mg one tablet a day Assessment & Plan (02/06/2021 10:19 AM TAKE AWAY WORKER): Continue Lisinopril/HCTZ 20/25mg one tablet a day and Carvedilol 6.25mg one tablet a day Assessment & Plan (06/24/2020 9:42 AM CDT): BP today is 110/70. Continue current treatment -- carvedilol 6.25 mg BID and lisinopril-HCTZ 20-25 mg daily. Encourage low-sodium diet and regular exercise. Will monitor. 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 No Preop meds: None Weight greater than 350 lbs: No [facility] case: No; If yes, reason: Med clearance: CPAP requested? TPAP IOL Master: done today Additional perioperative testing/procedure needed?: none Assessment & Plan (05/04/2021 11:30 AM TAKE AWAY WORKER): New patient referred from [facility] for evaluation of cataracts OU. No records [...] e alcohol) one beer every other day. [facility] datatrackerities Answer Date Recorded In the past 12 months has [employer], gas, oil, or water [employer] threatened to shut off services in your home? No 06/29/2024 Social Connection and Isolat ion Panel [NHANES] Answer Date Recorded In a typical week, how many times do you talk on the phone with family, friends, or neighbors? Twice a week 06/29/2024 Frequency of Social Gatherin gs with Friends and Family Not on file 06/29/2024 How often do you attend chur ch or hinduism services? More than 4 times per year 06/29/2024 Do you belong to any clubs o r organizations such as orthodox groups, unions, fraternal or athletic groups, or [...] any time in the past 12 m [facility], were you homeless or living in a penitentiary (including now)? No 06/29/2024 Personal Safety Answer Date Recorded Have you ever been in or are you currently in a harmful physical or emotional relationship or is someone making you feel afraid or unsafe? Denies 06/26/2024 Sex and Gender Information Value Date Recorded Sex Assigned at Not on file Legal Sex Male 12:33 PM TAKE AWAY WORKER Gender Identity Not on file Sexual Orientation [...] on file Medical Devices Implanted Type Area Analysis Or Research Safety Inspector Device Identifier Shelf Expiration Date Model / Serial / Lot Al [employer] Lens Iol Tecnis Smplcty 1-Pc Clr [place] 20.0 Diopter [id number] - [id number] - [id number] Implanted:Qty: 1 on 08/23/2021 by Steph Lin MD PhD at [facility] Lens Left: Eye [place] [employer] [id number] 05/23/2024 [id number] / [id number] / 0 [employer] Konect Resilia Aortic Valved Conduit 29mm [id number] - [id number] - [id number] Implanted:Qty: 1 on 06/26/2024 by Felipe Alfaro MD at [facility] N/A: Aorta [employer] 12/24/2026 [id number] / [id number] / [employer] Device Closure Fibertape Sternal Cerclage Blunt Needle [id number] - [id number] Implanted:Qty: 1 on 06/26/2024 by Felipe Alfaro MD at [facility] N/A: Sternum [employer] 04/17/2029 [id number] / / [id number] [employer] Device Closure Fibertape Sternal Cerclage Blunt Needle Ar-[id number] - [id number] Implanted:Qty: 1 on 06/26/2024 by Felipe Alfaro MD at [facility] N/A: Sternum [employer] 04/17/2029 [id number] / / [id number] Procedures Procedure Name Priority Date/Time Associated Diagnosis [...] HIGH RANGE Routine 06/26/2024 9:39 AM CDT AL AN PROCEDURE PLACEHOLDER Routine 06/26/2024 9:33 AM CDT POCT ACTIVATED CLOTTING TIME, HIGH RANGE Routine 06/26/2024 8:59 AM CDT AL AN PROCEDURE PLACEHOLDER Routine 06/26/2024 8:31 AM CDT AL AN CENTRAL LINE QUADRUPLE LUMEN Routine 06/26/2024 8:31 AM CDT AL AN PROCEDURE PLACEHOLDER Routine 06/26/2024 8:31 AM CDT PULMONARY ARTERY CATH Routine 06/26/2024 8:31 AM CDT BW AN SHEATH INTRODUCER PERFORMABLE Routine 06/26/2024 8:31 AM CDT AL AN PROCEDURE PLACEHOLDER Routine 06/26/2024 8:27 AM CDT AL AN ELECTIVE ENDOTRACHEAL AIRWAY Routine 06/26/2024 8:27 AM CDT AL AN PROCEDURE PLACEHOLDER Routine 06/26/2024 8:26 AM CDT AL AN PROCEDURE PLACEHOLDER Routine 06/26/2024 8:25 AM [...] DOPPLER/CF WO CONTRAST Routine 05/07/2024 2:19 PM TAKE AWAY WORKER Aneurysm of ascending aorta without 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/ZIP Co de Phone Number [facility] [address] Department [place] [address] * (ABNORMAL) CBC without differential (07/03/2024 1:21 AM CDT) WBC 14.89(H) 3.80 - 9.90 K/cumm Hgb 9.9(L) 13.0 - 17.5 g/dL [facility] Hct 30.5(L) 38.9 - 50.3 % [facility] Plt 253 150 - 400 K/cumm [facility] MPV 9.9 9.1 - 12.3 fL [facility] RBC 3.26(L) 4.30 - 5.80 M/cumm [facility] MCV 93.6 81.3 - 96.4 fL [facility] MCH 30.4 27.1 - 33.3 pg [facility] MCHC 32.5 32.3 - 35.7 g/dL [facility] RDW CV 13.5 11.1 - 14.9 % [facility] RDW SD 46.5 35.7 - 48.1 fL [facility] NRBC abs 0.05(H) 0.00 - 0.01 K/cumm [facility] Blood 07/03/2024 1:21 AM CDT 07/03/2024 1:48 AM CDT Javan Madrid NP LAB BLOOD ORDERABLES Fi nal Result Performing Organization Address City/[facility] Co de Phone Number [facility] [address] Department [place] [address] * (ABNORMAL) Renal function panel (07/03/2024 1:21 AM CDT) Sodium 137 135 - 145 mmol/L Potassium, pl 4.3 3.3 - 4.9 mmol/L [facility] Chloride 102 97 - 110 mmol/L [facility] CO2 25 22 - 32 mmol/L [facility] Anion gap 10 2 - 15 mmol/L [facility] BUN 23 6 - 25 mg/dL [facility] Creatinine 0.92 0.80 - 1.30 mg/dL [facility] Glucose 128 70 - 199 mg/dL [facility] Comment: Interpretive Data Fasting glucose >/= 126 [...] 2022. Calcium 8.7 8.5 - 10.3 mg/dL [facility] Phosphorus, pl 4.3 2.3 - 4.5 mg/dL [facility] Albumin 3.2(L) 3.5 - 5.0 g/dL [facility] Blood 07/03/2024 1:21 AM CDT 07/03/2024 1:48 AM CDT us Javan Madrid NP LAB BLOOD ORDERABLES Fi nal Result [facility] [address] Department of Laboratories [place], [place] [id number] * XR Chest 1 View - Portable [...] ORDERABLES Fi nal Result Performing Organization Address City/[facility]/ZIP Co de Phone Number [facility] [address] [place] [place] [address] * (ABNORMAL) CBC without differential (07/02/2024 12:41 AM CDT) WBC 12.68(H) 3.80 - 9.90 K/cumm Hgb 9.7(L) 13.0 - 17.5 g/dL [facility] Hct 29.2(L) 38.9 - 50.3 % [facility] Plt 183 150 - 400 K/cumm [facility] MPV 10.2 9.1 - 12.3 fL [facility] RBC 3.15(L) 4.30 - 5.80 M/cumm [facility] MCV 92.7 81.3 - 96.4 fL [facility] MCH 30.8 27.1 - 33.3 pg [facility] MCHC 33.2 32.3 - 35.7 g/dL [facility] RDW CV 13.4 11.1 - 14.9 % [facility] RDW SD 45.5 35.7 - 48.1 fL [facility] NRBC abs 0.03(H) 0.00 - 0.01 K/cumm [facility] Blood 07/02/2024 12:4 1 AM CDT 07/02/2024 1:08 AM CDT Javan Madrid NP LAB BLOOD ORDERABLES Fi nal Result [facility] [address] [place] [address] * (ABNORMAL) Renal function panel (07/02/2024 12:41 AM CDT) Sodium 137 135 - 145 mmol/L Potassium, pl 4.1 3.3 - 4.9 mmol/L [facility] Chloride 101 97 - 110 mmol/L [facility] CO2 26 22 - 32 mmol/L [facility] Anion gap 10 2 - 15 mmol/L [facility] BUN 23 6 - 25 mg/dL [facility] Creatinine 0.91 0.80 - 1.30 mg/dL [facility] Glucose 125 70 - 199 mg/dL [facility] Comment: Interpretive Data Fasting glucose >/= 126 [...] 2022. Calcium 8.8 8.5 - 10.3 mg/dL [facility] Phosphorus, pl 3.4 2.3 - 4.5 mg/dL [facility] Albumin 3.0(L) 3.5 - 5.0 g/dL [facility] Blood 07/02/2024 12:4 1 AM CDT 07/02/2024 1:08 AM CDT Javan Madrid NP LAB BLOOD ORDERABLES Fi nal Result [facility] [address] Department [place] [address] * Magnesium - Add on lab test (07/01/2024 9:33 AM CDT) Acceptable Yes Blood 07/01/2024 9:33 AM CDT 07/01/2024 9:33 AM CDT Narrative [facility] - 07/01/2024 9:33 AM CDT Name of Test->Magnesium Areli MARTINEZ LAB BLOOD ORDERABLES Fin al Result [facility] [address] Department of Laboratories [place], [place] [id number] * XR Chest 1 View - Portable [...] NP LAB BLOOD ORDERABLES Fi nal Result [facility] [address] Department [place] [address] * (ABNORMAL) CBC without differential (07/01/2024 1:30 AM CDT) WBC 12.04(H) 3.80 - 9.90 K/cumm Hgb 9.8(L) 13.0 - 17.5 g/dL [facility] Hct 29.1(L) 38.9 - 50.3 % [facility] Plt 160 150 - 400 K/cumm [facility] MPV 10.0 9.1 - 12.3 fL [facility] RBC 3.16(L) 4.30 - 5.80 M/cumm [facility] MCV 92.1 81.3 - 96.4 fL [facility] MCH 31.0 27.1 - 33.3 pg [facility] MCHC 33.7 32.3 - 35.7 g/dL [facility] RDW CV 13.2 11.1 - 14.9 % [facility] RDW SD 45.1 35.7 - 48.1 fL [facility] NRBC abs 0.00 0.00 - 0.01 K/cumm [facility] Blood 07/01/2024 1:30 AM CDT 07/01/2024 1:52 AM CDT us Javan Madrid VENUE MANAGER LAB BLOOD ORDERABLES Fi nal Result Performing Organization Address City/[facility]/ZIP Co de Phone Number [facility] [address] Department [place] [employer] [place] [address] * Magnesium (07/01/2024 1:30 AM CDT) Pathologist [facility] Magnesium 2.4 1.4 - 2.5 mg/dL Blood 07/01/2024 1:30 AM CDT 07/01/2024 1:41 AM CDT Felipe Alfaro MD LAB BLOOD ORDERABLES Fin al Result Performing Organization Address [facility] de Phone Number [facility] [address] Department [place] [employer] [address] * (ABNORMAL) Renal function panel (07/01/2024 1:30 AM CDT) Pathologist [facility] Sodium 137 135 - 145 mmol/L Potassium, pl 4.3 3.3 - 4.9 mmol/L [facility] Chloride 102 97 - 110 mmol/L [facility] CO2 24 22 - 32 mmol/L [facility] Anion gap 11 2 - 15 mmol/L [facility] BUN 20 6 - 25 mg/dL [facility] Creatinine 0.85 0.80 - 1.30 mg/dL [facility] Glucose 128 70 - 199 mg/dL [facility] Comment: Interpretive Data Fasting glucose >/= 126 [...] 2022. Calcium 8.6 8.5 - 10.3 mg/dL [facility] Phosphorus, pl 2.0(L) 2.3 - 4.5 mg/dL [facility] Albumin 3.3(L) 3.5 - 5.0 g/dL [facility] Blood 07/01/2024 1:30 AM CDT 07/01/2024 1:41 AM CDT us Javan Madrid NP LAB BLOOD ORDERABLES Fi nal Result [facility] [address] Department [place] [address] * XR Chest 1 View - Portable [...] costophrenic angle is not included within the [id number] on that side. There is old granulomatous [...] costophrenic angle is not included within the [id number] on that side. There is old granulomatous [...] LAB BLOOD ORDERABLES Fi nal Result [facility] [address] [place] [address] * (ABNORMAL) aPTT (06/30/2024 12:41 AM [...] ORDERABLES Fin al Result Performing Organization Address [facility]/ZIP Co de Phone Number [facility] [address] Department [employer] [place] [address] * (ABNORMAL) CBC without differential (06/30/2024 12:41 AM CDT) WBC 18.53(H) 3.80 - 9.90 K/cumm Hgb 10.2(L) 13.0 - 17.5 g/dL [facility] Hct 30.3(L) 38.9 - 50.3 % [facility] Plt 150 150 - 400 K/cumm [facility] MPV 11.4 9.1 - 12.3 fL [facility] RBC 3.26(L) 4.30 - 5.80 M/cumm [facility] MCV 92.9 81.3 - 96.4 fL [facility] MCH 31.3 27.1 - 33.3 pg [facility] MCHC 33.7 32.3 - 35.7 g/dL [facility] RDW CV 13.1 11.1 - 14.9 % [facility] RDW SD 44.8 35.7 - 48.1 fL [facility] NRBC abs 0.00 0.00 - 0.01 K/cumm [facility] Blood 06/30/2024 12:4 1 AM CDT 06/30/2024 1:00 AM CDT us Jvaan Madrid NP LAB BLOOD ORDERABLES Fi nal Result Performing Organization Address City/[facility]/ZIP Co de Phone Number [facility] [address] Department [place] [address] * (ABNORMAL) Renal function panel (06/30/2024 12:41 AM CDT) Pathologist [facility] Sodium 134(L) 135 - 145 mmol/L Potassium, pl 4.2 3.3 - 4.9 mmol/L [facility] Chloride 100 97 - 110 mmol/L [facility] CO2 22 22 - 32 mmol/L [facility] Anion gap 12 2 - 15 mmol/L [facility] BUN 24 6 - 25 mg/dL [facility] Creatinine 0.89 0.80 - 1.30 mg/dL [facility] Glucose 127 70 - 199 mg/dL [facility] Comment: Interpretive Data Fasting glucose >/= 126 [...] 2022. Calcium 8.7 8.5 - 10.3 mg/dL [facility] Phosphorus, pl 2.1(L) 2.3 - 4.5 mg/dL [facility] Albumin 2.9(L) 3.5 - 5.0 g/dL [facility] Blood 06/30/2024 12:4 1 AM CDT 06/30/2024 1:00 AM CDT us Javan Madrid NP LAB BLOOD ORDERABLES nal Result [facility] [address] Department [place] [address] * (ABNORMAL) aPTT (06/29/2024 3:03 PM CDT) Pathologist [facility] aPTT 44(H) 28 - 38 sec Comment: Interpretive Data Heparin therapeutic range: 66.0 - 100.0 seconds. Range based on correlation with therapeutic heparin activity range of 0.3 - 0.7 Units/mL. Current interpretive data was last revised on 2022. Blood 06/29/2024 3:03 PM CDT 06/29/2024 3:14 PM CDT Felipe Alfaro MD LAB BLOOD ORDERABLES Fin al Result Performing Organization Address [facility] [facility] Co de Phone Number [facility] [address] [employer] [place], [place] [id number] * aPTT (06/29/2024 8:48 AM CDT) aPTT 33 28 - 38 sec Comment: Interpretive Data Heparin therapeutic range: 66.0 - 100.0 seconds. Range based on correlation with therapeutic heparin activity range of 0.3 - 0.7 Units/mL. Current interpretive data was last revised on 2022. Blood 06/29/2024 8:48 AM CDT 06/29/2024 8:53 AM CDT Narrative [facility] - 06/29/2024 9:05 AM CDT Baseline prior to heparin initiation Laron MARTINEZ LAB BLOOD ORDERABLES Final R esult Performing Organization Address [facility] Co de Phone Number [facility] [address] [employer] [place], [place] [id number] * (ABNORMAL) Protime-INR (06/29/2024 8:48 AM CDT) PT 13.6(H) 9.7 - 13.0 sec INR 1.25(H) 0.90 - 1.20 [facility] Comment: Interpretive data Oral anticoagulant therapeutic ranges: Venous thromboembolism prophylaxis or treatment: 2.0-3.0 CARDIOLOGY Standard range: 2.0-3.0 High-intensity range: 2.5-3.5 Refer to indication-specific guidelines for appropriate target ranges for prosthetic heart valve replacement. Current interpretive data was last revised on 2019. Blood 06/29/2024 8:48 AM CDT 06/29/2024 8:53 AM CDT Narrative [facility] - 06/29/2024 9:05 AM CDT Baseline prior to heparin initiation Laron MARTINEZ LAB BLOOD ORDERABLES Final R esult [facility] [address] Department [place] [address] * XR Chest 1 View - Portable [...] Electronically signed by: Dylan Arnett M.D. us Javna Madrid VENUE MANAGER IMG XR PROCEDURES Final Result * eGFR [...] NP LAB BLOOD ORDERABLES Fi nal Result [facility] [address] Department [place] [address] * (ABNORMAL) CBC without differential (06/29/2024 1:15 AM CDT) WBC 21.88(H) 3.80 - 9.90 K/cumm Hgb 10.6(L) 13.0 - 17.5 g/dL [facility] Hct 31.4(L) 38.9 - 50.3 % [facility] Plt 102(L) 150 - 400 K/cumm [facility] MPV 11.5 9.1 - 12.3 fL [facility] RBC 3.34(L) 4.30 - 5.80 M/cumm [facility] MCV 94.0 81.3 - 96.4 fL [facility] MCH 31.7 27.1 - 33.3 pg [facility] MCHC 33.8 32.3 - 35.7 g/dL [facility] RDW CV 13.1 11.1 - 14.9 % [facility] RDW SD 45.1 35.7 - 48.1 fL [facility] NRBC abs 0.00 0.00 - 0.01 K/cumm [facility] Blood 06/29/2024 1:15 AM CDT 06/29/2024 1:27 AM CDT Javan Madrid NP LAB BLOOD ORDERABLES Fi nal Result [facility] [address] Department [place] [address] * (ABNORMAL) Renal function panel (06/29/2024 1:15 AM CDT) Sodium 132(L) 135 - 145 mmol/L Potassium, pl 4.3 3.3 - 4.9 mmol/L [facility] Chloride 98 97 - 110 mmol/L [facility] CO2 22 22 - 32 mmol/L [facility] Anion gap 12 2 - 15 mmol/L [facility] BUN 25 6 - 25 mg/dL [facility] Creatinine 1.03 0.80 - 1.30 mg/dL [facility] Glucose 146 70 - 199 mg/dL [facility] Comment: Interpretive Data Fasting glucose >/= 126 [...] 2022. Calcium 8.7 8.5 - 10.3 mg/dL [facility] Phosphorus, pl 2.1(L) 2.3 - 4.5 mg/dL [facility] Albumin 3.2(L) 3.5 - 5.0 g/dL [facility] Blood 06/29/2024 1:15 AM CDT 06/29/2024 1:27 AM CDT Javan Madrid NP LAB BLOOD ORDERABLES Fi nal Result [facility] [address] Department [place] [address] * XR Chest 1 Vw (06/28/2024 10:09 [...] be considered if clinically indicated. POC Performer [id number] [facility] Blood 06/28/2024 8:05 AM CDT 06/28/2024 8:05 AM CDT us Felipe Alfaro MD LAB POCT ORDERABLES - DE VICE Final Result [facility] [address] Department [place] [address] * XR Chest 1 View - Portable [...] (06/28/2024 5:38 AM CDT) Pathologist [facility] eGFR 80 >=60 mL/min/1. 73 m2 [...] Madrid NP LAB BLOOD ORDERABLES nal Result [facility] [address] Department [place] [address] * (ABNORMAL) CBC without differential (06/28/2024 5:38 AM CDT) [facility] WBC 29.39(H) 3.80 - 9.90 K/cumm Hgb 11.2(L) 13.0 - 17.5 g/dL [facility] Hct 34.1(L) 38.9 - 50.3 % [facility] Plt 102(L) 150 - 400 K/cumm [facility] MPV 11.8 9.1 - 12.3 fL [facility] RBC 3.64(L) 4.30 - 5.80 M/cumm [facility] MCV 93.7 81.3 - 96.4 fL [facility] MCH 30.8 27.1 - 33.3 pg [facility] MCHC 32.8 32.3 - 35.7 g/dL [facility] RDW CV 13.2 11.1 - 14.9 % [facility] RDW SD 45.3 35.7 - 48.1 fL [facility] NRBC abs 0.00 0.00 - 0.01 K/cumm [facility] Blood 06/28/2024 5:38 AM CDT 06/28/2024 6:00 AM CDT us Javan Madrid NP LAB BLOOD ORDERABLES Fi nal Result [facility] [address] Department [place] [employer] [place] [address] * (ABNORMAL) Renal function panel (06/28/2024 5:38 AM CDT) Sodium 132(L) 135 - 145 mmol/L Potassium, pl 4.5 3.3 - 4.9 mmol/L [facility] Chloride 98 97 - 110 mmol/L [facility] CO2 21(L) 22 - 32 mmol/L [facility] Anion gap 13 2 - 15 mmol/L [facility] BUN 19 6 - 25 mg/dL [facility] Creatinine 0.98 0.80 - 1.30 mg/dL [facility] Glucose 150 70 - 199 mg/dL [facility] Comment: Interpretive Data Fasting glucose >/= 126 [...] 2022. Calcium 8.8 8.5 - 10.3 mg/dL [facility] Phosphorus, pl 2.3 2.3 - 4.5 mg/dL [facility] Albumin 3.4(L) 3.5 - 5.0 g/dL [facility] Blood 06/28/2024 5:38 AM CDT 06/28/2024 6:00 AM CDT us Javan Madrid VENUE MANAGER LAB BLOOD ORDERABLES Fi nal Result Performing Organization Address [facility]/ZIP Co de Phone Number [facility] [address] [place] [address] * eGFR (06/27/2024 9:05 PM CDT) eGFR [...] BLOOD ORDERABLES Final Result Performing Organization Address [facility]/ZIP Co de Phone Number [facility] [address] [place] [address] * Magnesium (06/27/2024 9:05 PM CDT) Magnesium 2.2 1.4 - 2.5 mg/dL Blood 06/27/2024 9:05 PM CDT 06/27/2024 9:15 PM CDT us Maulik MARTINEZ LAB BLOOD ORDERABLES Final Result [facility] [address] Department [place] [address] * (ABNORMAL) Renal function panel (06/27/2024 9:05 PM CDT) Pathologist [facility] Sodium 135 135 - 145 mmol/L Potassium, pl 4.6 3.3 - 4.9 mmol/L [facility] Chloride 102 97 - 110 mmol/L [facility] CO2 21(L) 22 - 32 mmol/L [facility] Anion gap 12 2 - 15 mmol/L [facility] BUN 17 6 - 25 mg/dL [facility] Creatinine 1.04 0.80 - 1.30 mg/dL [facility] Glucose 166 70 - 199 mg/dL [facility] Comment: Interpretive Data Fasting glucose >/= 126 [...] 2022. Calcium 8.6 8.5 - 10.3 mg/dL [facility] Phosphorus, pl 2.5 2.3 - 4.5 mg/dL [facility] Albumin 3.7 3.5 - 5.0 g/dL [facility] Blood 06/27/2024 9:05 PM CDT 06/27/2024 9:15 PM CDT us Maulik MARTINEZ LAB BLOOD ORDERABLES Final Result [facility] [address] [facility] [employer] [address] * POCT glucose (06/27/2024 8:59 PM CDT) Glucose, POC 158 70 - 199 mg/dL Comment: For Glucose values <35 mg/dl when Hematocrit is >60 mg/dl,the test may not accurately detect significant hypoglycemia,and testing in the Laboratory should be considered if clinically indicated. POC Performer [id number] [facility] Blood 06/27/2024 8:59 PM CDT 06/27/2024 8:59 PM CDT us Felipe Alfaro MD LAB POCT ORDERABLES - DE VICE Final Result Performing Organization Address [facility] Co de Phone Number [facility] [address] [place] [address] * POCT glucose (06/27/2024 5:08 PM CDT) Glucose, POC 149 70 - 199 mg/dL Comment: For Glucose values <35 mg/dl when Hematocrit is >60 mg/dl,the test may not accurately detect significant hypoglycemia,and testing in the Laboratory should be considered if clinically indicated. POC Performer [id number] [facility] Blood 06/27/2024 5:08 PM CDT 06/27/2024 5:08 PM CDT us Felipe Alfaro MD LAB POCT ORDERABLES - DE VICE Final Result Performing Organization Address City/[facility]/ZIP Co de Phone Number [facility] [address] [place] [address] * Critical Care (06/27/2024 12:34 PM CDT) Narrative Abhishek Vazquez MD - 06/27/2024 12:34 PM CDT Abhishek Vazquez MD 06/27/2024 12:35 PM Critical Care Performed by: Abhishek Vazquez MD Authorized by: Abhishek Vazquez MD CRITICAL CARE: Team: [facility] CT Shift: AM Level of Billing: Subsequent [...] plan with the patient's team and other medical/analytics consultant staff. This time was in addition [...] be considered if clinically indicated. POC Performer [id number] [facility] Blood 06/27/2024 12:3 3 PM CDT 06/27/2024 12:33 PM CDT us Felipe Alfaro MD LAB POCT ORDERABLES - DE VICE Final Result [facility] [address] Department [place] [address] * POCT glucose (06/27/2024 8:33 AM CDT) Glucose, POC 158 70 - 199 mg/dL Comment: For Glucose values <35 mg/dl when Hematocrit is >60 mg/dl,the test may not accurately detect significant hypoglycemia,and testing in the Laboratory should be considered if clinically indicated. POC Performer [id number] [facility] Blood 06/27/2024 8:33 AM CDT 06/27/2024 8:33 AM CDT Felipe Alfaro MD LAB POCT ORDERABLES - DE VICE Final Result [facility] [address] Department [place] [address] * XR Chest 1 View - Portable [...] by: Humza Rene M.D. us Javan Madrid VENUE MANAGER IMG XR PROCEDURES Final Result * eGFR [...] ORDERABLES Fin al Result Performing Organization Address City/[facility]/ZIP Co de Phone Number [facility] [address] [employer] [place], [place] [id number] * (ABNORMAL) Calcium, ionized (06/27/2024 12:23 AM CDT) Calcium, Ionized 4.35(L) 4.50 - 5.10 mg/dL Blood 06/27/2024 12:2 3 AM CDT 06/27/2024 12:41 AM CDT Felipe Alfaro MD LAB BLOOD ORDERABLES Fin al Result [facility] [address] Department [place] [employer] [address] * (ABNORMAL) CBC without differential (06/27/2024 12:23 AM CDT) WBC 24.36(H) 3.80 - 9.90 K/cumm Hgb 12.7(L) 13.0 - 17.5 g/dL [facility] Hct 37.4(L) 38.9 - 50.3 % [facility] Plt 85(L) 150 - 400 K/cumm [facility] Comment:no clot MPV 11.2 9.1 - 12.3 fL [facility] RBC 4.03(L) 4.30 - 5.80 M/cumm [facility] MCV 92.8 81.3 - 96.4 fL [facility] MCH 31.5 27.1 - 33.3 pg [facility] MCHC 34.0 32.3 - 35.7 g/dL [facility] RDW CV 12.8 11.1 - 14.9 % [facility] RDW SD 43.9 35.7 - 48.1 fL [facility] NRBC abs 0.00 0.00 - 0.01 K/cumm [facility] Blood 06/27/2024 12:2 3 AM CDT 06/27/2024 12:43 AM CDT us Javan Madrid NP LAB BLOOD ORDERABLES Fi nal Result Performing Organization Address City/[facility]/ZIP Co de Phone Number [facility] [address] [employer] [place], [place] [id number] * Magnesium (06/27/2024 12:23 AM CDT) Pathologist [facility] Magnesium 1.8 1.4 - 2.5 mg/dL Blood 06/27/2024 12:2 3 AM CDT 06/27/2024 12:43 AM CDT Felipe Alfaro MD LAB BLOOD ORDERABLES Fin al Result [facility] [address] Department of [employer] [place], [place] [id number] * (ABNORMAL) Renal function panel (06/27/2024 12:23 AM CDT) Sodium 139 135 - 145 mmol/L Potassium, pl 3.9 3.3 - 4.9 mmol/L [facility] Chloride 106 97 - 110 mmol/L [facility] CO2 19(L) 22 - 32 mmol/L [facility] Anion gap 14 2 - 15 mmol/L [facility] BUN 9 6 - 25 mg/dL [facility] Creatinine 0.66(L) 0.80 - 1.30 mg/dL [facility] Glucose 194 70 - 199 mg/dL [facility] Comment: Interpretive Data Fasting glucose >/= 126 [...] 2022. Calcium 8.1(L) 8.5 - 10.3 mg/dL [facility] Phosphorus, pl 2.9 2.3 - 4.5 mg/dL [facility] Albumin 3.8 3.5 - 5.0 g/dL [facility] Blood 06/27/2024 12:2 3 AM CDT 06/27/2024 12:43 AM CDT Javan Madrid NP LAB BLOOD ORDERABLES [facility] Result [facility] [address] [place] [address] * POCT glucose (06/26/2024 9:05 PM CDT) [facility] Signature Glucose, POC 107 70 - 199 mg/dL Comment: For Glucose values <35 mg/dl when Hematocrit is >60 mg/dl,the test may not accurately detect significant hypoglycemia,and testing in the Laboratory should be considered if clinically indicated. POC Performer [id number] [facility] Blood 06/26/2024 9:05 PM CDT 06/26/2024 9:05 PM CDT Felipe Alfaro MD LAB POCT ORDERABLES - DE VICE Final Result [facility] [address] Department [place] [address] * Critical Care (06/26/2024 6:30 PM CDT) Narrative Abhishek Vazquez MD - 06/26/2024 6:30 PM CDT Abhishek Vazquez MD 06/29/2024 7:36 AM Critical Care Performed by: Tanika Reyes NP Authorized by: Tanika Reyes NP CRITICAL CARE: Team: [facility] CT Shift: PM Level of Billing: Subsequent [...] plan with the patient's team and other medical/analytics consultant staff. This time was in addition to and separate from care provided by other practitioners on this day of service. I spent time documenting in the medical record, I spent time discussing the management of this critically ill patient with consultants and the medical staff and I spent time reviewing and interpreting data from bedside monitors, laboratory results, and imaging Tanika Reyes VENUE MANAGER IN CLINIC/BEDSIDE ORDERAB LES Final Result * POCT glucose (06/26/2024 5:05 PM CDT) [facility] Signature Glucose, POC 123 70 - 199 mg/dL Comment: For Glucose values <35 mg/dl when Hematocrit is >60 mg/dl,the test may not accurately detect significant hypoglycemia,and testing in the Laboratory should be considered if clinically indicated. POC Performer [id number] [facility] Blood 06/26/2024 5:05 PM CDT 06/26/2024 5:05 PM CDT Felipe Alfaro MD LAB POCT ORDERABLES - DE VICE Final Result Performing Organization Address [facility] Co de Phone Number [facility] [address] [place] [address] * POCT glucose (06/26/2024 3:58 PM CDT) Glucose, POC 114 70 - 199 mg/dL Comment: For Glucose values <35 mg/dl when Hematocrit is >60 mg/dl,the test may not accurately detect significant hypoglycemia,and testing in the Laboratory should be considered if clinically indicated. POC Performer [id number] [facility] Blood 06/26/2024 3:58 PM CDT 06/26/2024 3:58 PM CDT us Felipe Alfaro MD LAB POCT ORDERABLES - DE VICE Final Result Performing Organization Address [facility] Co de Phone Number [facility] [address] [facility] [employer] [place] [address] * POCT glucose (06/26/2024 2:47 PM CDT) Glucose, POC 102 70 - 199 mg/dL Comment: For Glucose values <35 mg/dl when Hematocrit is >60 mg/dl,the test may not accurately detect significant hypoglycemia,and testing in the Laboratory should be considered if clinically indicated. POC Performer [id number] [facility] Blood 06/26/2024 2:47 PM CDT 06/26/2024 2:47 PM CDT us Felipe Alfaro MD LAB POCT ORDERABLES - DE VICE Final Result Performing Organization Address [facility] Co de Phone Number [facility] [address] [place] [address] * Critical Care (06/26/2024 2:07 PM CDT) Narrative Viraj Malik MD - 06/26/2024 2:07 PM CDT Viraj Malik MD 06/26/2024 2:56 PM Critical Care Performed by: Viraj Malik MD Authorized by: Viraj Malik MD CRITICAL CARE: Team: [facility] CT Shift: AM Level of Billing: Critical [...] plan with the ICU team and other medical/analytics consultant staff, making frequent assessments and decisions [...] * POCT glucose (06/26/2024 1:52 PM CDT) [facility] Glucose, POC 107 70 - 199 mg/dL Comment: For Glucose values <35 mg/dl when Hematocrit is >60 mg/dl,the test may not accurately detect significant hypoglycemia,and testing in the Laboratory should be considered if clinically indicated. POC Performer [id number] [facility] Blood 06/26/2024 1:52 PM CDT 06/26/2024 1:52 PM CDT us Felipe Alfaro MD LAB POCT ORDERABLES - DE VICE Final Result [facility] [address] Department [place] [address] * XR Chest 1 View - Portable (06/26/2024 1:46 PM CDT) Anatomical Region Laterality Modality Body, Chest N/A Computed Radiogr aphy 06/26/2024 1:49 PM CDT Impressions 06/26/2024 1:49 PM CDT FINDINGS/IMPRESSION: Endotracheal tube terminates 0.5 to 1 cm above the logan. Repositioning is recommended. Right IJ central venous catheter tip terminates in the mid thoracic trachea. Right IJ [place] catheter terminates in the main pulmonary artery. [...] in the mid thoracic trachea. Right IJ [place] catheter terminates in the main pulmonary artery. [...] ORDERABLES Fin al Result Performing Organization Address City/[facility] Co de Phone Number [facility] [address] Department [place] [address] * eGFR (06/26/2024 1:16 PM CDT) eGFR [...] ORDERABLES Fin al Result Performing Organization Address City/[facility] Co de Phone Number [facility] [address] [facility] [employer] [address] * (ABNORMAL) Calcium, ionized (06/26/2024 1:16 PM CDT) Calcium, Ionized 4.35(L) 4.50 - 5.10 mg/dL Blood 06/26/2024 1:16 PM CDT 06/26/2024 1:33 PM CDT Felipe Alfaro MD LAB BLOOD ORDERABLES Fin al Result Performing Organization Address [facility] Co de Phone Number [facility] [address] [facility] [employer] [address] * aPTT (06/26/2024 1:16 PM CDT) Pathologist [facility] aPTT 35 28 - 38 sec Comment: Interpretive Data Heparin therapeutic range: 66.0 - 100.0 seconds. Range based on correlation with therapeutic heparin activity range of 0.3 - 0.7 Units/mL. Current interpretive data was last revised on 2022. Blood 06/26/2024 1:16 PM CDT 06/26/2024 1:53 PM CDT Felipe Alfaro MD LAB BLOOD ORDERABLES Fin al Result Performing Organization Address [facility] Co de Phone Number [facility] [address] [facility] [employer] [address] * (ABNORMAL) Protime-INR (06/26/2024 1:16 PM CDT) PT 16.3(H) 9.7 - 13.0 sec INR 1.50(H) 0.90 - 1.20 [facility] Comment: Interpretive data Oral anticoagulant therapeutic ranges: Venous thromboembolism prophylaxis or treatment: 2.0-3.0 CARDIOLOGY Standard range: 2.0-3.0 High-intensity range: 2.5-3.5 Refer to indication-specific guidelines for appropriate target ranges for prosthetic heart valve replacement. Current interpretive data was last revised on 2019. Blood 06/26/2024 1:16 PM CDT 06/26/2024 1:53 PM CDT Felipe Alfaro MD LAB BLOOD ORDERABLES Fin al Result Performing Organization Address [facility]/ZIP Co de Phone Number [facility] [address] [place] [place] [address] * (ABNORMAL) CBC without differential (06/26/2024 1:16 PM CDT) WBC 29.92(H) 3.80 - 9.90 K/cumm Hgb 13.4 13.0 - 17.5 g/dL [facility] Hct 39.6 38.9 - 50.3 % [facility] Plt 130(L) 150 - 400 K/cumm [facility] MPV 10.7 9.1 - 12.3 fL [facility] RBC 4.25(L) 4.30 - 5.80 M/cumm [facility] MCV 93.2 81.3 - 96.4 fL [facility] MCH 31.5 27.1 - 33.3 pg [facility] MCHC 33.8 32.3 - 35.7 g/dL [facility] RDW CV 12.9 11.1 - 14.9 % [facility] RDW SD 44.0 35.7 - 48.1 fL [facility] NRBC abs 0.00 0.00 - 0.01 K/cumm [facility] Blood 06/26/2024 1:16 PM CDT 06/26/2024 1:53 PM CDT Felipe Alfaro MD LAB BLOOD ORDERABLES Fin al Result Performing Organization Address [facility]/ZIP Co de Phone Number [facility] [address] [employer] [place] [address] * Phosphorus (06/26/2024 1:16 PM CDT) Pathologist [facility] Phosphorus, pl 3.0 2.3 - 4.5 mg/dL Blood 06/26/2024 1:16 PM CDT 06/26/2024 1:39 PM CDT Felipe Alfaro MD LAB BLOOD ORDERABLES Fin al Result Performing Organization Address [facility] Co de Phone Number [facility] [address] [facility] [employer] [address] * Magnesium (06/26/2024 1:16 PM CDT) [facility] Magnesium 2.4 1.4 - 2.5 mg/dL Blood 06/26/2024 1:16 PM CDT 06/26/2024 1:39 PM CDT Result [facility] Felipe Alfaro MD LAB BLOOD ORDERABLES Fin al Result Performing Organization Address [facility] de Phone Number [facility] [address] [facility] [employer] [address] * (ABNORMAL) Blood gas, arterial (06/26/2024 1:16 PM CDT) [facility] pH, Art 7.33(L) 7.35 - 7.45 PCO2, Arterial 48(H) 35 - 45 mmHg [facility] PO2, Arterial 139(H) 83 - 108 mmHg [facility] HCO3 Art (Calculated) 25 20 - 30 mmol/L [facility] BE, art -1 mmol/L [facility] Comment: Interpretive Data No Reference Range Established Current Interpretive Data was last revised on 2017 O2 Sat Art (Calculated) 99(H) 94 - 98 % [facility] Blood 06/26/2024 1:16 PM CDT 06/26/2024 1:33 PM CDT Felipe Alfaro MD LAB BLOOD ORDERABLES Fin al Result Performing Organization Address [facility] Co de Phone Number [facility] [address] Department [place] [address] * (ABNORMAL) Comprehensive metabolic panel (06/26/2024 1:16 PM CDT) Sodium 142 135 - 145 mmol/L Potassium, pl 4.4 3.3 - 4.9 mmol/L [facility] Comment:Hemolyzed; potassium value may be falsely elevated by as much as 0.3 - 0.5 mmol/L. Suggest redraw and reanalysis Chloride 110 97 - 110 mmol/L [facility] CO2 20(L) 22 - 32 mmol/L [facility] Anion gap 12 2 - 15 mmol/L [facility] BUN 11 6 - 25 mg/dL [facility] Creatinine 0.82 0.80 - 1.30 mg/dL [facility] Glucose 124 70 - 199 mg/dL [facility] Comment: Interpretive Data Fasting glucose >/= 126 [...] 2022. Calcium 7.9(L) 8.5 - 10.3 mg/dL [facility] Bilirubin, total 1.1 0.1 - 1.2 mg/dL [facility] Protein, pl 5.4(L) 6.5 - 8.5 g/dL [facility] Albumin 3.5 3.5 - 5.0 g/dL [facility] Alk phos 65 40 - 130 Units/L [facility] ALT 14 7 - 55 Units/L [facility] AST 46 10 - 50 Units/L [facility] Comment:Slightly Hemolyzed S pecimen Blood 06/26/2024 1:16 PM CDT 06/26/2024 1:39 PM CDT Result [facility] Felipe Alfaro MD LAB BLOOD ORDERABLES Fin al Result Performing Organization Address [facility] Co de Phone Number [facility] [address] [facility] [employer] [address] * aPTT (06/26/2024 12:04 PM CDT) aPTT 37 28 - 38 sec Comment: Interpretive Data Heparin therapeutic range: 66.0 - 100.0 seconds. Range based on correlation with therapeutic heparin activity range of 0.3 - 0.7 Units/mL. Current interpretive data was last revised on 2022. Blood 06/26/2024 12:0 4 PM CDT 06/26/2024 12:04 PM CDT Result [facility] Felipe Alfaro MD LAB BLOOD ORDERABLES Fin al Result Performing Organization Address [facility] de Phone Number [facility] [address] [facility] [employer] [address] * (ABNORMAL) Protime-INR (06/26/2024 12:04 PM CDT) PT 18.6(H) 9.7 - 13.0 sec INR 1.70(H) 0.90 - 1.20 [facility] Comment: Interpretive data Oral anticoagulant therapeutic ranges: Venous thromboembolism prophylaxis or treatment: 2.0-3.0 CARDIOLOGY Standard range: 2.0-3.0 High-intensity range: 2.5-3.5 Refer to indication-specific guidelines for appropriate target ranges for prosthetic heart valve replacement. Current interpretive data was last revised on 2019. Blood 06/26/2024 12:0 4 PM CDT 06/26/2024 12:04 PM CDT Felipe Alfaro MD LAB BLOOD ORDERABLES Fin al Result Performing Organization Address [facility] de Phone Number [facility] [address] [facility] [employer] [address] * Fibrinogen (06/26/2024 12:04 PM CDT) Pathologist [facility] Fibrinogen 229 170 - 400 mg/dL Blood 06/26/2024 12:0 4 PM CDT 06/26/2024 12:04 PM CDT Felipe Alfaro MD LAB BLOOD ORDERABLES Fin al Result Performing Organization Address [facility]/ZIP Co de Phone Number [facility] [address] [facility] [employer] [address] * (ABNORMAL) CBC without differential (06/26/2024 12:04 PM CDT) [facility] WBC 20.55(H) 3.80 - 9.90 K/cumm Hgb 11.8(L) 13.0 - 17.5 g/dL [facility] Hct 34.8(L) 38.9 - 50.3 % [facility] Plt 101(L) 150 - 400 K/cumm [facility] Comment:OR patient MPV 10.8 9.1 - 12.3 fL [facility] RBC 3.74(L) 4.30 - 5.80 M/cumm [facility] MCV 93.0 81.3 - 96.4 fL [facility] MCH 31.6 27.1 - 33.3 pg [facility] MCHC 33.9 32.3 - 35.7 g/dL [facility] RDW CV 12.8 11.1 - 14.9 % [facility] RDW SD 43.9 35.7 - 48.1 fL [facility] NRBC abs 0.00 0.00 - 0.01 K/cumm [facility] Blood 06/26/2024 12:0 4 PM CDT 06/26/2024 12:04 PM CDT Felipe Alfaro MD LAB BLOOD ORDERABLES Fin al Result Performing Organization Address City/[facility]/ZIP Co de Phone Number [facility] [address] Department [place] [address] * (ABNORMAL) POC Blood Gas and Chemistries, Arterial - (06/26/2024 12:03 PM CDT) pH, Art POC 7.42 7.35 - 7.45 pCO2, Art POC 42 35 - 45 mmHg [facility] pO2, Art POC 409(H) 80 - 108 mmHg [facility] Na, POC 140 135 - 145 mmol/L [facility] K POC 4.3 3.3 - 4.9 mmol/L [facility] Comment: Interpretive Data This method is not able to assess for hemolysis, which may falsely increase potassium concentrations. If further testing is needed to evaluate this result, consider in-laboratory plasma potassium. Current Interpretive Data was last revised on 2021. Cl, POC 110 97 - 110 mmol/L [facility] Ionized Ca, POC 4.51 4.50 - 5.10 mg/dL [facility] Glucose, POC 149 70 - 199 mg/dL [facility] Lactate, POC 1.8 0.7 - 2.0 mmol/L [facility] O2Hb, Art POC 97.7(H) 90.0 - 95.0 % [facility] Carboxhgb fract 1.3 0.0 - 2.9 % [facility] Methemoglobin 0.8 0.0 - 1.9 % [facility] HHb, POC 0.3 0.0 - 5.0 % [facility] SO2 (franklin) arterial 100(H) 90 - 95 % [facility] BE, art, POC 2.4(H) -2.0 - 2.0 mmol/L [facility] HCO3, Art POC 27 20 - 30 mmol/L [facility] Hct, POC 36.0(L) 38.9 - 50.3 % [facility] Total Hb, POC 12.0(L) 13.0 - 17.5 g/dL [facility] Blood 06/26/2024 12:0 3 PM CDT 06/26/2024 12:03 PM CDT us Felipe Alfaro MD LAB POCT ORDERABLES - DE VICE Final Result [facility] [address] Department [place] [address] * POC Activated Clotting Time, High Range (06/26/2024 12:01 PM CDT) Pathologist [facility] ACT 133 87 - 138 sec POC Performer [id number] [facility] Blood 06/26/2024 12:0 1 PM CDT 06/26/2024 12:01 PM CDT us Felipe Alfaro MD LAB BLOOD ORDERABLES Fin al Result Performing Organization Address [facility]/ZIP Co de Phone Number [facility] [address] Department [place] [address] * (ABNORMAL) POC Blood Gas and Chemistries, Arterial - (06/26/2024 11:16 AM CDT) [facility] pH, Art POC 7.35 7.35 - 7.45 pCO2, Art POC 41 35 - 45 mmHg [facility] pO2, Art POC 260(H) 80 - 108 mmHg [facility] Na, POC 136 135 - 145 mmol/L [facility] K POC 4.6 3.3 - 4.9 mmol/L [facility] Comment: Interpretive Data This method is not able to assess for hemolysis, which may falsely increase potassium concentrations. If further testing is needed to evaluate this result, consider in-laboratory plasma potassium. Current Interpretive Data was last revised on 2021. Cl, POC 108 97 - 110 mmol/L [facility] Ionized Ca, POC 4.71 4.50 - 5.10 mg/dL [facility] Glucose, POC 196 70 - 199 mg/dL [facility] Lactate, POC 2.0 0.7 - 2.0 mmol/L [facility] O2Hb, Art POC 98.0(H) 90.0 - 95.0 % [facility] Carboxhgb fract 1.0 0.0 - 2.9 % [facility] Methemoglobin 0.9 0.0 - 1.9 % [facility] HHb, POC 0.0 0.0 - 5.0 % [facility] SO2 (franklin) arterial 100(H) 90 - 95 % [facility] Total CO2, Art POC 24 22 - 32 mmol/L [facility] BE, art, POC -2.9(L) -2.0 - 2.0 mmol/L [facility] HCO3, Art POC 23 20 - 30 mmol/L [facility] Hct, POC 36.0(L) 38.9 - 50.3 % [facility] Total Hb, POC 12.0(L) 13.0 - 17.5 g/dL [facility] Blood 06/26/2024 11:1 6 AM CDT 06/26/2024 11:16 AM CDT Felipe Alfaro MD LAB POCT ORDERABLES - DE VICE Final Result Performing Organization Address [facility]/ZIP Co de Phone Number [facility] [address] Department [place] [employer] [address] * (ABNORMAL) POC Activated Clotting Time, High Range (06/26/2024 11:15 AM CDT) ACT 440(H) 87 - 138 sec POC Performer [id number] [facility] Blood 06/26/2024 11:1 5 AM CDT 06/26/2024 11:15 AM CDT Felipe Alfaro MD LAB BLOOD ORDERABLES Fin al Result [facility] [address] Department [place] [employer] [address] * (ABNORMAL) POC Blood Gas and Chemistries, Venous - (06/26/2024 10:55 AM CDT) pH, Hosea POC 7.36 7.32 - 7.45 pCO2, hosea POC 43 40 - 50 mmHg [facility] pO2, hosea POC 51(H) 35 - 42 mmHg [facility] Na, POC 137 135 - 145 mmol/L [facility] K POC 7.7(C) 3.3 - 4.9 mmol/L [facility] Comment: Interpretive Data This method is not able to assess for hemolysis, which may falsely increase potassium concentrations. If further testing is needed to evaluate this result, consider in-laboratory plasma potassium. Current Interpretive Data was last revised on 2021. Cl, POC 110 97 - 110 mmol/L [facility] Ionized Ca, POC 4.63 4.50 - 5.10 mg/dL [facility] Glucose, POC 218(H) 70 - 199 mg/dL [facility] Lactate, POC 2.1(H) 0.7 - 2.0 mmol/L [facility] O2Hb, Hosea POC 81.8(L) 90.0 - 95.0 % [facility] Carboxhgb fract 1.4 0.0 - 2.9 % [facility] Methemoglobin 0.5 0.0 - 1.9 % [facility] HHb, POC 16.3(H) 0.0 - 5.0 % [facility] O2 Sat, [place] POC (Franklin) 83(H) 68 - 77 % [facility] Total CO2, hosea POC 26 22 - 32 mmol/L [facility] Base excess, hosea POC -1.2 mmol/L [facility] HCO3, [place] POC 24 20 - 30 mmol/L [facility] Hct, POC 36.0(L) 38.9 - 50.3 % [facility] Total Hb, POC 11.9(L) 13.0 - 17.5 g/dL [facility] Blood 06/26/2024 10:5 5 AM CDT 06/26/2024 10:55 AM CDT us Felipe Alfaro MD LAB POCT ORDERABLES - DE VICE Final Result [facility] [address] [place] [address] * (ABNORMAL) POC Blood Gas and Chemistries, Arterial - (06/26/2024 10:44 AM CDT) pH, Art POC 7.47(H) 7.35 - 7.45 pCO2, Art POC 48(H) 35 - 45 mmHg [facility] pO2, Art POC 228(H) 80 - 108 mmHg [facility] Na, POC 145 135 - 145 mmol/L [facility] K POC 3.9 3.3 - 4.9 mmol/L [facility] Comment: Interpretive Data This method is not able to assess for hemolysis, which may falsely increase potassium concentrations. If further testing is needed to evaluate this result, consider in-laboratory plasma potassium. Current Interpretive Data was last revised on 2021. Cl, POC 110 97 - 110 mmol/L [facility] Ionized Ca, POC 4.38(L) 4.50 - 5.10 mg/dL [facility] Glucose, POC 238(H) 70 - 199 mg/dL [facility] Lactate, POC 3.2(H) 0.7 - 2.0 mmol/L [facility] O2Hb, Art POC 98.2(H) 90.0 - 95.0 % [facility] Carboxhgb fract 1.3 0.0 - 2.9 % [facility] Methemoglobin 0.4 0.0 - 1.9 % [facility] HHb, POC 0.0 0.0 - 5.0 % [facility] SO2 (franklin) arterial 100(H) 90 - 95 % [facility] Total CO2, Art POC 36(H) 22 - 32 mmol/L [facility] BE, art, POC 9.9(H) -2.0 - 2.0 mmol/L [facility] HCO3, Art POC 33(H) 20 - 30 mmol/L [facility] Hct, POC 36.0(L) 38.9 - 50.3 % [facility] Total Hb, POC 11.9(L) 13.0 - 17.5 g/dL [facility] Blood 06/26/2024 10:4 4 AM CDT 06/26/2024 10:44 AM CDT us Felipe Alfaro MD LAB POCT ORDERABLES - DE VICE Final Result [facility] [address] Department [place] [address] * (ABNORMAL) POC Activated Clotting Time, High Range (06/26/2024 10:43 AM CDT) ACT 523(H) 87 - 138 sec POC Performer [id number] [facility] Blood 06/26/2024 10:4 3 AM CDT 06/26/2024 10:43 AM CDT us Felipe Alfaro MD LAB BLOOD ORDERABLES Fin al Result Performing Organization Address [facility] Co de Phone Number [facility] [address] Department [place] [address] * Surgical pathology (06/26/2024 10:19 AM CDT) Tissue (Aorta) 06/26/2024 10 :19 AM CDT Comment:Placed in formalin a t the end of the case Narrative PATHOLOGY [facility] - 06/30/2024 10:31 AM CDT [place] [address] [place], [place] [address] Tele: Karyna Doyle MD - Hvac Manager Note to Patients: This report may contain [...] PATHOLOGY REPORT Patient Name: SALVATORE MAY Address: [place] [place] [address] Gender: M : 1950 (Age: 74) Service: Cardiothoracic Location: [place] [address], Hospital #: [id number] Patient Type: [facility] Taken: 06/26/2024 Received 06/26/2024 Reported: 06/30/2024 Physician(s): Felpie Alfaro M.D. 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 Report [...] cm in aggregate. The wall is intact. Glycerin Supervisor sections are submitted in cassette A1. Additional sections are submitted in A2. [facility]/06/29/2024 15:20 DMS,CUH , JAP MICROSCOPIC DESCRIPTION: Microscopic examination supports the above captioned diagnosis. There is no inflammation. Clerical Data Follows A; [id number] REPORT IMAGES AND/OR SCANNED DOCUMENTS ONLY VIEWABLE IN PDF FORMAT The immunohistochemical test(s) cited in this report, if any, was developed and its performance characteristics determined by [facility] Pathology Department. It has not been cleared or approved by the U.S. Food and Drug Administration. The FDA has determined that such clearance or approval is not necessary. This test is used for clinical purposes. It should not be regarded as investigational or for research. [facility] Laboratory is certified under the Clinical Laboratory [...] part or completely in the following laboratories: [facility], [address], [place] [address] [facility], [address], [place] [address]. Felipe Alfaro MD LAB PATHOLOGY ORDERABLES Final Result Performing Organization Address City/[facility]/ZIP Co de Phone Number PATHOLOGY [facility] Laboratory Receiving [address] [place] [place] [address] * (ABNORMAL) POC Activated Clotting Time, High Range (06/26/2024 10:10 AM CDT) Pathologist [facility] ACT 460(H) 87 - 138 sec POC Performer [id number] [facility] Blood 06/26/2024 10:1 0 AM CDT 06/26/2024 10:10 AM CDT Felipe Alfaro MD LAB BLOOD ORDERABLES Fin al Result Performing Organization Address [facility]/ZIP Co de Phone Number [facility] [address] Department [place] [address] * (ABNORMAL) POC Blood Gas and Chemistries, Arterial - (06/26/2024 9:55 AM CDT) [facility] pH, Art POC 7.32(L) 7.35 - 7.45 pCO2, Art POC 50(H) 35 - 45 mmHg [facility] pO2, Art POC 384(H) 80 - 108 mmHg [facility] Na, POC 137 135 - 145 mmol/L [facility] K POC 3.5 3.3 - 4.9 mmol/L [facility] Comment: Interpretive Data This method is not able to assess for hemolysis, which may falsely increase potassium concentrations. If further testing is needed to evaluate this result, consider in-laboratory plasma potassium. Current Interpretive Data was last revised on 2021. Cl, POC 108 97 - 110 mmol/L [facility] Ionized Ca, POC 4.66 4.50 - 5.10 mg/dL [facility] Glucose, POC 131 70 - 199 mg/dL [facility] Lactate, POC 0.8 0.7 - 2.0 mmol/L [facility] O2Hb, Art POC 98.1(H) 90.0 - 95.0 % [facility] Carboxhgb fract 1.4 0.0 - 2.9 % [facility] Methemoglobin 0.5 0.0 - 1.9 % [facility] HHb, POC 0.0 0.0 - 5.0 % [facility] SO2 (franklin) arterial 100(H) 90 - 95 % [facility] Total CO2, Art POC 27 22 - 32 mmol/L [facility] BE, art, POC -0.9 -2.0 - 2.0 mmol/L [facility] HCO3, Art POC 24 20 - 30 mmol/L [facility] Hct, POC 38.0(L) 38.9 - 50.3 % [facility] Total Hb, POC 12.6(L) 13.0 - 17.5 g/dL [facility] Blood 06/26/2024 9:55 AM CDT 06/26/2024 9:55 AM CDT us Felipe Alfaro MD LAB POCT ORDERABLES - DE VICE Final Result [facility] [address] Department [place] [address] * (ABNORMAL) POC Blood Gas and Chemistries, Arterial - (06/26/2024 9:40 AM CDT) pH, Art POC 7.39 7.35 - 7.45 pCO2, Art POC 45 35 - 45 mmHg [facility] pO2, Art POC 479(H) 80 - 108 mmHg [facility] Na, POC 136 135 - 145 mmol/L [facility] K POC 4.1 3.3 - 4.9 mmol/L [facility] Comment: Interpretive Data This method is not able to assess for hemolysis, which may falsely increase potassium concentrations. If further testing is needed to evaluate this result, consider in-laboratory plasma potassium. Current Interpretive Data was last revised on 2021. Cl, POC 107 97 - 110 mmol/L [facility] [place] Ionized Ca, POC 4.89 4.50 - 5.10 mg/dL [facility] [place] Glucose, POC 143 70 - 199 mg/dL [facility] [place] Lactate, POC 0.8 0.7 - 2.0 mmol/L [facility] [place] O2Hb, Art POC 97.9(H) 90.0 - 95.0 % [facility] [place] Carboxhgb fract 1.0 0.0 - 2.9 % [facility] [place] Methemoglobin 1.1 0.0 - 1.9 % [facility] [place] HHb, POC 0.0 0.0 - 5.0 % [facility] [place] SO2 (franklin) arterial 100(H) 90 - 95 % [facility] [place] Total CO2, Art POC 29 22 - 32 mmol/L [facility] [place] BE, art, POC 1.7 -2.0 - 2.0 mmol/L [facility] [place] HCO3, Art POC 26 20 - 30 mmol/L [facility] [place] Hct, POC 43.0 38.9 - 50.3 % [facility] [place] Total Hb, POC 14.4 13.0 - 17.5 g/dL [facility] [place] Blood 06/26/2024 9:40 AM CDT 06/26/2024 9:40 AM CDT us Felipe Alfaro MD LAB POCT ORDERABLES - DE VICE Final Result Performing Organization Address [facility]/ZIP Co de Phone Number [facility] [address] [employer] [place], [place] [id number] * (ABNORMAL) POC Activated Clotting Time, High Range (06/26/2024 9:39 AM CDT) ACT 523(H) 87 - 138 sec POC Performer [phone] [facility] [place] Blood 06/26/2024 9:39 AM CDT 06/26/2024 9:39 AM CDT Felipe Alfaro MD LAB BLOOD ORDERABLES Fin al Result [facility] [place] [address] Department [place] [address] * AL AN PROCEDURE PLACEHOLDER (06/26/2024 9:33 AM CDT) [...] code: CORNELL placement and diagnostic exam, non-congenital (86550) ICD code(s) for medical necessity: I71.2 - [...] inferior: normal 16- Apical septal: normal 17- [place]: normal Valves: Aortic Valve: [place]: normal Leaflet [...] 112 87 - 138 sec POC Performer [id number] [facility] Blood 06/26/2024 8:59 AM CDT 06/26/2024 8:59 AM CDT us Felipe Alfaro MD LAB BLOOD ORDERABLES Fin al Result [facility] [address] Department [place] [address] * AL AN CENTRAL LINE QUADRUPLE LUMEN, AL AN PROCEDURE PLACEHOLDER (06/26/2024 8:31 AM CDT) [...] AN SHEATH INTRODUCER PERFORMABLE, PULMONARY ARTERY CATH, AL AN PROCEDURE PLACEHOLDER (58:31 AM CDT) Narrative [...] ORDERABLE S Edited Result - Final * AL AN ELECTIVE ENDOTRACHEAL AIRWAY, AL AN PROCEDURE PLACEHOLDER (06/26/2024 8:27 AM CDT) Bassam Sebastian MD PhD - 06/26/2024 8:27 AM CDT Bassam Mercedes MD PhD 06/26/2024 8:27 AM Airway Patient location: OR Urgency: elective Indications for airway management: anesthesia Difficult airway: no Staff: Supervising provider: Bsasam Mercedes MD PhD Placed by: Anesthesiologist: Bassam [...] oral Blade type: Yousif Video blade type: eDlaney Blade size: 4 Cormack-Lehane (video): grade I - full view of glottis Cuff volume: 10 mL Cuff inflated with: air ETT to gums: 24 cm Placement verified by: auscultation and CO2 detection Airway secured with: silk tape Number of attempts: 1no us Bassam Mercedes MD PhD ANESTHESIA ORDERABLE S Final Result * AL AN PROCEDURE PLACEHOLDER (06/26/2024 8:26 AM CDT) Bassam Sebastian MD PhD - 06/26/2024 8:26 AM CDT Bassam Mercedes MD PhD 06/26/2024 8:27 AM Arterial Line Patient location: OR Indication: continuous blood pressure monitoring and blood sampling needed Staff: Supervising provider: Bassam Mercedes MD PhD Placed by: BEAN WEIGHER: Gee Reece CRNA Procedure prep: Prep solution: [...] PhD ANESTHESIA ORDERABLE S Final Result * AL AN PROCEDURE PLACEHOLDER (06/26/2024 8:25 AM CDT) [...] AM CDT) ABO Rh O Positive [facility] OTHER 06/26/2024 6:42 AM CDT 06/26/2024 7:03 AM CDT Narrative [facility] - 06/26/2024 7:27 AM CDT + Anti-K antibody on pre op type and screen Steph Del Valle NP LAB BLOOD ORDERABLES Lona l Result [facility] [address] Department [place] [address] [facility] * Hemoglobin A1c (06/26/2024 6:42 AM CDT) Hgb A1C 5.6 4.0 - 5.6 % Estimated Average Glucose 114 mg/dL [facility] Comment: The ADA recommends reporting an estimated Average Glucose (eAG) with all Hemoglobin A1c results using the equation derived from a study of 507 normal and diabetic adults. Minority populations were underrepresented and children were not included. (Diabetes Care 31:0369-6215, 2008). The eAG is not equivalent to a fasting glucose. Blood 06/26/2024 6:42 AM CDT 06/26/2024 6:56 AM CDT Nida Bullock NP LAB BLOOD ORDERABLES Final Resul t Performing Organization Address City/[facility]/ZIP Co de Phone Number [facility] [address] Department [place] [address] * ECG 12 lead (06/26/2024 6:25 AM CDT) 06/26/2024 6:25 AM CDT Narrative [facility] - 06/26/2024 2:35 PM CDT Vent Rate: 62 bpm RR Interval: 964 msec AL Interval: 184 msec QRS Duration: 100 msec QT Interval: 423 msec QTC Interval: 428 msec P-R-T [place]: 65 - 6 - 29 degrees IMPRESSION: SINUS RHYTHM NORMAL ECG Electronically Signed By: Barrington gallegos Nida Bullock NP ECG ORDERABLES Final Result Performing Organization Address City/[facility] Co de Phone Number [facility] [employer] [facility] * Prepare RBC: 4 Units (06/26/2024 6:08 AM CDT) Product code [id number] [facility] Unit Number [id number] 2-2 [facility] Product Blood Type OPOS [facility] Dispense Status RETURNED [facility] Product code [id number] [facility] Unit Number [id number] 3-J [facility] Product Blood Type OPOS [facility] Dispense Status RETURNED [facility] Product code [id number] [facility] Unit Number [id number] 2-0 [facility] Product Blood Type OPOS [facility] Dispense Status RETURNED [facility] Product code [id number] Unit Number [id number] 9-W [facility] Product Blood Type OPOS [facility] Dispense Status RETURNED [facility] Blood 06/26/2024 6:08 AM CDT Narrative [facility] - 07/04/2024 7:26 AM CDT Specify 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 (All products are leukoreduced and CMV- safe)- >No Date required:-[id number] [id number] Reasons:-Hold for procedure (specify procedure)} Nida Bullock [employer] MANAGER BLOOD BANK PRODUCT ORDERABLES Fi nal Result Performing Organization Address [facility] Co de Phone Number [facility] [address] [place] [employer] [address] * B K Antigen Type (06/15/2024 12:08 PM CDT) [facility] RBC K ag Negative Blood 06/15/2024 12:0 8 PM CDT 06/15/2024 12:09 PM CDT Felipe Alfaro MD LAB BLOOD ORDERABLES Fin al Result Performing Organization Address [facility] Co de Phone Number [facility] [address] Department [place] [employer] [address] * Antibody identification (06/15/2024 11:41 AM CDT) [facility] Antibody ID 1 Anti-K Blood 06/15/2024 11:4 1 AM CDT 06/15/2024 11:41 AM CDT Felipe Alfaro MD LAB BLOOD BANK TEST ORDE RABLES Final Result Performing Organization Address [facility] Co de Phone Number [facility] [address] Department [employer] [place], [place] [id number] * eGFR (06/15/2024 9:50 AM CDT) [facility] eGFR >90 >=60 mL/min/1. 73 m2 Comment: [...] MD LAB BLOOD ORDERABLES Fin al Result [facility] [address] Department [place] [address] * (ABNORMAL) Differential, auto (06/15/2024 9:50 AM CDT) Neutrophil abs 7.0(H) 1.5 - 6.5 K/cumm Imm gran abs 0.0 0.0 - 0.1 K/cumm [facility] Lymphocyte abs 1.5 0.8 - 3.3 K/cumm [facility] Monocyte abs 0.7 0.2 - 0.8 K/cumm [facility] Eosinophil abs 0.1 0.0 - 0.5 K/cumm [facility] Basophil abs 0.0 0.0 - 0.1 K/cumm [facility] Neutrophil pct 74.5 % [facility] Comment: Interpretive Data Percent cell count reference ranges are not reported, since discordance with absolute values may lead to misinterpretation of CBC data. Current Interpretive Data was last revised on 2017. Imm gran pct 0.4 % [facility] Comment: Interpretive Data Percent cell count reference ranges are not reported, since discordance with absolute values may lead to misinterpretation of CBC data. Current Interpretive Data was last revised on 2017. Lymphocyte pct 16.2 % [facility] Comment: Interpretive Data Percent cell count reference ranges are not reported, since discordance with absolute values may lead to misinterpretation of CBC data. Current Interpretive Data was last revised on 2017. Monocyte pct 7.3 % [facility] Comment: Interpretive Data Percent cell count reference ranges are not reported, since discordance with absolute values may lead to misinterpretation of CBC data. Current Interpretive Data was last revised on 2017. Eosinophil pct 1.4 % [facility] Comment: Interpretive Data Percent cell count reference ranges are not reported, since discordance with absolute values may lead to misinterpretation of CBC data. Current Interpretive Data was last revised on 2017. Basophil pct 0.2 % [facility] Comment: Interpretive Data Percent cell count reference ranges are not reported, since discordance with absolute values may lead to misinterpretation of CBC data. Current Interpretive Data was last revised on 2017. Blood 06/15/2024 9:50 AM CDT 06/15/2024 10:01 AM CDT us Felipe Alfaro MD LAB BLOOD ORDERABLES Fin al Result [facility] [address] Department [place] [address] * CBC with auto differential (06/15/2024 9:50 AM CDT) WBC 9.4 3.8 - 9.9 K/cumm Hgb 16.1 13.0 - 17.5 g/dL [facility] Hct 47.2 38.9 - 50.3 % [facility] Plt 201 150 - 400 K/cumm [facility] MPV 10.5 9.1 - 12.3 fL [facility] RBC 5.16 4.30 - 5.80 M/cumm [facility] MCV 91.5 81.3 - 96.4 fL [facility] MCH 31.2 27.1 - 33.3 pg [facility] MCHC 34.1 32.3 - 35.7 g/dL [facility] RDW CV 12.8 11.1 - 14.9 % [facility] RDW SD 43.4 35.7 - 48.1 fL [facility] NRBC abs 0.00 0.00 - 0.01 K/cumm [facility] Blood 06/15/2024 9:50 AM CDT 06/15/2024 10:01 AM CDT Felipe Alfaro MD LAB BLOOD ORDERABLES Fin al Result Performing Organization Address [facility] Co de Phone Number [facility] [address] [place] [place] [place] [address] * Protime-INR (06/15/2024 9:50 AM CDT) PT 12.8 9.7 - 13.0 sec INR 1.18 0.90 - 1.20 [facility] Comment: Interpretive data Oral anticoagulant therapeutic ranges: Venous thromboembolism prophylaxis or treatment: 2.0-3.0 CARDIOLOGY Standard range: 2.0-3.0 High-intensity range: 2.5-3.5 Refer to indication-specific guidelines for appropriate target ranges for prosthetic heart valve replacement. Current interpretive data was last revised on 2019. Blood 06/15/2024 9:50 AM CDT 06/15/2024 10:01 AM CDT Felipe Alfaro MD LAB BLOOD ORDERABLES Fin al Result Performing Organization Address [facility] Co de Phone Number [facility] [address] [place] [place] [place] [address] * (ABNORMAL) Type and screen (06/15/2024 9:50 AM CDT) Darron, indirect Positive(A) ABO Rh O Positive [facility] Blood 06/15/2024 9:50 AM CDT 06/15/2024 10:02 AM CDT Narrative [facility] - 06/15/2024 11:41 AM CDT No blood transfusions last 90 days Surgery 06/26/24 No blood transfusions last 90 days Surgery 06/26/24 Has the patient had Daratumumab or Isatuximab in the past 6 months?->No Felipe Alfaro MD LAB BLOOD BANK TEST ORDJovita MANJARREZ Final Result [facility] [address] Department [place] [address] * Lipid panel (06/15/2024 9:50 AM CDT) [...] revised on 2017. Triglycerides 47 <=149 mg/dL [facility] Comment: Interpretive Data Ages < or = [...] revised on 2017. HDL 62 >=40 mg/dL [facility] Comment: Interpretive Data Ages < or = [...] on 2017. LDL, calculated 67 <=129 mg/dL [facility] Comment: Interpretive Data Ages < or = [...] revised on 2023. Non-HDL Cholesterol 78 mg/dL [facility] Comment: Interpretive Data Ages < or = [...] last revised on 2017. Chol/HDL ratio 2 [facility] Blood 06/15/2024 9:50 AM CDT 06/15/2024 10:01 AM CDT Felipe Alfaro MD LAB BLOOD ORDERABLES Fin al Result [facility] [address] Department [place] [address] * (ABNORMAL) Comprehensive metabolic panel (06/15/2024 9:50 AM CDT) Sodium 135 135 - 145 mmol/L Potassium, pl 3.9 3.3 - 4.9 mmol/L [facility] Chloride 101 97 - 110 mmol/L [facility] CO2 20(L) 22 - 32 mmol/L [facility] Anion gap 14 2 - 15 mmol/L [facility] BUN 15 6 - 25 mg/dL [facility] Creatinine 0.83 0.80 - 1.30 mg/dL [facility] Glucose 107 70 - 199 mg/dL [facility] Comment: Interpretive Data Fasting glucose >/= 126 [...] 2022. Calcium 9.3 8.5 - 10.3 mg/dL [facility] Bilirubin, total 0.9 0.1 - 1.2 mg/dL [facility] Protein, pl 7.1 6.5 - 8.5 g/dL [facility] Albumin 4.2 3.5 - 5.0 g/dL [facility] Alk phos 94 40 - 130 Units/L [facility] ALT 18 7 - 55 Units/L [facility] AST 25 10 - 50 Units/L [facility] Blood 06/15/2024 9:50 AM CDT 06/15/2024 10:01 AM CDT Felipe Alfaro MD LAB BLOOD ORDERABLES Fin al Result [facility] [address] Department [place] [address] * LEFT HEART CATHETERIZATION WITH [...] complications like access site vascular complications; periprocedural TX, cardiac arrhythmias, stroke, contrast induced nephropathy, and . After discussing all the benefits, risks and alternatives, patient was willing to proceed with the procedure. PROCEDURES PERFORMED: Selective left and right coronary angiogram Aortogram Ultrasound-guided right radial arterial access (CPT 93204) Moderate sedation-CPT code 84722 MODERATE SEDATION: Midazolam 2 mg , Fentanyl 50 mcg, start time 1256 stop time 1331, total direct gese-ge-ropf monitoring of conscious sedation 35 minutes (CPT 89085) TRAINED OBSERVER: Veronique Morales RN was trained observer for moderate sedation. ACCESS SITE: Right radial artery PROCEDURE: After obtaining informed consent, patient was brought to the labor training manager and prepped and draped in the usual sterile manner. Time-out and immediate reassessment of the patient was performed. After local anesthesia with lidocaine, right radial artery access was taken with micropuncture needle under ultrasound guidance followed by insertion of a 6 Filipino sheath. 5 mg of verapamil and 100 mcg of nitroglycerin was given through the arterial sheath; 5000 units of heparin given through IV. Due to patient's aortic aneurysm, there was difficulty in engaging the coronary arteries. Aortogram was performed using JR4 catheter. Right coronary artery was engaged using 5 Filipino JR4 diagnostic catheter. Orthogonal views were taken. There was difficulty in engaging the left coronary artery. Multiple catheters including AL1, AL2, JL5 were used. Left coronary angiogram was performed using 5 Filipino JL5 diagnostic catheter. The catheter length was [...] was used to complete this document, therefore, ad operations coordinator variances may occur. Chase Garcia MD, FACC 05/25/24 us Chase Garcia MD CV CARDIAC CATH PROCEDURES Edite d Result - Final * eGFR (05/25/2024 9:33 AM CDT) Pathologist [facility] eGFR >90 >=60 mL/min/1. 73 m2 [...] MD LAB BLOOD ORDERABLES Final Resul t [facility] [address] Department [place] [address] * Differential, auto (05/25/2024 9:33 AM CDT) Pathologist [facility] Neutrophil abs 5.8 1.5 - 6.5 K/cumm Imm gran abs 0.0 0.0 - 0.1 K/cumm [facility] Lymphocyte abs 1.4 0.8 - 3.3 K/cumm [facility] Monocyte abs 0.6 0.2 - 0.8 K/cumm [facility] Eosinophil abs 0.1 0.0 - 0.5 K/cumm [facility] Basophil abs 0.0 0.0 - 0.1 K/cumm [facility] Neutrophil pct 73.0 % [facility] Comment: Interpretive Data Percent cell count [...] LAB BLOOD ORDERABLES Final Resul t [facility]ESS[facility] [address] Department [place] [address] * CBC with auto differential (05/25/2024 9:33 AM CDT) WBC 7.9 3.8 - 9.9 K/cumm Hgb 15.2 13.0 - 17.5 g/dL [facility] Hct 45.6 38.9 - 50.3 % [facility] Plt 222 150 - 400 K/cumm [facility] MPV 10.5 9.1 - 12.3 fL [facility] RBC 4.92 4.30 - 5.80 M/cumm [facility] MCV 92.7 81.3 - 96.4 fL [facility] MCH 30.9 27.1 - 33.3 pg [facility] MCHC 33.3 32.3 - 35.7 g/dL [facility] RDW CV 13.0 11.1 - 14.9 % [facility] RDW SD 44.5 35.7 - 48.1 fL [facility] NRBC abs 0.00 0.00 - 0.01 K/cumm [facility] Blood 05/25/2024 9:33 AM CDT 05/25/2024 9:47 AM CDT us Chase Garcia MD LAB BLOOD ORDERABLES Final Resul t [facility] [address] Department [place] [address] * Comprehensive metabolic panel (05/25/2024 9:33 AM CDT) Sodium 141 135 - 145 mmol/L Potassium, pl 4.3 3.3 - 4.9 mmol/L [facility] Chloride 105 97 - 110 mmol/L [facility] CO2 23 22 - 32 mmol/L [facility] Anion gap 13 2 - 15 mmol/L [facility] BUN 13 6 - 25 mg/dL [facility] Creatinine 0.81 0.80 - 1.30 mg/dL [facility] Comment:Icteric sample, test results may be affected. Glucose 116 70 - 199 mg/dL [facility] Comment: Interpretive Data Fasting glucose >/= [...] 2022. Calcium 9.4 8.5 - 10.3 mg/dL [facility] Bilirubin, total 1.1 0.1 - 1.2 [...] LAB BLOOD ORDERABLES Final Resul t [facility] [address] Department [place] [address] * TRANSTHORACIC ECHO (TTE) COMPLETE W DOPPLER/CF WO CONTRAST (05/07/2024 2:19 PM TAKE AWAY WORKER) LV EF 65-70 % CONS SCIMAGE Anatomical Region Laterality Modality Ultrasound 05/07/2024 1:29 PM TAKE AWAY WORKER Narrative 05/07/2024 4:13 PM TAKE AWAY WORKER [facility] Cardiology [address], [address], [place] [address] P:[phone] P:[phone] Echocardiographic Report Patient Name: SALVATORE MAY : [...] without rupture, I25.10 Atherosclerotic heart disease of [place] coronary artery without angina pectoris, and I10 [...] FINDINGS: Interpretation Site: Exam was interpreted at [facility]. Left Ventricle: Normal left ventricular systolic function. [...] By: Marck Owens MD 05/07/2024 4:13:06 PM TAKE AWAY WORKER Procedure Note Marck Owens MD - 05/07/2024 [facility] [address], [address], [place] [address] P:[phone] P:[phone] Echocardiographic Report Patient Name: SALVATORE MAY : [...] aorta, without rupture, I25.10Atherosclerotic heart disease of [place] coronary artery without angina pectoris, and [id number] (primary) hypertension. MEASUREMENTS: 2D/MM Value Range Doppler [...] FINDINGS: Interpretation Site: Exam was interpreted at [facility]. Left Ventricle: Normal left ventricular systolic function. [...] By: Marck Owens MD 05/07/2024 4:13:06 PM TAKE AWAY WORKER us Marck Owens MD CV ECHO PROCEDURES Final Result * Colonoscopy (02/19/2024 10:03 AM TAKE AWAY WORKER) Anatomical Region Laterality Modality Other Narrative Procedure Note Gonzalez Ace, - 02/19/2024 10:03 AM CST [facility] Patient Name: Salvatore May Procedure Date: 02/19/2024 10:03 AM Date of : 1950 Admit Type: Outpatient Age: 73 Gender: Male Attending MD: Gonzalez Ace D.O. Room: [facility] ENDOSCOPY ROOM 3 Note Status: [...] scope was passed under direct vision. TheColonoscope [id number] was introduced through the anus and advanced [...] 10:03 AM Procedure Code(s): --- Professional --- 91127, Colonoscopy, flexible; with removal of tumor(s), polyp(s), or other lesion(s) by snare technique --- Technical --- 56413, Colonoscopy, flexible; with removal of tumor(s), polyp(s), or other lesion(s) by snare technique Diagnosis Code(s): --- Professional --- D12.5, Benign neoplasm of sigmoid colon Z80.0, Family history of malignant neoplasm of digestive organs --- Technical --- D12.5, Benign neoplasm of sigmoid colon Z80.0, Family history of malignant neoplasm of digestive organs CPT copyright 2020 [employer]. All rights reserved. The codes documented in this report are preliminary and upon nuisance wildlife trapper reviewmay be revised to meet current compliance requirements. Recognized by the [employer] for promoting quality [...] BLOOD ORDERABLES Final Result Performing Organization Address [facility] de Phone Number [facility] [address] [place] [place] [address] * Hepatitis C antibody Blood [...] GENERAL ORDERABLES Final Result Performing Organization Address City/[facility] Co de Phone Number [facility]ICA FLETCHER [address] [place] [address] from Last 3 Months or Most Recently Relevant to Health Maintenance Insurance [facility] MEDICARE [facility] MEDICARE T MEDICARE Advance Directives For more information, please contact: [phone] * Full Code (Latest Code Status on File) Date Activated Date Inactivated Comments 06/26/2024 1:13 PM 07/03/2024 7:58 PM * Full Code Date Activated Date Inactivated Comments 02/19/2024 10:27 AM 02/19/2024 5:23 PM * Full Code Date Activated Date Inactivated Comments 02/19/2024 10:27 AM 02/19/2024 10:27 AM Care Teams On Site Wastewater Systems Technician Relationship Specialty Start Date End Date Mark Don MD [address] [place] [address] PCP - General Internal Medicine 04/13/24 Chetan Torres MD [address] [place] [address] Consulting Physician Neurosurgery 02/20/23 Felipe Alfaro MD [address] [place] [address] Consulting Physician Cardiothoracic Surgery 04/13/24 Marck Owens MD [address] [place] [address] Referring Physician Cardiology 04/13/24
--- OUTSIDE RECORDS SUMMARY | 2024-07-21 01:01 | XMS_ITS | Clinical Summary ---
Author Organization [facility] Address [address] [place] [address] Care Team Providers Care Contact Lens Curve Grinder Name Role Phone Chetan Torres MD Unavailable [phone] Mark Don MD Primary Care Provider [phone] Felipe Alfaro MD Unavailable Marck Owens MD [...] for screening colonoscopy 01/02/2024 Encounter for annual [facility] visit (AWV) in Medicare patient 07/03/2023 [...] 03/2022 Assessment & Plan (05/16/2022 12:26 PM BUSINESS MANAGER [employer]IVERSITY): Discussed rationale for having vital signs done. [...] today's visit. He was told by his ed special education teacher that he might get along with me, [...] 05/04/2021 Assessment & Plan (05/04/2021 11:27 AM BUSINESS MANAGER COLLEGE OR UNIVERSITY): No FHx, no trauma, no prior surgeries Physiologic large cups, healthy rims OCT RNFL full OU IOP upper limits normal Yearly IOP check/DFEx Coronary artery disease invo lving [place] coronary artery of [place] heart 02/06/2021 Assessment & Plan (12/21/2021 10:14 AM CDT): Continue aspirin 81mg a day and Atorvastatin 20mg a day Assessment & Plan (02/06/2021 10:26 AM BUSINESS MANAGER COLLEGE OR UNIVERSITY): Start Atorvastatin 20mg a day Chest tightness 07/15/2020 Hyperlipidemia LDL goal <70 07/15/2020 Numbness of fingers of both hands 06/25/2020 Assessment & Plan (12/21/2021 10:13 AM CDT): Patient to use braces at night Assessment & Plan (02/10/2021 10:21 PM BUSINESS MANAGER COLLEGE OR UNIVERSITY): Patient to use Cock-up splints for carpal tunnel syndrome Assessment & Plan (06/25/2020 8:08 AM CDT): This could be early carpal tunnel syndrome. If symptoms continue will order EMG/Nerve conduction study Chest pain 06/24/2020 Assessment & Plan (02/18/2022 8:12 AM BUSINESS MANAGER [employer]LEGE OR UNIVERSITY): Most likely related to muscle skeletal pain [...] 04/23/2020 Assessment & Plan (04/23/2020 4:34 PM BUSINESS MANAGER [employer]LEGE OR UNIVERSITY): Will check labs Pain of foot 08/27/2013 Benign hypertension 08/01/2013 Overview (06/20/2016): BENIGN HYPERTENSION Arthralgia of ankle 07/29/2013 Aneurysm of thoracic aorta 12/25/2012 Overview (06/20/2016): Thoracic aneurysm Assessment & Plan (12/21/2021 10:13 AM CDT): Patient to repeat scan 07/08 Assessment & Plan (02/06/2021 10:27 AM BUSINESS MANAGER [employer]GE [employer] UNIVERSITY): Continue yearly surveillance Knee pain 2011 Essential hypertension 05/03/2009 Assessment & Plan (02/18/2022 8:16 AM BUSINESS MANAGER COLLEGE OR UNIVERSITY): Continue Lisinopril/HCTZ 20/25mg one tablet day Assessment & Plan (12/21/2021 10:12 AM CDT): Continue Carvedilol 6.25mg one tablet twice a day and Lisinopril-HCTZ 20/25mg one tablet a day Assessment & Plan (02/06/2021 10:19 AM BUSINESS MANAGER COLLEGE OR UNIVERSITY): Continue Lisinopril/HCTZ 20/25mg one tablet a day and Carvedilol 6.25mg one tablet a day Assessment & Plan (06/24/2020 9:42 AM CDT): BP today is 110/70. Continue current treatment -- carvedilol 6.25 mg BID and lisinopril-HCTZ 20-25 mg daily. Encourage low-sodium diet and regular exercise. Will monitor. Assessment & Plan (04/23/2020 4:33 PM BUSINESS MANAGER COLLEGE OR UNIVERSITY): Patient to call back with list of medications Right hip pain 02/02/2009 Assessment & Plan (02/18/2022 8:17 AM BUSINESS MANAGER COLLEGE OR UNIVERSITY): Follow up with orthopedics Resolved Problems Problem [...] elected to target PLANO. 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 No Preop meds: None Weight greater than 350 lbs: No [facility] case: No; If yes, reason: Med clearance: CPAP requested? TPAP IOL Master: done today Additional perioperative testing/procedure needed?: none Assessment & Plan (05/04/2021 11:30 AM BUSINESS MANAGER COLLEGE OR UNIVERSITY): New patient referred from [place] for evaluation of cataracts OU. No records [...] 07/08/2024 Telephone Cardiovascular and Thoracic Surgery [address] [place] [address] Felipe Alfaro MD Post-op 07/08/2024 Telephone [facility] Medical [facility] Cardiology [address] [facility] [address] [place] [phone] Marck Owens MD Shortness of Breath; pain when walking; Cough 07/07/2024 Orders Only Cardiovascular and Thoracic Surgery [address] [place] [address] Viola Zarco RN Aneurysm of ascending aorta without rupture (Primary Dx) 06/26/2024 8:13 AM CDT Anesthesia Event [facility] Operating Room [address] [place] [phone] Bassam Mercedes MD PhD Peterson, Nathan Scott, CRNA 06/26/2024 8:00 AM CDT - 06/26/2024 1:15 PM CDT Surgery [facility] Operating Room [address] [place] [phone] Felipe Alfaro MD MINIMALLY INVASIVE SRI ARCH COMPOSITE ROOT 06/26/2024 6:50 AM CDT Ancillary Procedure [facility] Operating Room [address] [place] [phone] 06/26/2024 5:41 AM CDT - 07/03/2024 3:58 PM CDT Hospital Encounter [address] [phone] Felipe Alfaro MD Encounter for screening colonoscopy (Primary Dx); Nonrheumatic aortic valve insufficiency; Aneurysm of ascending aorta without rupture; Aortic root aneurysm; S/P AVR Discharge Disposition: Discharge to home, home health skilled care 06/25/2024 Telephone Cardiovascular and Thoracic Surgery [address] [place] [phone] Felipe Alfaro MD 06/18/2024 Telephone Cardiovascular and Thoracic Surgery [address] [place] [phone] Felipe Alfaro MD OTHER 06/15/2024 9:35 AM CDT Lab [facility] Outpatient Lab [address] [place] [phone] Aneurysm of ascending aorta without rupture 06/15/2024 8:45 AM CDT Office Visit Cardiovascular and Thoracic Surgery [address] [place] [phone] Felipe Alfaro MD Aneurysm of ascending aorta without rupture (Primary Dx) 06/15/2024 Documentation Cardiovascular and Thoracic Surgery [address] [place] [address] [address], [place] [address] Viraj Daphne 06/12/2024 Telephone Cardiovascular and Thoracic Surgery [address] [place] [address] [address] [place] [address] Viola Zarco RN 06/11/2024 Telephone Cardiovascular and Thoracic Surgery [address] [place] [address] [address], [place] [address] Felipe Alfaro MD OTHER 06/08/2024 Telephone Cardiovascular and Thoracic Surgery [address] [place] [phone] Felipe Alfaro MD Other 05/25/2024 11:30 AM CDT - 05/25/2024 1:00 PM CDT Surgery [facility] Cardiac Catheterization Lab [address] [place] [phone] Chase Garcia MD LEFT HEART CATHETERIZATION WITH CORONARY ANGIOGRAPHY AND WITH OR WITHOUT LEFT VENTRICULOGRAM [id number] 05/25/2024 9:04 AM CDT - 05/25/2024 3:46 PM CDT Hospital Encounter [facility] Cardiac Catheterization Lab [address] [place] [phone] Chase Garcia MD Aneurysm of ascending aorta without rupture; Thoracic aortic aneurysm without rupture, unspecified part Discharge Disposition: Discharge to home or self care 2024 Telephone Cardiovascular and Thoracic Surgery [address] [place] [address], [place] [address] Felipe Alfaro MD medical questions 05/14/2024 Telephone [facility] Medical Group Cardiology [address] [place] [phone] Marck Owens MD 05/14/2024 Telephone [facility] Cardiology [address] [place] [phone] Marck Owens MD 05/11/2024 11:00 AM BUSINESS MANAGER [employer] UNIVERSITY Office Visit Cardiovascular and Thoracic Surgery [address] [place] [address] [address] [place] [address] Felipe Alfaro MD Aneurysm of ascending aorta without rupture (Primary Dx); Aortic root aneurysm 05/08/2024 Results Follow-Up [facility] Medical [facility] Cardiology [address] [place] [phone] Marck Owens MD 05/07/2024 1:30 PM BUSINESS MANAGER COLLEGE OR UNIVERSITY Ancillary Procedure [facility] Cardiology at [place] [id number] [facility] [address] [place] [address] Aneurysm of ascending aorta without rupture; Coronary artery disease involving [place] coronary artery of [place] heart without angina pectoris; Essential hypertension from [...] ANGIOGRAPHY AND WITH OR WITHOUT LEFT VENTRICULOGRAM [id number]; Surgeon: Chase Garcia MD; Location: CARDIAC HEAD OF [facility]; Service: Cardiovascular; Laterality: N/A; CARDIAC CATHETERIZATION 05/25/2024 N/A Procedure: ULTRASOUND GUIDANCE FOR VASCULAR ACCESS S&I [id number]; Surgeon: Chase Garcia MD; Location: CARDIAC [facility] OF [facility]; Service: Cardiovascular; Laterality: N/A; AORTOGRAM 05/25/2024 Groin Procedure: AORTOGRAM; Surgeon: Chase Garcia MD; Location: C[facility]; Service: Cardiovascular;; Medical History Medical History Date [...] e alcohol) one beer every other day. [facility] [employer]Us[employer] Answer Date Recorded In the past 12 months has [employer], gas, oil, or water [employer] threatened to shut off services in your home? No 06/29/2024 Social Connection and Isolat ion Panel [NHANES] Answer Date Recorded In a typical week, how many times do you talk on the phone with family, friends, or neighbors? Twice a week 06/29/2024 Frequency of Social Gatherin gs with Friends and Family Not on file 06/29/2024 How often do you attend [facility] or nondenominational services? More than 4 times per year 06/29/2024 Do you belong to any clubs o r organizations such as mandaen groups, unions, fraternal or athletic groups, or [...] in the past [address] [facility], were you homeless or living in a assisted (including now)? No 06/29/2024 Personal Safety Answer Date Recorded Have you ever been in or are you currently in a harmful physical or emotional relationship or is someone making you feel afraid or unsafe? Denies 06/26/2024 Sex and Gender Information Value Date Recorded Sex Assigned at Not on file Legal Sex Male 12:33 PM BUSINESS MANAGER [employer] UNIVERSITY Gender Identity Not on file Sexual Orientation [...] Completed 12/26/2022 Medical Devices Implanted Type Area Sign Painter Apprentice Device Identifier Shelf Expiration Date Model / Serial / Lot [employer] Lens Iol Tecnis Smplcty 1-Pc Clr [place] 20.0 Diopter [id number] - [id number] - [id number] Implanted:Qty: 1 on 08/23/2021 by Steph Lin MD PhD at [facility] Lens Left: Eye [employer] [id number] 05/23/2024 [id number] / [id number] / 0 [employer] Konect Resilia Aortic Valved Conduit 29mm [id number] - [id number] - [id number] Implanted:Qty: 1 on 06/26/2024 by Felipe Alfaro MD at [facility] N/A: Aorta [employer] 12/24/2026 [id number] / [id number] / [employer] Device Closure Fibertape Sternal Cerclage Blunt Needle Ar-[id number] - [id number] Implanted:Qty: 1 on 06/26/2024 by Felipe Alfaro MD at [facility] N/A: Sternum [employer] 04/17/2029 [id number] / / [id number] [employer] Device Closure Fibertape Sternal Cerclage Blunt Needle Ar-[id number] - [id number] Implanted:Qty: 1 on 06/26/2024 by Felipe Alfaro MD at [facility] N/A: Sternum [employer] 04/17/2029 [id number] / / [id number] Procedures Procedure Name Priority Date/Time Associated Diagnosis [...] HIGH RANGE Routine 06/26/2024 9:39 AM CDT HI AN PROCEDURE PLACEHOLDER Routine 06/26/2024 9:33 AM CDT POCT ACTIVATED CLOTTING TIME, HIGH RANGE Routine 06/26/2024 8:59 AM CDT HI AN PROCEDURE PLACEHOLDER Routine 06/26/2024 8:31 AM CDT HI AN CENTRAL LINE QUADRUPLE LUMEN Routine 06/26/2024 8:31 AM CDT HI AN PROCEDURE PLACEHOLDER Routine 06/26/2024 8:31 AM CDT PULMONARY ARTERY CATH Routine 06/26/2024 8:31 AM CDT BW AN SHEATH INTRODUCER PERFORMABLE Routine 06/26/2024 8:31 AM CDT HI AN PROCEDURE PLACEHOLDER Routine 06/26/2024 8:27 AM CDT HI AN ELECTIVE ENDOTRACHEAL AIRWAY Routine 06/26/2024 8:27 AM CDT HI AN PROCEDURE PLACEHOLDER Routine 06/26/2024 8:26 AM CDT HI AN PROCEDURE PLACEHOLDER Routine 06/26/2024 8:25 AM [...] DOPPLER/CF WO CONTRAST Routine 05/07/2024 2:19 PM BUSINESS MANAGER [employer]IVERSITY Aneurysm of ascending aorta without rupture Coronary artery disease involving [place] coronary artery of [place] heart without angina pectoris Essential hypertension COLONOSCOPY 02/19/2024 10:03 AM BUSINESS MANAGER COLLEGE OR UNIVERSITY HEPATITIS C ANTIBODY Routine 12/26/2022 9:29 AM [...] by: Nikolai Youngblood M.D., MPH Javan Madrid ELEVATED MOTORMAN IMG XR PROCEDURES Final Result * eGFR [...] Madrid NP LAB BLOOD ORDERABLES nal Result [facility] [address] Department [place] [address] * (ABNORMAL) CBC without differential (07/03/2024 1:21 AM CDT) Pathologist [facility] WBC 14.89(H) 3.80 - 9.90 K/cumm Hgb 9.9(L) 13.0 - 17.5 g/dL [facility] Hct 30.5(L) 38.9 - 50.3 % [facility] Plt 253 150 - 400 K/cumm [facility] MPV 9.9 9.1 - 12.3 fL [facility] RBC 3.26(L) 4.30 - 5.80 M/cumm [facility] MCV 93.6 81.3 - 96.4 fL [facility] MCH 30.4 27.1 - 33.3 pg [facility] MCHC 32.5 32.3 - 35.7 g/dL [facility] RDW CV 13.5 11.1 - 14.9 % [facility] RDW SD 46.5 35.7 - 48.1 fL [facility] NRBC abs 0.05(H) 0.00 - 0.01 K/cumm [facility] Blood 07/03/2024 1:21 AM CDT 07/03/2024 1:48 AM CDT us Javan Madrid NP LAB BLOOD ORDERABLES Fi nal Result [facility] [address] Department of [employer] [place] [address] * (ABNORMAL) Renal function panel (07/03/2024 1:21 AM CDT) Sodium 137 135 - 145 mmol/L Potassium, pl 4.3 3.3 - 4.9 mmol/L [facility] Chloride 102 97 - 110 mmol/L [facility] CO2 25 22 - 32 mmol/L [facility] Anion gap 10 2 - 15 mmol/L [facility] BUN 23 6 - 25 mg/dL [facility] Creatinine 0.92 0.80 - 1.30 mg/dL [facility] Glucose 128 70 - 199 mg/dL [facility] Comment: Interpretive Data Fasting glucose [...] 2022. Calcium 8.7 8.5 - 10.3 mg/dL [facility] Phosphorus, pl 4.3 2.3 - 4.5 mg/dL [facility] Albumin 3.2(L) 3.5 - 5.0 g/dL [facility] Blood 07/03/2024 1:21 AM CDT 07/03/2024 1:48 AM CDT Javan Madrid NP LAB BLOOD ORDERABLES Fi nal Result [facility] [address] Department [place] [address] * XR Chest 1 View - Portable [...] NP LAB BLOOD ORDERABLES Fi nal Result [facility] [address] Department [place] [address] * (ABNORMAL) CBC without differential (07/02/2024 12:41 AM CDT) WBC 12.68(H) 3.80 - 9.90 K/cumm Hgb 9.7(L) 13.0 - 17.5 g/dL [facility] Hct 29.2(L) 38.9 - 50.3 % [facility] Plt 183 150 - 400 K/cumm [facility] MPV 10.2 9.1 - 12.3 fL [facility] RBC 3.15(L) 4.30 - 5.80 M/cumm [facility] MCV 92.7 81.3 - 96.4 fL [facility] MCH 30.8 27.1 - 33.3 pg [facility] MCHC 33.2 32.3 - 35.7 g/dL [facility] RDW CV 13.4 11.1 - 14.9 % [facility] RDW SD 45.5 35.7 - 48.1 fL [facility] NRBC abs 0.03(H) 0.00 - 0.01 K/cumm [facility] Blood 07/02/2024 12:4 1 AM CDT 07/02/2024 1:08 AM CDT Javan Madrid NP LAB BLOOD ORDERABLES Fi nal Result Performing Organization Address [facility]/ZIP Co de Phone Number [facility] [address] Department [place] [address] * (ABNORMAL) Renal function panel (07/02/2024 12:41 AM CDT) Pathologist [facility] Sodium 137 135 - 145 mmol/L Potassium, pl 4.1 3.3 - 4.9 mmol/L [facility] Chloride 101 97 - 110 mmol/L [facility] CO2 26 22 - 32 mmol/L [facility] Anion gap 10 2 - 15 mmol/L [facility] BUN 23 6 - 25 mg/dL [facility] Creatinine 0.91 0.80 - 1.30 mg/dL [facility] Glucose 125 70 - 199 mg/dL [facility] Comment: Interpretive Data Fasting glucose [...] 2022. Calcium 8.8 8.5 - 10.3 mg/dL [facility] Phosphorus, pl 3.4 2.3 - 4.5 mg/dL [facility] Albumin 3.0(L) 3.5 - 5.0 g/dL [facility] Blood 07/02/2024 12:4 1 AM CDT 07/02/2024 1:08 AM CDT Javan Madrid NP LAB BLOOD ORDERABLES Fi nal Result [facility] [address] Department of [employer] [place] [address] * Magnesium - Add on lab test (07/01/2024 9:33 AM CDT) Acceptable Yes Blood 07/01/2024 9:33 AM CDT 07/01/2024 9:33 AM CDT Narrative [facility] - 07/01/2024 9:33 AM CDT Name of Test->Magnesium us Areli MARTINEZ LAB BLOOD ORDERABLES Fin al Result Performing Organization Address [facility] Co de Phone Number [facility] [address] Department [place] [address] * XR Chest 1 View - Portable [...] NP LAB BLOOD ORDERABLES Fi nal Result [facility] [address] Department [place] [address] * (ABNORMAL) CBC without differential (07/01/2024 1:30 AM CDT) WBC 12.04(H) 3.80 - 9.90 K/cumm Hgb 9.8(L) 13.0 - 17.5 g/dL [facility] Hct 29.1(L) 38.9 - 50.3 % [facility] Plt 160 150 - 400 K/cumm [facility] MPV 10.0 9.1 - 12.3 fL [facility] RBC 3.16(L) 4.30 - 5.80 M/cumm [facility] MCV 92.1 81.3 - 96.4 fL [facility] MCH 31.0 27.1 - 33.3 pg [facility] MCHC 33.7 32.3 - 35.7 g/dL [facility] RDW CV 13.2 11.1 - 14.9 % [facility] RDW SD 45.1 35.7 - 48.1 fL [facility] NRBC abs 0.00 0.00 - 0.01 K/cumm [facility] Blood 07/01/2024 1:30 AM CDT 07/01/2024 1:52 AM CDT Javan Madrid NP LAB BLOOD ORDERABLES Fi nal Result Performing Organization Address [facility]/ZIP Co de Phone Number [facility] [address] [place] [address] * Magnesium (07/01/2024 1:30 AM CDT) [facility] Magnesium 2.4 1.4 - 2.5 mg/dL Blood 07/01/2024 1:30 AM CDT 07/01/2024 1:41 AM CDT Felipe Alfaro MD LAB BLOOD ORDERABLES Fin al Result Performing Organization Address City/[facility]/ZIP Co de Phone Number [facility] [address] [place] [address] * (ABNORMAL) Renal function panel (07/01/2024 1:30 AM CDT) Pathologist [facility] Sodium 137 135 - 145 mmol/L Potassium, pl 4.3 3.3 - 4.9 mmol/L [facility] Chloride 102 97 - 110 mmol/L [facility] CO2 24 22 - 32 mmol/L [facility] Anion gap 11 2 - 15 mmol/L [facility] BUN 20 6 - 25 mg/dL [facility] Creatinine 0.85 0.80 - 1.30 mg/dL [facility] Glucose 128 70 - 199 mg/dL [facility] Comment: Interpretive Data Fasting glucose [...] 2022. Calcium 8.6 8.5 - 10.3 mg/dL [facility] Phosphorus, pl 2.0(L) 2.3 - 4.5 mg/dL [facility] Albumin 3.3(L) 3.5 - 5.0 g/dL [facility] Blood 07/01/2024 1:30 AM CDT 07/01/2024 1:41 AM CDT us Javan Madrid NP LAB BLOOD ORDERABLES Fi nal Result [facility] [address] Department [place] [address] * XR Chest 1 View - Portable [...] costophrenic angle is not included within the [id number] on that side. There is old granulomatous [...] costophrenic angle is not included within the [id number] on that side. There is old granulomatous disease. Stable cardiac and mediastinal contours. Dictated by: Julio Myles MD The radiology attending physician has personally reviewed this study, and had reviewed and/or edited this written report and agrees with it. Electronically signed by: Ciara Vidales M.D. Javan Mujicakashif Madrid ELEVATED MOTORMAN IMG XR PROCEDURES Final Result * eGFR [...] 06/30/2024 1:00 AM CDT us Javan Madrid ELEVATED MOTORMAN LAB BLOOD ORDERABLES Fi nal Result Performing Organization Address [facility]/ZIP Co de Phone Number [facility] [address] Department [employer] [place] [address] * (ABNORMAL) aPTT (06/30/2024 12:41 AM CDT) Pathologist [facility] aPTT 59(H) 28 - 38 sec Comment: Interpretive Data Heparin therapeutic range: 66.0 - 100.0 seconds. Range based on correlation with therapeutic heparin activity range of 0.3 - 0.7 Units/mL. Current interpretive data was last revised on 2022. Blood 06/30/2024 12:4 1 AM CDT 06/30/2024 1:00 AM CDT us Felipe Alfaro MD LAB BLOOD ORDERABLES Fin al Result Performing Organization Address [facility] Co de Phone Number [facility] [address] Department [employer] [place] [address] * (ABNORMAL) CBC without differential (06/30/2024 12:41 AM CDT) Pathologist [facility] WBC 18.53(H) 3.80 - 9.90 K/cumm Hgb 10.2(L) 13.0 - 17.5 g/dL [facility] Hct 30.3(L) 38.9 - 50.3 % [facility] Plt 150 150 - 400 K/cumm [facility] MPV 11.4 9.1 - 12.3 fL [facility] RBC 3.26(L) 4.30 - 5.80 M/cumm [facility] MCV 92.9 81.3 - 96.4 fL [facility] MCH 31.3 27.1 - 33.3 pg [facility] MCHC 33.7 32.3 - 35.7 g/dL [facility] RDW CV 13.1 11.1 - 14.9 % [facility] RDW SD 44.8 35.7 - 48.1 fL [facility] NRBC abs 0.00 0.00 - 0.01 K/cumm [facility] Blood 06/30/2024 12:4 1 AM CDT 06/30/2024 1:00 AM CDT us Javan Madrid NP LAB BLOOD ORDERABLES Fi nal Result [facility] [address] Department [place] [address] * (ABNORMAL) Renal function panel (06/30/2024 12:41 AM CDT) Sodium 134(L) 135 - 145 mmol/L Potassium, pl 4.2 3.3 - 4.9 mmol/L [facility] Chloride 100 97 - 110 mmol/L [facility] CO2 22 22 - 32 mmol/L [facility] Anion gap 12 2 - 15 mmol/L [facility] BUN 24 6 - 25 mg/dL [facility] Creatinine 0.89 0.80 - 1.30 mg/dL [facility] Glucose 127 70 - 199 mg/dL [facility] Comment: Interpretive Data Fasting glucose [...] 2022. Calcium 8.7 8.5 - 10.3 mg/dL [facility] Phosphorus, pl 2.1(L) 2.3 - 4.5 mg/dL [facility] Albumin 2.9(L) 3.5 - 5.0 g/dL [facility] Blood 06/30/2024 12:4 1 AM CDT 06/30/2024 1:00 AM CDT Javan Madrid ELEVATED MOTORMAN LAB BLOOD ORDERABLES Fi nal Result Performing Organization Address City/[facility] Co de Phone Number [facility] [address] Department [employer] [place] [address] * (ABNORMAL) aPTT (06/29/2024 3:03 PM CDT) [...] ORDERABLES Fin al Result Performing Organization Address [facility] Co de Phone Number [facility] [address] Department [employer] [place] [address] * aPTT (06/29/2024 8:48 AM CDT) aPTT 33 28 - 38 sec Comment: Interpretive Data Heparin therapeutic range: 66.0 - 100.0 seconds. Range based on correlation with therapeutic heparin activity range of 0.3 - 0.7 Units/mL. Current interpretive data was last revised on 2022. Blood 06/29/2024 8:48 AM CDT 06/29/2024 8:53 AM CDT Narrative [facility] - 06/29/2024 9:05 AM CDT Baseline prior to heparin initiation Laron Kirk PA LAB BLOOD ORDERABLES Final R esult Performing Organization Address City/[facility]/ZIP Co de Phone Number [facility] [address] Department [place] [address] * (ABNORMAL) Protime-INR (06/29/2024 8:48 AM CDT) PT 13.6(H) 9.7 - 13.0 sec INR 1.25(H) 0.90 - 1.20 [facility] Comment: Interpretive data Oral anticoagulant therapeutic ranges: Venous thromboembolism prophylaxis or treatment: 2.0-3.0 CARDIOLOGY Standard range: 2.0-3.0 High-intensity range: 2.5-3.5 Refer to indication-specific guidelines for appropriate target ranges for prosthetic heart valve replacement. Current interpretive data was last revised on 2019. Blood 06/29/2024 8:48 AM CDT 06/29/2024 8:53 AM CDT Narrative [facility] - 06/29/2024 9:05 AM CDT Baseline prior to heparin initiation us Laron MARTINEZ LAB BLOOD ORDERABLES Final R esult [facility] [address] Department [place] [address] * XR Chest 1 View - Portable [...] signed by: Dylan Arnett M.D. Javan Madrid [employer] IMG XR PROCEDURES Final Result * eGFR [...] LAB BLOOD ORDERABLES Fi nal Result [facility] [address] Department [place] [address] * (ABNORMAL) CBC without differential (06/29/2024 1:15 AM CDT) WBC 21.88(H) 3.80 - 9.90 K/cumm Hgb 10.6(L) 13.0 - 17.5 g/dL [facility] Hct 31.4(L) 38.9 - 50.3 % [facility] Plt 102(L) 150 - 400 K/cumm [facility] MPV 11.5 9.1 - 12.3 fL [facility] RBC 3.34(L) 4.30 - 5.80 M/cumm [facility] MCV 94.0 81.3 - 96.4 fL [facility] MCH 31.7 27.1 - 33.3 pg [facility] MCHC 33.8 32.3 - 35.7 g/dL [facility] RDW CV 13.1 11.1 - 14.9 % [facility] RDW SD 45.1 35.7 - 48.1 fL [facility] NRBC abs 0.00 0.00 - 0.01 K/cumm [facility] Blood 06/29/2024 1:15 AM CDT 06/29/2024 1:27 AM CDT Javan Madrid NP LAB BLOOD ORDERABLES Fi nal Result [facility] [address] Department [place] [address] * (ABNORMAL) Renal function panel (06/29/2024 1:15 AM CDT) Sodium 132(L) 135 - 145 mmol/L Potassium, pl 4.3 3.3 - 4.9 mmol/L [facility] Chloride 98 97 - 110 mmol/L [facility] CO2 22 22 - 32 mmol/L [facility] Anion gap 12 2 - 15 mmol/L [facility] BUN 25 6 - 25 mg/dL [facility] Creatinine 1.03 0.80 - 1.30 mg/dL [facility] Glucose 146 70 - 199 mg/dL [facility] Comment: Interpretive Data Fasting glucose [...] 2022. Calcium 8.7 8.5 - 10.3 mg/dL [facility] Phosphorus, pl 2.1(L) 2.3 - 4.5 mg/dL [facility] Albumin 3.2(L) 3.5 - 5.0 g/dL [facility] Blood 06/29/2024 1:15 AM CDT 06/29/2024 1:27 AM CDT us Javan Madrid NP LAB BLOOD ORDERABLES Fi nal Result [facility] [address] Department [place] [address] * XR Chest 1 Vw (06/28/2024 10:09 [...] * POCT glucose (06/28/2024 8:05 AM CDT) [facility] Glucose, POC 156 70 - 199 mg/dL Comment: For Glucose values <35 mg/dl when Hematocrit is >60 mg/dl,the test may not accurately detect significant hypoglycemia,and testing in the Laboratory should be considered if clinically indicated. POC Performer [phone] [facility] Blood 06/28/2024 8:05 AM CDT 06/28/2024 8:05 AM CDT us Felipe Alfaro MD LAB POCT ORDERABLES - DE VICE Final Result [facility] [address] Department [place] [address] * XR Chest 1 View - Portable [...] LAB BLOOD ORDERABLES Fi nal Result [facility] [address] Department [place] [address] * (ABNORMAL) CBC without differential (06/28/2024 5:38 AM CDT) [facility] WBC 29.39(H) 3.80 - 9.90 K/cumm Hgb 11.2(L) 13.0 - 17.5 g/dL [facility] Hct 34.1(L) 38.9 - 50.3 % [facility] Plt 102(L) 150 - 400 K/cumm [facility] MPV 11.8 9.1 - 12.3 fL [facility] RBC 3.64(L) 4.30 - 5.80 M/cumm [facility] MCV 93.7 81.3 - 96.4 fL [facility] MCH 30.8 27.1 - 33.3 pg [facility] MCHC 32.8 32.3 - 35.7 g/dL [facility] RDW CV 13.2 11.1 - 14.9 % [facility] RDW SD 45.3 35.7 - 48.1 fL [facility] NRBC abs 0.00 0.00 - 0.01 K/cumm [facility] Blood 06/28/2024 5:38 AM CDT 06/28/2024 6:00 AM CDT Javan Madrid NP LAB BLOOD ORDERABLES nal Result [facility] [address] Department [place] [address] * (ABNORMAL) Renal function panel (06/28/2024 5:38 AM CDT) [facility] Sodium 132(L) 135 - 145 mmol/L Potassium, pl 4.5 3.3 - 4.9 mmol/L [facility] Chloride 98 97 - 110 mmol/L [facility] CO2 21(L) 22 - 32 mmol/L [facility] Anion gap 13 2 - 15 mmol/L [facility] BUN 19 6 - 25 mg/dL [facility] Creatinine 0.98 0.80 - 1.30 mg/dL [facility] Glucose 150 70 - 199 mg/dL [facility] Comment: Interpretive Data Fasting glucose [...] 2022. Calcium 8.8 8.5 - 10.3 mg/dL [facility] Phosphorus, pl 2.3 2.3 - 4.5 mg/dL [facility] Albumin 3.4(L) 3.5 - 5.0 g/dL [facility] Blood 06/28/2024 5:38 AM CDT 06/28/2024 6:00 AM CDT us Javan Madrid NP LAB BLOOD ORDERABLES nal Result [facility] [address] Department [place] [address] * eGFR (06/27/2024 9:05 PM CDT) eGFR [...] BLOOD ORDERABLES Final Result Performing Organization Address City/[facility]/ZIP Co de Phone Number [facility] [address] [facility] [employer] [place] [address] * Magnesium (06/27/2024 9:05 PM CDT) [facility] Magnesium 2.2 1.4 - 2.5 mg/dL Blood 06/27/2024 9:05 PM CDT 06/27/2024 9:15 PM CDT Maulik MARTINEZ LAB BLOOD ORDERABLES Final Result Performing Organization Address [facility] Co de Phone Number [facility] [address] [facility] [employer] [place] [address] * (ABNORMAL) Renal function panel (06/27/2024 9:05 PM CDT) Pathologist [facility] Sodium 135 135 - 145 mmol/L Potassium, pl 4.6 3.3 - 4.9 mmol/L [facility] Chloride 102 97 - 110 mmol/L [facility] CO2 21(L) 22 - 32 mmol/L [facility] Anion gap 12 2 - 15 mmol/L [facility] BUN 17 6 - 25 mg/dL [facility] Creatinine 1.04 0.80 - 1.30 mg/dL [facility] Glucose 166 70 - 199 mg/dL [facility] Comment: Interpretive Data Fasting glucose [...] 2022. Calcium 8.6 8.5 - 10.3 mg/dL [facility] Phosphorus, pl 2.5 2.3 - 4.5 mg/dL [facility] Albumin 3.7 3.5 - 5.0 g/dL [facility] Blood 06/27/2024 9:05 PM CDT 06/27/2024 9:15 PM CDT us Maulik MARTINEZ LAB BLOOD ORDERABLES Final Result Performing Organization Address City/[facility]/ZIP Co de Phone Number [facility] [address] [facility] [employer] [place], [place] [id number] * POCT glucose (06/27/2024 8:59 PM CDT) Glucose, POC 158 70 - 199 mg/dL Comment: For Glucose values <35 mg/dl when Hematocrit is >60 mg/dl,the test may not accurately detect significant hypoglycemia,and testing in the Laboratory should be considered if clinically indicated. POC Performer [id number] [facility] Blood 06/27/2024 8:59 PM CDT 06/27/2024 8:59 PM CDT us Felipe Alfaro MD LAB POCT ORDERABLES - DE VICE Final Result Performing Organization Address [facility]/ZIP Co de Phone Number [facility] [address] [facility] [employer] [place] [address] * POCT glucose (06/27/2024 5:08 PM CDT) Glucose, POC 149 70 - 199 mg/dL Comment: For Glucose values <35 mg/dl when Hematocrit is >60 mg/dl,the test may not accurately detect significant hypoglycemia,and testing in the Laboratory should be considered if clinically indicated. POC Performer [id number] [facility] Blood 06/27/2024 5:08 PM CDT 06/27/2024 5:08 PM CDT Felipe Alfaro MD LAB POCT ORDERABLES - DE VICE Final Result [facility] [address] Department [place] [address] * Critical Care (06/27/2024 12:34 PM CDT) Narrative Abhishek Vazquez MD - 06/27/2024 12:34 PM CDT Abhishek Vazquez MD 06/27/2024 12:35 PM Critical Care Performed by: Abhishek Vazquez MD Authorized by: Abhishek Vazquez MD CRITICAL CARE: Team: [facility] CT Shift: AM Level of Billing: [...] plan with the patient's team and other medical/regional engagement consultant staff. This time was in addition [...] * POCT glucose (06/27/2024 12:33 PM CDT) [facility] Glucose, POC 193 70 - 199 mg/dL Comment: For Glucose values <35 mg/dl when Hematocrit is >60 mg/dl,the test may not accurately detect significant hypoglycemia,and testing in the Laboratory should be considered if clinically indicated. POC Performer [id number] [facility] Blood 06/27/2024 12:3 3 PM CDT 06/27/2024 12:33 PM CDT Felipe Alfaro MD LAB POCT ORDERABLES - DE VICE Final Result Performing Organization Address [facility] Co de Phone Number [facility] [address] Department [place] [address] * POCT glucose (06/27/2024 8:33 AM CDT) [facility] Signature Glucose, POC 158 70 - 199 mg/dL Comment: For Glucose values <35 mg/dl when Hematocrit is >60 mg/dl,the test may not accurately detect significant hypoglycemia,and testing in the Laboratory should be considered if clinically indicated. POC Performer [id number] [facility] Blood 06/27/2024 8:33 AM CDT 06/27/2024 8:33 AM CDT Felipe Alfaro MD LAB POCT ORDERABLES - DE VICE Final Result Performing Organization Address [facility] Phone Number [facility] [address] Department [place] [address] * XR Chest 1 View - Portable [...] by: Humza Rene M.D. us Javan Madrid [employer] IMG XR PROCEDURES Final Result * eGFR [...] LAB BLOOD ORDERABLES Fin al Result [facility] [address] Department [place] [address] * (ABNORMAL) Calcium, ionized (06/27/2024 12:23 AM CDT) Calcium, Ionized 4.35(L) 4.50 - 5.10 mg/dL Blood 06/27/2024 12:2 3 AM CDT 06/27/2024 12:41 AM CDT us Felipe Alfaro MD LAB BLOOD ORDERABLES Fin al Result Performing Organization Address [facility] Co de Phone Number [facility] [address] [employer] [place], [place] [id number] * (ABNORMAL) CBC without differential (06/27/2024 12:23 AM CDT) WBC 24.36(H) 3.80 - 9.90 K/cumm Hgb 12.7(L) 13.0 - 17.5 g/dL [facility] Hct 37.4(L) 38.9 - 50.3 % [facility] Plt 85(L) 150 - 400 K/cumm [facility] Comment:no clot MPV 11.2 9.1 - 12.3 fL [facility] RBC 4.03(L) 4.30 - 5.80 M/cumm [facility] MCV 92.8 81.3 - 96.4 fL [facility] MCH 31.5 27.1 - 33.3 pg [facility] MCHC 34.0 32.3 - 35.7 g/dL [facility] RDW CV 12.8 11.1 - 14.9 % [facility] RDW SD 43.9 35.7 - 48.1 fL [facility] NRBC abs 0.00 0.00 - 0.01 K/cumm [facility] Blood 06/27/2024 12:2 3 AM CDT 06/27/2024 12:43 AM CDT us Javan Madrid NP LAB BLOOD ORDERABLES Fi nal Result Performing Organization Address [facility] Co de Phone Number [facility] [address] Department [employer] [place], [place] [id number] * Magnesium (06/27/2024 12:23 AM CDT) Magnesium 1.8 1.4 - 2.5 mg/dL Blood 06/27/2024 12:2 3 AM CDT 06/27/2024 12:43 AM CDT us Felipe Alfaro MD LAB BLOOD ORDERABLES Fin al Result [facility] [address] Department [place] [address] * (ABNORMAL) Renal function panel (06/27/2024 12:23 AM CDT) Pathologist [facility] Sodium 139 135 - 145 mmol/L Potassium, pl 3.9 3.3 - 4.9 mmol/L [facility] Chloride 106 97 - 110 mmol/L [facility] CO2 19(L) 22 - 32 mmol/L [facility] Anion gap 14 2 - 15 mmol/L [facility] BUN 9 6 - 25 mg/dL [facility] Creatinine 0.66(L) 0.80 - 1.30 mg/dL [facility] Glucose 194 70 - 199 mg/dL [facility] Comment: Interpretive Data Fasting glucose [...] 2022. Calcium 8.1(L) 8.5 - 10.3 mg/dL [facility] Phosphorus, pl 2.9 2.3 - 4.5 mg/dL [facility] Albumin 3.8 3.5 - 5.0 g/dL [facility] Blood 06/27/2024 12:2 3 AM CDT 06/27/2024 12:43 AM CDT us Javan Madrid NP LAB BLOOD ORDERABLES Fi nal Result Performing Organization Address City/[facility]/ZIP Co de Phone Number [facility] [address] Department [place] [address] * POCT glucose (06/26/2024 9:05 PM CDT) [facility] Signature Glucose, POC 107 70 - 199 mg/dL Comment: For Glucose values <35 mg/dl when Hematocrit is >60 mg/dl,the test may not accurately detect significant hypoglycemia,and testing in the Laboratory should be considered if clinically indicated. POC Performer [id number] [facility] Blood 06/26/2024 9:05 PM CDT 06/26/2024 9:05 PM CDT us Felipe Alfaro MD LAB POCT ORDERABLES - DE VICE Final Result Performing Organization Address [facility] Co de Phone Number [facility] [address] Department [employer] [place] [address] * Critical Care (06/26/2024 6:30 PM CDT) Narrative Abhishek Vazquez MD - 06/26/2024 6:30 PM CDT Abhishek Vazquez MD 06/29/2024 7:36 AM Critical Care Performed by: Tanika Reyes NP Authorized by: Tanika Reyes NP CRITICAL CARE: Team: [facility] CT Shift: PM Level of Billing: [...] plan with the patient's team and other medical/regional engagement consultant staff. This time was in addition [...] laboratory results, and imaging us Tanika Reyes [employer] IN CLINIC/BEDSIDE ORDERAB LES Final Result * POCT glucose (06/26/2024 5:05 PM CDT) Glucose, POC 123 70 - 199 mg/dL Comment: For Glucose values <35 mg/dl when Hematocrit is >60 mg/dl,the test may not accurately detect significant hypoglycemia,and testing in the Laboratory should be considered if clinically indicated. POC Performer [phone] [facility] Blood 06/26/2024 5:05 PM CDT 06/26/2024 5:05 PM CDT Felipe Alfaro MD LAB POCT ORDERABLES - DE VICE Final Result Performing Organization Address [facility] Co de Phone Number [facility] [address] [facility] [employer] [place], [place] [id number] * POCT glucose (06/26/2024 3:58 PM CDT) Glucose, POC 114 70 - 199 mg/dL Comment: For Glucose values <35 mg/dl when Hematocrit is >60 mg/dl,the test may not accurately detect significant hypoglycemia,and testing in the Laboratory should be considered if clinically indicated. POC Performer [id number] [facility] Blood 06/26/2024 3:58 PM CDT 06/26/2024 3:58 PM CDT us Felipe Alfaro MD LAB POCT ORDERABLES - DE VICE Final Result Performing Organization Address City/[facility] Co de Phone Number [facility] [address] [facility] [employer] [place] [address] * POCT glucose (06/26/2024 2:47 PM CDT) Glucose, POC 102 70 - 199 mg/dL Comment: For Glucose values <35 mg/dl when Hematocrit is >60 mg/dl,the test may not accurately detect significant hypoglycemia,and testing in the Laboratory should be considered if clinically indicated. POC Performer [phone] [facility] Blood 06/26/2024 2:47 PM CDT 06/26/2024 2:47 PM CDT us Felipe Alfaro MD LAB POCT ORDERABLES - DE VICE Final Result [facility] [address] Department [place] [address] * Critical Care (06/26/2024 2:07 PM CDT) Narrative Viraj Malik MD - 06/26/2024 2:07 PM CDT Viraj Malik MD 06/26/2024 2:56 PM Critical Care Performed by: Viraj Malik MD Authorized by: Viraj Malik MD CRITICAL CARE: Team: [facility] CT Shift: AM Level of Billing: [...] plan with the ICU team and other medical/regional engagement consultant staff, making frequent assessments and decisions [...] be considered if clinically indicated. POC Performer [id number] [facility] Blood 06/26/2024 1:52 PM CDT 06/26/2024 1:52 PM CDT us Felipe Alfaro MD LAB POCT ORDERABLES - DE VICE Final Result [facility] [address] Department [place] [address] * XR Chest 1 View - Portable (06/26/2024 1:46 PM CDT) Anatomical Region Laterality Modality Body, Chest N/A Computed Radiogr aphy 06/26/2024 1:49 PM CDT Impressions 06/26/2024 1:49 PM CDT FINDINGS/IMPRESSION: Endotracheal tube terminates 0.5 to 1 cm above the logan. Repositioning is recommended. Right IJ central venous catheter tip terminates in the mid thoracic trachea. Right IJ Edgeley-Roseline catheter terminates in the main pulmonary artery. [...] in the mid thoracic trachea. Right IJ Edgeley-Roseline catheter terminates in the main pulmonary artery. Sternotomy wires are seen. Prosthetic aortic valve is noted. Minimal bibasilar atelectatic changes. No focal consolidation pleural effusion or pneumothorax. Mediastinal calcified lymph nodes are seen. Cardiomediastinum is unremarkable. Electronically signed by: Brandy Parnell M.D. Felipe Alfaro MD IMG XR PROCEDURES Final Result * Oxyhemoglobin, pulmonary artery (06/26/2024 1:16 PM CDT) Pathologist [facility] Oxyhemoglobin, PA 73.9 % Comment: Interpretive Data No reference range established. Current interpretive data was last revised 2019. Blood 06/26/2024 1:16 PM CDT 06/26/2024 1:33 PM CDT Felipe Alfaro MD LAB BLOOD ORDERABLES Fin al Result [facility] [address] Department [place] [address] * eGFR (06/26/2024 1:16 PM CDT) eGFR [...] ORDERABLES Fin al Result Performing Organization Address City/[facility] Co de Phone Number [facility] [address] Department [employer] [place] [address] * (ABNORMAL) Calcium, ionized (06/26/2024 1:16 PM CDT) Calcium, Ionized 4.35(L) 4.50 - 5.10 mg/dL Blood 06/26/2024 1:16 PM CDT 06/26/2024 1:33 PM CDT Felipe Alfaro MD LAB BLOOD ORDERABLES Fin al Result Performing Organization Address [facility] de Phone Number [facility] [address] Department of [employer] [place], [place] [id number] * aPTT (06/26/2024 1:16 PM CDT) aPTT [...] ORDERABLES Fin al Result Performing Organization Address [facility] Co de Phone Number [facility] [address] Department [place] [address] * (ABNORMAL) Protime-INR (06/26/2024 1:16 PM CDT) PT 16.3(H) 9.7 - 13.0 sec INR 1.50(H) 0.90 - 1.20 [facility] Comment: Interpretive data Oral anticoagulant therapeutic ranges: Venous thromboembolism prophylaxis or treatment: 2.0-3.0 CARDIOLOGY Standard range: 2.0-3.0 High-intensity range: 2.5-3.5 Refer to indication-specific guidelines for appropriate target ranges for prosthetic heart valve replacement. Current interpretive data was last revised on 2019. Blood 06/26/2024 1:16 PM CDT 06/26/2024 1:53 PM CDT Felipe Alfaro MD LAB BLOOD ORDERABLES Fin al Result Performing Organization Address [facility] Co de Phone Number [facility] [address] Department [place] [address] * (ABNORMAL) CBC without differential (06/26/2024 1:16 PM CDT) Pathologist [facility] WBC 29.92(H) 3.80 - 9.90 K/cumm Hgb 13.4 13.0 - 17.5 g/dL [facility] Hct 39.6 38.9 - 50.3 % [facility] Plt 130(L) 150 - 400 K/cumm [facility] MPV 10.7 9.1 - 12.3 fL [facility] RBC 4.25(L) 4.30 - 5.80 M/cumm [facility] MCV 93.2 81.3 - 96.4 fL [facility] MCH 31.5 27.1 - 33.3 pg [facility] MCHC 33.8 32.3 - 35.7 g/dL [facility] RDW CV 12.9 11.1 - 14.9 % [facility] RDW SD 44.0 35.7 - 48.1 fL [facility] NRBC abs 0.00 0.00 - 0.01 K/cumm [facility] Blood 06/26/2024 1:16 PM CDT 06/26/2024 1:53 PM CDT Felipe Alfaro MD LAB BLOOD ORDERABLES Fin al Result Performing Organization Address City/[facility] Co de Phone Number [facility] [address] [facility] [employer] [place] [address] * Phosphorus (06/26/2024 1:16 PM CDT) Pathologist [facility] Phosphorus, pl 3.0 2.3 - 4.5 mg/dL Blood 06/26/2024 1:16 PM CDT 06/26/2024 1:39 PM CDT Felipe Alfaro MD LAB BLOOD ORDERABLES Fin al Result Performing Organization Address [facility] Co de Phone Number [facility] [address] Department [employer] [place] [address] * Magnesium (06/26/2024 1:16 PM CDT) [facility] Magnesium 2.4 1.4 - 2.5 mg/dL Blood 06/26/2024 1:16 PM CDT 06/26/2024 1:39 PM CDT Felipe Alfaro MD LAB BLOOD ORDERABLES Fin al Result Performing Organization Address [facility] Co de Phone Number [facility] [address] [facility] [employer] [place] [address] * (ABNORMAL) Blood gas, arterial (06/26/2024 1:16 PM CDT) Pathologist [facility] pH, Art 7.33(L) 7.35 - 7.45 PCO2, Arterial 48(H) 35 - 45 mmHg [facility] PO2, Arterial 139(H) 83 - 108 mmHg [facility] HCO3 Art (Calculated) 25 20 - 30 mmol/L [facility] BE, art -1 mmol/L [facility] Comment: Interpretive Data No Reference Range Established Current Interpretive Data was last revised on 2017 O2 Sat Art (Calculated) 99(H) 94 - 98 % [facility] Blood 06/26/2024 1:16 PM CDT 06/26/2024 1:33 PM CDT us Felipe Alfaro MD LAB BLOOD ORDERABLES Fin al Result [facility] [address] Department [place] [address] * (ABNORMAL) Comprehensive metabolic panel (06/26/2024 1:16 PM CDT) Sodium 142 135 - 145 mmol/L Potassium, pl 4.4 3.3 - 4.9 mmol/L [facility] Comment:Hemolyzed; potassium value may be falsely elevated by as much as 0.3 - 0.5 mmol/L. Suggest redraw and reanalysis Chloride 110 97 - 110 mmol/L [facility] CO2 20(L) 22 - 32 mmol/L [facility] Anion gap 12 2 - 15 mmol/L [facility] BUN 11 6 - 25 mg/dL [facility] Creatinine 0.82 0.80 - 1.30 mg/dL [facility] Glucose 124 70 - 199 mg/dL [facility] Comment: Interpretive Data Fasting glucose [...] 2022. Calcium 7.9(L) 8.5 - 10.3 mg/dL [facility] Bilirubin, total 1.1 0.1 - 1.2 mg/dL [facility] Protein, pl 5.4(L) 6.5 - 8.5 g/dL [facility] Albumin 3.5 3.5 - 5.0 g/dL [facility] Alk phos 65 40 - 130 Units/L [facility] ALT 14 7 - 55 Units/L [facility] AST 46 10 - 50 Units/L [facility] Comment:Slightly Hemolyzed S pecimen Blood 06/26/2024 1:16 PM CDT 06/26/2024 1:39 PM CDT Felipe Alfaro MD LAB BLOOD ORDERABLES Fin al Result Performing Organization Address [facility] Co de Phone Number [facility] [address] [employer] [place], [place] [phone] * aPTT (06/26/2024 12:04 PM CDT) aPTT [...] ORDERABLES Fin al Result Performing Organization Address [facility] Co de Phone Number [facility] [address] [employer] [place], [place] [phone] * (ABNORMAL) Protime-INR (06/26/2024 12:04 PM CDT) PT 18.6(H) 9.7 - 13.0 sec INR 1.70(H) 0.90 - 1.20 [facility] Comment: Interpretive data Oral anticoagulant therapeutic [...] ORDERABLES Fin al Result Performing Organization Address City/[facility]/ZIP Co de Phone Number [facility] [address] [place] [place], [place] [phone] * Fibrinogen (06/26/2024 12:04 PM CDT) Pathologist [facility] Fibrinogen 229 170 - 400 mg/dL Blood 06/26/2024 12:0 4 PM CDT 06/26/2024 12:04 PM CDT Felipe Alfaro MD LAB BLOOD ORDERABLES Fin al Result Performing Organization Address [facility] Co de Phone Number [facility] [address] [employer] [place], [place] [phone] * (ABNORMAL) CBC without differential (06/26/2024 12:04 PM CDT) WBC 20.55(H) 3.80 - 9.90 K/cumm Hgb 11.8(L) 13.0 - 17.5 g/dL [facility] Hct 34.8(L) 38.9 - 50.3 % [facility] Plt 101(L) 150 - 400 K/cumm [facility] Comment:OR patient MPV 10.8 9.1 - 12.3 fL [facility] RBC 3.74(L) 4.30 - 5.80 M/cumm [facility] MCV 93.0 81.3 - 96.4 fL [facility] MCH 31.6 27.1 - 33.3 pg [facility] MCHC 33.9 32.3 - 35.7 g/dL [facility] RDW CV 12.8 11.1 - 14.9 % [facility] RDW SD 43.9 35.7 - 48.1 fL [facility] NRBC abs 0.00 0.00 - 0.01 K/cumm [facility] Blood 06/26/2024 12:0 4 PM CDT 06/26/2024 12:04 PM CDT us Felipe Alfaro MD LAB BLOOD ORDERABLES Fin al Result [facility] [address] Department [place] [address] * (ABNORMAL) POC Blood Gas and Chemistries, Arterial - (06/26/2024 12:03 PM CDT) pH, Art POC 7.42 7.35 - 7.45 pCO2, Art POC 42 35 - 45 mmHg [facility] pO2, Art POC 409(H) 80 - 108 mmHg [facility] Na, POC 140 135 - 145 mmol/L [facility] K POC 4.3 3.3 - 4.9 mmol/L [facility] Comment: Interpretive Data This method is not able to assess for hemolysis, which may falsely increase potassium concentrations. If further testing is needed to evaluate this result, consider in-laboratory plasma potassium. Current Interpretive Data was last revised on 2021. Cl, POC 110 97 - 110 mmol/L [facility] Ionized Ca, POC 4.51 4.50 - 5.10 mg/dL [facility] Glucose, POC 149 70 - 199 mg/dL [facility] Lactate, POC 1.8 0.7 - 2.0 mmol/L [facility] O2Hb, Art POC 97.7(H) 90.0 - 95.0 % [facility] Carboxhgb fract 1.3 0.0 - 2.9 % [facility] Methemoglobin 0.8 0.0 - 1.9 % [facility] HHb, POC 0.3 0.0 - 5.0 % [facility] SO2 (franklin) arterial 100(H) 90 - 95 % [facility] BE, art, POC 2.4(H) -2.0 - 2.0 mmol/L [facility] HCO3, Art POC 27 20 - 30 mmol/L [facility] Hct, POC 36.0(L) 38.9 - 50.3 % [facility] Total Hb, POC 12.0(L) 13.0 - 17.5 g/dL [facility] Blood 06/26/2024 12:0 3 PM CDT 06/26/2024 12:03 PM CDT Felipe Alfaro MD LAB POCT ORDERABLES - DE VICE Final Result Performing Organization Address [facility]/ZIP Co de Phone Number [facility] [address] Department of [employer] [place], [place] [phone] * POC Activated Clotting Time, High Range (06/26/2024 12:01 PM CDT) ACT 133 87 - 138 sec POC Performer [id number] [facility] Blood 06/26/2024 12:0 1 PM CDT 06/26/2024 12:01 PM CDT Felipe Alfaro MD LAB BLOOD ORDERABLES Fin al Result Performing Organization Address [facility]/ZIP Co de Phone Number [facility] [address] Department of [employer] [place] [address] * (ABNORMAL) POC Blood Gas and Chemistries, Arterial - (06/26/2024 11:16 AM CDT) pH, Art POC 7.35 7.35 - 7.45 pCO2, Art POC 41 35 - 45 mmHg [facility] pO2, Art POC 260(H) 80 - 108 mmHg [facility] Na, POC 136 135 - 145 mmol/L [facility] K POC 4.6 3.3 - 4.9 mmol/L [facility] Comment: Interpretive Data This method is not able to assess for hemolysis, which may falsely increase potassium concentrations. If further testing is needed to evaluate this result, consider in-laboratory plasma potassium. Current Interpretive Data was last revised on 2021. Cl, POC 108 97 - 110 mmol/L [facility] Ionized Ca, POC 4.71 4.50 - 5.10 mg/dL [facility] Glucose, POC 196 70 - 199 mg/dL [facility] Lactate, POC 2.0 0.7 - 2.0 mmol/L [facility] O2Hb, Art POC 98.0(H) 90.0 - 95.0 % [facility] Carboxhgb fract 1.0 0.0 - 2.9 % [facility] Methemoglobin 0.9 0.0 - 1.9 % [facility] HHb, POC 0.0 0.0 - 5.0 % [facility] SO2 (franklin) arterial 100(H) 90 - 95 % [facility] Total CO2, Art POC 24 22 - 32 mmol/L [facility] BE, art, POC -2.9(L) -2.0 - 2.0 mmol/L [facility] HCO3, Art POC 23 20 - 30 mmol/L [facility] Hct, POC 36.0(L) 38.9 - 50.3 % [facility] Total Hb, POC 12.0(L) 13.0 - 17.5 g/dL [facility] Blood 06/26/2024 11:1 6 AM CDT 06/26/2024 11:16 AM CDT us Felipe Alfaro MD LAB POCT ORDERABLES - DE VICE Final Result [facility] [address] Department [place] [address] * (ABNORMAL) POC Activated Clotting Time, High Range (06/26/2024 11:15 AM CDT) ACT 440(H) 87 - 138 sec POC Performer [id number] [facility] Blood 06/26/2024 11:1 5 AM CDT 06/26/2024 11:15 AM CDT us Felipe Alfaro MD LAB BLOOD ORDERABLES Fin al Result [facility] [address] Department [place] [address] * (ABNORMAL) POC Blood Gas and Chemistries, Venous - (06/26/2024 10:55 AM CDT) pH, Hosea POC 7.36 7.32 - 7.45 pCO2, hosea POC 43 40 - 50 mmHg [facility] pO2, hosea POC 51(H) 35 - 42 mmHg [facility] Na, POC 137 135 - 145 mmol/L [facility] K POC 7.7(C) 3.3 - 4.9 mmol/L [facility] Comment: Interpretive Data This method is not able to assess for hemolysis, which may falsely increase potassium concentrations. If further testing is needed to evaluate this result, consider in-laboratory plasma potassium. Current Interpretive Data was last revised on 2021. Cl, POC 110 97 - 110 mmol/L [facility] Ionized Ca, POC 4.63 4.50 - 5.10 mg/dL [facility] Glucose, POC 218(H) 70 - 199 mg/dL [facility] Lactate, POC 2.1(H) 0.7 - 2.0 mmol/L [facility] O2Hb, Hosea POC 81.8(L) 90.0 - 95.0 % [facility] Carboxhgb fract 1.4 0.0 - 2.9 % [facility] Methemoglobin 0.5 0.0 - 1.9 % [facility] HHb, POC 16.3(H) 0.0 - 5.0 % [facility] O2 Sat, Hosea POC (Franklin) 83(H) 68 - 77 % [facility] Total CO2, hosea POC 26 22 - 32 mmol/L [facility] Base excess, hosea POC -1.2 mmol/L [facility] HCO3, Hosea POC 24 20 - 30 mmol/L [facility] Hct, POC 36.0(L) 38.9 - 50.3 % [facility] Total Hb, POC 11.9(L) 13.0 - 17.5 g/dL [facility] Blood 06/26/2024 10:5 5 AM CDT 06/26/2024 10:55 AM CDT us Felipe Alfaro MD LAB POCT ORDERABLES - DE VICE Final Result [facility] [address] Department [place] [address] * (ABNORMAL) POC Blood Gas and Chemistries, Arterial - (06/26/2024 10:44 AM CDT) pH, Art POC 7.47(H) 7.35 - 7.45 pCO2, Art POC 48(H) 35 - 45 mmHg [facility] pO2, Art POC 228(H) 80 - 108 mmHg [facility] Na, POC 145 135 - 145 mmol/L [facility] K POC 3.9 3.3 - 4.9 mmol/L [facility] Comment: Interpretive Data This method is not able to assess for hemolysis, which may falsely increase potassium concentrations. If further testing is needed to evaluate this result, consider in-laboratory plasma potassium. Current Interpretive Data was last revised on 2021. Cl, POC 110 97 - 110 mmol/L [facility] Ionized Ca, POC 4.38(L) 4.50 - 5.10 mg/dL [facility] Glucose, POC 238(H) 70 - 199 mg/dL [facility] Lactate, POC 3.2(H) 0.7 - 2.0 mmol/L [facility] O2Hb, Art POC 98.2(H) 90.0 - 95.0 % [facility] Carboxhgb fract 1.3 0.0 - 2.9 % [facility] Methemoglobin 0.4 0.0 - 1.9 % [facility] HHb, POC 0.0 0.0 - 5.0 % [facility] SO2 (franklin) arterial 100(H) 90 - 95 % [facility] Total CO2, Art POC 36(H) 22 - 32 mmol/L [facility] BE, art, POC 9.9(H) -2.0 - 2.0 mmol/L [facility] HCO3, Art POC 33(H) 20 - 30 mmol/L [facility] Hct, POC 36.0(L) 38.9 - 50.3 % [facility] Total Hb, POC 11.9(L) 13.0 - 17.5 g/dL [facility] Blood 06/26/2024 10:4 4 AM CDT 06/26/2024 10:44 AM CDT Felipe Alfaro MD LAB POCT ORDERABLES - DE VICE Final Result Performing Organization Address City/[facility]/ZIP Co de Phone Number [facility] [address] Department of Laboratories [place], [place] [phone] * (ABNORMAL) POC Activated Clotting Time, High Range (06/26/2024 10:43 AM CDT) ACT 523(H) 87 - 138 sec POC Performer [id number] [facility] Blood 06/26/2024 10:4 3 AM CDT 06/26/2024 10:43 AM CDT Felipe Alfaro MD LAB BLOOD ORDERABLES Fin al Result Performing Organization Address City/[facility]/ZIP Co de Phone Number [facility] [address] Department of Laboratories [place], [place] [phone] * Surgical pathology (06/26/2024 10:19 AM CDT) Tissue (Aorta) 06/26/2024 10 :19 AM CDT Comment:Placed in formalin a t the end of the case Narrative PATHOLOGY [facility] - 06/30/2024 10:31 AM CDT [place] [id number] [place], [place] [address] Tele: Karyna Doyle MD - Fan Runner Note to Patients: This report may contain [...] MAY Address: [address], [place], [place] [address] Gender: M : 1950 (Age: 74) Service: Cardiothoracic Location: [place] [address], Hospital #: [id number] Patient Type: [facility] Taken: 06/26/2024 Received 06/26/2024 Reported: 06/30/2024 Physician(s): Birgit Bui MD DIAGNOSIS: Aorta, not otherwise specified, segmental excision: - Focal medial mucoid degeneration [facility]/06/30/2024 10:31 Examining Pathologist: Felicia Leon M.D. [...] cm in aggregate. The wall is intact. Engineering Supervisor sections are submitted in cassette A1. Additional sections are submitted in A2. [facility]/06/29/2024 15:20 BRYSON,TYREE , JAP MICROSCOPIC DESCRIPTION: Microscopic examination supports the above captioned diagnosis. There is no inflammation. Clerical Data Follows A; 27719 REPORT IMAGES AND/OR SCANNED DOCUMENTS ONLY VIEWABLE IN PDF FORMAT The immunohistochemical test(s) cited in this report, if any, was developed and its performance characteristics determined by [facility] Pathology Department. It has not been cleared or approved by the U.S. Food and Drug Administration. The FDA has determined that such clearance or approval is not necessary. This test is used for clinical purposes. It should not be regarded as investigational or for research. [facility] Laboratory is certified under the [...] part or completely in the following laboratories: [facility], [address], [place], [place] [address] [place] [address], [address] [place] [id number]. Felipe Alfaro MD LAB PATHOLOGY ORDERABLES Final Result Performing Organization Address [facility]/ZIP Co de Phone Number PATHOLOGY [facility] Laboratory Receiving [address] [place] [address] * (ABNORMAL) POC Activated Clotting Time, High Range (06/26/2024 10:10 AM CDT) Pathologist [facility] ACT 460(H) 87 - 138 sec POC Performer [id number] [facility] Blood 06/26/2024 10:1 0 AM CDT 06/26/2024 10:10 AM CDT Felipe Alfaro MD LAB BLOOD ORDERABLES Fin al Result [facility] [address] Department [place] [address] * (ABNORMAL) POC Blood Gas and Chemistries, Arterial - (06/26/2024 9:55 AM CDT) Pathologist [facility] pH, Art POC 7.32(L) 7.35 - 7.45 pCO2, Art POC 50(H) 35 - 45 mmHg [facility] pO2, Art POC 384(H) 80 - 108 mmHg [facility] Na, POC 137 135 - 145 mmol/L [facility] K POC 3.5 3.3 - 4.9 mmol/L [facility] Comment: Interpretive Data This method is not able to assess for hemolysis, which may falsely increase potassium concentrations. If further testing is needed to evaluate this result, consider in-laboratory plasma potassium. Current Interpretive Data was last revised on 2021. Cl, POC 108 97 - 110 mmol/L [facility] Ionized Ca, POC 4.66 4.50 - 5.10 mg/dL [facility] Glucose, POC 131 70 - 199 mg/dL [facility] Lactate, POC 0.8 0.7 - 2.0 mmol/L [facility] O2Hb, Art POC 98.1(H) 90.0 - 95.0 % [facility] Carboxhgb fract 1.4 0.0 - 2.9 % [facility] Methemoglobin 0.5 0.0 - 1.9 % [facility] HHb, POC 0.0 0.0 - 5.0 % [facility] SO2 (franklin) arterial 100(H) 90 - 95 % [facility] Total CO2, Art POC 27 22 - 32 mmol/L [facility] BE, art, POC -0.9 -2.0 - 2.0 mmol/L [facility] HCO3, Art POC 24 20 - 30 mmol/L [facility] Hct, POC 38.0(L) 38.9 - 50.3 % [facility] Total Hb, POC 12.6(L) 13.0 - 17.5 g/dL [facility] Blood 06/26/2024 9:55 AM CDT 06/26/2024 9:55 AM CDT us Felipe Alfaro MD LAB POCT ORDERABLES - DE VICE Final Result [facility] [address] Department [place] [address] * (ABNORMAL) POC Blood Gas and Chemistries, Arterial - (06/26/2024 9:40 AM CDT) pH, Art POC 7.39 7.35 - 7.45 pCO2, Art POC 45 35 - 45 mmHg [facility] pO2, Art POC 479(H) 80 - 108 mmHg [facility] Na, POC 136 135 - 145 mmol/L [facility] K POC 4.1 3.3 - 4.9 mmol/L [facility] Comment: Interpretive Data This method is not able to assess for hemolysis, which may falsely increase potassium concentrations. If further testing is needed to evaluate this result, consider in-laboratory plasma potassium. Current Interpretive Data was last revised on 2021. Cl, POC 107 97 - 110 mmol/L [facility] Ionized Ca, POC 4.89 4.50 - 5.10 mg/dL [facility] Glucose, POC 143 70 - 199 mg/dL [facility] Lactate, POC 0.8 0.7 - 2.0 mmol/L [facility] O2Hb, Art POC 97.9(H) 90.0 - 95.0 % [facility] Carboxhgb fract 1.0 0.0 - 2.9 % [facility] Methemoglobin 1.1 0.0 - 1.9 % [facility] HHb, POC 0.0 0.0 - 5.0 % [facility] SO2 (franklin) arterial 100(H) 90 - 95 % [facility] Total CO2, Art POC 29 22 - 32 mmol/L [facility] BE, art, POC 1.7 -2.0 - 2.0 mmol/L [facility] HCO3, Art POC 26 20 - 30 mmol/L [facility] Hct, POC 43.0 38.9 - 50.3 % [facility] Total Hb, POC 14.4 13.0 - 17.5 g/dL [facility] Blood 06/26/2024 9:40 AM CDT 06/26/2024 9:40 AM CDT us Felipe Alfaro MD LAB POCT ORDERABLES - DE VICE Final Result [facility] [address] Department of [employer] [place] [address] * (ABNORMAL) POC Activated Clotting Time, High Range (06/26/2024 9:39 AM CDT) ACT 523(H) 87 - 138 sec POC Performer [id number] [facility] Blood 06/26/2024 9:39 AM CDT 06/26/2024 9:39 AM CDT us Felipe Alfaro MD LAB BLOOD ORDERABLES Fin al Result [facility] [address] Department [place] [address] * HI AN PROCEDURE PLACEHOLDER (06/26/2024 9:33 AM CDT) [...] code: CORNELL placement and diagnostic exam, non-congenital (16924) ICD code(s) for medical necessity: I71.2 - [...] inferior: normal 16- Apical septal: normal 17- Surprise: normal Valves: Aortic Valve: Annulus: normal Leaflet [...] 112 87 - 138 sec POC Performer [id number] [facility] Blood 06/26/2024 8:59 AM CDT 06/26/2024 8:59 AM CDT us Felipe Alfaro MD LAB BLOOD ORDERABLES Fin al Result [facility] [address] Department [place] [address] * HI AN CENTRAL LINE QUADRUPLE LUMEN, HI AN PROCEDURE PLACEHOLDER (06/26/2024 8:31 AM CDT) [...] AN SHEATH INTRODUCER PERFORMABLE, PULMONARY ARTERY CATH, HI AN PROCEDURE PLACEHOLDER (58:31 AM CDT) Narrative [...] ORDERABLE S Edited Result - Final * HI AN ELECTIVE ENDOTRACHEAL AIRWAY, HI AN PROCEDURE PLACEHOLDER (06/26/2024 8:27 AM CDT) [...] PhD ANESTHESIA ORDERABLE S Final Result * HI AN PROCEDURE PLACEHOLDER (06/26/2024 8:26 AM CDT) Bassam Sebastian MD PhD - 06/26/2024 8:26 AM CDT Bassam Mercedes MD PhD 06/26/2024 8:27 AM Arterial Line Patient location: [place] Indication: continuous blood pressure monitoring and blood sampling needed Staff: Supervising provider: Bassam Mercedes MD PhD Placed by: COATER SLATE: Gee Reece CRNA Procedure prep: Prep solution: [...] PhD ANESTHESIA ORDERABLE S Final Result * HI AN PROCEDURE PLACEHOLDER (06/26/2024 8:25 AM CDT) Bassam Sebastian MD PhD - 06/26/2024 8:25 AM CDT Bassam Mercedes MD PhD 06/26/2024 8:25 AM Arterial Line Patient location: [place] Indication: continuous blood pressure monitoring and blood sampling needed Staff: Supervising provider: Bassam Mercedes MD PhD Placed by: COATER SLATE: Gee Reece CRNA Procedure prep: Prep solution: [...] PROCEDURES F inal Result Performing Organization Address City/[facility]/ZIP Co de Phone Number [facility] * [...] by: Nikolai Youngblood M.D., MPH Nida Bullock ELEVATED MOTORMAN IMG XR PROCEDURES Final Result * Check Sample (06/26/2024 6:42 AM CDT) ABO Rh O Positive MBC HCLL OTHER 06/26/2024 6:42 AM CDT 06/26/2024 7:03 AM CDT Narrative [facility] - 06/26/2024 7:27 AM CDT + Anti-K antibody on pre op type and screen Steph Del Valle ELEVATED MOTORMAN LAB BLOOD ORDERABLES Lona l Result [facility] [address] Department [place] [address] MBC * Hemoglobin A1c (06/26/2024 6:42 AM CDT) Pathologist [facility] Hgb A1C 5.6 4.0 - 5.6 % Estimated Average Glucose 114 mg/dL [facility] Comment: The ADA recommends reporting an estimated Average Glucose (eAG) with all Hemoglobin A1c results using the equation derived from a study of 507 normal and diabetic adults. Minority populations were underrepresented and children were not included. (Diabetes Care 31:2462-4815, 2008). The eAG is not equivalent to a fasting glucose. Blood 06/26/2024 6:42 AM CDT 06/26/2024 6:56 AM CDT us Nida Bullock NP LAB BLOOD ORDERABLES Final Resul t Performing Organization Address City/[facility] Co de Phone Number [facility] [address] Department [place] [address] * ECG 12 lead (06/26/2024 6:25 AM CDT) 06/26/2024 6:25 AM CDT Narrative [facility] - 06/26/2024 2:35 PM CDT Vent Rate: 62 bpm RR Interval: 964 msec HI Interval: 184 msec QRS Duration: 100 msec QT Interval: 423 msec QTC Interval: 428 msec P-R-T [place]: 65 - 6 - 29 degrees IMPRESSION: SINUS RHYTHM NORMAL ECG Electronically Signed By: Barrington gallegos us Nida Bullock NP ECG ORDERABLES Final Result Performing Organization Address City/[facility] Co de Phone Number [facility] [place] [facility] * Prepare RBC: 4 Units (06/26/2024 6:08 AM CDT) [facility] Product code [id number] [facility] Unit Number [id number] 2-2 [facility] Product Blood Type OPOS [facility] Dispense Status RETURNED [facility] Product code [id number] [facility] Unit Number [id number] 3-J [facility] Product Blood Type OPOS [facility] Dispense Status RETURNED [facility] Product code [id number] [facility] Unit Number [id number] 2-0 [facility] Product Blood Type OPOS [facility] Dispense Status RETURNED [facility] Product code [id number] Unit Number [id number] [facility] Product Blood Type OPOS [facility] Dispense Status RETURNED [facility] Blood 06/26/2024 6:08 AM CDT Narrative [facility] - 07/04/2024 7:26 AM CDT Specify 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 (All products are leukoreduced and CMV- safe)- >No Date required:-[id number] LRRBC # of [id number] Reasons:-Hold for procedure (specify procedure)} us Nida Bullock NP BLOOD BANK PRODUCT ORDERABLES Fi nal Result Performing Organization Address [facility]/ZIP Co de Phone Number [facility] [address] Department of [employer] [place] [address] * B K Antigen Type (06/15/2024 12:08 PM CDT) RBC K ag Negative Blood 06/15/2024 12:0 8 PM CDT 06/15/2024 12:09 PM CDT us Felipe Alfaro MD LAB BLOOD ORDERABLES Fin al Result Performing Organization Address City/[facility]/ZIP Co de Phone Number [facility] [address] Department of [employer] [place] [address] * Antibody identification (06/15/2024 11:41 AM CDT) Antibody ID 1 Anti-K Blood 06/15/2024 11:4 1 AM CDT 06/15/2024 11:41 AM CDT Felipe Alfaro MD LAB BLOOD BANK TEST ORDJovita MANJARREZ Final Result Performing Organization Address [facility] Co de Phone Number [facility] [address] Department [place] [address] * eGFR (06/15/2024 9:50 AM CDT) eGFR [...] ORDERABLES Fin al Result Performing Organization Address [facility]/ZIP Co de Phone Number [facility] [address] Department [place] [address] * (ABNORMAL) Differential, auto (06/15/2024 9:50 AM CDT) Pathologist [facility] Neutrophil abs 7.0(H) 1.5 - 6.5 K/cumm Imm gran abs 0.0 0.0 - 0.1 K/cumm [facility] Lymphocyte abs 1.5 0.8 - 3.3 K/cumm [facility] Monocyte abs 0.7 0.2 - 0.8 K/cumm [facility] Eosinophil abs 0.1 0.0 - 0.5 K/cumm [facility] Basophil abs 0.0 0.0 - 0.1 K/cumm [facility] Neutrophil pct 74.5 % [facility] Comment: Interpretive Data Percent cell count reference ranges are not reported, since discordance with absolute values may lead to misinterpretation of CBC data. Current Interpretive Data was last revised on 2017. Imm gran pct 0.4 % [facility] Comment: Interpretive Data Percent cell count reference ranges are not reported, since discordance with absolute values may lead to misinterpretation of CBC data. Current Interpretive Data was last revised on 2017. Lymphocyte pct 16.2 % [facility] Comment: Interpretive Data Percent cell count reference ranges are not reported, since discordance with absolute values may lead to misinterpretation of CBC data. Current Interpretive Data was last revised on 2017. Monocyte pct 7.3 % [facility] Comment: Interpretive Data Percent cell count reference ranges are not reported, since discordance with absolute values may lead to misinterpretation of CBC data. Current Interpretive Data was last revised on 2017. Eosinophil pct 1.4 % [facility] Comment: Interpretive Data Percent cell count reference ranges are not reported, since discordance with absolute values may lead to misinterpretation of CBC data. Current Interpretive Data was last revised on 2017. Basophil pct 0.2 % [facility] Comment: Interpretive Data Percent cell count reference ranges are not reported, since discordance with absolute values may lead to misinterpretation of CBC data. Current Interpretive Data was last revised on 2017. Blood 06/15/2024 9:50 AM CDT 06/15/2024 10:01 AM CDT us Felipe Alfaro MD LAB BLOOD ORDERABLES Fin al Result [facility] [address] Department [place] [address] * CBC with auto differential (06/15/2024 9:50 AM CDT) [facility] WBC 9.4 3.8 - 9.9 K/cumm Hgb 16.1 13.0 - 17.5 g/dL [facility] Hct 47.2 38.9 - 50.3 % [facility] Plt 201 150 - 400 K/cumm [facility] MPV 10.5 9.1 - 12.3 fL [facility] RBC 5.16 4.30 - 5.80 M/cumm [facility] MCV 91.5 81.3 - 96.4 fL [facility] MCH 31.2 27.1 - 33.3 pg [facility] MCHC 34.1 32.3 - 35.7 g/dL [facility] RDW CV 12.8 11.1 - 14.9 % [facility] RDW SD 43.4 35.7 - 48.1 fL [facility] NRBC abs 0.00 0.00 - 0.01 K/cumm [facility] Blood 06/15/2024 9:50 AM CDT 06/15/2024 10:01 AM CDT us Felipe Alfaro MD LAB BLOOD ORDERABLES Fin al Result [facility] [address] Department [place] [address] * Protime-INR (06/15/2024 9:50 AM CDT) [facility] PT 12.8 9.7 - 13.0 sec INR 1.18 0.90 - 1.20 [facility] Comment: Interpretive data Oral anticoagulant therapeutic ranges: Venous thromboembolism prophylaxis or treatment: 2.0-3.0 CARDIOLOGY Standard range: 2.0-3.0 High-intensity range: 2.5-3.5 Refer to indication-specific guidelines for appropriate target ranges for prosthetic heart valve replacement. Current interpretive data was last revised on 2019. Blood 06/15/2024 9:50 AM CDT 06/15/2024 10:01 AM CDT Felipe Alfaro MD LAB BLOOD ORDERABLES Fin al Result Performing Organization Address City/[facility]/ZIP Co de Phone Number [facility] [address] [facility] [employer] [place], [place] [id number] * (ABNORMAL) Type and screen (06/15/2024 9:50 AM CDT) Darron, indirect Positive(A) ABO Rh O Positive [facility] Blood 06/15/2024 9:50 AM CDT 06/15/2024 10:02 AM CDT Narrative [facility] - 06/15/2024 11:41 AM CDT No blood transfusions last 90 days Surgery 06/26/24 No blood transfusions last 90 days Surgery 06/26/24 Has the patient had Daratumumab or Isatuximab in the past 6 months?->No Felipe Alfaro MD LAB BLOOD BANK TEST ORDE RABLES Final Result Performing Organization Address [facility] Co de Phone Number [facility] [address] Department [place] [address] * Lipid panel (06/15/2024 9:50 AM CDT) [...] revised on 2017. Triglycerides 47 <=149 mg/dL [facility] Comment: Interpretive Data Ages < or = [...] revised on 2017. HDL 62 >=40 mg/dL [facility] Comment: Interpretive Data Ages < or = [...] on 2017. LDL, calculated 67 <=129 mg/dL [facility] Comment: Interpretive Data Ages < or = [...] revised on 2023. Non-HDL Cholesterol 78 mg/dL [facility] Comment: Interpretive Data Ages < or = [...] last revised on 2017. Chol/HDL ratio 2 [facility] Blood 06/15/2024 9:50 AM CDT 06/15/2024 10:01 AM CDT us Felipe Alfaro MD LAB BLOOD ORDERABLES Fin al Result [facility] [address] Department [place] [address] * (ABNORMAL) Comprehensive metabolic panel (06/15/2024 9:50 AM CDT) Sodium 135 135 - 145 mmol/L Potassium, pl 3.9 3.3 - 4.9 mmol/L [facility] Chloride 101 97 - 110 mmol/L [facility] CO2 20(L) 22 - 32 mmol/L [facility] Anion gap 14 2 - 15 mmol/L [facility] BUN 15 6 - 25 mg/dL [facility] Creatinine 0.83 0.80 - 1.30 mg/dL [facility] Glucose 107 70 - 199 mg/dL [facility] Comment: Interpretive Data Fasting glucose [...] 2022. Calcium 9.3 8.5 - 10.3 mg/dL [facility] Bilirubin, total 0.9 0.1 - 1.2 mg/dL [facility] Protein, pl 7.1 6.5 - 8.5 g/dL [facility] Albumin 4.2 3.5 - 5.0 g/dL [facility] Alk phos 94 40 - 130 Units/L [facility] ALT 18 7 - 55 Units/L [facility] AST 25 10 - 50 Units/L [facility] Blood 06/15/2024 9:50 AM CDT 06/15/2024 10:01 AM CDT us Felipe Alfaro MD LAB BLOOD ORDERABLES Fin al Result [facility] [address] Department [place] [address] * LEFT HEART CATHETERIZATION WITH CORONARY ANGIOGRAPHY [...] complications like access site vascular complications; periprocedural VA, cardiac arrhythmias, stroke, contrast induced nephropathy, and . After discussing all the benefits, risks and alternatives, patient was willing to proceed with the procedure. PROCEDURES PERFORMED: Selective left and right coronary angiogram Aortogram Ultrasound-guided right radial arterial access (CPT 28278) Moderate sedation-CPT code 36525 MODERATE SEDATION: Midazolam 2 mg , Fentanyl 50 mcg, start time 1256 stop time 1331, total direct [id number] monitoring of conscious sedation 35 minutes (CPT 72390) TRAINED OBSERVER: Veronique Morales RN was trained observer for moderate sedation. ACCESS SITE: Right radial artery PROCEDURE: After obtaining informed consent, patient was brought to the laborer petroleum refinery and prepped and draped in the usual sterile manner. Time-out and immediate reassessment of the patient was performed. After local anesthesia with lidocaine, right radial artery access was taken with micropuncture needle under ultrasound guidance followed by insertion of a 6 Macanese sheath. 5 mg of verapamil and 100 mcg of nitroglycerin was given through the arterial sheath; 5000 units of heparin given through IV. Due to patient's aortic aneurysm, there was difficulty in engaging the coronary arteries. Aortogram was performed using JR4 catheter. Right coronary artery was engaged using 5 Macanese JR4 diagnostic catheter. Orthogonal views were taken. There was difficulty in engaging the left coronary artery. Multiple catheters including AL1, AL2, JL5 were used. Left coronary angiogram was performed using 5 Macanese JL5 diagnostic catheter. The catheter length was [...] was used to complete this document, therefore, pc maintenance technician variances may occur. Chase Garcia MD, [facility] 05/25/24 Chase Garcia MD CV CARDIAC [...] [place] [address] [address] Department of [employer] [place] [address] * Differential, auto (05/25/2024 9:33 AM CDT) Neutrophil abs 5.8 1.5 - 6.5 K/cumm Imm gran abs 0.0 0.0 - 0.1 K/cumm [facility] Lymphocyte abs 1.4 0.8 - 3.3 K/cumm [facility] Monocyte abs 0.6 0.2 - 0.8 K/cumm [facility] Eosinophil abs 0.1 0.0 - 0.5 K/cumm [facility] Basophil abs 0.0 0.0 - 0.1 K/cumm [facility] Neutrophil pct 73.0 % [facility] Comment: Interpretive Data Percent cell count reference ranges are not reported, since discordance with absolute values may lead to misinterpretation of CBC data. Current Interpretive Data was last revised on 2017. Imm gran pct 0.3 % [facility] Comment: Interpretive Data Percent cell count reference ranges are not reported, since discordance with absolute values may lead to misinterpretation of CBC data. Current Interpretive Data was last revised on 2017. Lymphocyte pct 17.8 % [facility] Comment: Interpretive Data Percent cell count reference ranges are not reported, since discordance with absolute values may lead to misinterpretation of CBC data. Current Interpretive Data was last revised on 2017. Monocyte pct 7.3 % [facility] Comment: Interpretive Data Percent cell count reference ranges are not reported, since discordance with absolute values may lead to misinterpretation of CBC data. Current Interpretive Data was last revised on 2017. Eosinophil pct 1.5 % [facility] Comment: Interpretive Data Percent cell count reference ranges are not reported, since discordance with absolute values may lead to misinterpretation of CBC data. Current Interpretive Data was last revised on 2017. Basophil pct 0.1 % [facility] Comment: Interpretive Data Percent cell count reference ranges are not reported, since discordance with absolute values may lead to misinterpretation of CBC data. Current Interpretive Data was last revised on 2017. Blood 05/25/2024 9:33 AM CDT 05/25/2024 9:47 AM CDT Chase Garcia MD LAB BLOOD ORDERABLES Final Resul t [address] Department [place] [address] * CBC with auto differential (05/25/2024 9:33 AM CDT) WBC 7.9 3.8 - 9.9 K/cumm Hgb 15.2 13.0 - 17.5 g/dL [facility] Hct 45.6 38.9 - 50.3 % [facility] Plt 222 150 - 400 K/cumm [facility] MPV 10.5 9.1 - 12.3 fL [facility] RBC 4.92 4.30 - 5.80 M/cumm [facility] MCV 92.7 81.3 - 96.4 fL [facility] MCH 30.9 27.1 - 33.[address] [facility] MCHC 33.3 32.3 - 35.7 g/dL [facility] RDW CV 13.0 11.1 - 14.9 % [facility] RDW SD 44.5 35.7 - 48.1 fL [facility] NRBC abs 0.00 0.00 - 0.01 K/cumm [facility] Blood 05/25/2024 9:33 AM CDT 05/25/2024 9:47 AM CDT us Chase Garcia MD LAB BLOOD ORDERABLES Final Resul t Performing Organization Address [facility] Co de Phone Number [facility] [address] Department [place] [address] * Comprehensive metabolic panel (05/25/2024 9:33 AM CDT) Sodium 141 135 - 145 mmol/L Potassium, pl 4.3 3.3 - 4.9 mmol/L [facility] Chloride 105 97 - 110 mmol/L [facility] CO2 23 22 - 32 mmol/L [facility] Anion gap 13 2 - 15 mmol/L [facility] BUN 13 6 - 25 mg/dL [facility] Creatinine 0.81 0.80 - 1.30 mg/dL [facility] Comment:Icteric sample, test results may be affected. Glucose 116 70 - 199 mg/dL [facility] Comment: Interpretive Data Fasting [...] BLOOD ORDERABLES Final Resul t [address] Department [place] [address] * TRANSTHORACIC ECHO (TTE) COMPLETE W DOPPLER/CF WO CONTRAST (05/07/2024 2:19 PM BUSINESS [employer]NA[employer]) LV EF 65-70 % CONS SCIMAGE Anatomical Region Laterality Modality Ultrasound 05/07/2024 1:29 PM [employer] Narrative 05/07/2024 4:13 PM BUSINESS MANAGER [employer]ITY [facility] Medical Group Cardiology [address], [address], [place] [address] P:[phone] P:[phone] Echocardiographic Report Patient Name: SALVATORE MAY : [...] without rupture, I25.10 Atherosclerotic heart disease of [place] coronary artery without angina pectoris, and I10 [...] Interpretation Site: Exam was interpreted at [facility]. Left Ventricle: Normal left ventricular systolic function. [...] By: Marck Owens MD 05/07/2024 4:13:06 PM [employer] Procedure Note Marck Owens MD - 05/07/2024 [facility] Medical [facility] Cardiology [address], [address], [place] [address] P:[phone] P:[phone] Echocardiographic Report Patient Name: SALVATORE MAY : 1950 Study Date: 05/07/2024 1:29:09 PM Gender: M Tech: Location: [facility] Ref Provider: MARCK OWENS Height(Cm): 193 BSA: 2.42 Weight(Kg): 108.9 Heart Rate: 64 BP: 138 / 80 Quality: Good Order Provider: MARCK OWENS PROCEDURES: Echocardiographic Report: Transthoracic echocardiogram with complete 2D, M-Mode, and color Dopplerexamination. With Strain Analysis. INDICATIONS: I71.21 Aneurysm of the ascending aorta, without rupture, I25.10Atherosclerotic heart disease of [place] coronary artery without angina pectoris, and [id number] (primary) hypertension. MEASUREMENTS: 2D/MM Value Range Doppler [...] Interpretation Site: Exam was interpreted at [facility]. Left Ventricle: Normal left ventricular systolic function. [...] By: Marck Owens MD 05/07/2024 4:13:06 PM [employer] us Marck Owens MD CV ECHO PROCEDURES Final Result * Colonoscopy (02/19/2024 10:03 AM BUSINESS [employer]) Anatomical Region Laterality Modality Other Narrative Procedure Note Gonzalez Ace DO - 02/19/2024 10:03 AM CST [facility] [[email or web address] Patient Name: Salvatore May Procedure Date: 02/19/2024 10:03 AM Date of : 1950 Admit Type: Outpatient Age: 73 Gender: Male Attending MD: Gonzalez Ace D.O. Room: [facility] 3 Note Status: Finalized Patient [...] scope was passed under direct vision. TheColonoscope [id number] was introduced through the anus and advanced [...] 10:03 AM Procedure Code(s): --- Professional --- 16057, Colonoscopy, flexible; with removal of tumor(s), polyp(s), or other lesion(s) by snare technique --- Technical --- 61916, Colonoscopy, flexible; with removal of tumor(s), polyp(s), or other lesion(s) by snare technique Diagnosis Code(s): --- Professional --- D12.5, Benign neoplasm of sigmoid colon Z80.0, Family history of malignant neoplasm of digestive organs --- Technical --- D12.5, Benign neoplasm of sigmoid colon Z80.0, Family history of malignant neoplasm of digestive organs CPT copyright 2020 [employer]. All rights reserved. The codes documented in this report are preliminary and upon medical records coder reviewmay be revised to meet current compliance requirements. Recognized by the [employer] for promoting quality [...] LAB [place] [address] [facility] Department [place] [address] * Hepatitis C antibody Blood (12/26/2022 9:29 [...] - GENERAL [place] [address] [address] Department [place] [address] from Last 3 Months or Most Recently Relevant to Health Maintenance Insurance AET MEDICARE AETNA MEDICARE AETNA MEDICARE Advance Directives For more information, please contact: [phone] * Full Code (Latest Code Status on File) Date Activated Date Inactivated Comments 06/26/2024 1:13 PM 07/03/2024 7:58 PM * Full Code Date Activated Date Inactivated Comments 02/19/2024 10:27 AM 02/19/2024 5:23 PM * Full Code Date Activated Date Inactivated Comments 02/19/2024 10:27 AM 02/19/2024 10:27 AM Care Teams Contact Lens Curve Grinder Relationship Specialty Start Date End Date Mark Don MD [address] [facility] [address] [place] [address] PCP - General Internal Medicine 04/13/24 Chetan Torres MD [address] [address] [facility] [address] [place] [address] Consulting Physician Neurosurgery 02/20/23 Felipe Alfaro MD [address] [place] [address] Consulting Physician Cardiothoracic Surgery 04/13/24 Marck Owens MD [address] [facility] [address] [place] [address] Referring Physician Cardiology 04/13/24
--- OUTSIDE RECORDS SUMMARY | 2024-07-21 01:01 | XMS_ITS | Encounter Summary ---
Author Organization [facility] - [facility] Address [address] [place] [address] Care Team Providers Care Sports Team Manager Name Role Phone Mark Don MD Primary Care Provider [phone] Reason for Visit * Reason Onset Date Comments Results 01/23/2024 Encounter Details Date Type Department Care Team (Late st Contact Info) Description 01/23/2024 MyChart Message Enc [facility] Medical [facility] Multispecialty Care - [address] [place] [address] [place], [facility] Provider xray results Social History Tobacco Use [...] Sex Assigned at Male 04/02/2024 9:58 AM PAYROLL AUDITOR Legal Sex Male 11:03 AM CDT Gender Identity Not on file Sexual Orientation Not on file documented as of this encounter Progress Notes * Amy Murrieta MA - 01/29/2024 1:10 PM CST Per. Mobley in another encounter she states: This patient called requesting a call about the X-Ray results. There is a Mayi Zhaopin message from Claudia but the patient states that he does not use MyChart and prefers phone calls. The patient would also like to have a disability parking placard. Thank you. I called pt no answer. LVM to return call OLL AUDITOR documented in this encounter Plan of Treatment Upcoming Encounters Date Type Department Care Team (Late st Contact Info) Description 07/23/2024 1:00 PM CDT Office Visit [facility] Multispecialty Care - [place] [address] [facility] [address] [place] [address] Anastasiya Otto, GABRIELLE [address] [facility] [address] [place] [address] documented as of this encounter Visit Diagnoses Not on filedocumented in this encounter Care Teams Sports Team Manager Relationship Specialty Start Date End Date Mark Don MD [address] [facility] [address] [place] [address] PCP - General INTERNAL MEDICINE 10/15/23 documented as of this encounter
--- OUTSIDE RECORDS SUMMARY | 2024-07-21 01:01 | XMS_ITS | Clinical Summary ---
Author Organization [facility] Address [address] [place] [address] Care Team Providers Care Supervisor Customer Records Division Name Role Phone Mark Don MD Primary Care Provider [phone] Allergies No known active allergies Medications aspirin 81 MG chewable tabletIndicatio ns:Coronary artery disease involving ugash[place] coronary artery of [place] heart, unspecified whether angina present Chew 1 tablet (81 mg total) by mouth daily. Active traMADol (ULTRAM) 50 MG tabletIndicatio ns:Chronic Pain Take 1 tablet (50 mg total) by mouth every 6 (six) hours as needed for Pain. Indications: Chronic Pain 60 tablet 01/29/20 24 Active lisinopril-hydr oCHLOROthiazide (ZESTORETIC) 20-25 MG tabletIndicatio ns:Other chest pain,Coronary artery disease involving ugashik coronary artery of ugash[place] heart, unspecified whether angina present Take 1 tablet by mouth every morning. Please go online and schedule follow-up appointment before you run out of your medication thank you. 90 tablet 05/23/19 25 Active atorvastatin (LIPITOR) 20 MG tabletIndicatio ns:Other chest pain,Coronary artery disease involving ugashik coronary artery of ug[place] heart, unspecified whether angina present TAKE 1 TABLET(20 MG) BY MOUTH DAILY 90 tablet 1 07/09/19 25 Active metoprolol succinate ER (TOPROL-XL) 25 MG 24 hr tabletIndicatio ns:Coronary artery disease involving ugash[place] coronary artery of [place] heart, unspecified whether angina present,Primary hypertension Take 2 tablets (50 mg total) by mouth daily. 60 tablet 07/11/19 25 Active atorvastatin (LIPITOR) 20 MG tabletIndicatio ns:Other chest pain,Coronary artery disease involving ugash[place] coronary artery of [place] heart, unspecified whether angina present Take 1 tablet (20 mg total) by mouth daily. 90 tablet 1 10/22/19 24 2024 Discontinued metoprolol succinate ER (TOPROL-XL) 25 MG 24 hr tabletIndicatio ns:Other chest pain,Coronary artery disease involving ugash[place] coronary artery of [place] heart, unspecified whether angina present,Primary hypertension Take [...] IOP check/DFEx Coronary artery disease invo lving ugashik coronary artery of ugash[place] heart 02/06/2021 Overview (10/22/2023): Last Assessment & Plan: Continue aspirin 81mg a day and Atorvastatin 20mg a day Hyperlipidemia LDL goal <70 07/15/2020 Benign hypertension 08/01/2013 Overview (10/22/2023): BENIGN HYPERTENSION Aneurysm of thoracic aorta 12/25/2012 Overview (01/07/2024): Thoracic aneurysm Last Assessment & Plan: Patient to repeat scan 07/08 Thoracic aneurysm Encounters Date Type Department Care Team Description 07/10/[address] [facility] [address] [place] [address] Mark Don MD 07/10/2024 [facility]phone [facility] [place] [address] [place] [address] Mark Don MD Medication Information 07/04/2024 [facility]phone [facility] [place] [address] [place] [address] Mark Don MD TCM from Last 3 [...] Sex Assigned at Male 04/02/2024 9:58 AM FARM MARKETER Legal Sex Male 11:03 AM CDT Gender Identity Not on file Sexual Orientation Not on file Last Filed Vital Signs Vital Sign Reading Time Taken Comments Blood Pressure 109/76 03/27/2024 2:30 PM FARM MARKETER chewing gum Pulse 83 03/27/2024 2:30 PM FARM MARKETER Temperature 36.7 C (98 F) 03/27/2024 2:30 PM FARM MARKETER Respiratory Rate 16 03/27/2024 2:30 PM FARM MARKETER Oxygen Saturation 99% 03/27/2024 2:3 0 PM FARM MARKETER Inhaled Oxygen Concentration - - Weight 80.1 kg (176 lb 9.6 oz) 03/27/19 25 2:30 PM FARM MARKETER Height 193 cm (6' 4 ) 03/27/2024 2:30 PM FARM MARKETER Body Mass Index 21.5 03/27/2024 2:30 PM FARM MARKETER Plan of Treatment Upcoming Encounters Date Type Department Care Team (Late st Contact Info) Description 07/23/2024 1:00 PM CDT Office Visit [facility] [place] [address] [place] [address] Anastasiya Otto, DENTAL LABORATORY ASSISTANT [address] [place] [address] Health Maintenance Due Date Last Done Comments DTaP, Tdap and Td Vaccines (1 - Tdap) 1968 Zoster Vaccines (1 of 2) 05/19/1999 Annual Medicare Wellness Visit 2014 Colorectal Cancer Screening Colonoscopy (10 Years) 12/27/2021 12/28/2011 PHQ-2 (Physician Thayer) 03/18/2024 RSV Immunization or 60+ Years (1 [...] VE NON-REACT LYN 10/22/2023 7:06 PM CDT [facility] Comment: ANTIBODIES TO HCV NOT DETECTED. DOES NOT EXCLUDE THE POSSIBILITY OF EXPOSURE TO HCV. 10/22/2023 10:0 2 AM CDT Mark Don MD LABORATORY Final Result [facility] [address] [place] [address], [place] [phone] [id number] * COLONOSCOPY GENERIC (SCAN ORDER) (12/28/2011) 12/28/2011 [facility] Scanned SCANNING Final Resu lt from Last 3 Months or Most Recently Relevant to Health Maintenance Insurance [employer] Care Teams Supervisor Customer Records Division Relationship Specialty Start Date End Date Mark Don MD [address] [place] [address] PCP - General INTERNAL MEDICINE 10/15/23
--- OUTSIDE RECORDS SUMMARY | 2024-07-21 01:01 | XMS_ITS | Clinical Summary ---
Author Organization Unknown Care Team Providers Care Orthopedic Podiatrist Name Role Phone LANA ESPOSITO, JUAN J Unavailable Unavailable SUMMER ALANISN, LOLA Unavailable Unavailable VERO PT, LASHAWN Unavailable Unavailable KARINA ELECTRICAL POWER ENGINEER, WILFREDO Unavailable Unavailalethea SHEA OT, YUSRA Unavailable Unavailable ISAURO ST, MAGDALENA Unavailable Unavailable JOSE R RN, BLADE Unavailable Unavailable Payers Payer Name Policy Type Policy Number Effective Date Expira tion Date AISHWARYA [id number] Problems Condition Name Condition Details Condition Category [...] PHYSICIANS LANA RN TO OBSERVE AND ASSESS, OUTBOUND SALES ADVISOR/SOLID WASTE FACILITY SUPERVISOR TO OBSERVE FOR RISK FOR FALLS AND INSTRUCT IN FALL PREVENTION, HOME SAFETY, MEDICATION MANAGEMENT, INFECTION PREVENTION, AND NUTRITION MANAGEMENT. RN/OUTBOUND SALES ADVISOR/SOLID WASTE FACILITY SUPERVISOR NURSE MAY PERFORM O2 SATURATION LEVEL ON ADMISSION AND PRN FOR 2 FOR RN TO ASSESS/OUTBOUND SALES ADVISOR TO OBSERVE PATIENT, WITH NOTIFICATION TO THE PHYSICIAN IF SATURATION IS 90% IN THE ABSENCE OF MORE SPECIFIC PARAMETERS FROM THE PHYSICIAN. AGENCY MAY PERFORM A RESUMPTION OF CARE VISIT FOLLOWING ANY HOSPITAL ADMISSION. RN/OUTBOUND SALES ADVISOR/SOLID WASTE FACILITY SUPERVISOR TO MONITOR CO-MORBID CONDITIONS LISTED ON THE PLAN OF CARE AND ANY NEW CONDITIONS THAT PRESENT THEMSELVES DURING THIS EPISODE TO IDENTIFY CHANGES AND INTERVENE TO MINIMIZE COMPLICATIONS. [code = RN TO OBSERVE, ASSESS, EVALUATE, AND DEVELOP AN INDIVIDUALIZED PLAN OF CARE. AGENCY MAY ACCEPT ORDERS FROM CONSULTING PHYSICIANS LANA RN TO OBSERVE AND ASSESS, OUTBOUND SALES ADVISOR/SOLID WASTE FACILITY SUPERVISOR TO OBSERVE FOR RISK FOR FALLS AND INSTRUCT IN FALL PREVENTION, HOME SAFETY, MEDICATION MANAGEMENT, INFECTION PREVENTION, AND NUTRITION MANAGEMENT. RN/OUTBOUND SALES ADVISOR/SOLID WASTE FACILITY SUPERVISOR NURSE MAY PERFORM O2 SATURATION LEVEL ON ADMISSION AND PRN FOR 2 FOR RN TO ASSESS/OUTBOUND SALES ADVISOR TO OBSERVE PATIENT, WITH NOTIFICATION TO THE PHYSICIAN IF SATURATION IS 90% IN THE ABSENCE OF MORE SPECIFIC PARAMETERS FROM THE PHYSICIAN. AGENCY MAY PERFORM A RESUMPTION OF CARE VISIT FOLLOWING ANY HOSPITAL ADMISSION. RN/OUTBOUND SALES ADVISOR/SOLID WASTE FACILITY SUPERVISOR TO MONITOR CO-MORBID CONDITIONS LISTED ON THE PLAN OF CARE AND ANY NEW CONDITIONS THAT PRESENT THEMSELVES DURING THIS EPISODE TO IDENTIFY CHANGES AND INTERVENE TO MINIMIZE COMPLICATIONS.] Future Scheduled Test MEDICATION MANAGEMENT; RN/OUTBOUND SALES ADVISOR/SOLID WASTE FACILITY SUPERVISOR TO REVIEW MEDICATIONS FOR INTERACTIONS, EFFECTIVENESS OF DRUG THERAPY, AND SIGNS/SYMPTOMS OF ADVERSE REACTIONS. MAY INSTRUCT AND REINFORCE MEDICATION TEACHING RELATED TO THE USE OF MEDICATIONS, DOSAGE, FREQUENCY, PURPOSE, SIDE EFFECTS, AND TO REPORT COMPLICATIONS. [code = MEDICATION MANAGEMENT; RN/OUTBOUND SALES ADVISOR/SOLID WASTE FACILITY SUPERVISOR TO REVIEW MEDICATIONS FOR INTERACTIONS, EFFECTIVENESS OF DRUG THERAPY, AND SIGNS/SYMPTOMS OF ADVERSE REACTIONS. MAY INSTRUCT AND REINFORCE MEDICATION TEACHING RELATED TO THE USE OF MEDICATIONS, DOSAGE, FREQUENCY, PURPOSE, SIDE EFFECTS, AND TO REPORT COMPLICATIONS.] Future Scheduled Test RISK FOR H OSPITALIZATION; RN TO ASSESS/TEACH, SOLID WASTE FACILITY SUPERVISOR/OUTBOUND SALES ADVISOR TO OBSERVE/TEACH PATIENT/CAREGIVER ON RISK FOR HOSPITALIZATION/EMERGENCY ROOM VISITS, TEACH SIGNS AND SYMPTOMS THAT PUT PATIENT AT RISK, WHEN TO NOTIFY NURSE/PHYSICIAN OF COMPLICATIONS/DECLINE, AND WHEN TO CALL 911. [code = RISK FOR HOSPITALIZATION; RN TO ASSESS/TEACH, SOLID WASTE FACILITY SUPERVISOR/OUTBOUND SALES ADVISOR TO OBSERVE/TEACH PATIENT/CAREGIVER ON RISK FOR HOSPITALIZATION/EMERGENCY ROOM VISITS, TEACH SIGNS AND SYMPTOMS THAT PUT PATIENT AT RISK, WHEN TO NOTIFY NURSE/PHYSICIAN OF COMPLICATIONS/DECLINE, AND WHEN TO CALL 911.] Future Scheduled Test CARDIOVASC ULAR SYSTEM; RN TO ASSESS/TEACH, OUTBOUND SALES ADVISOR/SOLID WASTE FACILITY SUPERVISOR TO OBSERVE/TEACH RELATED TO ALTERED CARDIOVASCULAR STATUS TO MINIMIZE COMPLICATIONS AND REDUCE HOSPITALIZATION. [code = CARDIOVASCULAR SYSTEM; RN TO ASSESS/TEACH, OUTBOUND SALES ADVISOR/SOLID WASTE FACILITY SUPERVISOR TO OBSERVE/TEACH RELATED TO ALTERED CARDIOVASCULAR STATUS TO MINIMIZE COMPLICATIONS AND REDUCE HOSPITALIZATION.] Future Scheduled Test PAIN MANAG EMENT; RN TO ASSESS AND TEACH, SOLID WASTE FACILITY SUPERVISOR/OUTBOUND SALES ADVISOR TO OBSERVE AND TEACH AND PROVIDE EDUCATION ON PAIN MANAGEMENT TECHNIQUES. [code = PAIN MANAGEMENT; RN TO ASSESS AND TEACH, SOLID WASTE FACILITY SUPERVISOR/OUTBOUND SALES ADVISOR TO OBSERVE AND TEACH AND PROVIDE EDUCATION ON PAIN MANAGEMENT TECHNIQUES.] Future Scheduled Test GASTROINTE STINAL MANAGEMENT; RN TO ASSESS AND TEACH, SOLID WASTE FACILITY SUPERVISOR/OUTBOUND SALES ADVISOR TO OBSERVE AND TEACH RELATED TO ALTERED GASTROINTESTINAL STATUS TO MINIMIZE COMPLICATIONS AND REDUCE HOSPITALIZATION. [code = GASTROINTESTINAL MANAGEMENT; RN TO ASSESS AND TEACH, SOLID WASTE FACILITY SUPERVISOR/OUTBOUND SALES ADVISOR TO OBSERVE AND TEACH RELATED TO ALTERED GASTROINTESTINAL STATUS TO MINIMIZE COMPLICATIONS AND REDUCE HOSPITALIZATION.] Future Scheduled Test FALL REDUC TION MANAGEMENT; RN TO ASSESS AND OBSERVE, OUTBOUND SALES ADVISOR/SOLID WASTE FACILITY SUPERVISOR TO OBSERVE FALL RISK FACTORS AND EDUCATE PATIENT/CAREGIVER ON STRATEGIES TO MINIMIZE THE RISK OF FALLING. [code = FALL REDUCTION MANAGEMENT; RN TO ASSESS AND OBSERVE, OUTBOUND SALES ADVISOR/SOLID WASTE FACILITY SUPERVISOR TO OBSERVE FALL RISK FACTORS AND EDUCATE [...] Scheduled Test PRN VISITS ; NUMBER OF RN/OUTBOUND SALES ADVISOR/SOLID WASTE FACILITY SUPERVISOR VISITS: 2 RN/OUTBOUND SALES ADVISOR/SOLID WASTE FACILITY SUPERVISOR TO PERFORM: BUTADIENE COMPRESSOR OPERATOR FOR THE FOLLOWING REASONS: WOUND AND CARDIAC COMPLICATIONS [code = PRN VISITS; NUMBER OF RN/OUTBOUND SALES ADVISOR/SOLID WASTE FACILITY SUPERVISOR VISITS: 2 RN/OUTBOUND SALES ADVISOR/SOLID WASTE FACILITY SUPERVISOR TO PERFORM: BUTADIENE COMPRESSOR OPERATOR FOR THE FOLLOWING REASONS: WOUND AND CARDIAC COMPLICATIONS ] Future Scheduled Test RN/OUTBOUND SALES ADVISOR/SOLID WASTE FACILITY SUPERVISOR TO PERFORM/TEACH INCISION CARE TO STERNAL CLOSED INCISION. KEEP CLEAN AND DRY [code = RN/OUTBOUND SALES ADVISOR/SOLID WASTE FACILITY SUPERVISOR TO PERFORM/TEACH INCISION CARE TO STERNAL CLOSED [...] End Date/Time Encounter Type Admission Type Attending [facility] Care Department Encounter ID Discharge Date Discharge Status Discharge Condition Discharge Reason Percent Goals Met 2024-07-05 00:00:00 2024-09-02 00:00:00 Outpatient NEW ADMISSION [facility] [id number] 100.00
[2024-07-21 01:13] LABS: Magnesium 2.2 mg/dL (1.6-2.3)
[2024-07-21 01:34] VITALS: BP 140/96; PULSE 68; RESP 14; TEMP 36.7; O2SAT 97
--- NOTE | 2024-07-21 02:50 | ED_ITS ---
HPI - Arrhythmia/Palpitations General Chief Complaint: Arrhythmia/Palpitations Stated Complaint: cardiac complaints Time Seen by Provider: 07/21/24 00:25 History of Present Illness HPI narrative: Patient did have recent open heart surgery, at night he has noticed that his heart seems to be beating very loudly and wanted to make sure everything was okay. He has no chest pain. No shortness of breath Related Data Home Medications ?Medication ?Instructions ?Recorded ?Confirmed ?Last Taken ?Type aspirin 81 mg tablet 81 mg PO DAILY 08/11/20 08/11/20 Unknown History atorvastatin 20 mg tablet 20 mg PO DAILY 08/11/20 08/11/20 Unknown History carvedilol 6.25 mg tablet 6.25 mg PO BID 08/11/20 08/11/20 Unknown History lisinopril 20 1 tablet PO DAILY 08/11/20 08/11/20 Unknown History mg-hydrochlorothiazide 25 mg tablet Allergies Allergy/AdvReac Type Severity Reaction Status Date / Time No Known Allergies Allergy Mild Unverified 07/20/24 22:23 Review of Systems 2 Review of Systems: All systems reviewed & are unremarkable except as noted in HPI and below PMFSH Past Medical History Medical History (Updated 07/21/24 @ 01:02 by Randi Shahid MD) HTN (hypertension) Social History Social History Smoking status: Never smoker Alcohol intake: current Substance use type: does not use Living arrangements: alone Gender identity (if verbalized by the patient): Male Exam 2 Narrative: EXAMINATION OF ORGAN SYSTEMS/BODY AREAS: Constitutional: Vital signs per nursing GENERAL:[No acute distress, non-toxic appearing.] HEAD: Normal with no signs of head trauma. EYES: EOMI, conjunctiva normal ENT: Hearing grossly intact LUNGS: Nonlabored breathing. HEART: Irregular rhythm ABD: [Soft], [nontender to palpation] EXT: Normal range of motion SKIN: [No rashes or lesions.] NEURO: [Alert and oriented x 3. No gross focal sensory or strength deficits.] PSYCH: Normal affect Course Vital Signs Vital signs: Vital Signs Pulse Rate 74 07/20/24 23:05 Temperature 98.0 F 07/21/24 01:34 Pulse Rate 68 07/21/24 01:34 Respiratory Rate 14 07/21/24 01:34 Blood Pressure 140/96 H 07/21/24 01:34 Pulse Oximetry 97 07/21/24 01:34 MDM - Arrhythmia/Palpitations MDM Narrative Medical decision making narrative: Patient presents with palpitations, without chest pain. He is very well- appearing here in no distress, EKG on my independent interpretation shows sinus rhythm rate 99, frequent PVCs, NV 144, QRS 93, QTC 539. Electrolytes within acceptable limits, troponin is negative. Unfortunately is too late in the day for Holter monitor but I have discussed this with the patient that he needs to follow up with his retail commission sales associate as soon as possible so that they can get monitor on him. Patient is agreeable with this plan. I did let him know that if he starts having chest pain he should also return he is agreeable to this to. Lab Data 07/20/24 23:06 07/20/24 23:06 Labs: Lab Results 07/20/24 Range/Units 23:06 WBC 8.8 (4.5-10.0) K/mm3 RBC 3.61 L (4.6-6.20) M/mm3 Hgb 10.3 L D (14.0-18.0) g/dL Hct 33.4 L (42.0-52.0) % MCV 92.5 (80-100) fl MCH 28.5 (26-34) pg MCHC 30.8 L (32-36) g/dl RDW 14.1 (11.5-14.5) % Plt Count 257 (150-375) k/mm3 MPV 9.6 (7.4-10.4) fl Immature Gran % (Auto) 0.3 (0-0.5) % Neut % (Auto) 73.4 H (45.5-73.1) % Lymph % (Auto) 15.4 L (18.3-44.2) % Nobles % (Auto) 8.8 H (2.6-8.5) % Eos % (Auto) 1.9 (0-4.4) % Baso % (Auto) 0.2 (0.2-1.2) % Lymph # (Auto) 1.36 (0.9-3.2) K/mm3 Nobles # (Auto) 0.8 H (0.1-0.6) K/mm3 Eos # (Auto) 0.2 (0-0.3) K/mm3 Baso # (Auto) 0.0 (0.0-0.1) K/mm3 Abs Immat Gran (auto) 0.03 (0.00-0.031) K/mm3 Absolute Neuts (auto) 6.5 (1.3-6.7) K/mm3 Absolute Nucleated RBC 0.000 (0.0-0.012) K/mm3 Nucleated RBC % 0.0 (0.0-0.2) % PT 17.4 H (11.1-14.7) Seconds INR 1.4 APTT 40.4 H (22.3-36.8) Seconds Sodium 139 (137-145) mmol/L Potassium 3.9 (3.4-5.0) mmol/L Chloride 110 H (98-107) mmol/L Carbon Dioxide 22 (22-30) mmol/L Anion Gap 7 (4-12) mmol/L BUN 8 L (9-20) mg/dL Creatinine 0.72 (0.7-1.3) mg/dL Estim Creat Clear Calc 94 ml/min Estimated GFR > 60 (59 - ) Glucose 104 (65-110) mg/dL Calcium 8.6 (8.4-10.2) mg/dL Magnesium 2.2 (1.6-2.3) mg/dL Total Bilirubin 0.6 (0.2-1.3) mg/dL AST 25 (17-59) U/L ALT 33 (6-50) U/L Alkaline Phosphatase 113 (38-126) U/L Troponin I < 0.012 (0.000-0.034) ng/mL Total Protein 6.0 L (6.3-8.2) g/dL Albumin 3.2 L (3.5-5.1) g/dL Lipase 139 (23-300) U/L Discharge Plan Discharge Clinical Impression: Ventricular premature beats Patient Disposition: Home Condition: Stable Instructions: Premature Ventricular Contractions (ED) Additional Instructions: Please follow-up with retail commission sales associate, you may need to have a Holter monitor placed or they may need to go up on your dosage of carvedilol. If you start having chest pain or anything else concerning, please come back to the hospital. Patient Language: Wallisian Prescriptions: No Action carvedilol 6.25 mg tablet 6.25 mg PO BID atorvastatin 20 mg tablet 20 mg PO DAILY lisinopril-hydrochlorothiazide 20-25 mg tablet 1 tablet PO DAILY aspirin 81 mg Tablet 81 mg PO DAILY Follow-up/Referrals: Florencia,MD Mark [Primary Care Provider] -
== END 2024-07-21 01:36 | disposition home or self-care (01) ==
PROVIDERS: Emergency Provider Emergency Medicine; PCP Internal Medicine
DX: I49.3 Ventricular premature depolarization (principal); I10 Essential (primary) hypertension
CPT/HCPCS: 36415; 71046; 80053; 83690; 83735; 84484; 85025; 85610; 85730; 93005; 99284

== ENCOUNTER 2024-08-17 13:45 | Outpatient (RCR) | payer MEDICARE, SELFPAY ==
[2024-07-28 09:06] VITALS: PULSE 96
== END 2024-09-16 14:22 | disposition home or self-care (01) ==
LOC: ANHCPREHAB 13:45
PROVIDERS: PCP Internal Medicine; Visit Provider Internal Medicine Cardiovascular Disease
DX: Z95.2 Presence of prosthetic heart valve (principal)
CPT/HCPCS: 93798